=== PATIENT | male | born 1970 | race Caucasian/White ===

== ENCOUNTER 2020-04-17 10:45 | Outpatient (RCR) | payer OTHER, SELFPAY ==
--- NOTE | 2020-04-02 15:22 | P.HPPSP_ITS ---
HPI Chief Complaint: depression Sources of Information: patient interviewed and chart reviewed HPI Narrative: 49 yo male, referred from [facility] after a difficult detox from alcohol, cocaine, heroin, fentanyl. Pt reports an increase in sx of depression, anxiety. All of these have been a problem he reports for most of his life. States he has been unable to break the cycle. Longest period of sobriety was eight years, this ended in 2017 and he has only been able to put together a few months at a time. Reports sleep latency sx with racing thoughts, MEGHA, LAURA, appetite returning after a rough detox, denies hx of zan, affirms obsessive compulsive sx. Reports a hx of Lexapro use for the past 15 years, asks that we assess regime for changes. Past Psychiatric History: IP: One admit to [facility], dual dx unit. OP: Dr. Lockwood who prescribes Suboxone x 12 years provides psychopharmacology. She treated pt's Hepatitis C. PCP also provides psychopharmacology. No current therapist. Trials: Prozac, Wellbutrin. Note: Pt fears SE. Medical Evaluation Reviewed: No (NA) [facility] Medical History (Updated 04/02/20 @ 15:39 by Radha Temple, SUPPORT ASSOCIATE) Hepatitis C Family History: depression, alcoholism, substance abuse, one cousin suicided Social History: Works for an [employer], lives with parents. One brother- estranged; has one son-last seen ~1.5 years ago as their is a legal montero with son's mother. Ex-gf has active restraining order-currently on probation, court date 04/13/20. One previous arrest in 2005. Substance History: Nicotine- 1PPD, Heroin/Fentanyl 2-3 bundles daily for ~4-5 weeks; Crack-recent binge for 4-5 weeks, Alcohol- 25 nips daily for the past ~ 6 weeks. Cannabis on occasion. Several detox admissions. Hx of IOP with [facility] Reports eight years of sobriety, [id number], with relapses since. Suboxone x [address] Suggs (who has treated pt for 20 years and managed his Hepatitis C) Trauma History: Pt denies trauma hx Diagnostics Labs Labs: Pt had several labs on 04/[address] Suggs. Meds/Allergies Meds Home Medications Medication Instructions Recorded Confirmed Type Lexapro 20 mg PO DAILY 04/02/20 04/02/20 History acamprosate 333 mg PO TID 04/02/20 04/02/20 History buprenorphine-naloxone 1 strip SUBLINGUAL DAILY 04/02/20 04/02/20 History topiramate 25 mg PO DAILY 04/02/20 04/02/20 History zolpidem 10 mg PO BEDTIME PRN 04/02/20 04/02/20 History Narrative: Pt given Propranolol 10 mg for tremors but has not been using it. Allergies Allergies Allergy/AdvReac Type Severity Reaction Status Date / Time latex [LATEX] Allergy Unknown RASH Unverified 02/13/20 15:26 latex Allergy Unknown Uncoded 01/10/20 00:00 Latex Gloves Allergy Unknown Uncoded 12/13/18 00:00 Mental Status Exam Mental Status Exam Patient Orientation: Person, Place, Time and Situation Level of Consciousness: Awake, Appropriate and Alert Patient Behavior: Talkative, Cooperative and Anxious Mood Description: Depressed and Anxious Affect Description: Flat Patient Cognition Impaired: No Ability to Follow Directions: Excellent Speech Pattern: Clear, Appropriate and Spontaneous Speech Memory Description: Intact Hallucinations: None Delusions: Not Present Thought Process: Intact Thought Content: positive for Intact Depressive Symptoms: Increased Anxiety, Insomnia, Difficulty Sleeping, Changes i n Appetite, Loss of Int. in Activity, Feelings of Worthlessness, Hopelessness, Isolating-Friends/Family, Feelings of Guilt, Unhappiness, Increased Fatigue, Low Self Esteem and Loss of Energy Judgement: Good Assessment & Plan Patient educated on: diagnosis, medication risk/benefits, substance abuse and therapeutic strategies Informed Consent: understands and further education needed Reason for continued partial hosp. stay Substantial Risk for: rapid decompensation Certification I certify that partial hospital treatment is medically necessary due to the symptoms and problems resulting from the patient's mental illness and the failure to treat the patient at the partial hospital level of care would likely result in the patient requiring inpatient psychiatric care which could not be prevented at a less intensive level of care.
[2020-04-03 12:34] VITALS: BMI 35.2
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
--- NOTE | 2020-04-07 08:39 | PC.NURSE ---
I called and spoke to pt about schedule and aftercare. He said he is doing a little better every day and praised the program. He pland to discharge 04/17 (monday), after using 10 days. He will not be scheduled Monday04/13/[address], and is not scheduled today. He declined a referral to [facility] for aftercare, stating he'd rather continue working with his PCP and has a friend who is a therapist helping him find a therapist to see. I let him know if this changes to let me know and I will refer to [facility]. Also, he is interested in a substance use IOP following this program, but NOT [facility], as he found it not helpful. I told him I will call and see if [facility] is running. Also, I offered to help pt find a executive business coach, and he declined, stating he's rather use an AA sponsor. He said he has been attending AA regfularly and plans to increase his attendance after IOP treatment here.
--- NOTE | 2020-04-07 10:20 | PC.NURSE ---
I called and left a message at [facility] asking for a call back to refer pt to [facility] Substance use IOP if they are running. I was not able to reach a live person
--- NOTE | 2020-04-07 11:14 | HO.PHPPROGNO ---
Subjective Subjective Date of Service: 04/07/20 Reason For Visit: depression Interim History: Darrel reports tolerating Abilify 2 mg. The first night he felt knocked out and slept well. Sleep pattern has returned to 3-5 hour range per night. Denies SE, however reports a bit of nausea, dry mouth. Has prn Zofran. Discussed hydration with Abilify as well. Reports the program is engaging, he appreciates the added services-meds, nursing and will transition to [facility] at some point. Plans to return to Dr. Aguila for psychopharmacology upon discharge. Medication Compliance: Yes Side effects from medications: Yes (dry mouth, mild nauses) Attending Groups: Yes Review of Systems Review of Systems Yes all other systems are reviewed and are negative Gastrointestinal: Reports nausea (mild) and Reports other (dry mouth) Psychiatric: Reports no additional psychiatric complaints Mental Status Exam Mental Status Exam Patient Orientation: Person, Place, Time and Situation Level of Consciousness: Awake, Appropriate and Alert Patient Behavior: Appropriate Mood Description: Calm Affect Description: Calm Patient Cognition Impaired: No Ability to Follow Directions: Excellent Speech Pattern: Clear, Appropriate and Spontaneous Speech Memory Description: Intact Hallucinations: None Delusions: Not Present Thought Process: Intact Thought Content: positive for Intact Depressive Symptoms: Insomnia and Difficulty Sleeping Judgement: Good Diagnostics Vital Signs (24Hr): Body Mass Index 35.2 Assessment & Plan Patient educated on: medication risk/benefits (SE, rationale for use), substance abuse (sleep disturbance in early recovery) and therapeutic strategies (titrate abilify) Informed Consent: understands and further education needed Reason for contiued partial hosp. stay Substantial Risk for: rapid decompensation Certification I certify that partial hospital treatment is medically necessary due to the symptoms and problems resulting from the patient's mental illness and the failure to treat the patient at the partial hospital level of care would likely result in the patient requiring inpatient psychiatric care which could not be prevented at a less intensive level of care. Greater than 50% of the session was spent on counseling and/or coordination of care Discharge Plan Discharge Attending provider: Josh Cook Additional Instructions: 04/07/20: Increase Abilify to 5 mg HS-to continue to augment Lexapro and assist in re-establishing sleep. Medications: New aripiprazole [Abilify] 5 mg tablet 5 mg PO BEDTIME Qty: 14 RF: 0 No Action topiramate 25 mg tablet 25 mg PO DAILY RF: 0 zolpidem 10 mg tablet 10 mg PO BEDTIME PRN (Reason: insomnia) RF: 0 acamprosate 333 mg tablet,delayed release (DR/EC) 333 mg PO TID RF: 0 buprenorphine-naloxone 8-2 mg film 1 strip sublingual DAILY RF: 0 Lexapro 20 mg 20 mg PO DAILY RF: 0 buprenorphine-naloxone [Suboxone] 4-1 mg Film 1 film SUBLINGUAL DAILY@1700 RF: 0 ondansetron 8 mg Tablet,Disintegrating 8 mg PO Q12H PRN (Reason: Nausea) RF: 0
--- NOTE | 2020-04-07 14:41 | PC.NURSE ---
I called to inquire about [facility] and spoke to [facility]. They are doing one group per day in [place] of their regular program. It's from 2-3pm daily and pt would have a 20 dollar copay each day attended. I called pt and informed him. he said he would like to do a program with longer days that is not so expensive, but will do this if nothing else is available.
--- NOTE | 2020-04-07 14:43 | PC.NURSE ---
At pt's request, I called [facility] to refer pt to IOP there. They are on Zoom and running full days (1:30 to 4:30 Mon-, and 11-2 on fridays). I called pt and he said he would like to do this. I called back and scheduled an intake for him on Monday04/20/2020, at 11am. They will call patient. I called and let him know this and he agreed.
--- NOTE | 2020-04-15 14:35 | P.PNPSP_ITS ---
Subjective Subjective Date of Service: 04/15/20 Reason For Visit: depression Interim History: Darrel reports mood is improved with Abilify. 2 mg is effective, however, 5 mg makes him feel antsy . Denies akathesia sx, yet reports less ability to focus. Overall, he wants to continue as it has been very effective for mood and to alleviate depression Medication Compliance: Yes Side effects from medications: Yes Attending Groups: Yes Review of Systems Review of Systems Yes all other systems are reviewed and are negative Psychiatric: Reports anxiety Mental Status Exam Mental Status Exam Patient Orientation: Person, Place, Time and Situation Level of Consciousness: Awake, Appropriate and Alert Patient Behavior: Appropriate Mood Description: Appropriate and Anxious Affect Description: Constricted Patient Cognition Impaired: No Ability to Follow Directions: Excellent Speech Pattern: Clear, Appropriate and Spontaneous Speech Memory Description: Intact Hallucinations: None Delusions: Not Present Thought Process: Intact Thought Content: positive for Intact Depressive Symptoms: Increased Anxiety Judgement: Good Diagnostics Vital Signs (24Hr): Body Mass Index 35.2 Assessment & Plan Patient educated on: medication risk/benefits Informed Consent: understands Reason for contiued partial hosp. stay Substantial Risk for: inability to function Certification I certify that partial hospital treatment is medically necessary due to the symptoms and problems resulting from the patient's mental illness and the failure to treat the patient at the partial hospital level of care would likely result in the patient requiring inpatient psychiatric care which could not be prevented at a less intensive level of care. Greater than 50% of the session was spent on counseling and/or coordination of care Discharge Plan Discharge Attending provider: Josh Cook Additional Instructions: 04/07/20: Increase Abilify to 5 mg HS-to continue to augment Lexapro and assist in re-establishing sleep. *Intake scheduled for [facility] on 04/20/2020, at 11am. Pt will recieve a phone call from them. (The program is on Zoom, 1:30 to 4:30 M-, and 11:30 to 2 Fridays). 04/15/20: Decrease Abilify to 2.5 mg daily from 5 mg to address feelings of lack of focus and feeling antsy . Medications: No Action zolpidem 10 mg tablet 10 mg PO BEDTIME PRN (Reason: insomnia) 30 Days Qty: 30 RF: 0 topiramate 25 mg tablet 25 mg PO DAILY RF: 0 acamprosate 333 mg tablet,delayed release (DR/EC) 333 mg PO TID RF: 0 buprenorphine-naloxone 8-2 mg film 1 strip sublingual DAILY RF: 0 Lexapro 20 mg 20 mg PO DAILY RF: 0 buprenorphine-naloxone [Suboxone] 4-1 mg Film 1 film SUBLINGUAL DAILY@1700 RF: 0 ondansetron 8 mg Tablet,Disintegrating 8 mg PO Q12H PRN (Reason: Nausea) RF: 0
--- NOTE | 2020-04-17 12:10 | HO.PHPPROGNO ---
Subjective Subjective Date of Service: 04/17/20 Reason For Visit: depression Interim History: Pt reports ongoing restlessness with Abilify 2.5 mg but with excellent mood improvement. Discussed options. Will trial Rexulti and Benztropine combination. Will follow up with PCP after discharge today for further changes. Medication Compliance: Yes Side effects from medications: Yes Attending Groups: Yes Review of Systems Review of Systems Yes all other systems are reviewed and are negative Reports other (?akathesia) Psychiatric: Reports other (?akathesia) Mental Status Exam Mental Status Exam Patient Orientation: Person, Place, Time and Situation Level of Consciousness: Awake and Appropriate Patient Behavior: Appropriate, Talkative and Cooperative Mood Description: Anxious and Apprehensive Affect Description: Constricted Patient Cognition Impaired: No Ability to Follow Directions: Excellent Speech Pattern: Clear and Appropriate Memory Description: Intact Hallucinations: None Delusions: Not Present Thought Process: Intact Thought Content: positive for Intact Judgement: Good Diagnostics Vital Signs (24Hr): Body Mass Index 35.2 Assessment & Plan Patient educated on: medication risk/benefits and therapeutic strategies Informed Consent: understands Reason for contiued partial hosp. stay Substantial Risk for: stable for discharge Certification I certify that partial hospital treatment is medically necessary due to the symptoms and problems resulting from the patient's mental illness and the failure to treat the patient at the partial hospital level of care would likely result in the patient requiring inpatient psychiatric care which could not be prevented at a less intensive level of care. Greater than 50% of the session was spent on counseling and/or coordination of care Discharge Plan Discharge Attending provider: Josh Cook Additional Instructions: 04/07/20: Increase Abilify to 5 mg HS-to continue to augment Lexapro and assist in re-establishing sleep. *Intake scheduled for [facility] on 04/20/2020, at 11am. Pt will recieve a phone call from them. (The program is on Zoom, 1:30 to 4:30 M-, and 11:30 to 2 Fridays). 04/15/20: Decrease Abilify to 2.5 mg daily from 5 mg to address feelings of lack of focus and feeling antsy . 04/17/20: Discontinue abilify Rexulti 0.5 mg daily Benztropine 1 mg hs Medications: New benztropine 1 mg tablet 1 mg PO DAILY Qty: 14 RF: 0 Rexulti 0.5 mg tablet 0.5 mg PO DAILY Qty: 14 RF: 0 No Action zolpidem 10 mg tablet 10 mg PO BEDTIME PRN (Reason: insomnia) 30 Days Qty: 30 RF: 0 topiramate 25 mg tablet 25 mg PO DAILY RF: 0 acamprosate 333 mg tablet,delayed release (DR/EC) 333 mg PO TID RF: 0 buprenorphine-naloxone 8-2 mg film 1 strip sublingual DAILY RF: 0 Lexapro 20 mg 20 mg PO DAILY RF: 0 buprenorphine-naloxone [Suboxone] 4-1 mg Film 1 film SUBLINGUAL DAILY@1700 RF: 0 ondansetron 8 mg Tablet,Disintegrating 8 mg PO Q12H PRN (Reason: Nausea) RF: 0
== END 2020-04-20 14:27 | disposition home or self-care (01) ==
LOC: HO.PHPA 10:45
PROVIDERS: Visit Provider Psychiatry & Neurology Psychiatry
DX: F33.9 Major depressive disorder, recurrent, unspecified (principal); F41.9 Anxiety disorder, unspecified; F11.20 Opioid dependence, uncomplicated
CPT/HCPCS: 90792; 90853; 99213

== ENCOUNTER → 2020-04-29 08:45 | Outpatient (BNVA) | payer OTHER, SELFPAY | PROVIDERS: PCP Internal Medicine; Referring Provider Internal Medicine; Visit Provider Physician Assistant | DX: Z76.89 Persons encountering health services in other specified circumstances (principal) ==

== ENCOUNTER → 2020-09-30 09:06 | Outpatient (BNVA) | payer OTHER, SELFPAY | PROVIDERS: PCP Internal Medicine; Visit Provider Physician Assistant ==

== ENCOUNTER 2020-11-04 11:28 | Day surgery (SDC) | payer OTHER, SELFPAY ==
--- NOTE | 2020-11-03 10:57 | P.CONAN_ITS ---
Documented by User: Tonya Moeney 11/03/20 10:57 HPI - Anesthesia Eval Consult details Narrative: 50yo M for Colonoscopy Suboxone daily PMFSH Active Problems Active Problems: All Active Problems (Updated 09/30/20 @ 09:24 by Therese Banuelos PA-C) Encounter for screening colonoscopy (Acute) History of substance abuse (Acute) Chronic constipation (Acute) Vitamin D deficiency (Acute) Impaired fasting glucose (Acute) Pure hypercholesterolemia (Acute) Obesity (BMI 30-39.9) (Acute) Smoker (Acute) Insomnia (Acute) Depression (Acute) Anxiety (Acute) Past Medical History Medical History (Updated 09/30/20 @ 09:24 by Therese Banuelos PA-C) Anxiety Chronic constipation Depression Hepatitis C History of intravenous drug abuse Impaired fasting glucose Insomnia Obesity (BMI 30-39.9) Pure hypercholesterolemia Smoker Vitamin D deficiency Family History Family History Father In good health Mother In good health Brother In good health Surgical History Surgical History History of left hip replacement History of surgery on arm Social History Social History (Updated 09/30/20 @ 09:23 by Therese Banuelos PA-C) Household Members: Family Alcohol intake: former Patient Tobacco Use Status: Current everyday Tobacco user Tobacco use type: Cigarette Cigarette Packs Per Day: 1 Cigarettes Per Day: 20.0 Years Smoked: 15 Use of substances other than those prescribed or required for medical reasons: No Are you DNR?: No Advance Directives: No Advance Directives Information Provided: Yes Recently lost weight without trying: No Current occupational status: employed 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 Meds Allergies Allergy/AdvReac Type Severity Reaction Status Date / Time crab Allergy Severe Anaphylaxis Verified 09/30/20 09:07 squid Allergy Severe Anaphylaxis Verified 09/30/20 09:07 latex [LATEX] Allergy Intermediate RASH Verified 09/30/20 09:07 Home Medications Medication Instructions Recorded Confirmed Last Taken Type acamprosate 333 mg PO TID 04/02/20 10/30/20 04/03/20 05:30 History buprenorphine-naloxone 1 strip SUBLINGUAL DAILY 04/02/20 10/30/20 04/03/20 05:30 History buprenorphine-naloxone [Suboxone] 1 film SUBLINGUAL DAILY@1700 04/03/20 09/30/20 04/02/20 History sennosides 8.6 mg tablet 8.6 mg PO DAILY 06/10/20 10/30/20 Unknown History Exam Exam Date and Time: November 03, 2020 1057 Assessment and Plan Assessment Anesthesia Assessment: Chart Reviewed Documented by User: Mia Shea 11/04/20 13:19 [facility] Past Medical History Medical History (Updated 09/30/20 @ 09:24 by Therese Banuelos PA-C) Anxiety Chronic constipation Depression Hepatitis C History of intravenous drug abuse Impaired fasting glucose Insomnia Obesity (BMI 30-39.9) Pure hypercholesterolemia Smoker Vitamin D deficiency Family History Family History Father In good health Mother In good health Brother In good health Surgical History Surgical History History of left hip replacement History of surgery on arm Social History Social History (Updated 09/30/20 @ 09:23 by Therese Banuelos PA-C) Household Members: Family Alcohol intake: former Patient Tobacco Use Status: Current everyday Tobacco user Tobacco use type: Cigarette Cigarette Packs Per Day: 1 Cigarettes Per Day: 20.0 Years Smoked: 15 Use of substances other than those prescribed or required for medical reasons: No Are you DNR?: No Advance Directives: No Advance Directives Information Provided: Yes Recently lost weight without trying: No Current occupational status: employed 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 Allergies Allergy/AdvReac Type Severity Reaction Status Date / Time crab Allergy Severe Anaphylaxis Verified 09/30/20 09:07 squid Allergy Severe Anaphylaxis Verified 09/30/20 09:07 latex [LATEX] Allergy Intermediate RASH Verified 09/30/20 09:07 Home Medications Medication Instructions Recorded Confirmed Last Taken Type acamprosate 333 mg PO TID 04/02/20 10/30/20 04/03/20 05:30 History buprenorphine-naloxone 1 strip SUBLINGUAL DAILY 04/02/20 10/30/20 04/03/20 05:30 History buprenorphine-naloxone [Suboxone] 1 film SUBLINGUAL DAILY@1700 04/03/20 09/30/20 04/02/20 History sennosides 8.6 mg tablet 8.6 mg PO DAILY 06/10/20 10/30/20 Unknown History Exam Airway Mallampati Class: II (Caps lateral) TM Dist: >3cm Neck ROM: Full Heart: RRr Lungs: CTA Assessment and Plan Assessment Anesthesia Assessment: Anesthesia Plan Discussed and Chart Reviewed Final Anesthetic Review NPO: Yes (Sip with meds) ASA Class: III Final Preanesthetic Review: No Changes in Pt Med Stat and Consent Obtained/Reviewed Patient Risk: Intermediate Procedure Risk: Intermediate Anesthetic Plan Anesthetic Plan: MAC: Disposition: Standard PACU
[2020-11-04 12:02] VITALS: BP 124/79; PULSE 79; RESP 18; TEMP 36.5; O2SAT 96; BMI 37.2
--- NOTE | 2020-11-04 12:05 | PC.NURSE ---
patient drank 80z water between 0930 and 1130. anesthesia aware. to postpone case to 1330
--- NOTE | 2020-11-04 13:05 | MHC.SHP ---
Pre-Procedural Eval Section B Chief Complaint: Screening Relevant Family History (Specify if Yes): No Relevant Social History: Tobacco Use Present Medications: see Short Stay Collaborative assessment Medical History: Significant History (Anxiety Chronic constipation Depression Hepatitis C History of intravenous drug abuse Impaired fasting glucose Insomnia Obesity (BMI 30-39.9) Pure hypercholesterolemia Smoker Vitamin D deficiency) History of Previous Operations: Relevant previous surgery/procedure and date(s) (History of left hip replacement History of surgery on arm) Allergies: Allergies Allergy/AdvReac Type Severity Reaction Status Date / Time crab Allergy Severe Anaphylaxis Verified 09/30/20 09:07 squid Allergy Severe Anaphylaxis Verified 09/30/20 09:07 latex [LATEX] Allergy Intermediate RASH Verified 09/30/20 09:07 Review of Systems Sugical H&P ROS: Negative: Constitution, Cardiovascular, Respiratory, Neurological, Psychiatric, Hem-Onc, Allergic/Immunologic, Gastrointestinal, Genitourinary, Musculoskeletal, Integumentary, Endocrine and Eyes/Ears/Nose/Throat Exam Surgical H&P Exam: Normal: HEENT, Normal: Heart, Normal: Lungs, Normal: Extremities, Normal: Abdomen, Normal: Skin and Normal: Neurological Plan Diagnosis/Plan: Unchanged I have reviewed the history and physical and performed a pertinent physical examination on my patient. No changes have occurred unless specified.
--- NOTE | 2020-11-04 13:31 | PM.OP ---
Brief Operative Note Date of Service: 11/04/20 Pre-op diagnosis: colon screen Surgeon: Iesha Stout MD Was an Swimming Pool Serviceperson used for this Procedure?: No Estimated blood loss (mL): 0
--- NOTE | 2020-11-04 13:31 | W.PM.OPN ---
Operative Note Operative Note Date of Service: 11/04/20 Narrative: Operative Information Procedure Description: Colonoscopy COLONOSCOPY Instrument: Olympus variable stiffness pediatric scope 190L then swapped to adult scope due to looping Colonoscopy Monitoring: Vital signs and clinical assessment, continuous EKG monitoring, Pulse oximetry, Carbon Dioxide monitoring and blood pressure monitoring were done throughout the procedure. Colon withdrawal time was 10 minutes. Procedure: The patient was placed in the left lateral decubitis position and pre-procedure medications were administered. After a digital rectal examination of the ano-rectum, the video colonoscope was inserted into the rectum and advanced through the colon to the cecum/TI. The colonoscope was slowly withdrawn in a retrograde panoramic fashion and the colon mucosa was carefully examined including a retroflexed view of the rectum. Findings and interventions are described below. Procedure Difficulty:moderate due to looping, pressure applied by Eleanor the tech Findings: Terminal Ileum-not intubated due to looping Cecum: x 2 sessile polyps measuring 6-8 mm removed with forceps Ascending Colon: normal Transverse Colon -normal Descending Colon:8-10 mm sessile polyp removed with cold snare Sigmoid Colon: normal Rectum: Retroflexion with small internal hemorrhoids, grade I Anorectum - normal Colon preparation: [place] Bowel Preparation Scale Right colon; 1 Transverse colon: 2 Left colon; 1 (0 = Unprepared colon segment with mucosa not seen due to solid stool that cannot be cleared. 1 = Portion of mucosa of the colon segment seen, but other areas of the colon segment not well seen due to staining, residual stool and/or opaque liquid. 2 = Minor amount of residual staining, small fragments of stool and/or opaque liquid, but mucosa of colon segment seen well. 3 = Entire mucosa of colon segment seen well with no residual staining, small fragments of stool or opaque liquid) Impression and Post Procedure Diagnosis: polyps internal hemorrhoids Plan: High fiber diet leaflet Avoid straining at stool, epsom salts and sitz bath, anusol supps or cream Repeat Colonoscopy in 1 year with adherence to prep instructions next time Above findings were reviewed with the patient and relevant handouts were provided if indicated.
[2020-11-04 14:08] VITALS: BP 102/57; PULSE 88; RESP 16; TEMP 36.7; O2SAT 93
[2020-11-04 14:23] VITALS: BP 115/66; PULSE 72; RESP 17; TEMP 36.7; O2SAT 99
== END 2020-11-04 14:55 | disposition home or self-care (01) ==
PROVIDERS: PCP Internal Medicine; Visit Provider Internal Medicine Gastroenterology
PROC: 0DJD8ZZ Inspection of Lower Intestinal Tract, Via Natural or Artificial Opening Endoscopic (ICD-10-PCS; CPT 45378; principal; 2020-11-04 12:40)
DX: Z12.11 Encounter for screening for malignant neoplasm of colon (principal); D12.0 Benign neoplasm of cecum; D12.4 Benign neoplasm of descending colon; K64.0 First degree hemorrhoids; K56.2 Volvulus; K59.09 Other constipation; Z91.040 Latex allergy status
CPT/HCPCS: 45380; 45385; 88305; J2250

== ENCOUNTER → 2020-11-24 08:08 | Outpatient (BNVA) | payer OTHER, SELFPAY | PROVIDERS: PCP Internal Medicine; Visit Provider Physician Assistant ==

== ENCOUNTER 2021-08-03 14:18 | Outpatient (REF) | payer OTHER, SELFPAY ==
[2021-08-03 15:36] LABS: Estimated Average Glucose 108 mg/dL; Hemoglobin A1c % 5.4 %
[2021-08-03 15:56] LABS: Alanine Aminotransferase 61 U/L (0-40); Albumin Level 4.2 g/dL (3.5-5.0); Alkaline Phosphatase 67 U/L (39-117); Aspartate Amino Transferase 43 U/L (5-37); Bilirubin Direct < 0.2 mg/dL (0.0-0.5); Bilirubin Total 0.4 mg/dL (0.0-1.0); Total Protein 7.7 g/dL (6.5-8.0)
[2021-08-03 16:15] LABS: TSH reflex Free T4 1.73 uIU/mL (0.32-4.0); Vitamin D 25-OH Total 12.9 ng/mL (>30)
[2021-08-03 16:22] LABS: Appearance Urine CLEAR; Color Urine YELLOW; Glucose Urine UA NEG (NEG); Leukocyte Esterase Urine NEG (NEG); Nitrite Urine NEG (NEG); Specific Gravity - Urine >= 1.030 (1.005-1.025); Urine Blood NEG (NEG); Urine Ketones 5 MG/DL (NEG); Urine Protein NEG (NEG-TRACE)
[2021-08-03 16:33] LABS: Amphetamine Screen Urine Not Detected (Not Detect); Barbiturates, Urine Not Detected (Not Detect); Benzodiazepines Screen Urine POSITIVE (Not Detect); Cannabinoid Screen Urine POSITIVE (Not Detect); Cocaine Screen Urine Not Detected (Not Detect); Fentanyl, urine Not Detected (Not Detect); Opiate Screen Urine Not Detected (Not Detect); Phencyclidine Screen Urine Not Detected (Not Detect)
[2021-08-03 16:36] LABS: Prostate Specific Antigen 0.16 ng/mL (<0.05-4.0)
== END 2021-08-03 14:19 | disposition home or self-care (01) ==
LOC: HO.LAB 14:18
PROVIDERS: Absent Provider Nurse Practitioner Psychiatric/Mental Health; PCP Internal Medicine; Visit Provider Internal Medicine
DX: Z00.00 Encounter for general adult medical examination without abnormal findings (principal); Z12.5 Encounter for screening for malignant neoplasm of prostate; N40.0 Benign prostatic hyperplasia without lower urinary tract symptoms; E78.00 Pure hypercholesterolemia, unspecified; I10 Essential (primary) hypertension; R73.01 Impaired fasting glucose; E55.9 Vitamin D deficiency, unspecified; F33.2 Major depressive disorder, recurrent severe without psychotic features; F31.4 Bipolar disorder, current episode depressed, severe, without psychotic features; F10.20 Alcohol dependence, uncomplicated
CPT/HCPCS: 36415; 80076; 80307; 81003; 82306; 83036; 84153; 84443

== ENCOUNTER 2021-08-11 11:15 | Outpatient (RCR) | payer OTHER, SELFPAY ==
[2021-07-29 12:02] VITALS: BMI 37.8
--- NOTE | 2021-07-29 12:33 | PC.ADMIT ---
Patient is a 50 year old male who was referred to [facility] by [facility] where patient received treatment for ETOH withdrawal and was discharged from detox on 07/14/21. Patient reports he relapsed on ETOH for 3 weeks from 06/21/21-07/09/21 after being sober for the past 3-4 months. Patient reports he relapsed d/t severe depression, feeling alone and isolated. Patient questions having Bipolar d/o. Patient does have a history of sobriety from ETOH for 8 years until 4 year ago. Patient also has a long history of substance use including using Heroin/Fentanyl and crack cocaine-last use in 2019. Patient also stated he has issues on and off with xanax, last used for 4 months 9 months ago. Patient stated he has a history of overdosing on Heroin/Fentanyl and Narcaned as a result x2 4 years ago and 4 and 1/2 years ago. He is currently on probation until August 12 for A & B and has ongoing litigation with his son's mother. Patient has not seen his son in 2 years. Patient struggling with feelings of guilt and shame. He has a history of numerous detox admissions. Patient is alert and oriented x4. calm and cooperative. Presents with depressed mood anxious affect. Denied SI. Reports he is struggling with severe depression. Medications reconciled with patient and patient's phamracy and paperwork from [facility]. Patient stated he takes Clonidine 0.2 mg at HS, Rexulti 1 mg daily, is not taking Methocarbamol and Mirtazapine stating they don't work. Does not like talking Ambien last used one month ago. 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
--- NOTE | 2021-07-29 13:25 | HO.PS.ADMBH ---
[facility] Date of Service: 07/29/21 Chief Complaint: MDD Sources of Information: patient interviewed, chart reviewed and crisis/core team assessment reviewed HPI Guardianship: No Medical Problems Affecting Mental Status: No Narrative: Mr. hamm is a 50-year-old single male, referred to [facility] through [facility], where he recently was discharged on 07/14/2021. He reports he has been experiencing increased symptoms of depression over the past 3-4 months, which was a precipitant to his relapse with alcohol. Endorses feeling isolated, withdrawn, poor sleep, guilt, anhedonia. Has been attending AA meetings 3-4 times weekly. He denies any thought of harm to self or others at this time. He explains that he has had difficulty maintaining any type of sobriety over the past several years, and that at 1 point he was able to stay sober for 8 years. He had reported that he has used Xanax off and on for the past 5 years, abusing it. He reports he has not used any substances or had any alcohol since 07/09/2021. He desribes a precipitant in that he is having difficulty with the mother of his child regarding visitation, and that he has not seen his son for 4 years, which is adding to his depressed mood. He has new psychiatric provider that he met once this past week, Vargas. He started ox carbamazepine 300 mg at bedtime 6 days ago. He says that the discussion of possible bipolar disorder has come up with both his therapist and his psychiatric provider. He does report that at times he has had symptoms of hypomania for a week at a time. He describes those periods of time as feeling the need for little sleep, with increased goal-directed activities, and finds himself highly functioning. He reports that he actually likes feeling like that, and that makes him feel as if he is ?high?. He understands however that after 6 to [address], he then experiences a severe low, where he sinks into a depression. He denies SI at this time, states he has no intention to harm himself in any way at this time. Patient was raised by both parents, along with 1 older brother. Describes relationship with parents as good, supportive. States he is estranged from his brother. Met developmental milestones as expected, graduated high school. Completed 3 years of college. Currently employed full-time. Past Psychiatric History: IP: One admit to [facility], dual dx unit. JALEESA: Recent admit to [facility] in [facility]. OP: Dr. Lockwood who prescribes Suboxone x 12 years. She treated pt's Hepatitis C. PCP: Michael Aguila MD Psychiatric provider: Vargas ([facility], saw 07/23/21 for 1st time). Therapist: Zhen Brooks, PhD Medication Trials: Prozac, Wellbutrin, Topamax, Campral, Abilify, clonidine, trazodone, Depakote, Seroquel, Cogentin. Note: Pt fears SE. Medical Evaluation Reviewed: Yes [facility] Medical History Anxiety Chronic constipation Depression Hepatitis C History of intravenous drug abuse Impaired fasting glucose Insomnia Obesity (BMI 30-39.9) Pure hypercholesterolemia Smoker Vitamin D deficiency Surgical History History of left hip replacement History of surgery on arm Family History: depression, alcoholism, substance abuse, one cousin suicided Social History: Works for an [employer], lives alone. One brother-estranged; has one son-last seen ~4 years ago as their is a legal montero with son's mother. Hx of restraining order in 2019 from ex-gf. One previous arrest in 2005. Substance History: Longstanding history of substance use disorder, with multiple detox and rehab facilities, states 30-40 times. Substances include alcohol, benzodiazepines, nicotine, marijuana, heroin/fentanyl, LSD, mushrooms, crack cocaine. Recently drinking 20 chest 30 nips hard liquor daily over past 3 to 4 months, discharge from detox on 07/14/2021. Trauma History: Pt denies trauma hx Diagnostics Vital Signs (24Hr): BMI result Body Mass Index 37.8 Meds/Allergies Allergies Allergies Allergy/AdvReac Type Severity Reaction Status Date / Time crab Allergy Severe Anaphylaxis Verified 03/03/21 11:02 squid Allergy Severe Anaphylaxis Verified 03/03/21 11:02 latex [LATEX] Allergy Intermediate RASH Verified 03/03/21 11:02 Mental Status Exam Mental Status Exam Narrative: Well-developed, overweight male, in NAD. Patient Appearance: Well Grooomed and Appropriate Patient Orientation: Person, Place, Time and Situation Level of Consciousness: Awake, Appropriate and Alert Patient Behavior: Appropriate, Talkative, Cooperative and Good Eye Contact Mood Description: Depressed Affect Description: Appropriate and Labile Patient Cognition Impaired: No Ability to Follow Directions: Good Speech Pattern: Clear, Coherent, Rapid and Pressured Memory Description: Intact Hallucinations: None Delusions: Not Present Thought Process: Intact Thought Content: positive for Intact Depressive Symptoms: Increased Anxiety, Insomnia, Increased Irritability, Difficulty Sleeping, Loss of Int. in Activity, Feelings of Worthlessness, Hopelessness, Feelings of Guilt, Unhappiness and Low Self Esteem Judgement: Fair Telehealth Telehealth Location of provider rendering services: practice address Location of patient: address on file Patient Identification confirmed using: Name, : Yes Telehealth method: video Patient verbally consented to treatment: Yes Patient verbally consented to billing insurance company: Yes Patient informed of any privacy concerns related to visit: Yes Time spent with patient (mins): 45 Assessment & Plan Assessment & Plan (1) Major depressive disorder, recurrent severe without psychotic features: Status: Acute Code(s): F33.2 - Major depressive disorder, recurrent severe without psychotic features Assessment and Plan: Patient reports feeling symptoms of depression, including difficulty sleeping, decreased energy, poor concentration, anhedonia, guilt, low self-esteem. He reports he has been struggling off and on with depression for years. Says current episode began 3-4 months ago, which he reports helped lead to his relapse with alcohol. He currently is receiving medications including Lexapro 20 mg, Rexulti 1 mg daily. He reports he finds these helpful, but is wondering if he may need a medication change or adjustment. He denies any thought of harm to self or others, no safety concern at this time. (2) Opioid dependence, uncomplicated: Status: Acute Code(s): F11.20 - Opioid dependence, uncomplicated Assessment and Plan: Patient reports he has a longstanding history of opioid use disorder, and is able to maintain abstinence with Suboxone 12 mg/3 mg daily. He does not see this as a concern at this time. (3) Alcohol use disorder, severe, dependence: Status: Acute Code(s): F10.20 - Alcohol dependence, uncomplicated Assessment and Plan: Patient has struggled off and on for many years with alcohol use disorder. He recently had relapsed several months and was discharge from detox several weeks ago. We discussed medications. Patient has taken acamprosate in the past. He cannot recall if it was particularly helpful or not, but he is willing to trial it again. He is concerned about his kidney function, as well as several other health issues. Discussed having labs completed prior to starting medication, he was in agreement. (4) Cocaine dependence, uncomplicated: Status: Acute Code(s): F14.20 - Cocaine dependence, uncomplicated Assessment and Plan: Patient reports he has maintained abstinence from cocaine for some time, since 2019. He reports he was prescribed Topamax at that time to help with cravings. He cannot recall whether or not it was helpful. He does not see cocaine use as a problem at this time, as he has not used in 2 years. (5) Bipolar disorder with severe depression: Status: Diagnosis (Provisional ) Status: Acute Code(s): F31.4 - Bipolar disorder, current episode depressed, severe, without psychotic features Assessment and Plan: Patient reports that his therapist and outpatient psychiatric provider have discussed possibility that he may have bipolar disorder rather than major depressive disorder. He does describe periods in his life where he has symptoms of hypomania, including distractibility, grandiosity, little need for sleep, excessive talkative miss, increased energy, feeling super productive. During encounter today he presents with pressured speech, rapid at times. He reports he was recently within the past week started with Trileptal 300 mg at bedtime. Education was provided regarding medication, including risks, benefits, side effects, alternatives. Discussed possibility of increasing dose during next encounter. Plan 1. Continue with current medication regimen as prescribed by outpatient provider. 2. Lab work ordered, including general Chem, A1c, lipid profile, liver profile, CABRAL. 3. Once lab work is reviewed patient is willing to take Campral, after checking kidney function. 4. Continue with current [facility] plan of care. 5. Follow-up as per protocol. Patient educated on: diagnosis, medication risk/benefits, substance abuse and therapeutic strategies Informed Consent: understands Reason for continued partial hosp. stay Substantial Risk for: inability to function, rapid decompensation and med/psych decompensation Certification I certify that partial hospital treatment is medically necessary due to the symptoms and problems resulting from the patient's mental illness and the failure to treat the patient at the partial hospital level of care would likely result in the patient requiring inpatient psychiatric care which could not be prevented at a less intensive level of care.
--- NOTE | 2021-07-29 15:29 | PC.NURSE ---
Case opened in clinical team
--- NOTE | 2021-08-04 10:56 | HO.PHPPROGNO ---
Subjective Subjective Date of Service: 08/04/21 Reason For Visit: MDD Guardianship: No Medical Problems Affecting Mental Status: No Interim History: Describes mood as good, but I'm still depressed, its up and down . No SI, no HI, no safety concern. Completed some of the labs, needs to return for the rest, as they are fasting. Considering medication changes. Medication Compliance: Yes Side effects from medications: No Attending Groups: Yes Review of Systems Acute medical concerns: No Medical Review of Systems: unchanged Review of Systems Review of Systems Yes all other systems are reviewed and are negative Constitutional: Reports no additional constitutional complaints Mental Status Exam Mental Status Exam Narrative: Well-developed, overweight male, in NAD. No evidence of any type of intoxication or withdrawals. Full range of affect, no constriction or lability observed. Speech clear, articulate, normal rate/rhythm/volume. Patient Appearance: Well Grooomed and Appropriate Patient Orientation: Person, Place, Time and Situation Level of Consciousness: Awake, Appropriate and Alert Patient Behavior: Appropriate, Cooperative and Good Eye Contact Mood Description: Appropriate and Depressed (continues with some depression, but improving. ) Affect Description: Appropriate Patient Cognition Impaired: No Ability to Follow Directions: Good Speech Pattern: Clear and Coherent Memory Description: Intact Hallucinations: None Delusions: Not Present Thought Process: Intact Thought Content: positive for Intact Depressive Symptoms: Increased Anxiety, Insomnia, Difficulty Sleeping, Loss of Int. in Activity, Feelings of Worthlessness, Hopelessness, Feelings of Guilt, Unhappiness and Low Self Esteem Judgement: Fair Diagnostics Vital Signs (24Hr): BMI result Body Mass Index 37.8 Assessment & Plan Assessment & Plan (1) Bipolar disorder with severe depression: Status: Acute Code(s): F31.4 - Bipolar disorder, current episode depressed, severe, without psychotic features Assessment and Plan: Patient reports he continues with some depressed mood, but states he feels it is beginning to improve. No SI/HI, no safety concern. Reports poor sleep, approximately 5 hours per night, with normal sleep of 8 hours per night. Discussed medications and doses including Trileptal and Rexulti. Reviewed side effects of each medication, as well as purpose of each medication. He sees new provider next week, has decided he will wait until then before increasing any doses. Patient did have labs completed, although is still missing some due to needing to fast. He will return to lab this week to complete the rest of them. Reviewed current lab results, including AST, ALT, etc.. (2) Alcohol use disorder, severe, dependence: Status: Acute Code(s): F10.20 - Alcohol dependence, uncomplicated Assessment and Plan: Patient reports he continues to abstain from alcohol and other substances. Requesting a can per se. Current kidney function test not yet completed, will start at low dose at this time, with possibilty to increase if labs wnl. (3) Cocaine dependence, uncomplicated: Status: Acute Code(s): F14.20 - Cocaine dependence, uncomplicated Assessment and Plan: No concerns at this time. Remains abstinent. (4) Opioid dependence, uncomplicated: Status: Acute Code(s): F11.20 - Opioid dependence, uncomplicated Assessment and Plan: Continues with outpatient Suboxone therapy, no concerns at this time. Remains abstinent. Plan 1. Patient to return to lab in order to complete fasting labs. 2. Start Campral 333 mg t.i.d. with meals. 3. Continue with current [facility] plan of care. 4. Follow-up as per protocol. Patient educated on: diagnosis, medication risk/benefits, substance abuse, therapeutic strategies, medical condition and other (lab results. ) Informed Consent: understands Reason for contiued partial hosp. stay Substantial Risk for: inability to function, rapid decompensation and med/psych decompensation Certification I certify that partial hospital treatment is medically necessary due to the symptoms and problems resulting from the patient's mental illness and the failure to treat the patient at the partial hospital level of care would likely result in the patient requiring inpatient psychiatric care which could not be prevented at a less intensive level of care. I spent minutes with the patient and/or on the patient floor today, greater than?50% of which was spent counseling/coordinating care. Discharge Plan Discharge Attending provider: Feng Schulz Medications: New acamprosate 333 mg tablet,delayed release (DR/EC) 333 mg PO TID 14 Days Qty: 42 0RF Rx Instructions: administer with breakfast, mid-day and evening meals No Action zolpidem 10 mg tablet 10 mg PO BEDTIME PRN (Reason: insomnia) 30 Days Qty: 30 0RF Label Comments: Patient stated he last took 1 month ago. clonidine HCl 0.2 mg tablet 0.2 mg PO BEDTIME 90 Days Qty: 90 0RF Label Comments: Medication is prescribed 0.1 mg TID patient takes 0.2 mg Q HS per old prescription. Hilaria [facility] DIRECTOR OF OPERATIONS FOR THERAPY is aware. Rexulti 2 mg tablet 1 mg PO DAILY 30 Days Qty: 15 1RF Label Comments: Patient stated prescriber orders 2 mg tab d/t insurance issues. He takes 1 mg Daily. buprenorphine-naloxone 8-2 mg film 1 strip sublingual DAILY 0RF buprenorphine-naloxone [Suboxone] 4-1 mg Film 1 film SUBLINGUAL DAILY@1700 0RF Rx Instructions: Take 4-1 mg in the evening daily oxcarbazepine 300 mg Tablet 300 mg PO BEDTIME 0RF ondansetron 4 mg Tablet,Disintegrating 4 mg PO Q8H PRN (Reason: Nausea) 0RF escitalopram oxalate 20 mg tablet 20 mg PO DAILY 90 Days Qty: 90 1RF Telehealth Telehealth Location of provider rendering services: practice address Location of patient: address on file Patient Identification confirmed using: Name, : Yes Telehealth method: video Patient verbally consented to treatment: Yes Patient verbally consented to billing insurance company: Yes Patient informed of any privacy concerns related to visit: Yes Time spent with patient (mins): 20
--- NOTE | 2021-08-06 11:44 | PC.NURSE ---
Patient's CABRAL positive for Marijuana and Benzodiazapines. Patient stated he last had marijuana a month ago and stated he has not taken any Benzodiazapines however he was given Librium in detox, last dose on July 14, 2021. Hilaria Khoury NP is aware.
--- NOTE | 2021-08-11 14:16 | P.PNPSP_ITS ---
Subjective Subjective Date of Service: 08/11/21 Reason For Visit: MDD Guardianship: No Medical Problems Affecting Mental Status: No Interim History: Darrel reports that ?my emotions are still up in down at times, but overall I am all right . States that he is excited to return to work, saying ?it's time . Reports that he has found PHP to be helpful. Medication Compliance: Yes Side effects from medications: No Attending Groups: Yes Review of Systems Acute medical concerns: No Medical Review of Systems: unchanged Review of Systems Review of Systems Yes all other systems are reviewed and are negative Constitutional: Reports no additional constitutional complaints Mental Status Exam Mental Status Exam Narrative: Well-developed, overweight male, in NAD. Fully attentive and focused during encounter. Full range of affect, no constriction or lability observed. Speech clear, articulate, normal rate/rhythm/volume. Patient Appearance: Well Grooomed and Appropriate Patient Orientation: Person, Place, Time and Situation Level of Consciousness: Awake, Appropriate and Alert Patient Behavior: Appropriate, Cooperative and Good Eye Contact Mood Description: Calm and Appropriate Affect Description: Calm and Appropriate Patient Cognition Impaired: No Ability to Follow Directions: Excellent Speech Pattern: Clear, Appropriate and Coherent Memory Description: Intact Hallucinations: None Delusions: Not Present Thought Process: Intact, Goal Oriented and Linear Thought Content: positive for Intact, positive for Goal Oriented and positive for Linear Depressive Symptoms: Increased Anxiety, Difficulty Sleeping, Feelings of Guilt and Unhappiness Judgement: Good Diagnostics Vital Signs (24Hr): BMI result Body Mass Index 37.8 Assessment & Plan Assessment & Plan (1) Bipolar disorder with severe depression: Status: Acute Code(s): F31.4 - Bipolar disorder, current episode depressed, severe, without psychotic features Assessment and Plan: Patient reports that he still has some mood fluctuations, but overall mood is stable. Denies any thought of harm to self or others, no safety concern. Discussed medications in detail. He has an appointment with his outpatient provider this coming Monday. He says that he feels overall improved with current medications, although he may consider asking his outpatient provider to increase Trileptal. He does not need any med refills at this time. He reports he has remained free from any substances, and continues to work on his substance use recovery. He reports that he plans to resume AA meetings in a more regular fashion now that he has completed this program. Reports he feels hopeful for the future, looking forward to resuming his work schedule. (2) Opioid dependence, uncomplicated: Status: Acute Code(s): F11.20 - Opioid dependence, uncomplicated (3) Alcohol use disorder, severe, dependence: Status: Acute Code(s): F10.20 - Alcohol dependence, uncomplicated (4) Cocaine dependence, uncomplicated: Status: Acute Code(s): F14.20 - Cocaine dependence, uncomplicated Plan 1. Patient appears stable for discharge from [facility]. 2. Patient to follow-up with outpatient providers going forward. Patient educated on: diagnosis, medication risk/benefits, substance abuse and therapeutic strategies Informed Consent: understands Reason for contiued partial hosp. stay Substantial Risk for: stable for discharge Certification I certify that partial hospital treatment is medically necessary due to the symptoms and problems resulting from the patient's mental illness and the failure to treat the patient at the partial hospital level of care would likely result in the patient requiring inpatient psychiatric care which could not be pr evented at a less intensive level of care. I spent minutes with the patient and/or on the patient floor today, greater than?50% of which was spent counseling/coordinating care. Discharge Plan Discharge Attending provider: Feng Schulz Medications: New acamprosate 333 mg tablet,delayed release (DR/EC) 333 mg PO TID 14 Days Qty: 42 0RF Rx Instructions: administer with breakfast, mid-day and evening meals No Action zolpidem 10 mg tablet 10 mg PO BEDTIME PRN (Reason: insomnia) 30 Days Qty: 30 0RF Label Comments: Patient stated he last took 1 month ago. clonidine HCl 0.2 mg tablet 0.2 mg PO BEDTIME 90 Days Qty: 90 0RF Label Comments: Medication is prescribed 0.1 mg TID patient takes 0.2 mg Q HS per old prescription. [facility] CONSULTANT is aware. Rexulti 2 mg tablet 1 mg PO DAILY 30 Days Qty: 15 1RF Label Comments: Patient stated prescriber orders 2 mg tab d/t insurance issues. He takes 1 mg Daily. buprenorphine-naloxone 8-2 mg film 1 strip sublingual DAILY 0RF buprenorphine-naloxone [Suboxone] 4-1 mg Film 1 film SUBLINGUAL DAILY@1700 0RF Rx Instructions: Take 4-1 mg in the evening daily oxcarbazepine 300 mg Tablet 300 mg PO BEDTIME 0RF ondansetron 4 mg Tablet,Disintegrating 4 mg PO Q8H PRN (Reason: Nausea) 0RF escitalopram oxalate 20 mg tablet 20 mg PO DAILY 90 Days Qty: 90 1RF Stand Alone Forms: Patient Portal Discharge page Telehealth Telehealth Location of provider rendering services: practice address Location of patient: address on file Patient Identification confirmed using: Name, : Yes Telehealth method: video Patient verbally consented to treatment: Yes Patient verbally consented to billing insurance company: Yes Patient informed of any privacy concerns related to visit: Yes Time spent with patient (mins): 20
--- NOTE | 2021-08-11 14:22 | PC.NURSE ---
Patient scheduled to discharge from [facility] today. Patient denied SI, denied any safety concerns. Reviewed patient medications with patient. Patient reports taking medications as prescribed.
--- NOTE | 2021-08-12 15:28 | PC.NURSE ---
I called and left a voice message for Zhen Holden PHD to inform him of the clients discharge from [facility]
== END 2021-08-11 23:59 | disposition home or self-care (01) ==
LOC: HO.PHPA 11:15
PROVIDERS: Visit Provider Psychiatry & Neurology Psychiatry
DX: F33.2 Major depressive disorder, recurrent severe without psychotic features (principal); F31.4 Bipolar disorder, current episode depressed, severe, without psychotic features; F11.20 Opioid dependence, uncomplicated; F10.20 Alcohol dependence, uncomplicated; F14.20 Cocaine dependence, uncomplicated
CPT/HCPCS: 90791; 90853

== ENCOUNTER 2022-03-30 07:53 | Day surgery (SDC) | payer OTHER, SELFPAY ==
[2022-03-25 13:58] VITALS: BMI 39.2
--- NOTE | 2022-03-29 11:54 | HO.ANESPROP2 ---
HPI - Anesthesia Eval Consult details Narrative: 51yo M for Colonoscopy Suboxone daily PMFSH Active Problems Active Problems: All Active Problems (Updated 11/24/21 @ 10:59 by Therese Banuelos PA-C) Bipolar disorder with severe depression (Acute) Cocaine dependence, uncomplicated (Acute) Alcohol use disorder, severe, dependence (Acute) Opioid dependence, uncomplicated (Acute) Major depressive disorder, recurrent severe without psychotic features (Acute) Hemorrhoids (Acute) Tubular adenoma (Acute) Cough (Acute) Sinusitis (Acute) Encounter for screening colonoscopy (Acute) History of substance abuse (Acute) Chronic constipation (Acute) Vitamin D deficiency (Acute) Impaired fasting glucose (Acute) Pure hypercholesterolemia (Acute) Obesity (BMI 30-39.9) (Acute) Smoker (Acute) Insomnia (Acute) Depression (Acute) Anxiety (Acute) Past Medical History Medical History Hepatitis C History of intravenous drug abuse Family History Family History Father In good health Mother In good health Brother In good health Other Substance abuse Surgical History Surgical History History of left hip replacement History of surgery on arm Social History Social History Household Members: None Housing: Condominium Alcohol intake: former Patient Tobacco Use Status: Current everyday Tobacco user Tobacco use type: Smokeless Tobacco Cigarettes Per Day: 2 Years Smoked: 15 e-Cigarette/Vaping Use: Never Used service: No Current occupational status: employed 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 Meds Allergies Allergy/AdvReac Type Severity Reaction Status Date / Time crab Allergy Severe Anaphylaxis Verified 11/24/21 10:32 squid Allergy Severe Anaphylaxis Verified 11/24/21 10:32 latex [LATEX] Allergy Intermediate RASH Verified 11/24/21 10:32 Home Medications Medication Instructions Recorded Confirmed Last Taken Type buprenorphine 8 mg-naloxone 2 mg 1 strip sublingual DAILY 04/02/20 07/29/21 07/29/21 04:30 History sublingual film buprenorphine 4 mg-naloxone 1 mg 1 film sublingual DAILY@1700 04/03/20 07/29/21 03/30/22 History sublingual film (Suboxone) Exam Exam Date and Time: March 29, 2022 1154 Height,Weight and Vital Signs: Height 5 ft 8 in Weight 117.027 kg Assessment and Plan Assessment Anesthesia Assessment: Chart Reviewed
[2022-03-30 08:15] VITALS: BP 139/95; PULSE 81; RESP 18; TEMP 36.6; O2SAT 97
[2022-03-30] MEDS: Lactated Ringers 1,000 ML 100 ML IVCONT (08:26)
[2022-03-30 08:45] LABS: Amphetamine Screen Urine Not Detected (Not Detect); Barbiturates, Urine Not Detected (Not Detect); Benzodiazepines Screen Urine Not Detected (Not Detect); Cannabinoid Screen Urine POSITIVE (Not Detect); Cocaine Screen Urine Not Detected (Not Detect); Fentanyl, urine Not Detected (Not Detect); Opiate Screen Urine Not Detected (Not Detect); Phencyclidine Screen Urine Not Detected (Not Detect)
--- NOTE | 2022-03-30 09:16 | P.HPSUR_ITS ---
Pre-Procedural Eval Section A Date of Service: 03/30/22 Section B Chief Complaint: hx of polyps, poor prep colo in 2020 Details of Present Illness: 51y.o M with recent colonoscopy in 2020 which was poor prep. BBPS 4. Was found to have x3 tubular adenomas. Here for a repeat col onoscopy. Relevant Social History: Other (specify) (smokes, hx of IVDU and etOH use ) Present Medications: see Short Stay Collaborative assessment Medical History: Significant History ( Hepatitis C History of intravenous drug abuse) History of Previous Operations: Relevant previous surgery/procedure and date(s) (Hip surgery, arm surgery ) Allergies: Allergies Allergy/AdvReac Type Severity Reaction Status Date / Time crab Allergy Severe Anaphylaxis Verified 11/24/21 10:32 squid Allergy Severe Anaphylaxis Verified 11/24/21 10:32 latex [LATEX] Allergy Intermediate RASH Verified 11/24/21 10:32 Review of Systems Review of Systems Comment: 10 point ROS negative Exam Exam Comment: Gen appear: No acute distress, well nourished HEENT: no icterus, Chest: No overt resp distress CVS: S1/S2, regular Abd: soft, nontender, nondistended Psych: Stable affect, answering questions appropriately Neuro: A/Ox3 noted to move all extremities spontaneously Ext: no peripheral edema Plan Diagnosis/Plan: Unchanged I have reviewed the history and physical and performed a pertinent physical examination on my patient. No changes have occurred unless specified.
--- NOTE | 2022-03-30 09:18 | P.CONAN_ITS ---
[facility] Active Problems Active Problems: All Active Problems (Updated 11/24/21 @ 10:59 by Therese Banuelos PA-C) Bipolar disorder with severe depression (Acute) Cocaine dependence, uncomplicated (Acute) Alcohol use disorder, severe, dependence (Acute) Opioid dependence, uncomplicated (Acute) Major depressive disorder, recurrent severe without psychotic features (Acute) Hemorrhoids (Acute) Tubular adenoma (Acute) Cough (Acute) Sinusitis (Acute) Encounter for screening colonoscopy (Acute) History of substance abuse (Acute) Chronic constipation (Acute) Vitamin D deficiency (Acute) Impaired fasting glucose (Acute) Pure hypercholesterolemia (Acute) Obesity (BMI 30-39.9) (Acute) Smoker (Acute) Insomnia (Acute) Depression (Acute) Anxiety (Acute) Past Medical History Medical History Hepatitis C History of intravenous drug abuse Family History Family History Father In good health Mother In good health Brother In good health Other Substance abuse Family history of problems with anesthesia: No Surgical History Surgical History History of left hip replacement History of surgery on arm History of Problems with Anesthesia: No Social History Social History Household Members: None Housing: Condominium Alcohol intake: former Patient Tobacco Use Status: Current everyday Tobacco user Tobacco use type: Smokeless Tobacco Cigarettes Per Day: 2 Years Smoked: 15 e-Cigarette/Vaping Use: Never Used Substance Use Type Other:: clean for 10 years Are you DNR?: No Advance Directives: No Advance Directives Information Provided: Yes Nutrition Risks: No Nutritional Risk service: No Current occupational status: employed 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 Meds Allergies Allergy/AdvReac Type Severity Reaction Status Date / Time crab Allergy Severe Anaphylaxis Verified 11/24/21 10:32 squid Allergy Severe Anaphylaxis Verified 11/24/21 10:32 latex [LATEX] Allergy Intermediate RASH Verified 11/24/21 10:32 Active Medications: Current Medications Albuterol Sulfate (Albuterol Sulfate (0.083%) 2.5 Mg/3 Ml Vial.Neb) 2.5 mg INHALE ONCE PRN PRN Reason: Shortness of Breath/Wheezing Lactated Ringer's (Lr) 1,000 mls @ 100 mls/hr IVCONT .Q10H UMM Last Admin: 03/30/22 08:26 Dose: 100 mls/hr Home Medications Medication Instructions Recorded Confirmed Last Taken Type buprenorphine 8 mg-naloxone 2 mg 1 strip sublingual DAILY 04/02/20 07/29/21 07/29/21 04:30 History sublingual film buprenorphine 4 mg-naloxone 1 mg 1 film sublingual DAILY@1700 04/03/20 07/29/21 03/30/22 History sublingual film (Suboxone) Exam Exam Date and Time: March 30, 2022 0918 Height,Weight and Vital Signs: Height 5 ft 8 in Weight 117.027 kg Last Vital Signs Temp 98 F 03/30/22 08:15 Pulse 81 03/30/22 08:15 Resp 18 03/30/22 08:15 BP 139/95 H 03/30/22 08:15 Pulse Ox 97 03/30/22 08:15 O2 Del Method 03/30/22 08:15 Pertinent Lab Results Pertinent Lab Results: Laboratory Tests 03/30/22 Unknown Urine Opiates Screen Not Detected Urine Fentanyl Screen Not Detected Ur Barbiturates Screen Not Detected Ur Phencyclidine Scrn Not Detected Ur Amphetamines Screen Not Detected U Benzodiazepines Scrn Not Detected Urine Cocaine Screen Not Detected U Marijuana (THC) Screen POSITIVE H Airway Mallampati Class: III TM Dist: >3cm Neck ROM: Full Assessment and Plan Assessment Anesthesia Assessment: Anesthesia Plan Discussed and Chart Reviewed Final Anesthetic Review Family History of Problems with Anesthesia: No History of Problems with Anesthesia: No NPO: Yes ASA Class: III Final Preanesthetic Review: No Changes in Pt Med Stat, Meds/Allgs Chart Reviewed, Consent Obtained/Reviewed and Anes Risks/Benef Reviewed Patient Risk: Intermediate Procedure Risk: Low Anesthetic Plan Anesthetic Plan: MAC: Disposition: Standard PACU
--- NOTE | 2022-03-30 09:28 | P.OP_ITS ---
Operative Note Operative Note Date of Service: 03/30/22 Narrative: Procedure: Colonoscopy Indication: Personal history of polyps Endoscopist: Coral Coronel MD Anesthesia Provider: Millie Blunt CRNA Anesthesia type: MAC Instrument: Olympus [id number]-H190L Consent: Indication, risks vs benefits, and alternatives were discussed with the patient who gave written informed consent to proceed. EKG, pulse, pulse oximetry and blood pressure were monitored throughout the procedure. Please see anesthesia flowsheet. Procedure: The patient was brought to the procedure room and placed in the left lateral decubitus position. IV medications were administered by the anesthesia provider in attendance. A digital rectal exam was performed which was normal. The colonoscope was then inserted through the anus and advanced through the colon to the cecum at 80 cm,and terminal ileum. Mucosa was carefully examined under high definition white light as the instrument was slowly withdrawn in a retrograde panoramic fashion. Retroflexion was performed in ascending colon and rectum. The procedure was not difficult. There were no immediate obvious complications. The quality of the prep was BBPS: 3+3+3 = excellent Withdrawal time 19 minutes. Limitations: No limitations. Findings: Mucosa: Normal to cecum and terminal ileum. Protruding lesions: * 2 sessile polyp of size 7-9 mm in transverse colon. Cold snare polypectomy was performed. The polyp was completely removed and retrieved. * Small internal hemorrhoids without stigmata of recent bleeding. Impression: 1. Normal colon mucosa 2. Total of 2 polyps removed from transverse colon. 3. Internal hemorrhoids Recommendations: - Follow path results. - Repeat colonoscopy in 3 years if path shows adenomas (i.e total of 5 adenomas combined over the two colonoscopies) otherwise 3-5 years.
[2022-03-30 10:08] VITALS: BP 120/75; PULSE 65; RESP 16; TEMP 36.9; O2SAT 93
[2022-03-30 10:23] VITALS: BP 164/94; PULSE 63; RESP 18; TEMP 36.9; O2SAT 96
== END 2022-03-30 10:38 | disposition home or self-care (01) ==
PROVIDERS: Nurse Practitioner; PCP Internal Medicine; Visit Provider Internal Medicine
PROC: 0DJD8ZZ Inspection of Lower Intestinal Tract, Via Natural or Artificial Opening Endoscopic (ICD-10-PCS; CPT 45378; principal; 2022-03-30 09:20)
DX: Z12.11 Encounter for screening for malignant neoplasm of colon (principal); Z86.010 Personal history of colon polyps; D12.3 Benign neoplasm of transverse colon; K64.8 Other hemorrhoids; B19.20 Unspecified viral hepatitis C without hepatic coma; F10.11 Alcohol abuse, in remission; F19.10 Other psychoactive substance abuse, uncomplicated; Z79.899 Other long term (current) drug therapy; Z91.040 Latex allergy status; F17.210 Nicotine dependence, cigarettes, uncomplicated
CPT/HCPCS: 45385; 80307; 88305

== ENCOUNTER 2022-09-21 10:41 | Outpatient (REF) | payer OTHER, SELFPAY ==
[2022-09-21 11:44] LABS: Basophils Absolute Auto 0.1 X10*3/uL (0.0-0.2); Basophils Percent Auto 0.7 % (0-2); Eosinophils Percent Auto 0.6 % (0-4); Hematocrit 41.6 % (42.0-52.0); Hemoglobin 14.3 g/dl (14.0-18.0); Imm Gran Abs Auto 0.03 X10*3/uL (0.00-0.03); Imm Gran Pct Auto 0.4 % (0.0-0.4); Lymphocytes Percent Auto 13.7 % (20-40); MANUAL DIFF FLAG SCAN; Mean Corpuscular HGB Conc 34.4 g/dl (31.0-36.0); Mean Corpuscular Hemoglobin 29.7 pg (27.0-33.0); Mean Corpuscular Volume 86.3 fL (80.0-98.0); Mean Platelet Volume 10.1 fL (9.4-12.4); Monocytes Absolute Auto 0.4 X10*3/uL (0.1-1.2); Monocytes Percent Auto 5.2 % (2-11); Neutrophils Absolute Auto 5.7 x10*3/uL (2.0-8.3); Neutrophils Percent Auto 79.4 % (45-73); PLT CLUMP 1; Platelet Count 233 X10*3/uL (160-400); Red Blood Count 4.82 X10*6/uL (4.60-5.80); Red Cell Distribution Width 11.9 % (11.0-16.0); SCAN SMEAR FLAG 1; White Blood Count 7.1 X10*3/uL (4.8-10.8)
[2022-09-21 11:53] LABS: Estimated Average Glucose 117 mg/dL; Hemoglobin A1c % 5.7 %
[2022-09-21 12:30] LABS: SLIDE REVIEW VERIFIED
[2022-09-21 12:36] LABS: Alanine Aminotransferase 17 U/L (0-40); Aspartate Amino Transferase 18 U/L (5-37); Estimated Glomerular Filt Rate > 60
[2022-09-21 12:42] LABS: Appearance Urine Clear; Color Urine Yellow; Glucose Urine UA Negative (Negative); Leukocyte Esterase Urine Negative (Negative); Nitrite Urine Negative (Negative); Specific Gravity - Urine 1.025 (1.005-1.025); Urine Blood Negative (Negative); Urine Ketones Negative (Negative); Urine Protein Negative (Neg-Trace)
[2022-09-21 12:46] LABS: HIV AB/AG Nonreactive (Nonreactive); HIV Num 1 0.07 S/CO (0.00-0.99); Syphilis Screen Nonreactive (Nonreactive)
[2022-09-21 12:58] LABS: Anion Gap 14 (12-20)
[2022-09-21 13:03] LABS: Alanine Aminotransferase 17 U/L (0-40); Albumin Level 4.4 g/dL (3.5-5.0); Alkaline Phosphatase 62 U/L (39-117); Aspartate Amino Transferase 18 U/L (5-37); Bilirubin Total 0.7 mg/dL (0.0-1.0); Blood Urea Nitrogen 10 mg/dL (9-16); Calcium 9.2 mg/dL (8.4-10.2); Carbon Dioxide 23 mmol/L (22-29); Chloride 105 mmol/L (96-108); Cholesterol 234 mg/dL; Estimated Glomerular Filt Rate > 60; Glucose Fasting 121 mg/dL (60-99); HDL Cholesterol 38 mg/dL; LDL Cholesterol Calculated 172 mg/dl; Potassium 4.3 mmol/L (3.3-5.1); Sodium 138 mmol/L (135-145); Total Protein 7.2 g/dL (6.5-8.0); Triglycerides 121 mg/dL
[2022-09-21 13:34] LABS: Prostate Specific Antigen Scr < 0.10 ng/mL (<0.05-4.0); TSH reflex Free T4 1.28 uIU/mL (0.32-4.0)
[2022-09-21 14:19] LABS: CT PCR NOT DETECTED (Not Detect.); NG PCR NOT DETECTED (Not Detect.)
[2022-09-23 15:43] LABS: HCV Log PCR <1.18 NOT DETECTED Log IU/mL (NOT DETECTED); HepC Viral Load <15 NOT DETECTED IU/mL (NOT DETECTED)
[2022-09-28 13:27] LABS: Testosterone, Free 8.7 pg/mL (35.0-155.0); Testosterone, Total 72 ng/dL (250-1100)
== END 2022-09-21 10:42 | disposition home or self-care (01) ==
LOC: HO.LAB 10:41
PROVIDERS: Absent Provider Internal Medicine; PCP Internal Medicine; Visit Provider Internal Medicine Infectious Disease
DX: Z00.00 Encounter for general adult medical examination without abnormal findings (principal); Z12.5 Encounter for screening for malignant neoplasm of prostate; R73.01 Impaired fasting glucose; R53.83 Other fatigue; E78.00 Pure hypercholesterolemia, unspecified; R30.0 Dysuria; E55.9 Vitamin D deficiency, unspecified; Z20.2 Contact with and (suspected) exposure to infections with a predominantly sexual mode of transmission
CPT/HCPCS: 0353U; 36415; 80053; 80061; 81003; 82306; 82565; 83036; 84153; 84402; 84403; 84443; 84450; 84460; 85025; 86780; 87389; 87522

== ENCOUNTER 2023-01-27 11:15 | Outpatient (REF) | payer OTHER, SELFPAY ==
[2023-01-27 13:07] LABS: Alanine Aminotransferase 19 U/L (0-40); Albumin Level 4.4 g/dL (3.5-5.0); Alkaline Phosphatase 69 U/L (39-117); Anion Gap 15 (12-20); Aspartate Amino Transferase 19 U/L (5-37); Bilirubin Total 0.7 mg/dL (0.0-1.0); Blood Urea Nitrogen 12 mg/dL (9-16); Calcium 9.6 mg/dL (8.4-10.2); Carbon Dioxide 21 mmol/L (22-29); Chloride 104 mmol/L (96-108); Cholesterol 195 mg/dL (<200); Estimated Glomerular Filt Rate > 60; Glucose Fasting 119 mg/dL (60-99); HDL Cholesterol 61 mg/dL (>40); LDL Cholesterol Calculated 119 mg/dL (<100); Potassium 4.2 mmol/L (3.3-5.1); Sodium 136 mmol/L (135-145); Total Protein 7.8 g/dL (6.5-8.0); Triglycerides 76 mg/dL (<150)
== END 2023-01-27 11:16 | disposition home or self-care (01) ==
LOC: HO.LAB 11:15
PROVIDERS: PCP Internal Medicine; Visit Provider Internal Medicine
DX: E78.00 Pure hypercholesterolemia, unspecified (principal)
CPT/HCPCS: 36415; 80053; 80061

== ENCOUNTER 2023-02-03 09:52 | Outpatient (AMB) | payer OTHER, SELFPAY ==
[2023-02-03 09:57] VITALS: BP 128/82; PULSE 64; O2SAT 94; BMI 35.3
--- NOTE | 2023-02-03 09:57 | A.OFFPC_ITS ---
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 Required: No Accompanied by: Self / Same As Patient Allergies crab Allergy (Severe, Verified 02/03/23 10:56) Anaphylaxis squid Allergy (Severe, Verified 02/03/23 10:56) Anaphylaxis latex [LATEX] Allergy (Intermediate, Verified 02/03/23 10:56) RASH Medication List - Last Reconciled 02/03/23 by Michael Aguila MD brexpiprazole (Rexulti) 2 mg PO DAILY buprenorphine-naloxone 4-1 mg (Suboxone) 1 film sublingual DAILY@1700 buprenorphine-naloxone 8-2 mg 1 strip sublingual DAILY clonidine HCl 0.2 mg PO BEDTIME 90 days escitalopram oxalate 20 mg PO DAILY 90 days testosterone (AndroGel) 1 pump topical DAILY zolpidem 10 mg PO BEDTIME PRN 30 days Tobacco use date assessed: 02/03/23 Dental Screening Dental Screen Date: 02/03/23 Did you have a dental visit in the last 12 months?: Yes Did you have a dental problem in the last 6 months where you did not have access to dental care?: No Was dental information given to patient?: Patient has dentist HPI [facility] f/u HPI Details Patient comes in today for his follow up visit States that he feels okay Has been able to lose a lot of weight since his last visit He denies any headaches or dizziness Denies any chest pains, no SOB No nausea/vomiting, no abdominal pain No change in bowel habits noted Needs his Zolpidem Rx refilled Adds that he stopped using his Androgel cream recently as he was sweating a lot when he was on it - is not sure if he should be continuing on it or not Had his follow up labs done last week - to discuss his results [facility] Medical History (Updated 02/03/23 @ 10:59 by Michael Aguila MD) Hypotestosteronism History of intravenous drug abuse Chronic constipation Vitamin D deficiency Impaired fasting glucose Pure hypercholesterolemia Obesity (BMI 30-39.9) Smoker Insomnia Depression Anxiety Hepatitis C Surgical History Hx of colonoscopy History of surgery on arm History of left hip replacement Family History Father In good health Mother In good health Brother In good health Other Substance abuse Social History Household Members: None Housing: Condominium Alcohol intake: former Patient Tobacco Use Status: Current everyday Tobacco user Tobacco use type: Smokeless Tobacco Cigarettes Per Day: 2 Years Smoked: 15 e-Cigarette/Vaping Use: Never Used Substance Use Type: Marijuana service: No Current occupational status: employed 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 1. Little interest or pleasure in doing things: several days 2. Feeling down, depressed, or hopeless: several days 3. Trouble falling or staying asleep, or sleeping too much: several days 4. Feeling tired or having little energy: several days 5. Poor appetite or overeating: several days 6. Feeling bad about yourself - or that you are a failure or have let yourself or your family down: not at all 7. Trouble concentrating on things, such as reading the newspaper or watching television: not at all 8. Moving or speaking so slowly that other people could have noticed. Or the opposite - being so fidgety or restless that you have been moving around a lot more than usual: not at all 9. Thoughts that you would be better off or of hurting yourself in some way: not at all Total score: 5 Depression Screening Interpretation: Positive Depression Screening Follow-up: Existing condition and In treatment 51134 - PHQ-9 Billing: Yes Source: Developed by Drs. Meño Dave, Lashon Silvestre, Conrad Siegel and colleagues, with an educational carito from [employer]. Thrive Questionnaire Date Thrive assessed: 02/03/23 I am a: Patient What is your living situation today?: I have a steady place to live Within the past 12 months, did the food you bought not last and you didn't have the money to get more?: Never true Within the past 12 months, did you worry whether your food would run out before you got money to buy more?: Never true Do you have trouble paying for medicines?: No Do you have trouble getting transportation to medical appointments?: No Do you have trouble paying your heating and electricity bill?: No Do you have trouble taking care of your child, family member or friend?: No Do you have trouble with day-to-day activities such as bathing, preparing meals, shopping, managing finances, etc.?: No Are you currently unemployed and looking for a job?: No Are you interested in more education?: No Please select the resources that you would like help with: None Currently or been in a relationship where the following occur: no concerns reported AUDIT C Alcohol Use Questionnaire (AUDIT-C) 1. How often do you have a drink containing alcohol?: Never ((+) Hx of ETOH but has been sober for a few years now) 3. How often do you have six or more drinks on one occasion?: Never Total Score: 0 Score Reviewed/Action Taken: Yes PAMELLA-7 AMB Questionnaire PAMELLA-7 Date PAMELLA - 7 assessed: 02/03/23 Feeling nervous, anxious, or on edge: 1 = Several days Not being able to stop or control worryin = Several days Worrying too much about different things: 1 = Several days Trouble relaxin = Several days Being so restless that it is hard to sit still: 1 = Several days Becoming easily annoyed or irritable: 1 = Several days Feeling afraid as if something awful might happen: 1 = Several days Total PAMELLA-7 score (0-4 normal; 5-9 mild; 10-14 moderate; 15-21 severe): 7 Source: Developed by Drs. Meño Dave, Lashon Silvestre, Conrad Siegel and colleagues, with an educational carito from [employer]. Review of Systems Const Denies chills, Reports fatigue, Denies fever(s) and Denies headache(s) ENT Denies dysphagia, Denies dizziness, Denies otalgia, Denies headache(s), Denies neck pain, Denies odynophagia and Denies sore throat Card Denies chest pain, Denies palpitations and Denies dyspnea Resp Denies cough and Denies dyspnea GI Denies abdominal pain, Denies constipation, Denies dysphagia, Denies heartburn, Denies diarrhea, Denies nausea, Denies odynophagia and Denies vomiting Denies dysuria, Denies nocturia and Denies urinary frequency Musc Denies neck pain Skin/Breast Denies rash Neuro Denies dizziness and Denies headache(s) Endo Reports fatigue and Denies palpitations Physical exam (Primary Care) Vital Signs: Last Vital Signs Pulse 64 02/03/23 09:57 BP 128/82 02/03/23 09:57 Pulse Ox 94 02/03/23 09:57 Oxygen Delivery Method Room Air 02/03/23 09:57 BMI result Body Mass Index 35.3 Tobacco/Smoking Status: Tobacco use Status Tobacco use date assessed 02/03/23 02/03/23 10:04 Patient Tobacco Use Status Current everyday Tobacco 02/03/23 10:04 Tobacco use type Smokeless Tobacco 02/03/23 10:04 e-Cigarette/Vaping Use Never Used 02/03/23 10:04 Depression Screening Interpretation: Positive Depression Screening Follow-up: Existing condition and In treatment Thrive Assessment: Date of Thrive Assessment Date Thrive assessed 02/03/23 02/03/23 10:04 Currently or been in a relationship where the following occur: no concerns reported Const General: no acute distress and alert HENMT Ears: TM's normal bilaterally and EAC's normal Throat: Yes posterior oropharynx normal and Yes tonsils normal (no TP congestion) Neck Neck: Yes no lymphadenopathy and Yes supple Resp Auscultation: clear to auscultation bilaterally, no rales and no wheezes Cardio Rate: regular rate Rhythm: regular rhythm Heart sounds: no murmurs GI Palpation (GI): Soft to palpation and nontender Auscultation: normal bowel sounds Skin General skin exam: no rashes or lesions noted Extrem General: Yes no clubbing, cyanosis or edema Assessment and Plan Assessment & Plan (1) Pure hypercholesterolemia: Code(s): E78.00 - Pure hypercholesterolemia, unspecified Plan: Results of his labs done last week reviewed and discussed with patient - advised that his cholesterol levels have improved significantly from previous - TC is now at 195 (from 234) and LDL cholesterol is now at 119 (from 172 previously); his HDL cholesterol has also gone up significantly Reinforced low cholesterol diet and exercise as tolerated Will recheck his fasting lipids and labs in 4 months for follow up (2) Hypotestosteronism: Code(s): E34.9 - Endocrine disorder, unspecified Plan: Patient's serum testosterone level was very low on his previous labs in August 2022 - advised that this is most likely due to him being on Suboxone but may also be partly due to his weight as well as his frequent marijuana use Advised again that exercising regularly and losing weight will help raise his serum testosterone level He was previously started on testosterone replacement therapy with Androgel 1.62% apply 1 pump topically QD but he stopped using it after a while as he noted increased sweating while on the Rx Is advised that increased sweating is usually a symptom of low testosterone and it could be that he is sweating because his serum testosterone was shifting when he was on the Rx - have instructed him to go back on Androgel for now Will recheck his serum testosterone level in 4 months for follow up (3) Impaired fasting glucose: Code(s): R73.01 - Impaired fasting glucose Plan: HgbA1c was normal at 5.7% when checked previously although his FBS is still elevated at 119 mg/dl on his labs done last week Reinforced low calorie diet/exercise as tolerated (4) Vitamin D deficiency: Code(s): E55.9 - Vitamin D deficiency, unspecified Plan: Advised that his Vitamin D level was low on his recent labs Will start patient back on Vitamin D3 2000 units QD (5) History of substance abuse: Code(s): F19.11 - Other psychoactive substance abuse, in remission Plan: Is currently on Suboxone 8-2 mg AND 4-1 mg (total of 12 mg) QD Follow up with Esha Merida as scheduled (6) Insomnia: Code(s): G47.00 - Insomnia, unspecified Qualifiers: Insomnia type: unspecified Qualified Code(s): G47.00 - Insomnia, unspecified Plan: Sleep hygiene reinforced Continue Zolpidem 10 mg Q HS PRN - Rx refilled (7) Anxiety: Code(s): F41.9 - Anxiety disorder, unspecified Plan: States that his current Rxs for depression help with his anxiety as well Continue Clonidine 0.2 mg Q HS (8) Depression: Code(s): F32.9 - Major depressive disorder, single episode, unspecified Qualifiers: Depression Type: major depressive disorder Major depression recurrence: recurrent Active/Remission status: currently active Major depression episode severity: unspecified Qualified Code(s): F33.9 - Major depressive disorder, recurrent, unspecified Plan: Patient is continuing to see a therapist regularly Continue Escitalopram 20 mg QD and Rexulti 2 mg QD (9) Marijuana use, continuous: Code(s): F12.90 - Cannabis use, unspecified, uncomplicated Plan: Counseled on marijuana use and urged to try cutting back He has understandably been smoking marijuana to help with his mood disorder but is again advised that there are now evidence that suggest that regular marijuana use may actually increase risks of psychiatric disorders in general (schizophrenia in particular) and that his frequent use may be counterproductive in the long run (10) Obesity (BMI 30-39.9): Code(s): E66.9 - Obesity, unspecified Plan: Reinforced diet/exercise as tolerated/lose weight - he was able to lose a lot of weight since his last visit Plan Follow up in 4 months Orders: Orders Complete Blood Count Auto Diff 4 Months I10 - Essential (primary) hypertension Comprehensive [place]. Panel Fast 4 Months E78.00 - Pure hypercholesterolemia, u nspecified TSH reflex Free T4 4 Months E78.00 - Pure hypercholesterolemia, unspecified Hemoglobin A1c 4 Months E11.9 - Type 2 diabetes mellitus without complications Lipid Panel 4 Months E78.00 - Pure hypercholesterolemia, unspecified Testosterone, Free/Total 4 Months R79.89 - Other specified abnormal findings of blood chemistry Vitamin D 25-OH Total 4 Months E55.9 - Vitamin D deficiency, unspecified UA CC w/rflx Micro + Cult 4 Months R30.0 - Dysuria Medications: New cholecalciferol (vitamin D3) 50 mcg PO DAILY 90 caps 3RF 90 days E55.9 - Vitamin D deficiency, unspecified Refilled zolpidem 10 mg PO BEDTIME 30 days PRN 30 tabs 1RF insomnia Coding Level of Care Code Est Pt Level 4 (66372) Diagnoses Pure hypercholesterolemia E78.00 Hypotestosteronism E34.9 Impaired fasting glucose R73.01 Vitamin D deficiency E55.9 History of substance abuse F19.11 Insomnia, unspecified type G47.00 Insomnia type: unspecified Anxiety F41.9 Episode of recurrent major depressive disorder, unspecified depression episode severity F33.9 Depression Type: major depressive disorder Major depression recurrence: recurrent Active/Remission status: currently active Major depression episode severity: unspecified Marijuana use, continuous F12.90 Obesity (BMI 30-39.9) E66.9
== END 2023-02-03 10:56 | disposition home or self-care (01) ==
PROVIDERS: PCP Internal Medicine; Visit Provider Internal Medicine
DX: R73.01 Impaired fasting glucose (principal); E55.9 Vitamin D deficiency, unspecified; F19.11 Other psychoactive substance abuse, in remission; F41.9 Anxiety disorder, unspecified; F33.9 Major depressive disorder, recurrent, unspecified; E78.00 Pure hypercholesterolemia, unspecified; E34.9 Endocrine disorder, unspecified; G47.00 Insomnia, unspecified; F12.90 Cannabis use, unspecified, uncomplicated; E66.9 Obesity, unspecified
CPT/HCPCS: 99214

== ENCOUNTER 2023-05-31 10:45 | Outpatient (REF) | payer OTHER, SELFPAY ==
[2023-06-09 12:28] LABS: Testosterone, Total 48 ng/dL (250-1100)
== END 2023-05-31 10:46 | disposition home or self-care (01) ==
LOC: HO.LAB 10:45
PROVIDERS: PCP Internal Medicine; Visit Provider Internal Medicine
DX: I10 Essential (primary) hypertension (principal); E11.9 Type 2 diabetes mellitus without complications; R79.89 Other specified abnormal findings of blood chemistry; E55.9 Vitamin D deficiency, unspecified; E78.00 Pure hypercholesterolemia, unspecified
CPT/HCPCS: 36415; 80053; 80061; 82306; 83036; 84402; 84403; 84443; 85025

== ENCOUNTER 2023-06-07 09:33 | Outpatient (AMB) | payer OTHER, SELFPAY ==
[2023-06-07 09:39] VITALS: BP 116/80; PULSE 62; O2SAT 94; BMI 33.4
--- NOTE | 2023-06-07 09:39 | MHC.PC.OV ---
Vital Signs 06/07/23 09:39 Height 5 ft 9 in Weight 226 lb BMI 33.4 BP 116/80 Blood Pressure Location Lt brachial Position Sitting Pulse 62 Pulse Source Pulse Oximeter Pulse Oximetry (%) 94 Oxygen Delivery Method Room Air Intake Visit Reasons: hyperlipidemia, IFG, hypotestosteronism Customs Examiner Required: No Accompanied by: Self / Same As Patient Allergies crab Allergy (Severe, Verified 06/07/23 10:20) Anaphylaxis squid Allergy (Severe, Verified 06/07/23 10:20) Anaphylaxis latex [LATEX] Allergy (Intermediate, Verified 06/07/23 10:20) RASH Medication List - Last Reconciled 06/07/23 by Michael Aguila MD brexpiprazole (Rexulti) 2 mg PO DAILY buprenorphine-naloxone 4-1 mg (Suboxone) 1 film sublingual DAILY@1700 buprenorphine-naloxone 8-2 mg 1 strip sublingual DAILY cholecalciferol (vitamin D3) 50 mcg PO DAILY 90 days clonidine HCl 0.2 mg PO BEDTIME 90 days escitalopram oxalate 20 mg PO DAILY 90 days testosterone (AndroGel) 1 pump topical DAILY zolpidem 10 mg PO BEDTIME PRN 30 days Tobacco use date assessed: 06/07/23 Dental Screening Dental Screen Date: 06/07/23 Did you have a dental visit in the last 12 months?: Yes Did you have a dental problem in the last 6 months where you did not have access to dental care?: No Was dental information given to patient?: Patient has dentist HPI hyperlipidemia, IFG, hypotestosteronism HPI Details Patient comes in today for his follow up visit States that he has been experiencing recurrent/intermittent bouts of diarrhea/loose stools every few weeks for a while now Has noticed that his bouts of loose stools seem to occur more often after eating lunch and these would then gradually subside over the next few days Has not noticed any blood, mucus or unusual findings in his stool and relates no associated nausea, vomiting or abdominal pains with his bouts of diarrhea Relates (+) history of recent travel although he is scheduled to leave town for a few days in a couple of weeks He denies any headaches, dizziness or fever Denies any chest pains, no SOB Denies any acute urinary symptoms Had his follow up labs done last week - to discuss his results [facility] Medical History Hypotestosteronism History of intravenous drug abuse Chronic constipation Vitamin D deficiency Impaired fasting glucose Pure hypercholesterolemia Obesity (BMI 30-39.9) Smoker Insomnia Depression Anxiety Hepatitis C Surgical History Hx of colonoscopy History of surgery on arm History of left hip replacement Family History Father In good health Mother In good health Brother In good health Other Substance abuse Social History Household Members: None Housing: Condominium Alcohol intake: former Patient Tobacco Use Status: Current everyday Tobacco user Tobacco use type: Smokeless Tobacco Cigarettes Per Day: 2 Years Smoked: 15 e-Cigarette/Vaping Use: Never Used Substance Use Type: Marijuana service: No Current occupational status: employed 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 1. Little interest or pleasure in doing things: several days 2. Feeling down, depressed, or hopeless: several days 3. Trouble falling or staying asleep, or sleeping too much: several days 4. Feeling tired or having little energy: several days 5. Poor appetite or overeating: several days 6. Feeling bad about yourself - or that you are a failure or have let yourself or your family down: not at all 7. Trouble concentrating on things, such as reading the newspaper or watching television: not at all 8. Moving or speaking so slowly that other people could have noticed. Or the opposite - being so fidgety or restless that you have been moving around a lot more than usual: not at all 9. Thoughts that you would be better off or of hurting yourself in some way: not at all Total score: 5 Depression Screening Interpretation: Positive Depression Screening Follow-up: Existing condition and In treatment Depression Screening Done: Yes 27476 - PHQ-9 Billing: Yes Source: Developed by Drs. Meño Dave, Lashon Silvestre, Conrad Siegel and colleagues, with an educational carito from [employer] Thrive Questionnaire Date Thrive assessed: 06/07/23 I am a: Patient What is your living situation today?: I have a steady place to live Within the past 12 months, did the food you bought not last and you didn't have the money to get more?: Never true Within the past 12 months, did you worry whether your food would run out before you got money to buy more?: Never true Do you have trouble paying for medicines?: No Do you have trouble getting transportation to medical appointments?: No Do you have trouble paying your heating and electricity bill?: No Do you have trouble taking care of your child, family member or friend?: No Do you have trouble with day-to-day activities such as bathing, preparing meals, shopping, managing finances, etc.?: No Are you currently unemployed and looking for a job?: No Are you interested in more education?: No Please select the resources that you would like help with: None Currently or been in a relationship where the following occur: no concerns reported AUDIT C Alcohol Use Questionnaire (AUDIT-C) 1. How often do you have a drink containing alcohol?: Never ((+) Hx of ETOH but has been sober for a few years now) 3. How often do you have six or more drinks on one occasion?: Never Total Score: 0 Score Reviewed/Action Taken: Yes PAMELLA-7 AMB Questionnaire PAMELLA-7 Date PAMELLA - 7 assessed: 06/07/23 Feeling nervous, anxious, or on edge: 1 = Several days Not being able to stop or control worryin = Several days Worrying too much about different things: 1 = Several days Trouble relaxin = Several days Being so restless that it is hard to sit still: 1 = Several days Becoming easily annoyed or irritable: 1 = Several days Feeling afraid as if something awful might happen: 1 = Several days Total PAMELLA-7 score (0-4 normal; 5-9 mild; 10-14 moderate; 15-21 severe): 7 Source: Developed by Drs. Meño Dave, Lashon Silvestre, Conrad Siegel and colleagues, with an educational carito from [employer] Review of Systems Const Denies anorexia, Denies chills, Reports fatigue, Denies fever(s) and Denies headache(s) ENT Denies dysphagia, Denies dizziness, Denies otalgia, Denies headache(s), Denies neck pain, Denies odynophagia and Denies sore throat Card Denies chest pain, Denies palpitations and Denies dyspnea Resp Denies cough and Denies dyspnea GI Denies abdominal pain, Denies hematochezia, Denies constipation, Denies dysphagia, Denies heartburn, Reports diarrhea (intermittent - see HPI for details), Reports loose stools (intermittent - see HPI for details), Denies nausea, Denies odynophagia and Denies vomiting Denies dysuria, Denies nocturia and Denies urinary frequency Musc Denies back pain and Denies neck pain Skin/Breast Denies rash Neuro Denies dizziness and Denies headache(s) Endo Reports fatigue and Denies palpitations Physical exam (Primary Care) Vital Signs: Last Vital Signs Pulse 62 06/07/23 09:39 BP 116/80 06/07/23 09:39 Pulse Ox 94 06/07/23 09:39 Oxygen Delivery Method Room Air 06/07/23 09:39 BMI result Body Mass Index 33.4 Tobacco/Smoking Status: Tobacco use Status Tobacco use date assessed 06/07/23 06/07/23 09:44 Patient Tobacco Use Status Current everyday Tobacco 06/07/23 09:44 Tobacco use type Smokeless Tobacco 06/07/23 09:44 e-Cigarette/Vaping Use Never Used 06/07/23 09:44 PHQ-9: PHQ-9 Score PHQ-9: Total score 5 06/07/23 10:26 Depression Screening Interpretation: Positive Depression Screening Follow-up: Existing condition and In treatment Thrive Assessment: Date of Thrive Assessment Date Thrive assessed 06/07/23 06/07/23 09:44 Currently or been in a relationship where the following occur: no concerns reported Const General: no acute distress and alert HENMT Ears: TM's normal bilaterally and EAC's normal Throat: Yes posterior oropharynx normal and Yes tonsils normal (no TP congestion) Neck Neck: Yes no lymphadenopathy and Yes supple Resp Auscultation: clear to auscultation bilaterally, no rales and no wheezes Cardio Rate: regular rate Rhythm: regular rhythm Heart sounds: no murmurs GI Palpation (GI): Soft to palpation and nontender Auscultation: normal bowel sounds Back/Spine/Pelvis Thoracic/Lumbar Spine: No lumbar spinal tenderness Skin General skin exam: no rashes or lesions noted Rashes: no rashes Extrem General: Yes no clubbing, cyanosis or edema Results Reviewed Results Reviewed: Laboratory Tests 05/31/23 11:12 WBC 7.0 Hgb 15.4 Hct 45.3 Plt Count 339 D Sodium 139 Potassium 3.6 Creatinine 0.87 Estimated GFR > 60 Fasting Glucose 107 H Hemoglobin A1c % 5.2 Calcium 9.4 AST 15 ALT 13 Triglycerides 128 Cholesterol 208 H LDL Cholesterol, Calc 145 H HDL Cholesterol 38 L 25-OH Vitamin D Total 26.9 L Assessment and Plan Assessment & Plan (1) Pure hypercholesterolemia: Code(s): E78.00 - Pure hypercholesterolemia, unspecified Plan: Results of his labs done last week reviewed and discussed with patient - cautioned that his cholesterol levels have again all increased from previous - TC is now at 208 (from 195) and LDL cholesterol is now at 145 (from 119 previously) Reinforced low cholesterol diet and exercise as tolerated Will recheck his fasting lipids and labs in 4 months for follow up (2) Hypotestosteronism: Code(s): E34.9 - Endocrine disorder, unspecified Plan: Patient's serum testosterone level was very low on his previous labs in August 2022 - advised that this is most likely due to him being on Suboxone but may also be partly due to his weight as well as his frequent marijuana use Advised again that exercising regularly and losing weight will help raise his serum testosterone level He was previously started on testosterone replacement therapy with Androgel 1.62% apply 1 pump topically QD but he stopped using it after a while as he noted increased sweating while on the Rx Is advised that increased sweating is usually a symptom of low testosterone and it could be that he is sweating because his serum testosterone was shifting when he was on the Rx - have instructed him to go back on Androgel for now Will recheck his serum testosterone level in 4 months for follow up (3) Impaired fasting glucose: Code(s): R73.01 - Impaired fasting glucose Plan: HgbA1c was normal at 5.2% on his labs done last week; FBS was still slightly elevated at 107 mg/dl last week Reinforced low calorie diet/exercise as tolerated (4) Vitamin D deficiency: Code(s): E55.9 - Vitamin D deficiency, unspecified Plan: Improving - continue Vitamin D3 2000 units QD (5) Intermittent diarrhea: Code(s): R19.7 - Diarrhea, unspecified Plan: Is advised that his intermittent diarrhea may be due to infection, malabsorption or dietary etiologies; IBS should be a consideration as well Will send him for now for stool work ups [facility] for further evaluation If stool tests all come back negative, will then consider work ups for possible malabsorption or deficiency syndromes (6) History of substance abuse: Code(s): F19.11 - Other psychoactive substance abuse, in remission Plan: Is currently on Suboxone 8-2 mg AND 4-1 mg (total of 12 mg) QD Follow up with [facility] as scheduled (7) Insomnia: Code(s): G47.00 - Insomnia, unspecified Qualifiers: Insomnia type: unspecified Qualified Code(s): G47.00 - Insomnia, unspecified Plan: Sleep hygiene reinforced Continue Zolpidem 10 mg Q HS PRN (8) Anxiety: Code(s): F41.9 - Anxiety disorder, unspecified Plan: States that his current Rxs for depression help with his anxiety as well Continue Clonidine 0.2 mg Q HS (9) Depression: Code(s): F32.9 - Major depressive disorder, single episode, unspecified Qualifiers: Active/Remission status: currently active Depression Type: major depressive disorder Major depression episode severity: unspecified Major depression recurrence: recurrent Qualified Code(s): F33.9 - Major depressive disorder, recurrent, unspecified Plan: Patient is continuing to see a therapist regularly Continue Escitalopram 20 mg QD and Rexulti 2 mg QD (10) Marijuana use, continuous: Code(s): F12.90 - Cannabis use, unspecified, uncomplicated Plan: Counseled on marijuana use and urged to try cutting back He has understandably been smoking marijuana to help with his mood disorder but is again advised that there are now evidence that suggest that regular marijuana use may actually increase risks of psychiatric disorders in general (schizophrenia in particular) and that his frequent use may be counterproductive in the long run (11) Obesity (BMI 30-39.9): Code(s): E66.9 - Obesity, unspecified Plan: Reinforced diet/exercise as tolerated/lose weight Plan Follow up in 4 months Orders: Orders Ova and Parasite Today R19.7 - Diarrhea, unspecified Routine Culture w Gram Stain Today R19.7 - Diarrhea, unspecified Lipid Panel 4 Months E78.00 - Pure hypercholesterolemia, unspecified Testosterone, Free/Total 4 Months R79.89 - Other specified abnormal findings of blood chemistry Complete Blood Count Auto Diff 4 Months I10 - Essential (primary) hypertension TSH reflex Free T4 4 Months E78.00 - Pure hypercholesterolemia, unspecified UA CC w/rflx Micro + Cult 4 Months R30.0 - Dysuria Vitamin D 25-OH Total 4 Months E55.9 - Vitamin D deficiency, unspecified Giardia Ag Stool EIA Today R19.7 - Diarrhea, unspecified Leukocytes Stool Qualitative Today R19.7 - Diarrhea, unspecified Comprehensive [place]. Panel Fast 4 Months E78.00 - Pure hypercholesterolemia, unspecified Coding Level of Care Code Est Pt Level 4 (33555) Diagnoses Pure hypercholesterolemia E78.00 Hypotestosteronism E34.9 Impaired fasting glucose R73.01 Vitamin D deficiency E55.9 Intermittent diarrhea R19.7 History of substance abuse F19.11 Insomnia, unspecified type G47.00 Insomnia type: unspecified Anxiety F41.9 Episode of recurrent major depressive disorder, unspecified depression episode severity F33.9 Active/Remission status: currently active Depression Type: major depressive disorder Major depression episode severity: unspecified Major depression recurrence: recurrent Marijuana use, continuous F12.90 Obesity (BMI 30-39.9) E66.9
== END 2023-06-07 10:30 | disposition home or self-care (01) ==
PROVIDERS: PCP Internal Medicine; Visit Provider Internal Medicine
DX: E78.00 Pure hypercholesterolemia, unspecified (principal); F19.11 Other psychoactive substance abuse, in remission; F33.9 Major depressive disorder, recurrent, unspecified; E34.9 Endocrine disorder, unspecified; R73.01 Impaired fasting glucose; E55.9 Vitamin D deficiency, unspecified; R19.7 Diarrhea, unspecified; G47.00 Insomnia, unspecified; F41.9 Anxiety disorder, unspecified; F12.90 Cannabis use, unspecified, uncomplicated; E66.9 Obesity, unspecified
CPT/HCPCS: 99214

== ENCOUNTER 2023-12-11 10:02 | Outpatient (AMB) | payer OTHER, SELFPAY ==
--- NOTE | 2023-12-11 10:04 | A.OFFPC_ITS ---
Vital Signs 12/11/23 10:06 Height 5 ft 9 in Weight 223 lb 6 oz BMI 33.0 BP 120/82 Blood Pressure Location Lt brachial Position Sitting Pulse 70 Pulse Source Pulse Oximeter Pulse Oximetry (%) 98 Oxygen Delivery Method Room Air Intake Visit Reasons: 6 month f/u Intake Note: Patient is here to follow up on Insomnia, Hypotestosteronism, Hypercholesterolemia. Complaint of restless legs syndrome, requesting for medication to help. Thermodynamic Physicist Required: No Life Sciences Instructor: Not Required per policy Accompanied by: Self / Same As Patient Allergies crab Allergy (Severe, Verified 12/11/23 10:23) Anaphylaxis squid Allergy (Severe, Verified 12/11/23 10:23) Anaphylaxis latex [LATEX] Allergy (Intermediate, Verified 12/11/23 10:23) RASH Medication List - Last Reconciled 12/11/23 by Michael Aguila MD brexpiprazole (Rexulti) 2 mg PO DAILY buprenorphine-naloxone 4-1 mg (Suboxone) 1 film sublingual DAILY@1700 buprenorphine-naloxone 8-2 mg 1 strip sublingual DAILY cholecalciferol (vitamin D3) 50 mcg PO DAILY 90 days clonidine HCl 0.2 mg PO BEDTIME 90 days escitalopram oxalate 20 mg PO DAILY 90 days ropinirole 0.5 mg PO BEDTIME 30 days testosterone (AndroGel) 1 pump topical DAILY zolpidem 10 mg PO BEDTIME PRN 30 days Tobacco use date assessed: 12/11/23 Dental Screening Dental Screen Date: 06/07/23 HPI 6 month f/u HPI Details Patient comes in today for his follow up visit States that he is still experiencing frequent symptoms of RLS despite his current Rx (Ropinirole 0.5 mg Q HS) States that his RLS symptoms are now occurring all day long - his legs can't seem to stop moving on their own - and would like to try Requip States that he has a hard time sleeping at night and his legs (movements) are starting to drive him crazy He denies any headaches or dizziness Denies any chest pains, no increased SOB No nausea/vomiting, no abdominal pain No change in bowel habits noted Needs a few of his Rx refilled He was not able to get his follow up labs done yet - states that he will try to get them done [facility] Medical History Hypotestosteronism History of intravenous drug abuse Chronic constipation Vitamin D deficiency Impaired fasting glucose Pure hypercholesterolemia Obesity (BMI 30-39.9) Smoker Insomnia Depression Anxiety Hepatitis C Surgical History Hx of colonoscopy History of surgery on arm History of left hip replacement Family History Father In good health Mother In good health Brother In good health Other Substance abuse Social History Household Members: None Housing: Condominium Alcohol intake: current Alcohol intake frequency: a few times a month Patient Tobacco Use Status: Former Tobacco user Tobacco use type: Smokeless Tobacco Cigarettes Per Day: 2 Years Smoked: 15 e-Cigarette/Vaping Use: Currently Using Substance Use Type: Marijuana service: No Current occupational status: employed 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 Meño Dave, Lashon Silvestre, Conrad Siegel and colleagues, with an educational carito from [employer]. Review of Systems Const Denies chills, Reports difficulty sleeping (Rx helping), Reports fatigue, Denies fever(s) and Denies headache(s) ENT Denies dysphagia, Denies dizziness, Denies otalgia, Denies headache(s), Denies neck pain, Denies odynophagia and Denies sore throat Card Denies chest pain, Denies palpitations and Denies dyspnea Resp Denies cough and Denies dyspnea GI Denies abdominal pain, Denies hematochezia, Denies constipation, Denies dysphagia, Denies heartburn, Reports diarrhea (intermittent - see HPI for details), Reports loose stools (intermittent - see HPI for details), Denies nausea, Denies odynophagia and Denies vomiting Denies dysuria, Denies nocturia and Denies urinary frequency Musc Details: (+) frequent restless leg symptoms all day long Denies back pain and Denies neck pain Skin/Breast Denies rash Neuro Denies dizziness and Denies headache(s) Psych Reports anxiety Endo Reports fatigue and Denies palpitations Physical exam (Primary Care) Vital Signs: Last Vital Signs Pulse 70 12/11/23 10:06 BP 120/82 12/11/23 10:06 Pulse Ox 98 12/11/23 10:06 Oxygen Delivery Method Room Air 12/11/23 10:06 BMI result Body Mass Index 33.0 Tobacco/Smoking Status: Tobacco use Status Tobacco use date assessed 12/11/23 12/11/23 10:11 Patient Tobacco Use Status Former Tobacco user 12/11/23 10:11 Tobacco use type Smokeless Tobacco 12/11/23 10:11 e-Cigarette/Vaping Use Currently Using 12/11/23 10:11 Thrive Assessment: Date of Thrive Assessment Date Thrive assessed 06/07/23 12/11/23 10:11 Const General: no acute distress and alert Orientation/consciousness: patient oriented x3 HENMT Ears: TM's normal bilaterally and EAC's normal Throat: Yes posterior oropharynx normal and Yes tonsils normal (no TP congestion) Neck Neck: Yes no lymphadenopathy and Yes supple Thyroid: Thyroid normal Resp Auscultation: clear to auscultation bilaterally, no rales and no wheezes Cardio Rate: regular rate Rhythm: regular rhythm Heart sounds: no murmurs GI Palpation (GI): Soft to palpation and nontender Auscultation: normal bowel sounds General: Yes no CVA tenderness Back/Spine/Pelvis Back: no CVA tenderness Thoracic/Lumbar Spine: No lumbar spinal tenderness Skin Rashes: no rashes Neuro General: patient oriented x3 Cognition (Neuro): normal cognition Extrem General: Yes no clubbing, cyanosis or edema Psych Affect: Other affect and mood findings present (appears somewhat agitated / perturbed by his increasing leg symptoms) Assessment and Plan Assessment & Plan (1) Pure hypercholesterolemia: Code(s): E78.00 - Pure hypercholesterolemia, unspecified Plan: Patient was not able to get his previously ordered labs done prior to his visit today - have advised him to go and get these done [facility] He is reminded that his cholesterol levels have increased from previous (TC is at 208 and LDL cholesterol is at 145) when they were last checked a few months ago Reinforced low cholesterol diet (2) Hypotestosteronism: Code(s): E34.9 - Endocrine disorder, unspecified Plan: Patient's serum testosterone level was very low on his previous labs in August 2022 - advised that this is most likely due to him being on Suboxone but may also be partly due to his weight as well as his frequent marijuana use Advised again that exercising regularly and losing weight will help raise his serum testosterone level He was started back on testosterone replacement therapy with Androgel 1.62% appl y 1 pump topically QD Will recheck his serum testosterone level for follow up (3) Impaired fasting glucose: Code(s): R73.01 - Impaired fasting glucose Plan: HgbA1c was normal at 5.2% on his labs done a few months ago; FBS was still slightly elevated at 107 mg/dl back then Reinforced low calorie diet/exercise as tolerated (4) Vitamin D deficiency: Code(s): E55.9 - Vitamin D deficiency, unspecified Plan: Continue Vitamin D3 2000 units QD (5) Intermittent diarrhea: Code(s): R19.7 - Diarrhea, unspecified Plan: This appears to have mostly resolved He was previously sent for stool work ups but it did not look like he had them done as we have no results or records to review regarding these (6) History of substance abuse: Code(s): F19.11 - Other psychoactive substance abuse, in remission Plan: Is currently on Suboxone 8-2 mg AND 4-1 mg (total of 12 mg) QD Follow up with [facility] as scheduled (7) Restless leg syndrome: Code(s): G25.81 - Restless legs syndrome Plan: Have advised patient that Ropinirole is the generic equivalent of Requip He was previously tried on Ropinirole 0.5 mg Q HS, which patient states did not help at all Will increase his Ropinirole now to 1 mg BID Patient is advised to give it at least up to 7 to 10 days for the Rx to help and if he still does not experience any significant improvement at the time, to call and we can increase his dose further or try adding Gabapentin (8) Insomnia: Code(s): G47.00 - Insomnia, unspecified Qualifiers: Insomnia type: unspecified Qualified Code(s): G47.00 - Insomnia, unspecified Plan: Sleep hygiene reinforced Continue Zolpidem 10 mg Q HS PRN (9) Anxiety: Code(s): F41.9 - Anxiety disorder, unspecified Plan: States that his current Rxs for depression help with his anxiety as well Continue Clonidine 0.2 mg Q HS (10) Depression: Code(s): F32.9 - Major depressive disorder, single episode, unspecified Qualifiers: Depression Type: major depressive disorder Major depression recurrence: recurrent Active/Remission status: currently active Major depression episode severity: unspecified Qualified Code(s): F33.9 - Major depressive disorder, recurrent, unspecified Plan: Patient is continuing to see a therapist regularly Continue Escitalopram 20 mg QD and Rexulti 2 mg QD (11) Marijuana use, continuous: Code(s): F12.90 - Cannabis use, unspecified, uncomplicated Plan: Counseled on marijuana use and urged to try cutting back He has understandably been smoking marijuana to help with his mood disorder but is again advised that there are now evidence that suggest that regular marijuana use may actually increase risks of psychiatric disorders in general (schizophrenia in particular) and that his frequent use may be counterproductive in the long run (12) Obesity (BMI 30-39.9): Code(s): E66.9 - Obesity, unspecified Plan: Reinforced diet/exercise as tolerated/lose weight Plan Follow up in 4 months Medications: Changed From ropinirole administer 1-3 hours before bedtime 0.5 mg PO BEDTIME 30 days 30 tabs 2RF restless leg symptoms To ropinirole 1 mg PO BID 30 days 60 tabs 2RF restless leg symptoms Refilled clonidine HCl 0.2 mg PO BEDTIME 90 days 90 tabs 1RF zolpidem 10 mg PO BEDTIME 30 days PRN 30 tabs 1RF insomnia testosterone (AndroGel) apply 1 pump amount over max area of ONE upper arm and shoulder 1 pump topical DAILY 75 grams 1RF E34.9 - Endocrine disorder, unspecified Coding Level of Care Code Est Pt Level 4 (28652) Diagnoses Pure hypercholesterolemia E78.00 Hypotestosteronism E34.9 Impaired fasting glucose R73.01 Vitamin D deficiency E55.9 Intermittent diarrhea R19.7 History of substance abuse F19.11 Restless leg syndrome G25.81 Insomnia, unspecified type G47.00 Insomnia type: unspecified Anxiety F41.9 Episode of recurrent major depressive disorder, unspecified depression episode severity F33.9 Depression Type: major depressive disorder Major depression recurrence: recurrent Active/Remission status: currently active Major depression episode severity: unspecified Marijuana use, continuous F12.90 Obesity (BMI 30-39.9) E66.9
[2023-12-11 10:06] VITALS: BP 120/82; PULSE 70; O2SAT 98; BMI 33.0
== END 2023-12-11 10:43 | disposition home or self-care (01) ==
PROVIDERS: PCP Internal Medicine; Visit Provider Internal Medicine
DX: E78.00 Pure hypercholesterolemia, unspecified (principal); E34.9 Endocrine disorder, unspecified; R73.01 Impaired fasting glucose; E55.9 Vitamin D deficiency, unspecified; R19.7 Diarrhea, unspecified; F19.11 Other psychoactive substance abuse, in remission; G25.81 Restless legs syndrome; G47.00 Insomnia, unspecified; F41.9 Anxiety disorder, unspecified; F33.9 Major depressive disorder, recurrent, unspecified; F12.90 Cannabis use, unspecified, uncomplicated; E66.9 Obesity, unspecified
CPT/HCPCS: 99214

== ENCOUNTER 2024-01-19 11:50 | Outpatient (REF) | payer OTHER, SELFPAY ==
[2024-01-19 12:18] LABS: MANUAL DIFF FLAG NO
[2024-01-19 12:35] LABS: Basophils Percent Auto 0.5 % (0-2); Eosinophils Absolute Auto 0.1 X10*3/uL (0.0-0.4); Hematocrit 42.4 % (42.0-52.0); Hemoglobin 14.8 g/dl (14.0-18.0); Imm Gran Abs Auto 0.03 X10*3/uL (0.00-0.03); Imm Gran Pct Auto 0.5 % (0.0-0.4); Lymphocytes Absolute Auto 1.5 X10*3/uL (1.2-4.9); Lymphocytes Percent Auto 25.1 % (20-40); Mean Corpuscular HGB Conc 34.9 g/dl (31.0-36.0); Mean Corpuscular Hemoglobin 31.6 pg (27.0-33.0); Mean Corpuscular Volume 90.4 fL (80.0-98.0); Monocytes Absolute Auto 0.4 X10*3/uL (0.1-1.2); Monocytes Percent Auto 6.7 % (2-11); Neutrophils Percent Auto 66.2 % (45-73); Platelet Count 254 X10*3/uL (160-400); Red Blood Count 4.69 X10*6/uL (4.60-5.80); Red Cell Distribution Width 12.1 % (11.0-16.0)
[2024-01-19 13:04] LABS: Alanine Aminotransferase 16 U/L (0-40); Anion Gap 14 (12-20); Aspartate Amino Transferase 17 U/L (5-37); Carbon Dioxide 24 mmol/L (22-29); Chloride 104 mmol/L (96-108); Estimated Glomerular Filt Rate > 60; Potassium 4.4 mmol/L (3.3-5.1); Sodium 138 mmol/L (135-145)
[2024-01-19 13:46] LABS: HBsAGNum1 0.24 S/CO (0.00-0.99); HIV AB/AG Nonreactive (Nonreactive); HIV Num 1 0.05 S/CO (0.00-0.99); Hepatitis B Surface Antigen Negative (Negative); Syphilis Screen Nonreactive (Nonreactive)
[2024-01-19 14:42] LABS: CT PCR NOT DETECTED (Not Detect.); NG PCR NOT DETECTED (Not Detect.)
[2024-01-22 13:18] LABS: HCV Log PCR <1.18 NOT DETECTED Log IU/mL (NOT DETECTED); HepC Viral Load <15 NOT DETECTED IU/mL (NOT DETECTED)
== END 2024-01-19 11:51 | disposition home or self-care (01) ==
LOC: HO.LAB 11:50
PROVIDERS: PCP Internal Medicine; Visit Provider Internal Medicine Infectious Disease
DX: Z20.2 Contact with and (suspected) exposure to infections with a predominantly sexual mode of transmission (principal)
CPT/HCPCS: 80051; 82565; 84450; 84460; 85025; 86780; 87340; 87389; 87491; 87522; 87591

== ENCOUNTER 2024-03-22 06:03 | Outpatient (REF) | payer OTHER, SELFPAY ==
[2024-03-22 06:28] LABS: MANUAL DIFF FLAG NO
[2024-03-22 06:48] LABS: Amylase 63 U/L (28-100); Lipase 27 U/L (8-78)
[2024-03-22 07:00] LABS: Basophils Percent Auto 0.5 % (0-2); Eosinophils Absolute Auto 0.2 X10*3/uL (0.0-0.4); Eosinophils Percent Auto 3.3 % (0-4); Hematocrit 42.4 % (42.0-52.0); Hemoglobin 14.3 g/dl (14.0-18.0); Imm Gran Abs Auto 0.03 X10*3/uL (0.00-0.03); Imm Gran Pct Auto 0.5 % (0.0-0.4); Lymphocytes Absolute Auto 2.2 X10*3/uL (1.2-4.9); Lymphocytes Percent Auto 35.3 % (20-40); Mean Corpuscular HGB Conc 33.7 g/dl (31.0-36.0); Mean Corpuscular Hemoglobin 30.1 pg (27.0-33.0); Mean Corpuscular Volume 89.3 fL (80.0-98.0); Mean Platelet Volume 9.5 fL (9.4-12.4); Monocytes Absolute Auto 0.5 X10*3/uL (0.1-1.2); Monocytes Percent Auto 7.7 % (2-11); Neutrophils Absolute Auto 3.2 x10*3/uL (2.0-8.3); Neutrophils Percent Auto 52.7 % (45-73); Platelet Count 247 X10*3/uL (160-400); Red Blood Count 4.75 X10*6/uL (4.60-5.80); Red Cell Distribution Width 11.7 % (11.0-16.0); White Blood Count 6.1 X10*3/uL (4.8-10.8)
[2024-03-22 07:03] LABS: Alanine Aminotransferase 20 U/L (0-40); Albumin Level 4.1 g/dL (3.5-5.0); Alkaline Phosphatase 66 U/L (39-117); Anion Gap 16 (12-20); Aspartate Amino Transferase 26 U/L (5-37); Bilirubin Total 0.4 mg/dL (0.0-1.0); Blood Urea Nitrogen 17 mg/dL (9-16); Calcium 9.3 mg/dL (8.4-10.2); Carbon Dioxide 22 mmol/L (22-29); Chloride 106 mmol/L (96-108); Cholesterol 188 mg/dL (<200); Estimated Glomerular Filt Rate > 60; Glucose Fasting 110 mg/dL (60-99); HDL Cholesterol 49 mg/dL (>40); LDL Cholesterol Calculated 121 mg/dL (<100); Potassium 4.5 mmol/L (3.3-5.1); Sodium 139 mmol/L (135-145); Total Protein 7.4 g/dL (6.5-8.0); Triglycerides 92 mg/dL (<150)
[2024-03-22 07:15] LABS: Estimated Average Glucose 111 mg/dL; Hemoglobin A1C 125.6782 umol/L; Hemoglobin A1c % 5.5 % (<6.0); TSH reflex Free T4 4.12 uIU/mL (0.32-4.0); Total Hemoglobin (HGBA1C) 3439.5601 umol/L
[2024-03-22 07:47] LABS: Appearance Urine Clear; Color Urine Yellow; Glucose Urine UA Negative (Negative); Leukocyte Esterase Urine Negative (Negative); Nitrite Urine Negative (Negative); PH 5.5 (5.0-9.0); Urine Blood Negative (Negative); Urine Ketones Negative (Negative); Urine Protein Negative (Neg-Trace)
[2024-03-22 08:27] LABS: Free T4 (Free Thyroxine) 0.76 ng/dL (0.71-1.85)
[2024-03-28 13:48] LABS: Testosterone, Free 28.8 pg/mL (35.0-155.0); Testosterone, Total 178 ng/dL (250-1100)
== END 2024-03-22 06:04 | disposition home or self-care (01) ==
LOC: HO.LAB 06:03
PROVIDERS: Absent Provider Internal Medicine Infectious Disease; PCP Internal Medicine; Visit Provider Internal Medicine
DX: E78.00 Pure hypercholesterolemia, unspecified (principal); I10 Essential (primary) hypertension; R30.0 Dysuria; R79.89 Other specified abnormal findings of blood chemistry; E55.9 Vitamin D deficiency, unspecified; E66.9 Obesity, unspecified; Z68.38 Body mass index [BMI] 38.0-38.9, adult
CPT/HCPCS: 36415; 80053; 80061; 81003; 82150; 82306; 83036; 83690; 84402; 84403; 84439; 84443; 85025

== ENCOUNTER 2024-04-16 09:55 | Outpatient (AMB) | payer OTHER, SELFPAY ==
[2024-04-16 10:13] VITALS: BP 118/76; PULSE 68; O2SAT 98; BMI 38.9
--- NOTE | 2024-04-16 10:13 | A.OFFPC_ITS ---
Vital Signs 04/16/24 10:13 Height 5 ft 9 in Weight 263 lb 2 oz BMI 38.9 BP 118/76 Blood Pressure Location Lt brachial Position Sitting Pulse 68 Pulse Source Pulse Oximeter Pulse Oximetry (%) 98 Oxygen Delivery Method Room Air Intake Visit Reasons: RLS, anxiety, hyperlipidemia, insomnia Retail Zone Specialist Required: No Accompanied by: Self / Same As Patient Allergies crab Allergy (Severe, Verified 04/16/24 10:51) Anaphylaxis squid Allergy (Severe, Verified 04/16/24 10:51) Anaphylaxis latex [LATEX] Allergy (Intermediate, Verified 04/16/24 10:51) RASH Medication List - Last Reconciled 04/16/24 by Michael Aguila MD brexpiprazole (Rexulti) 2 mg PO DAILY buprenorphine-naloxone 4-1 mg (Suboxone) 1 film sublingual DAILY@1700 buprenorphine-naloxone 8-2 mg 1 strip sublingual DAILY cholecalciferol (vitamin D3) 50 mcg PO DAILY 90 days clonidine HCl 0.2 mg PO BEDTIME 90 days escitalopram oxalate 20 mg PO DAILY 90 days ropinirole 1 mg PO BID 30 days testosterone (AndroGel) 1 pump topical DAILY zolpidem 10 mg PO BEDTIME PRN 30 days Tobacco use date assessed: 04/16/24 Dental Screening Dental Screen Date: 04/16/24 Did you have a dental visit in the last 12 months?: Yes Did you have a dental problem in the last 6 months where you did not have access to dental care?: No Was dental information given to patient?: Patient has dentist HPI RLS, anxiety, hyperlipidemia, insomnia HPI Details Patient comes in today for his follow-up visit States that he feels okay He denies any headaches or dizziness Denies any chest pains, no shortness of breath No nausea/vomiting, no abdominal pain No change in bowel habits noted Needs a couple of his Rx refilled He would also like to get something to help with his ED as well as his recurrent leg cramping and symptoms that feel worse at night He had his follow-up labs done a few weeks ago - to discuss his results [facility] Medical History Hypotestosteronism History of intravenous drug abuse Chronic constipation Vitamin D deficiency Impaired fasting glucose Pure hypercholesterolemia Obesity (BMI 30-39.9) Smoker Insomnia Depression Anxiety Hepatitis C Surgical History Hx of colonoscopy History of surgery on arm History of left hip replacement Family History Father In good health Mother In good health Brother In good health Other Substance abuse Social History Household Members: None Housing: Condominium Alcohol intake: current Alcohol intake frequency: a few times a month Patient Tobacco Use Status: Former Tobacco user Tobacco use type: Smokeless Tobacco Cigarettes Per Day: 2 Years Smoked: 15 e-Cigarette/Vaping Use: Currently Using Substance Use Type: Marijuana service: No Current occupational status: employed Current occupation: [employer] Cognitive needs: No Hearing needs: No Vision needs: No Questionnaire PHQ-9 Over the last 2 weeks, how often have you been bothered by any of the following problems? 1. Little interest or pleasure in doing things: several days 2. Feeling down, depressed, or hopeless: several days 3. Trouble falling or staying asleep, or sleeping too much: several days 4. Feeling tired or having little energy: several days 5. Poor appetite or overeating: several days 6. Feeling bad about yourself - or that you are a failure or have let yourself or your family down: not at all 7. Trouble concentrating on things, such as reading the newspaper or watching television: not at all 8. Moving or speaking so slowly that other people could have noticed. Or the opposite - being so fidgety or restless that you have been moving around a lot more than usual: not at all 9. Thoughts that you would be better off or of hurting yourself in some way: not at all Total score: 5 Depression Screening Interpretation: Positive Depression Screening Follow-up: Existing condition and In treatment Depression Screening Done: Yes [id number] - PHQ-9 Billing: Yes Source: Developed by Drs. Meño Dave, Lashon Silvestre, Conrad Siegel and colleagues, with an educational carito from [employer]. Thrive Questionnaire Date Thrive assessed: 04/16/24 I am a: Patient What is your living situation today?: I have a steady place to live Within the past 12 months, did the food you bought not last and you didn't have the money to get more?: Never true Within the past 12 months, did you worry whether your food would run out before you got money to buy more?: Never true Do you have trouble paying for medicines?: No Do you have trouble getting transportation to medical appointments?: No Do you have trouble paying your heating and electricity bill?: No Do you have trouble taking care of your child, family member or friend?: No Do you have trouble with day-to-day activities such as bathing, preparing meals, shopping, managing finances, etc.?: No Are you currently unemployed and looking for a job?: No Are you interested in more education?: No Please select the resources that you would like help with: None Currently or been in a relationship where the following occur: No concerns reported THRIVE Score: 0 AUDIT C Alcohol Use Questionnaire (AUDIT-C) 1. How often do you have a drink containing alcohol?: Never ((+) Hx of ETOH but has been sober for a few years now) 3. How often do you have six or more drinks on one occasion?: Never Total Score: 0 Score Reviewed/Action Taken: Yes PAMELLA-7 AMB Questionnaire PAMELLA-7 Date PAMELLA - 7 assessed: 04/16/24 Feeling nervous, anxious, or on edge: 0 = Not at all Not being able to stop or control worryin = Not at all Worrying too much about different things: 0 = Not at all Trouble relaxin = Not at all Being so restless that it is hard to sit still: 0 = Not at all Becoming easily annoyed or irritable: 0 = Not at all Feeling afraid as if something awful might happen: 0 = Not at all Total PAMELLA-7 score (0-4 normal; 5-9 mild; 10-14 moderate; 15-21 severe): 0 Source: Developed by Drs. Meño Dave, Lashon Silvestre, Conrad Siegel and colleagues, with an educational carito from [employer]. Review of Systems Const Denies chills, Reports difficulty sleeping (Rx helping), Reports fatigue, Denies fever(s) and Denies headache(s) ENT Denies dysphagia, Denies dizziness, Denies otalgia, Denies headache(s), Denies neck pain, Denies odynophagia and Denies sore throat Card Denies chest pain, Denies palpitations and Denies dyspnea Resp Denies cough and Denies dyspnea GI Denies abdominal pain, Denies constipation, Denies dysphagia, Denies heartburn, Reports diarrhea (intermittent ), Reports loose stools (intermittent ), Denies nausea, Denies odynophagia and Denies vomiting Denies dysuria, Denies nocturia and Denies urinary frequency Musc Details: (+) frequent restless leg symptoms all day long Denies back pain and Denies neck pain Skin/Breast Denies rash Neuro Denies dizziness and Denies headache(s) Psych Reports anxiety Endo Reports fatigue and Denies palpitations Physical exam (Primary Care) Vital Signs: Last Vital Signs Pulse 68 04/16/24 10:13 BP 118/76 04/16/24 10:13 Pulse Ox 98 04/16/24 10:13 Oxygen Delivery Method Room Air 04/16/24 10:13 BMI result Body Mass Index 38.9 Tobacco/Smoking Status: Tobacco use Status Tobacco use date assessed 04/16/24 04/16/24 10:20 Patient Tobacco Use Status Former Tobacco user 04/16/24 10:20 Tobacco use type Smokeless Tobacco 04/16/24 10:20 e-Cigarette/Vaping Use Currently Using 04/16/24 10:20 PHQ-9: PHQ-9 Score PHQ-9: Total score 5 04/16/24 10:56 Depression Screening Interpretation: Positive Depression Screening Follow-up: Existing condition and In treatment Thrive Assessment: Date of Thrive Assessment Date Thrive assessed 04/16/24 04/16/24 10:20 Currently or been in a relationship where the following occur: No concerns reported Const General: no acute distress and alert HENMT Ears: TM's normal bilaterally and EAC's normal Throat: Yes posterior oropharynx normal and Yes tonsils normal (no TP congestion) Neck Neck: Yes no lymphadenopathy and Yes supple Thyroid: Thyroid normal Resp Auscultation: clear to auscultation bilaterally, no rales and no wheezes Cardio Rate: regular rate Rhythm: regular rhythm Heart sounds: no murmurs GI Palpation (GI): Soft to palpation and nontender Auscultation: normal bowel sounds General: Yes no CVA tenderness Back/Spine/Pelvis Back: no CVA tenderness Thoracic/Lumbar Spine: No lumbar spinal tenderness Skin Rashes: no rashes Extrem General: Yes no clubbing, cyanosis or edema Results Reviewed Results Reviewed: Laboratory Tests 03/22/24 03/22/24 06:25 06:26 WBC 6.1 Hgb 14.3 Hct 42.4 Plt Count 247 Sodium 139 Potassium 4.5 Creatinine 1.08 Estimated GFR > 60 Fasting Glucose 110 H Hemoglobin A1c % 5.5 Calcium 9.3 AST 26 ALT 20 Triglycerides 92 Cholesterol 188 LDL Cholesterol, Calc 121 H HDL Cholesterol 49 Amylase 63 Lipase 27 25-OH Vitamin D Total 34.0 TSH 4.12 H Free T4 0.76 Total Testosterone 178 L Fr Testosterone Dialys 28.8 L Ur Specific [place] 1.020 Urine Protein Negative Urine Glucose (UA) Negative Urine Blood Negative Urine Nitrite Negative Ur Leukocyte Esterase Negative Coding Level of Care Code Est Pt Level 4 (58279) Diagnoses Pure hypercholesterolemia E78.00 Hypotestosteronism E34.9 Impaired fasting glucose R73.01 Vitamin D deficiency E55.9 Intermittent diarrhea R19.7 History of substance abuse F19.11 Restless leg syndrome G25.81 Insomnia, unspecified type G47.00 Insomnia type: unspecified Anxiety F41.9 Episode of recurrent major depressive disorder, unspecified depression episode severity F33.9 Depression Type: major depressive disorder Major depression recurrence: recurrent Active/Remission status: currently active Major depression episode severity: unspecified Marijuana use, continuous F12.90 Obesity (BMI 30-39.9) E66.9 Additional Codes PHQ-9 - 68961 - PHQ-9 Billing: Yes ([id number]) Assessment & Plan Assessment & Plan (1) Pure hypercholesterolemia: Code(s): E78.00 - Pure hypercholesterolemia, unspecified Category: Medical Plan: Results of his labs done a few weeks ago reviewed and discussed with patient - have advised patient that his cholesterol levels have improved slightly from previous Reinforced low cholesterol diet Will recheck his labs and fasting lipids in 4 months for follow-up (2) Hypotestosteronism: Code(s): E34.9 - Endocrine disorder, unspecified Category: Medical Plan: Patient's serum testosterone level remains very low on his recent labs at 178, similar to his results from last year (2022) He is advised that this is most likely due to him being on Suboxone but may also be partly due to his weight as well as his frequent marijuana use Advised again that exercising regularly and losing weight will help raise his serum testosterone level He was started back on testosterone replacement therapy with Androgel 1.62% apply 1 pump topically QD but he feels that this is not helping Will refer him to Urology for further evaluation and management of this issue (3) Impaired fasting glucose: Code(s): R73.01 - Impaired fasting glucose Category: Medical Plan: His HgbA1c was at 5.5% on his labs done a few weeks ago Reinforced low calorie diet/exercise as tolerated (4) Vitamin D deficiency: Code(s): E55.9 - Vitamin D deficiency, unspecified Category: Medical Plan: Continue Vitamin D3 2000 units QD (5) Intermittent diarrhea: Code(s): R19.7 - Diarrhea, unspecified Category: Medical Plan: This appears to have mostly resolved He was previously sent for stool work ups but it did not look like he had them done as we have no results or records to review regarding these (6) History of substance abuse: Code(s): F19.11 - Other psychoactive substance abuse, in remission Category: Medical Plan: Patient currently remains on Suboxone 8-2 mg AND 4-1 mg (total of 12 mg) QD Follow up with [facility] as scheduled (7) Restless leg syndrome: Code(s): G25.81 - Restless legs syndrome Category: Medical Plan: Continue Ropinirole 1 mg BID Will start him additionally on Gabapentin 100 mg Q HS (8) Insomnia: Code(s): G47.00 - Insomnia, unspecified Category: Medical Qualifiers: Insomnia type: unspecified Qualified Code(s): G47.00 - Insomnia, unspecified Plan: Sleep hygiene reinforced Continue Zolpidem 10 mg Q HS PRN (9) Anxiety: Code(s): F41.9 - Anxiety disorder, unspecified Category: Medical Plan: States that his current Rxs for depression help with his anxiety as well Continue Clonidine 0.2 mg Q HS (10) Depression: Code(s): F32.9 - Major depressive disorder, single episode, unspecified Category: Medical Qualifiers: Depression Type: major depressive disorder Major depression recurrence: recurrent Active/Remission status: currently active Major depression episode severity: unspecified Qualified Code(s): F33.9 - Major depressive disorder, recurrent, unspecified Plan: Patient is continuing to see a therapist regularly Continue Escitalopram 20 mg QD and Rexulti 2 mg QD (11) Marijuana use, continuous: Code(s): F12.90 - Cannabis use, unspecified, uncomplicated Category: Medical Plan: He is again counseled on marijuana use and urged to try cutting back He has understandably been smoking marijuana to help with his mood disorder but is again advised that there are now evidence that suggest that regular marijuana use may actually increase risks of psychiatric disorders in general (schizophrenia in particular) and that his frequent use may be counterproductive in the long run (12) Obesity (BMI 30-39.9): Code(s): E66.9 - Obesity, unspecified Category: Medical Plan: Reinforced diet/exercise as tolerated/lose weight Plan Follow up in 4 months Orders: Orders Comprehensive [place]. Panel Fast 4 Months E78.00 - Pure hypercholesterolemia, unspecified Hemoglobin A1c 4 Months R73.01 - Impaired fasting glucose TSH reflex Free T4 4 Months E78.00 - Pure hypercholesterolemia, unspecified Lipid Panel 4 Months E78.00 - Pure hypercholesterolemia, unspecified Complete Blood Count Auto Diff 4 Months D64.9 - Anemia, unspecified Magnesium 4 Months E83.42 - Hypomagnesemia UA CC w/rflx Micro + Cult 4 Months R30.0 - Dysuria Referrals Urology Referral E34.9 - Endocrine disorder, unspecified Medications: New sildenafil administer 30 minutes to 4 hours before activity 50 mg PO DAILY PRN 10 tabs 0RF sexual activity gabapentin 100 mg PO BEDTIME 30 days 30 caps 2RF Refilled testosterone (AndroGel) apply 1 pump amount over max area of ONE upper arm and shoulder 1 pump topical DAILY 75 grams 1RF E34.9 - Endocrine disorder, unspecified escitalopram oxalate 20 mg PO DAILY 90 days 90 tabs 1RF
== END 2024-04-16 11:01 | disposition home or self-care (01) ==
PROVIDERS: PCP Internal Medicine; Visit Provider Internal Medicine
DX: E78.00 Pure hypercholesterolemia, unspecified (principal); F19.11 Other psychoactive substance abuse, in remission; F33.9 Major depressive disorder, recurrent, unspecified; E34.9 Endocrine disorder, unspecified; R73.01 Impaired fasting glucose; E55.9 Vitamin D deficiency, unspecified; R19.7 Diarrhea, unspecified; G25.81 Restless legs syndrome; G47.00 Insomnia, unspecified; F41.9 Anxiety disorder, unspecified; F12.90 Cannabis use, unspecified, uncomplicated; E66.9 Obesity, unspecified

== ENCOUNTER → 2024-04-16 09:55 | Outpatient (BNVA) | payer OTHER, SELFPAY | PROVIDERS: PCP Internal Medicine; Visit Provider Internal Medicine | DX: E78.00 Pure hypercholesterolemia, unspecified (principal); E34.9 Endocrine disorder, unspecified; R73.01 Impaired fasting glucose; E55.9 Vitamin D deficiency, unspecified; R19.7 Diarrhea, unspecified; F11.20 Opioid dependence, uncomplicated; G25.81 Restless legs syndrome; G47.00 Insomnia, unspecified; F41.9 Anxiety disorder, unspecified; F33.9 Major depressive disorder, recurrent, unspecified; F12.90 Cannabis use, unspecified, uncomplicated; E66.9 Obesity, unspecified; Z68.36 Body mass index [BMI] 36.0-36.9, adult; Z79.899 Other long term (current) drug therapy | CPT/HCPCS: 96127 ==

== ENCOUNTER 2024-09-11 10:05 | Inpatient (IN) | payer OTHER, SELFPAY ==
[2024-09-11] VITALS (8 sets, daily range): BP systolic 88–161; BP diastolic 45–85; PULSE 93–130; RESP 13–20; TEMP 36.5–37.2; O2SAT 94–99; BMI 42.9; BMI 43.5
--- NOTE | ~2024-09-11 | XR_ITS ---
CLINICAL HISTORY: s p ett placement 1 view chest x-ray Comparison: CR/SR - XR CHEST 1V - 09/17/24 09:52 EDT Findings: Low lung volumes with elevated right hemidiaphragm. Pulmonary opacities are unchanged. Right central venous catheter and NG tube are adequately positioned and unchanged. Interval placement of endotracheal tube adequately positioned. Heart size is normal. No acute fracture. IMPRESSION: 1. Interval placement of ETT, adequately positioned. No interval changes otherwise noted This document has been electronically signed by: Kyle Meier MD on 09/21/2024 11:01:39
--- NOTE | ~2024-09-11 | XR_ITS ---
CLINICAL HISTORY: Cough ,leucocytosis Chest Radiograph Comparison: CR - XR CHEST 1V - 09/14/24 12:00 EDT CR - XR CHEST 1V - 09/11/24 18:47 EDT Findings: Right central venous catheter with the tip terminating in the superior vena cava, unchanged. No cardiomegaly. Normal mediastinal contours. No pneumothorax. Low lung volumes with [id number] elevation of the right hemidiaphragm and vascular crowding. Linear opacity in the right mid to lower lung zone is unchanged and could be atelectasis or scarring. No pleural effusion. Normal upper abdomen. No acute fracture. Impression: Low lung volumes. This document has been electronically signed by: Ree Rios MD on 09/15/2024 14:03:44
--- NOTE | ~2024-09-11 | US_ITS ---
EXAMINATION: US ABDOMEN LIMITED CLINICAL INFORMATION: Ascites.. COMPARISON: Correlated to CT dated September 11, 2024. TECHNIQUE: Real-time ultrasound of the upper and lower quadrants of the abdomen and pelvis using a curvilinear transducer with grayscale technique. FINDINGS: No gross free fluid. US/US abdomen limited IMPRESSION: No ascites. Negative exam. Electronically signed by: Mk Segovia MD 09/13/2024 01:10 PM EDT
--- NOTE | ~2024-09-11 | XR_ITS ---
CLINICAL HISTORY: verify central line placement RIJ 1 view chest x-ray Comparison: None Findings: Bibasilar atelectasis. No significant pleural effusion or pneumothorax. Prominent cardiac silhouette. Right IJ CVC tip projects over the upper/mid SVC. No acute fracture. IMPRESSION: 1. Right IJ CVC tip projects over the upper/mid SVC. 2. Bibasilar atelectasis. This document has been electronically signed by: Renato Hoyt MD on 09/11/2024 19:34:48
--- NOTE | ~2024-09-11 | XR_ITS ---
EXAMINATION: XR CHEST CLINICAL INFORMATION: confirm NG tube placement COMPARISON: Earlier same day. TECHNIQUE: Frontal view of the chest was obtained. FINDINGS: There is been placement of an enteric tube, which extends into the stomach. Sidehole are subdiaphragmatic. This is well positioned. Right IJ central venous catheter is stable in position in the superior SVC. Elevated right hemidiaphragm with pulmonary findings unchanged. No pneumothorax. No definite effusion seen. XR/XR chest 1V IMPRESSION: 1. Well-positioned NG tube and central venous catheter. 2. No significant interval change in patchy multifocal opacities in elevated right hemidiaphragm. No pneumothorax. Electronically signed by: Wilmer Wen MD 09/17/2024 10:13 AM EDT
--- NOTE | ~2024-09-11 | US_ITS ---
CLINICAL HISTORY: leg sweling ? dvt Bilateral lower extremity venous duplex ultrasound Comparison: None Findings: The peroneal veins were not seen bilaterally. The visualized deep veins are fully compressible with normal flow. No popliteal cyst. Impression: No deep vein thrombosis. This document has been electronically signed by: Ree Rios MD on 09/15/2024 13:44:54
--- NOTE | ~2024-09-11 | MR_ITS ---
CLINICAL HISTORY: encpehalopathy vertiago, incomplete study, pt confused, removing helmet, motion, be st obtainable MR of the brain without contrast Comparison: CT/SR - CT HEAD/BRAIN WO IV CON - 09/14/24 13:24 EDT Findings: Image quality is degraded by patient motion. No acute infarction, hemorrhage, mass-effect or herniation. No hydrocephalus. Signal intensity is within normal limits for patient's age. No extra-axial fluid collection or mass. Unremarkable sella. Intact flow voids. Normal orbits. Clear paranasal sinuses and mastoid air cells. Unremarkable osseous structures. Impression: No acute findings. This document has been electronically signed by: Ree Rios MD on 09/15/2024 14:47:32
--- NOTE | ~2024-09-11 | XR_ITS ---
EXAMINATION: XR CHEST CLINICAL INFORMATION: Tube placement COMPARISON: 09/15/2024, 09/14/2024. TECHNIQUE: Frontal view of the chest was obtained. FINDINGS: Right transjugular central venous catheter is redemonstrated, tip terminating in the superior SVC. Mildly elevated right hemidiaphragm. This is unchanged. The cardiac, hilar, and mediastinal contours are normal. Lungs demonstrate new patchy opacities in the right mid and lower lung, as well as the left mid and lower lung, without definite effusion seen. No focal osseous or soft tissue abnormality. Degenerative changes in the joints and spine. XR/XR chest 1V IMPRESSION: 1. Right central venous catheter in good position. 2. Low lung volumes with elevated right hemidiaphragm. Interval development of patchy multifocal opacities. Differential includes pulmonary edema versus developing multifocal pneumonia. 3. No definite effusions. Electronically signed by: Wilmer Wen MD 09/17/2024 08:35 AM EDT
--- NOTE | ~2024-09-11 | CT_ITS ---
EXAMINATION: CT ABDOMEN AND PELVIS WITHOUT CONTRAST CLINICAL INFORMATION: Elevated liver function tests. Abdominal distention. COMPARISON: None available. TECHNIQUE: Multidetector volumetric imaging was performed from the superior aspect of the liver through the pubic symphysis. Sagittal and coronal reformatted images were obtained on the technologist's workstation. This CT examination was performed using dose optimization techniques as appropriate, variously including the following: *Automated exposure control *Adjustment of mA and/or kV according to patient size (this includes techniques or standardized protocols for targeted exams where dose is matched to indication/reason for exam; i.e. extremities or head) *Use of iterative reconstruction technique DLP: 1200 mGy centimeter. FINDINGS: Limited evaluation of the intra-abdominal organs and vascular structures due to lack of IV contrast. LUNG BASES: Nonspecific confluent patchy pulmonary groundglass in the periphery of the lung bases. LIVER, GALLBLADDER, AND BILIARY TREE: Liver measures 23 cm. Decreased attenuation throughout the parenchyma. No pericholecystic fluid collection or gallbladder wall thickening. Increased density in the gallbladder lumen measuring 17 Hounsfield units. No intrahepatic or extrahepatic biliary ductal dilatation. PANCREAS: No peripancreatic fluid collection. No main pancreatic ductal dilatation. SPLEEN: 9 cm. ADRENAL GLANDS: No nodular lesions. KIDNEYS AND URETERS: No hydronephrosis. No nephrolithiasis. BLADDER: Fluid-filled. GASTROINTESTINAL TRACT: No intestinal obstruction pattern. No ascites. No pneumoperitoneum. No pneumatosis intestinalis. No gross wall thickening in the small or large intestine. Appendix appears normal. ABDOMINAL WALL: There is disc abdominal rectus muscles and small fat-containing umbilical hernia. LYMPH NODES: Nonspecific mildly prominent lymph nodes in the retroperitoneum. VASCULAR: Calcified plaques distal abdominal aorta and iliac arteries. PELVIC VISCERA: Inadequate evaluation. OSSEOUS STRUCTURES: There is an increased density and soft tissue fullness involving the left psoas muscle from L2 to L5 S1. There is edema pattern in the left inguinal region. There is being hardening artifact secondary to the left hip arthroplasty prosthesis and multiple metallic screws through the left acetabulum and left iliac bone. Mild multilevel thoracolumbar spondylosis without acute fracture or gross listhesis. Gynecomastia, bilaterally. CT/CT abdomen pelvis wo IV con IMPRESSION: Hepatomegaly and steatosis. Intramuscular hematoma, left psoas muscle. Fleischner guidelines were followed. Electronically signed by: Mk Segovia MD 09/11/2024 02:44 PM EDT RP
--- NOTE | ~2024-09-11 | CT_ITS ---
CLINICAL HISTORY: dizziness CT head without contrast Comparison: None Findings: No intra-axial mass, midline shift, hydrocephalus, or acute hemorrhage. No significant atrophy-like change or white matter disease. There is no sinus or mastoid fluid. The orbits are within normal limits. No skull fracture. IMPRESSION: 1. No acute intracranial findings. This document has been electronically signed by: Facundo Swain MD on 09/14/2024 14:34:54
--- NOTE | ~2024-09-11 | XR_ITS ---
CLINICAL HISTORY: cough 1 view chest x-ray Comparison: None Findings: Portions of the exam are obscured by overlying material. The exam is not significantly changed including positioning of central line. IMPRESSION: 1. No change from prior study. This document has been electronically signed by: Facundo Swain MD on 09/14/2024 13:39:08
--- NOTE | ~2024-09-11 | CT_ITS ---
CLINICAL HISTORY: ? bowel obstruction vs ileus CT abdomen and pelvis without contrast Comparison: CT/SR - CT ABDOMEN PELVIS WO IV CON - 09/11/24 14:10 EDT Findings: Examination is limited by without contrast. There is artifact from the bilateral arms. Bibasilar opacities. No pleural effusion. Bilateral gynecomastia. NG tube. Hepatic steatosis and hepatomegaly. Pancreas, spleen and both adrenals show normal size, shape and attenuation on present unenhanced scan. No CBD dilatation. No calcified gallstone in the gallbladder. Both kidneys reveal normal in size, shape, position and attenuation. No kidney stone. No hydronephrosis. The IVC, aorta and portal vein are within normal position and caliber. No evidence of retroperitoneal lymphadenopathy or ascites. The visible parts of the bowel loops show no obvious mass lesions or wall thickening. Appendix is normal. Borderline dilated small bowel in the left side of the abdomen measuring up to 3 cm in diameter. Limited evaluation of the pelvis due to beam hardening artifact from the left hip prosthesis. Left hip replacement. IMPRESSION: Borderline dilated small bowel of the left side of abdomen. Ileus or bowel obstruction can not be excluded. Atelectasis/infiltrate of the lung base. Hepatic steatosis and hepatomegaly. This document has been electronically signed by: Liliane Nugent MD on 09/19/2024 15:15:44
--- NOTE | ~2024-09-11 | US_ITS ---
EXAMINATION: US ABDOMEN LIMITED CLINICAL INFORMATION: Hepatic failure. Ascites.. COMPARISON: September 11, 2024. Correlated to CT dated September 11, 2024. TECHNIQUE: Real-time ultrasound all 4 quadrants of the abdomen pelvis using a curvilinear transducer with grayscale technique. FINDINGS: No free fluid. US/US abdomen limited IMPRESSION: Negative for ascites. No change. Electronically signed by: Mk Segovia MD 09/19/2024 11:13 AM EDT
--- NOTE | 2024-09-11 10:21 | ECG_ITS ---
Test Reason : WEAKNESS Blood Pressure : */* mmHG Vent. Rate : 101 BPM Atrial Rate : 101 BPM P-R Int : 166 ms QRS Dur : 96 ms QT Int : 340 ms P-R-T Axes : 31 -14 24 degrees QTcB Int : 440 ms Sinus tachycardia Otherwise normal ECG When compared with ECG of 17-Nov-2018 09:30, No significant change was found Referred By: Kristal Zhang Electronically Signed By: NBA ALONSO MD
--- NOTE | 2024-09-11 10:25 | ED_ITS ---
HPI - General Adult General Chief complaint: ETOH/Substance Use Stated complaint: DRINKING,JAUNDICE,?ASCITES PER EMS Time Seen by Provider: 09/11/24 10:11 Source: patient and old records reviewed Mode of arrival: EMS Limitations: no limitations History of Present Illness ED Provider: ERNIE WORKMAN narrative: 53 year old male with PMHx of alcohol and crack use disorder, depression and anxiety presents to the ED by EMS due to a wellness check being done. He told EMS he hasn't left his bed in a month. His bed was piled high with approx 100+ nips and urine stains. He told EMS he drank about 20 nips already today. [employer] delivers his ETOH. He has no SI/HI, he denies withdrawal seizure. He is agitated he is here. He has daily diarrhea but no black or bloody stools. He denies pain, fevers, cough, n/v, GIB symptoms. He is upset he is here. He is demanding his AM suboxone. His family called after not hearing from him for 30 days. MD complaint: wellness check ETOH use disorder Onset (ago): day(s) () Severity: moderate Relieving factors: none Exacerbating factors: movement Associated symptoms: denies other symptoms Treatments prior to arrival: none Related Data Home Medications ?Medication ?Instructions ?Recorded ?Confirmed buprenorphine 8 mg-naloxone 2 mg 1 strip sublingual DAILY 04/02/20 04/16/24 sublingual film buprenorphine 4 mg-naloxone 1 mg 1 film sublingual DAILY@1700 04/03/20 04/16/24 sublingual film (Suboxone) Previous Rx's ?Medication ?Instructions ?Recorded cholecalciferol (vitamin D3) 50 50 mcg PO DAILY 90 days #90 caps 02/03/23 mcg (2,000 unit) capsule clonidine HCl 0.2 mg tablet 0.2 mg PO BEDTIME 90 days #90 tabs 12/11/23 zolpidem 10 mg tablet 10 mg PO BEDTIME PRN insomnia 30 12/11/23 days #30 tabs ropinirole 1 mg tablet 1 mg PO BID restless leg symptoms 03/18/24 30 days #60 tabs escitalopram oxalate 20 mg tablet 20 mg PO DAILY 90 days #90 tabs 04/16/24 gabapentin 100 mg capsule 100 mg PO BEDTIME 30 days #30 caps 04/16/24 sildenafil 50 mg tablet 50 mg PO DAILY PRN sexual activity 04/16/24 #10 tabs testosterone (AndroGel) 1 pump topical DAILY #75 grams 04/16/24 brexpiprazole 2 mg tablet (Rexulti) 2 mg PO DAILY #30 tabs 07/09/24 Allergies Allergy/AdvReac Type Severity Reaction Status Date / Time crab Allergy Severe Anaphylaxis Verified 09/11/24 10:32 squid Allergy Severe Anaphylaxis Verified 09/11/24 10:32 latex [LATEX] Allergy Intermediate RASH Verified 09/11/24 10:32 Review of Systems 2 Review of Systems: Constitutional : No Fever, No Chills, No Fatigue ENT/Mouth : No sore throat, No Rhinorrhea Eyes: No Eye Pain, No Swelling, No Redness Cardiovascular : No Chest Pain, No SOB, No Dyspnea on Exertion Respiratory : No Cough, No Sputum Gastrointestinal : No Nausea, No Vomiting, No Diarrhea, No abdominal Pain Genitourinary : No Dysuria, No Urinary Frequency, No Hematuria, Musculoskeletal : No joint pain, No Myalgias, No Joint Swelling Skin : No Skin Lesions, No rash Neuro : No Weakness, No Numbness, No Dizziness, no Headache Psych : No Anxiety/Panic, No Depression All other systems reviewed and are negative PMFSH Past Medical History Attestation statement: The following information was validated with the patient. Source: old records reviewed Medical History Hypotestosteronism History of intravenous drug abuse Chronic constipation Vitamin D deficiency Impaired fasting glucose Pure hypercholesterolemia Obesity (BMI 30-39.9) Smoker Insomnia Depression Anxiety Hepatitis C Surgical History Hx of colonoscopy History of surgery on arm History of left hip replacement Family History Family History Father In good health Mother In good health Brother In good health Other Substance abuse Social History Social History Household Members: None Housing: Condominium Alcohol intake: current Alcohol intake frequency: a few times a month Patient Tobacco Use Status: Former Tobacco user Tobacco use type: Smokeless Tobacco Cigarettes Per Day: 2 Years Smoked: 15 e-Cigarette/Vaping Use: Currently Using Substance Use Type: Marijuana Advance Directives: No Advance Directives Information Provided: Yes Do you have a plan to hurt others: No Plan service: No Current occupational status: employed 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 Oriented X3. No acute distress. agitated Eyes: Pupils equal, round and reactive to light. Scleral icterus ENT: Pharynx normal. Neck: Normal inspection. Neck supple. CVS: tachycardic heart rate and rhythm. Pulses normal. Respiratory: No respiratory distress. Breath sounds normal. Abdomen: Soft and nontender. Moderate ascites noted Skin: Skin warm and dry. jaundice skin color. Normal skin turgor. Extremities: No lower extremity edema. Neuro: Oriented X 3. No motor deficit. No sensory deficit. CN2-12 intact Medications Administered Generic Name Dose Route Start Last Admin Trade Name Freq PRN Reason Stop Dose Admin Magnesium Sulfate 2 gm in 50 mls @ 25 mls/hr 09/11/24 10:21 09/11/24 11:12 Magnesium Sulfate/H2o IV 09/11/24 12:20 25 mls/hr ONCE ONE Administration Discontinued Medications Generic Name Dose Route Start Last Admin Trade Name Freq PRN Reason Stop Dose Admin Buprenorphine/Naloxone 1 film 09/11/24 10:36 09/11/24 10:41 Buprenorphine/Naloxone 8/2 Mg Film SUBLINGUAL 09/11/24 10:37 1 film ONCE ONE Administration Thiamine HCl 200 mg/ Sodium 102 mls @ 204 mls/hr 09/11/24 10:21 09/11/24 11:09 Chloride IV 09/11/24 10:50 204 mls/hr ONCE ONE Administration Medical Decision Making Medical Decision Making MDM Narrative: 53 year old male with PMHx of alcohol and crack use disorder, depression and anxiety here with c/o ETOH abuse FTT staying in bed which was covered in urine and 100+ nips his living conditions are poor. He denies SI/HI. He is upset he is here. At this time will obtain EKG, labs, start on his suboxone, IV magnesium, IV thiamine. He has no belly pain to suggest SBP. Differential Diagnosis Differential Diagnoses: The differential diagnosis associated with the presentation includes ETOH hepatitis, lyte abnormality, failure to thrive, cirrhosis, drug abuse Admission/Observation Consideration of admission/observation: Escalation of care including admission/observation considered started on gentle fluids, phenobarb protocol, INR normal albumin slightly low will admit for further work up and management of etoh hepatitis. Consult Healthcare Provider Management of the patient was discussed with: Hospitalist (will admit) Lab Data MDM Lab Attestation statement: I reviewed the patient's lab results. 09/11/24 10:51 09/11/24 10:51 Labs: Lab Results 09/11/24 09/11/24 Range/Units 10:27 10:51 WBC 7.7 (4.8-10.8) X10*3/uL RBC 3.91 L (4.60-5.80) X10*6/uL Hgb 12.6 L (14.0-18.0) g/dl Hct 34.8 L (42.0-52.0) % MCV 89.0 (80.0-98.0) fL MCH 32.2 (27.0-33.0) pg MCHC 36.2 H (31.0-36.0) g/dl RDW 16.1 H (11.0-16.0) % Plt Count 141 L D (160-400) X10*3/uL MPV 8.8 L (9.4-12.4) fL Immature Gran % (Auto) 3.6 H (0.0-0.4) % Neut % (Auto) 78.3 H (45-73) % Lymph % (Auto) 12.0 L (20-40) % [place] % (Auto) 5.7 (2-11) % Eos % (Auto) 0.1 (0-4) % Baso % (Auto) 0.3 (0-2) % Lymph # (Auto) 0.9 L (1.2-4.9) X10*3/uL [place] # (Auto) 0.4 (0.1-1.2) X10*3/uL Eos # (Auto) 0.0 (0.0-0.4) X10*3/uL Baso # (Auto) 0.0 (0.0-0.2) X10*3/uL Abs Immat Gran (auto) 0.28 H (0.00-0.03) X10*3/uL Absolute Neuts (auto) 6.1 (2.0-8.3) x10*3/uL Absolute Nucleated RBC 0.020 H (0.0-0.012) X10*3/uL Nucleated RBC % (auto) 0.3 H (0.0-0.2) /100WBC PT 11.6 (10.9-12.4) SEC INR 1.0 (0.9-1.1) Sodium 129 L (135-145) mmol/L Potassium 3.4 D (3.3-5.1) mmol/L Chloride 85 L (96-108) mmol/L Carbon Dioxide 21 L (22-29) mmol/L Anion Gap 26 H (12-20) BUN 7 L (9-16) mg/dL Creatinine 0.86 (0.5-1.4) mg/dL Estim Creat Clear Calc 128.1 Estimated GFR > 60 POC Glucose 146 H (60-115) mg/dL Random Glucose 135 H (60-115) mg/dL Calcium 8.2 L D (8.4-10.2) mg/dL Magnesium 2.1 (1.6-2.6) mg/dL Total Bilirubin 6.4 H (0.0-1.0) mg/dL Direct Bilirubin 4.8 H (0.0-0.5) mg/dL AST 521 H (5-37) U/L ALT 290 H (0-40) U/L Alkaline Phosphatase 170 H (39-117) U/L Ammonia 53 (13-55) umol/L Total Creatine Kinase 150 (38-174) U/L Troponin I High Sens 15.4 (<3.5-35.0) ng/L C-Reactive Protein 5.89 H (< or = 0.50) mg/dL B-Natriuretic Peptide 47 (<100) pg/mL Total Protein 6.2 L (6.5-8.0) g/dL Albumin 3.2 L (3.5-5.0) g/dL Lipase 43 (8-78) U/L Ethyl Alcohol 244 mg/dL Independent Interpretation I performed an independent interpretation of an: EKG Interpretation: Rate: 101 Rhythm: sinus tach [place]: left Normal P waves. Normal YADY. Normal QRS complex. ST T wave : normal no KRISTIAN qTC: 440 prior studies: no acute ischemia The study has been interpreted contemporaneously by me. . Independent Historian Clinical information obtained from an independent historian. History obtained from or confirmed by: EMS External Record Review External record reviewed: Inpatient record and Outpatient record Social Determinants Patient?s care significantly limited by Social Determinants of Health including: Problems related to primary support group Critical Care Time Critical Care Time Critical Care Time: Yes Total Critical Care Time: 45 Attestation: Time is exclusive of separately billable procedures. Time includes: direct patient care, patient reassessment, coordination of patient care, interpretation of data (laboratory data, pulse oximetry, ), review of patient's medical records, medical consultation and documentation of patient care. Procedures excluded from critical care time: electrocardiography., IV magnesium, IM phenobarb protocol I attest to this time spent taking care of the patient Discharge Plan Discharge Clinical Impression: Acute alcoholic hepatitis, Alcohol use disorder, Acute hyponatremia Patient Disposition: Admitted As Inpatient Prescriptions: No Action ropinirole 1 mg tablet 1 mg PO BID 30 Days Qty: 60 2RF Rexulti 2 mg tablet 2 mg PO DAILY Qty: 30 3RF buprenorphine-naloxone 8-2 mg film 1 strip sublingual DAILY buprenorphine-naloxone [Suboxone] 4-1 mg Film 1 film SUBLINGUAL DAILY@1700 Rx Instructions: Take 4-1 mg in the evening daily cholecalciferol (vitamin D3) 50 mcg (2,000 unit) capsule 50 mcg PO DAILY 90 Days Qty: 90 3RF zolpidem 10 mg tablet 10 mg PO BEDTIME PRN (Reason: insomnia) 30 Days Qty: 30 1RF clonidine HCl 0.2 mg tablet 0.2 mg PO BEDTIME 90 Days Qty: 90 1RF Patient Comments: Medication is prescribed 0.1 mg TID patient takes 0.2 mg Q HS per old prescription. Hilaria DENNEY DIRECTOR OF ASSESSMENT is aware. sildenafil 50 mg tablet 50 mg PO DAILY PRN (Reason: sexual activity) Qty: 10 0RF Rx Instructions: administer 30 minutes to 4 hours before activity gabapentin 100 mg capsule 100 mg PO BEDTIME 30 Days Qty: 30 2RF escitalopram oxalate 20 mg tablet 20 mg PO DAILY 90 Days Qty: 90 1RF testosterone [AndroGel] 20.25 mg/1.25 gram (1.62 %) gel in metered-dose pump 1 pump topical DAILY Qty: 75 1RF Rx Instructions: apply 1 pump amount over max area of ONE upper arm and shoulder Print Language: [place]
[2024-09-11 10:30] LABS: Glucose, Whole Blood 146 mg/dL (60-115)
[2024-09-11] MEDS: Buprenorphine/Naloxone 8/2 mg FILM 1 FILM SUBLINGUAL (10:41)
[2024-09-11 10:59] LABS: MANUAL DIFF FLAG NO
[2024-09-11 11:01] LABS: Basophils Percent Auto 0.3 % (0-2); Eosinophils Percent Auto 0.1 % (0-4); Hematocrit 34.8 % (42.0-52.0); Hemoglobin 12.6 g/dl (14.0-18.0); Imm Gran Abs Auto 0.28 X10*3/uL (0.00-0.03); Imm Gran Pct Auto 3.6 % (0.0-0.4); Lymphocytes Absolute Auto 0.9 X10*3/uL (1.2-4.9); Mean Corpuscular HGB Conc 36.2 g/dl (31.0-36.0); Mean Corpuscular Hemoglobin 32.2 pg (27.0-33.0); Mean Platelet Volume 8.8 fL (9.4-12.4); Monocytes Absolute Auto 0.4 X10*3/uL (0.1-1.2); Monocytes Percent Auto 5.7 % (2-11); NRBC Pct Auto 0.3 /100WBC (0.0-0.2); Neutrophils Absolute Auto 6.1 x10*3/uL (2.0-8.3); Neutrophils Percent Auto 78.3 % (45-73); Platelet Count 141 X10*3/uL (160-400); Red Blood Count 3.91 X10*6/uL (4.60-5.80); Red Cell Distribution Width 16.1 % (11.0-16.0); White Blood Count 7.7 X10*3/uL (4.8-10.8)
[2024-09-11 11:05] LABS: Prothrombin Time 11.6 SEC (10.9-12.4)
[2024-09-11 11:06] LABS: Ammonia 53 umol/L (13-55)
[2024-09-11] MEDS: Thiamine HCL 200 MG in 0.9 % Sodium Chloride 100 ML 204 MG IV (11:09)
[2024-09-11] MEDS: Magnesium Sulfate/H2O 2 GM/50 ML PIGGYBACK IV (11:12)
[2024-09-11 11:18] LABS: Alanine Aminotransferase 290 U/L (0-40); Albumin Level 3.2 g/dL (3.5-5.0); Alkaline Phosphatase 170 U/L (39-117); Anion Gap 26 (12-20); Aspartate Amino Transferase 521 U/L (5-37); Bilirubin Direct 4.8 mg/dL (0.0-0.5); Bilirubin Total 6.4 mg/dL (0.0-1.0); Blood Urea Nitrogen 7 mg/dL (9-16); C Reactive Protein 5.89 mg/dL (< or = 0.50); Calcium 8.2 mg/dL (8.4-10.2); Carbon Dioxide 21 mmol/L (22-29); Chloride 85 mmol/L (96-108); Creatinine Clr Calc Pharmacy 128.1; Estimated Glomerular Filt Rate > 60; Ethanol 244 mg/dL; Glucose Random 135 mg/dL (60-115); Lipase 43 U/L (8-78); Magnesium 2.1 mg/dL (1.6-2.6); Potassium 3.4 mmol/L (3.3-5.1); Sodium 129 mmol/L (135-145); Total Protein 6.2 g/dL (6.5-8.0)
[2024-09-11 11:20] LABS: B Type Natriuretic Peptide 47 pg/mL (<100)
[2024-09-11 11:23] LABS: Troponin-I High Sensitivity 15.4 ng/L (<3.5-35.0)
[2024-09-11 11:38] LABS: TSH reflex Free T4 2.12 uIU/mL (0.32-4.0)
--- NOTE | 2024-09-11 11:45 | PM.IMHP ---
History of Present Illness Date of Service: 09/11/24 Attending physician on admission: Kimo Carroll Chief Complaint: ETOH use Pt is a 53-year-old male with a PMH significant for?alcohol use disorder, crack use disorder, hx of treated hepatitis C, depression, and anxiety who presents to the ED via EMS after family called for a wellness check after not hearing from him for over 1 month. Pt was found by EMS with house in complete disarray, pt laying in bed unkempt, and surrounded by 100+ empty nips that had been delivered by [employer]. Pt reports has been drinking on and off for the past 10 years; last in detox program around 6-7 months ago. Has been drinking 30+ nips daily for past 45 days with last drink this morning just prior to EMS arrival. Reports drinking 25 nips since waking. Hx of IVDU with last use around 2 years ago, though recently has been smoking crack cocaine with last use 1-2 weeks ago. Pt has noted some swelling in abd x10 days though no abdominal pain. Occasional nausea alleviated by drinking, but no vomiting. Denies auditory visual hallucinations or tactile disturbances. No diaphoresis. Denies chest pain/pressure, palpitations. No SOB or difficulty breathing. In the ED pt was tachycardic up to 115, vitals otherwise stable and WNL. Labs were significant for H&H 12.6/34.8, platelets 141, sodium 129, and new transaminitis with T bili 6.4, AST 521, ALT 290, and alk-phos 170. CRP elevated at 5.89. Albumin 3.2. Ethyl alcohol 244. EKG demonstrated sinus tachycardia of 101 without evidence of significant ST elevations or depressions. Pt was treated in the ED with Suboxone, thiamine 200 mg IV, Mag sulfate, and started on phenobarb protocol. Pt admitted to the hospital for treatment and further evaluation of acute alcoholic hepatitis with imminent alcohol withdrawal. Review of Systems Review of Systems: Negative except for that which is stated in the [facility] Medical History Hypotestosteronism History of intravenous drug abuse Chronic constipation Vitamin D deficiency Impaired fasting glucose Pure hypercholesterolemia Obesity (BMI 30-39.9) Smoker Insomnia Depression Anxiety Hepatitis C Family History Father In good health Mother In good health Brother In good health Other Substance abuse Surgical History Hx of colonoscopy History of surgery on arm History of left hip replacement Social History Household Members: None Housing: Condominium Alcohol intake: current Alcohol intake frequency: 3 or more drinks per day Alcohol type: hard liquor Patient Tobacco Use Status: Former Tobacco user Tobacco use type: Smokeless Tobacco Cigarettes Per Day: 2 Years Smoked: 15 Smoked in Last 30 Days: No e-Cigarette/Vaping Use: Currently Using Use of substances other than those prescribed or required for medical reasons: Yes Substance Use Type: Crack/Cocaine Substance Use Frequency: Occasionally Last Used Substance: Days (ago) Any prior treatment program specific to substance use: No Advance Directives: No Advance Directives Information Provided: Yes Do you have a plan to hurt others: No Plan Nutrition Risks: No Nutritional Risk service: No Current occupational status: employed 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 Meds Allergies Allergy/AdvReac Type Severity Reaction Status Date / Time crab Allergy Severe Anaphylaxis Verified 09/11/24 10:32 squid Allergy Severe Anaphylaxis Verified 09/11/24 10:32 latex [LATEX] Allergy Intermediate RASH Verified 09/11/24 10:32 Active Medications: Current Medications Magnesium Sulfate (Magnesium Sulfate/H2o) 2 gm in 50 mls @ 25 mls/hr IV ONCE ONE Stop: 09/11/24 12:20 Last Admin: 09/11/24 11:12 Dose: 25 mls/hr Lactated Ringer's (Lr) 1,000 mls @ 80 mls/hr IVCONT .[id number] [facility] Pharmacy Consult (Consult Rx Etoh Phenob Im/Po) 1 each MISCELLANE ONCE PRN; Protocol PRN Reason: Consult order Phenobarbital (Phenobarbital 15 Mg Tablet) 45 mg PO BID [facility] Stop: 09/13/24 21:01 Phenobarbital (Phenobarbital 30 Mg Tablet) 30 mg PO BID [facility] Stop: 09/15/24 21:01 Phenobarbital (Phenobarbital 30 Mg Tablet) 30 mg PO DAILY [facility] Stop: 09/17/24 09:01 Phenobarbital Sodium (Phenobarbital Sodium 130 Mg/Ml Im Once) 274 mg IM ONCE ONE Stop: 09/11/24 12:01 Phenobarbital Sodium (Phenobarbital Sodium 130 Mg/Ml Vial Im Q3hx2) 205 mg IM Q3H [facility] Stop: 09/11/24 18:01 Home Medications ?Medication ?Instructions ?Recorded ?Confirmed ?Last Taken ?Type buprenorphine 8 mg-naloxone 2 mg 1 film sublingual DAILY 04/02/20 09/11/24 1 Month Ago History sublingual film ~08/11/24 buprenorphine 4 mg-naloxone 1 mg 1 film sublingual BEDTIME 04/03/20 09/11/24 1 Month Ago History sublingual film (Suboxone) ~08/11/24 clonidine HCl 0.2 mg tablet 0.2 mg PO BEDTIME PRN Anxiety 09/11/24 09/11/24 1 Month Ago History ~08/11/24 gabapentin 100 mg capsule 100 mg PO BEDTIME PRN restless leg 09/11/24 09/11/24 1 Month Ago History symptoms ~08/11/24 ropinirole 1 mg tablet 1 mg PO BID PRN restless leg 09/11/24 09/11/24 1 Month Ago History symptoms ~08/11/24 Physical Exam Vital Signs and Narrative: Vital Signs: Last Vital Signs Temp 97.7 F 09/11/24 10:28 Pulse 115 H 09/11/24 10:28 Resp 20 09/11/24 10:28 BP 115/85 09/11/24 10:28 Pulse Ox 99 09/11/24 10:28 O2 Del Method Room Air 09/11/24 10:28 BMI result Body Mass Index 42.9 General: AOx3, no acute distress. Looks uncomfortable. EENT: Sclerae anicteric Resp: CTA bilaterally CVS: S1, S2, RRR GI: +BS, NT, with moderate distention Skin: Warm, dry Neuro: Cranial nerves II-XII grossly intact bilaterally. Motor grossly intact bilaterally. Upper extremity tremors noted. Extremities: No edema Psych: Appears anxious Results Labs 09/11/24 10:51 09/11/24 16:11 Labs: Laboratory Results - last 24 hr 09/11/24 09/11/24 10:27 10:51 MCV 89.0 MCH 32.2 MCHC 36.2 H RDW 16.1 H Plt Count 141 L D MPV 8.8 L Immature Gran % (Auto) 3.6 H Neut % (Auto) 78.3 H Lymph % (Auto) 12.0 L [place] % (Auto) 5.7 Eos % (Auto) 0.1 Baso % (Auto) 0.3 Lymph # (Auto) 0.9 L [place] # (Auto) 0.4 Eos # (Auto) 0.0 Baso # (Auto) 0.0 Abs Immat Gran (auto) 0.28 H Absolute Neuts (auto) 6.1 Absolute Nucleated RBC 0.020 H Nucleated RBC % (auto) 0.3 H PT 11.6 INR 1.0 Anion Gap 26 H Estim Creat Clear Calc 128.1 Estimated GFR > 60 POC Glucose 146 H Random Glucose 135 H Calcium 8.2 L D Magnesium 2.1 Total Bilirubin 6.4 H Direct Bilirubin 4.8 H AST 521 H ALT 290 H Alkaline Phosphatase 170 H Ammonia 53 Total Creatine Kinase 150 C-Reactive Protein 5.89 H B-Natriuretic Peptide 47 Total Protein 6.2 L Albumin 3.2 L Lipase 43 TSH 2.12 Ethyl Alcohol 244 Assessment and Plan (1) Alcohol use disorder: Status: Acute (2) Hyperbilirubinemia: Status: Acute (3) Transaminitis: Status: Acute Plan Pt is a 53-year-old male with a PMH significant for?alcohol use disorder, crack use disorder, hx of treated hepatitis C, depression, and anxiety who presents to the ED via EMS after family called for a wellness check after not hearing from him for over 1 month. Pt was found by EMS with house in complete disarray, pt laying in bed unkempt, and surrounded by 100+ empty nips that had been delivered by [employer]. Pt admitted to the hospital for treatment and further evaluation of acute alcoholic hepatitis with imminent alcohol withdrawal. Alcohol use disorder Pt has been drinking 30+ nips daily with the past 45 days Drank around 25 hips this morning prior to EMS arrival for wellness check Pt given IV thiamine and started on phenobarb protocol in the ED Continue phenobarb protocol Daily multivitamin, folic acid, thiamine, famotidine Follow lotus, Mag [place] scale Addiction medicine consult Monitor on telemetry Transaminitis and hyperbilirubinemia T bili 6.4, AST 521, ALT 290, alk-phos 170 Pt with abdominal distention, abd nontender Concerning for acute alcohol hepatitis Hx of IVDU last used 2 years ago Hx of treated Hep C We will get CT of abdomen to evaluate for cirrhosis and ascites GI consult to establish care Hyponatremia Sodium 129 at time of presentation Pt receiving IVF Follow sodium Polysubstance use disorder Continue Suboxone Anxiety Pt has not been taking antipsychotics for at least the past month Continue clonidine, escitalopram Will titrate Rexulti by restarting at 1 mg x4 days, increasing to 2 mg daily on day 5 Full Code Attending:?Dr. Carroll DVT Prophylaxis: Lovenox Pt will require a hospitalization of at least two nights for treatment of?likely acute alcoholic hepatitis with imminent alcohol withdrawal requiring close monitoring of labs, vitals, and CIWA while administering phenobarb protocol. Quality Stroke Does the patient have a stroke diagnosis?: No VTE Prior VTE?: No VTE Risk Level:: Medical - moderate - high VTE Device Contraindication: Treatment Not Indicated VTE Drug Contraindication: N/A - Med Ordered
[2024-09-11] MEDS: PHENobarbitaL sodium 130 MG/ML IM ONCE 274 MG IM (12:00)
--- OUTSIDE RECORDS SUMMARY | 2024-09-11 12:34 | XMS_ITS | Encounter Summary ---
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 Name Role Phone Unavailable Primary Care Provider Unavailabl e Encounter Details Date Type Department Care Team (Late st Contact Info) Description 04/09/2024 Lab Requisition [facility] - Main Lab [address] [place] [address] Chely Lockwood MD [address] [place] [id number] Opioid dependence, uncomplicated (CMS/[facility]ER[facility] V24, CMS/[facility]ER[facility] V28) Social History Tobacco Use Types Packs/Day Years Used Date Smoking Tobacco: Never Assessed Sex and Gender Information Value Date Recorded Sex Assigned at Not on file Legal Sex Male 7:00 AM EST Gender Identity Not on file Sexual Orientation Not on file documented as of this encounter Plan of Treatment Not on file documented as of this encounter Procedures Procedure Name Priority Date/Time Associated Diagnosis Comments DRUG ABUSE SCREEN 8A PANEL, URINE Routine 04/09/2024 12:00 AM EST Opioid dependence, uncomplicated ([facility]) documented in this encounter Results * (ABNORMAL) Drug abuse screen 8a panel, urine (04/09/2024 12:00 AM EST) Amphetamine Screen, Ur Negative Negative LAB CHEMISTRY METHOD 4 7:56 PM EST [facility] Comment:Certain OTC medicati ons containing ephedrine, phenylephrine, pseudoephedrine and phenylpropanolamine can cause false positive results. Barbiturate Screen, Ur Negative Negative LAB CHEMISTRY METHOD 4 7:56 PM EST [facility] Benzodiazepine Screen, Ur Negative Negative LAB CHEMISTRY METHOD 4 7:56 PM EST [facility] Cocaine Screen, Ur Negative Negative LAB CHEMISTRY METHOD 4 7:56 PM [facility] Opiate Screen, Ur Negative Negative LAB CHEMISTRY METHOD 4 7:56 PM [facility] Cannabinoid (THC) Screen, Ur Positive(A ) Negative LAB CHEMISTRY METHOD 4 7:56 PM [facility] Comment:Specimens from patie nts taking pantoprazole sodium (Protonix) have been shown to produce false positive results. Oxycodone Screen, Ur Negative Negative LAB CHEMISTRY METHOD 4 7:56 PM [facility] Fentanyl, Ur Negative Negative LAB CHEMISTRY METHOD 4 7:56 PM [facility] Urine Urine specimen obtained by clean catch procedure / Unknown 04/09/2024 04/09/2024 7:00 PM EST [facility] - 04/09/2024 7:56 PM EST Assay cutoffs: Amphetamines ? 1000 ng/mL Barbiturates ?200 ng/mL Benzodiazepines ?? 200 ng/mL Cocaine ? 300 ng/mL Fentanyl ?1 ng/mL Opiates ? 300 ng/mL Oxycodone ? 100 ng/mL THC ?50 ng/mL Semi-quantitative assay for screening purposes only. Unconfirmed screening result should not be used for non-medical purposes. *ALTERNATE METHOD CONFIRMATION DONE UPON REQUEST ONLY* us Chely Lockwood MD LAB URINE ORDERABLES Portia lo Result [facility] [address] [place] [address], documented in this encounter Visit Diagnoses Diagnosis Opioid dependence, uncomplicated (CMS/HCC V24, CMS/HCC V28) documented in this encounter
--- OUTSIDE RECORDS SUMMARY | 2024-09-11 12:34 | XMS_ITS | Encounter Summary ---
Author Organization [employer] Address [address] [place] [address] Care Team Providers Care Dye Tub Tender Name Role Phone Unavailable Primary Care Provider Unavailabl e Encounter Details Date Type Department Care Team (Late st Contact Info) Description 05/09/2024 Lab Requisition [facility] - Main Lab [address] [place] [address] Chely Lockwood MD [address] [place] [id number] Opioid dependence, uncomplicated (CMS/HCC V24, CMS/[facility] V28) Social History Tobacco Use Types Packs/Day [...] DRUG ABUSE SCREEN 8A PANEL, URINE Routine 05/09/2024 12:00 AM EST Opioid dependence, uncomplicated ([facility]) documented in this encounter Results * (ABNORMAL) Drug abuse screen 8a panel, urine (05/09/2024 12:00 AM EST) Amphetamine Screen, Ur Negative Negative LAB CHEMISTRY METHOD 4 7:[address] [facility] Comment:Certain OTC medicati ons containing ephedrine, phenylephrine, pseudoephedrine and phenylpropanolamine can cause false positive results. Barbiturate Screen, Ur Negative Negative LAB CHEMISTRY METHOD 4 7:[address] [facility] Benzodiazepine Screen, Ur Negative Negative LAB CHEMISTRY METHOD 4 7:[address] [facility] Cocaine Screen, Ur Negative Negative LAB CHEMISTRY METHOD 4 7:35 PM [facility] Opiate Screen, Ur Negative Negative LAB CHEMISTRY METHOD 4 7:35 PM [facility] Cannabinoid (THC) Screen, Ur Positive(A ) Negative LAB CHEMISTRY METHOD 4 7:35 PM [facility] Comment:Specimens from patie nts taking pantoprazole sodium (Protonix) have been shown to produce false positive results. Oxycodone Screen, Ur Negative Negative LAB CHEMISTRY METHOD 4 7:35 PM [facility] Fentanyl, Ur Negative Negative LAB CHEMISTRY METHOD 4 7:35 PM [facility] Urine Urine specimen obtained by clean catch procedure / Unknown 05/09/2024 05/09/2024 7:04 PM EST [facility] - 05/09/2024 7:35 PM EST Assay cutoffs: Amphetamines ? 1000 [...] MD LAB URINE ORDERABLES Portia lo Result [facility]) [facility] [address] [place] [address], documented in this encounter Visit Diagnoses Diagnosis Opioid dependence, uncomplicated (CMS/HCC V24, CMS/HCC V28) documented in this encounter
--- OUTSIDE RECORDS SUMMARY | 2024-09-11 12:34 | XMS_ITS | Clinical Summary ---
Author Organization [address] [facility] Address [address] [place] [address] Phone Care Team Providers Care Monotype Keyboard Operator Name Role Phone Unavailable Primary Care Provider Unavailabl e Social History Tobacco Use Types Packs/Day Years Used Date Smoking Tobacco: Never Assessed Sex and Gender Information Value Date Recorded Sex Assigned at Not on file Legal Sex Male 7:00 AM EST Gender Identity Not on file Sexual Orientation Not on file Plan of Treatment Health Maintenance Due Date Last Done Comments DTaP,Tdap,and Td Vaccines (1 - Tdap) 1988 Hepatitis B Vaccines (1 of 3 - 19+ 3-dose series) 1988 Pneumococcal Vaccine: 50+ Ye ars (1 of 1 - PCV) 10/07/2019 Zoster Vaccines (1 of 2) 10/07/2019 Cholesterol Screening (Lipid Panel) 05/01/2022 Colorectal Cancer Screening: Colonoscopy 05/01/2022 Depression Screening 05/01/2022 HIV Screening 05/01/2022 Hepatitis C Screening 05/01/2022 Social Influencers of Health Screening 05/01/2022 COVID-19 Vaccine (1 - 2023-2 5 season) 2024 Influenza Vaccine (Season Ended) 2025 HIB Vaccines Aged Out No longer eligi ble based on patient's age to complete this topic HPV Vaccines Aged Out No longer eligi ble based on patient's age to complete this topic Hepatitis A Vaccines Aged Out No long er eligible based on patient's age to complete this topic IPV Vaccines Aged Out No longer eligi ble based on patient's age to complete this topic MMR Vaccines Aged Out No longer eligi ble based on patient's age to complete this topic Meningococcal ACWY Vaccine Aged Out N o longer eligible based on patient's age to complete this topic Meningococcal B Vaccine Aged Out No l onger eligible based on patient's age to complete this topic Pneumococcal Vaccine: Pediat rics (0 to 5 Years) and At-Risk Patients (6 to 64 Years) Aged Out No longer eligible b ased on patient's age to complete this topic RSV Immunization Patients Un [place] 20 months Aged Out No longer eligible b ased on patient's age to complete this topic Varicella Vaccines Aged Out No longer eligible based on patient's age to complete this topic Insurance [facility]
--- OUTSIDE RECORDS SUMMARY | 2024-09-11 12:34 | XMS_ITS | Encounter Summary ---
Author Organization [employer] Address [address] [place] [address] Care Team Providers Care Deputy Juvenile Officer Name Role Phone Unavailable Primary Care Provider Unavailabl e Encounter Details Date Type Department Care Team (Late st Contact Info) Description 06/07/2024 Lab Requisition [facility] - Main Lab [address] [place] [address] Chely Lockwood MD [address] [place] [id number] Opioid dependence, uncomplicated (CMS/[facility] V24, CMS/[facility] V28) Social History Tobacco Use [...] DRUG ABUSE SCREEN 8A PANEL, URINE Routine 06/07/2024 12:00 AM EST Opioid dependence, uncomplicated ([facility]) documented in this encounter Results * (ABNORMAL) Drug abuse screen 8a panel, urine (06/07/2024 12:00 AM EST) Amphetamine Screen, Ur Negative Negative LAB CHEMISTRY METHOD 5 12:[address] [facility] Comment:Certain OTC medicati ons containing ephedrine, phenylephrine, pseudoephedrine and phenylpropanolamine can cause false positive results. Barbiturate Screen, Ur Negative Negative LAB CHEMISTRY METHOD 5 12:[address] [facility] Benzodiazepine Screen, Ur Negative Negative LAB CHEMISTRY METHOD 5 12:02 AM EST [facility] Cocaine Screen, Ur Negative Negative LAB CHEMISTRY METHOD 5 12:[address] [facility] Opiate Screen, Ur Negative Negative LAB CHEMISTRY METHOD 5 12:[address] [facility] Cannabinoid (THC) Screen, Ur Positive(A ) Negative LAB CHEMISTRY METHOD 5 12:[address] [facility] Comment:Specimens from patie nts taking pantoprazole sodium (Protonix) have been shown to produce false positive results. Oxycodone Screen, Ur Negative Negative LAB CHEMISTRY METHOD 5 12:[address] [facility] Fentanyl, Ur Negative Negative LAB CHEMISTRY METHOD 5 12:[address] [facility] Urine Urine specimen obtained by clean catch procedure / Unknown 06/07/2024 06/07/2024 6:45 PM EST [facility] - 06/08/2024 12:02 AM EST Assay cutoffs: Amphetamines ? 1000 ng/mL [...] MD LAB URINE ORDERABLES Portia lo Result [facility] [address] [place] [address], documented in this encounter Visit Diagnoses Diagnosis Opioid dependence, uncomplicated (CMS/HCC V24, CMS/HCC V28) documented in this encounter
--- NOTE | 2024-09-11 12:37 | PHA.MEDREC ---
Addendum entered by Deonte Cottrell [facility] 09/11/24 12:39: MED REC CHECKED BY [facility] Original Note: Pharmacy Consult ? Medication Reconciliation Pharmacy has completed the medication reconciliation. Spoke with patient, patient knew medications. Patient has not taken any medications in about 1 month.
[2024-09-11] MEDS: Enoxaparin Sodium 40 MG/0.4 ML SYRINGE SUBCUT (13:05)
[2024-09-11] MEDS: Folic Acid 1 MG TABLET PO (13:05)
[2024-09-11] MEDS: Famotidine 20 MG TABLET PO ×2 (13:05→20:41)
[2024-09-11] MEDS: Lactated Ringers 1,000 ML 80 ML IVCONT (13:23)
[2024-09-11] MEDS: Albumin Human 25 % 100 ML IV (15:22)
[2024-09-11] MEDS: PHENobarbitaL sodium 130 MG/ML VIAL IM Q3Hx2 205 MG IM ×2 (15:55→19:09)
[2024-09-11] MEDS: hydrOXYzine HCL 25 MG TABLET PO (16:23)
[2024-09-11] MEDS: 0.9 % Sodium Chloride 1,000 ML 500 ML IVCONT (16:25)
[2024-09-11 16:38] LABS: Anion Gap 28 (12-20); Blood Urea Nitrogen 9 mg/dL (9-16); Calcium 7.7 mg/dL (8.4-10.2); Carbon Dioxide 16 mmol/L (22-29); Chloride 88 mmol/L (96-108); Creatinine Clr Calc Pharmacy 134.4; Estimated Glomerular Filt Rate > 60; Glucose Random 119 mg/dL (60-115); Potassium 4.2 mmol/L (3.3-5.1); Sodium 128 mmol/L (135-145)
[2024-09-11 17:00] LABS: Venous Blood Gas Refer to POC result
[2024-09-11 17:02] LABS: VBG Base Excess 2.3 mmol/L; VBG HCO3 26 mmol/L (22-26); VBG pCO2 38 mmHg; VBG pH 7.44 (7.32-7.43); VBG pO2 49 mmHg
--- NOTE | 2024-09-11 17:04 | PC.NURSE ---
Pt's CIWA increased and second dose of phenobarb. gv per protocol; pt remains very anxious regarding his health stating I fucked up. Is this going to kill me? Am I going to ? ; verbal reassurance given and made aware; pt medicated per orders with Atarax; pt currently sleeping; vs improved with BP 111/60 and HR 96
[2024-09-11 17:09] LABS: Estimated Average Glucose 114 mg/dL; Hemoglobin A1C 108.1438 umol/L; Hemoglobin A1c % 5.6 % (<6.0); Total Hemoglobin (HGBA1C) 2896.6825 umol/L
--- NOTE | 2024-09-11 17:09 | PM.EVENT ---
Event Note Date of Service: 09/12/24 Event Note: This patient is seen and examined with APC. Lab imaging, EKG reviewed. Physical exam and assessment and plan coordinated in APCs note, Agree with the plan in addition: Patient has anion gap metabolic acidosis possibly has component of starvation ketosis , dehydration PH is 7.4 Denies any abdominal pain nausea vomiting. Has decreased p.o. intake, dry skin Hypovolemia with Hyponatremia as well as hypochloremia, bicarb also trending in 16 Will check serum and urine osmolality Added IV fluids, albumin Patient blood pressure is improving with IV fluids. Case discussed with Nephrology Dr valerio: Added lactic acid, ethylene glycol, salsalate levels Patient has elevated alcohol levels, likely patient has combination of alcohol ketoacidosis /starvation ketosis/dehydration Patient is not septic at present, hypotension and tachycardia likely due to dehydration Time Spent With Patient Time: Total time managing care of this patient today ____ minutes.
[2024-09-11] MEDS: 0.9 % Sodium Chloride 1,000 ML 999 ML IVCONT (17:19)
--- NOTE | 2024-09-11 18:13 | PC.NURSE ---
Phlebotomy having difficulty obtaining ordered labs secondary to pt's poor vasculature; discussed this with Dr Webb and ER Dr Goldsmith; Dr Goldsmith at bedside at this time to attempt to place a central line; will assist as needed
[2024-09-11] MEDS: Lactated Ringers 1,000 ML 999 ML IV (19:29)
[2024-09-11] MEDS: HYDROmorphone HCl 2 MG TABLET 1 MG PO (19:55)
[2024-09-11 19:56] LABS: Osmolality Urine 749 mosm/kg (373-1093)
[2024-09-11] MEDS: ondansetron HCL 4 MG/2 ML VIAL IVPUSH (19:56)
[2024-09-11 19:59] LABS: Potassium Urine Random 36.3 mmol/L; Sodium Urine Random < 20.0 mmol/L
[2024-09-11 20:02] LABS: Amphetamine Screen Urine Not Detected (Not Detect); Barbiturates, Urine POSITIVE (Not Detect); Benzodiazepines Screen Urine Not Detected (Not Detect); Buprenorphine Scr Positive (Not Detect); Cannabinoid Screen Urine Not Detected (Not Detect); Cocaine Screen Urine POSITIVE (Not Detect); Fentanyl, urine Not Detected (Not Detect); Methadone Screen, Urine Not Detected (Not Detect); Opiate Screen Urine Not Detected (Not Detect); Oxycodone Screen Urine Not Detected (Not Detect); Phencyclidine Screen Urine Not Detected (Not Detect)
[2024-09-11 20:06] LABS: Osmolality, Serum 286 mosm/kg (281-305)
[2024-09-11 20:08] LABS: Salicylate < 5.0 mg/dL (15-30)
[2024-09-11 20:08] LABS: Anion Gap 22 (12-20); Blood Urea Nitrogen 8 mg/dL (9-16); Calcium 7.6 mg/dL (8.4-10.2); Carbon Dioxide 22 mmol/L (22-29); Chloride 88 mmol/L (96-108); Creatinine Clr Calc Pharmacy 122.4; Estimated Glomerular Filt Rate > 60; Glucose Random 98 mg/dL (60-115); Potassium 3.2 mmol/L (3.3-5.1); Sodium 129 mmol/L (135-145)
[2024-09-11 20:10] LABS: Beta-Hydroxybutyrate 1.54 mmol/L (0.02-0.27)
[2024-09-11 20:12] LABS: Lactic Acid 5.1 mmol/L (0.5-2.0)
--- NOTE | 2024-09-11 20:14 | PM.EVENT ---
Event Note Date of Service: 09/11/24 Event Note: Lactic acidosis due to alcohol use and liver injury. No sepsis Time Spent With Patient Time: Total time managing care of this patient today ____ minutes.
[2024-09-11] MEDS: Potassium Chloride Packet 20 MEQ PACKET 40 MEQ PO (20:41)
[2024-09-11] MEDS: Dextrose 5 % and Lactated Ring 1,000 ML 125 ML IVCONT (20:42)
[2024-09-11] MEDS: Thiamine HCL 100 MG in 0.9 % Sodium Chloride 100 ML 202 MG IV (20:47)
[2024-09-11] MEDS: 0.9 % Sodium Chloride Flush 3 ML SYRINGE IVFLUSH (21:44)
[2024-09-11 21:50] LABS: Reflex Lactate? Lactic Acid Added
[2024-09-11 22:37] LABS: ~Lactic Acid-LAB USE ONLY 4.4 mmol/L (0.5-2.0)
[2024-09-11] MEDS: Nicotine 21 MG PATCH.TD24 TRANSDERMA (23:13)
[2024-09-11] MEDS: Metoclopramide HCl 10 MG/2 ML VIAL 5 MG IVPUSH (23:13)
[2024-09-12 00:17] LABS: Reflex Lactate? 2 Y
[2024-09-12 03:32] VITALS: BP 136/74; PULSE 94; RESP 18; TEMP 36.5; O2SAT 96
[2024-09-12 05:38] LABS: Ethylene Glycol NONE DETECTED (NONE DETECTED)
[2024-09-12 08:00] VITALS: BP 148/79; PULSE 100; RESP 12; TEMP 37; O2SAT 95
[2024-09-12] MEDS: Buprenorphine/Naloxone 8/2 mg FILM 1 FILM SUBLINGUAL (08:54)
[2024-09-12] MEDS: Brexpiprazole 1 MG TABLET PO (08:54)
[2024-09-12] MEDS: Escitalopram Oxalate 20 MG TABLET PO (08:54)
[2024-09-12] MEDS: 0.9 % Sodium Chloride Flush 3 ML SYRINGE IVFLUSH ×2 (08:54→21:40)
[2024-09-12] MEDS: Famotidine 20 MG TABLET PO ×2 (08:54→21:42)
[2024-09-12] MEDS: Folic Acid 1 MG TABLET PO (08:54)
[2024-09-12] MEDS: Multivitamin TABLET 1 TAB PO (08:54)
[2024-09-12] MEDS: ondansetron HCL 4 MG/2 ML VIAL IVPUSH ×2 (08:54→21:40)
[2024-09-12] MEDS: PHENobarbitaL 15 MG TABLET 45 MG PO ×2 (08:54→21:42)
[2024-09-12] MEDS: Thiamine HCL 100 MG in 0.9 % Sodium Chloride 100 ML 202 MG IV (08:55)
--- NOTE | 2024-09-12 09:16 | P.CNGI_ITS ---
History of Present Illness Data of Consult Service Date: 09/12/24 Primary Care Provider: Michael Aguila MD HPI Reason for consult: acute hepatitis 53-year-old male with a hx of?alcohol use disorder, crack use disorder, hx of treated hepatitis C, depression, and anxiety who I am seeing for assessment for acute hepatitis. Patient had been at home drinking 30 nips of alcohol daily for the last few months. He had noted more nausea, and some non bloody emesis. He denies abdominal pain, diarrhea, melena or rectal bleeding. He also admits to using cocaine few weeks ago, but denies chest pain, SOB. He has noted dry skin but no joint pains or swelling. Denies auditory visual hallucinations or tactile disturbances. No diaphoresis. Labs: H&H 12.6/34.8, platelets 141, sodium 129, and new transaminitis with T bili 6.4, AST 521, ALT 290, and alk-phos 170. CRP elevated at 5.89. Albumin 3.2. Ethyl alcohol 244 Imaging: CT: Steatotic liver and hematoma of left psoas muscle Review of Systems 2 Review of Systems: Constitutional : No Weight loss, No Fever, No Chills ENT/Mouth : No sore throat, No Rhinorrhea Eyes: No Swelling, No Redness Cardiovascular : No Chest Pain, No SOB, No Edema Respiratory : No Cough, No Sputum, No Wheezing Gastrointestinal : see HPI Genitourinary : NO Dysuria, No Urinary Frequency, No Hematuria, No Urgency Musculoskeletal : no joint pain, No Myalgias, No Joint Swelling Skin : dry skin Neuro : No Weakness, No Numbness, No Dizziness, No Headache Psych : No Anxiety/Panic, No Depression Heme/Lymph: No Bruising, No Lymphadenopathy Endocrine : No Polyuria, No Polydipsia All other systems reviewed and are negative. [facility] Past Medical History Medical History Hypotestosteronism History of intravenous drug abuse Chronic constipation Vitamin D deficiency Impaired fasting glucose Pure hypercholesterolemia Obesity (BMI 30-39.9) Smoker Insomnia Depression Anxiety Hepatitis C Family History Family History Father In good health Mother In good health Brother In good health Other Substance abuse Surgical History Surgical History Hx of colonoscopy History of surgery on arm History of left hip replacement Social History Social History Household Members: None Housing: House Do you presently have visiting nurse or other home services: No Alcohol intake: current Alcohol intake frequency: 3 or more drinks per day Alcohol type: hard liquor Patient Tobacco Use Status: Current everyday Tobacco user Tobacco use type: Smokeless Tobacco Cigarettes Per Day: 2 Years Smoked: about a year e-Cigarette/Vaping Use: Currently Using Substance Use Type: Crack/Cocaine service: No Current occupational status: employed 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 Meds Allergies Allergy/AdvReac Type Severity Reaction Status Date / Time crab Allergy Severe Anaphylaxis Verified 09/11/24 10:32 squid Allergy Severe Anaphylaxis Verified 09/11/24 10:32 latex [LATEX] Allergy Intermediate RASH Verified 09/11/24 10:32 Active Medications: Current Medications Acetaminophen (Acetaminophen 325 Mg Tablet) 650 mg PO Q6H PRN PRN Reason: Pain, Mild 1-3,fever,headache Brexpiprazole (Brexpiprazole 1 Mg Tablet) 1 mg PO DAILY [facility] Stop: 09/14/24 10:00 Last Admin: 09/12/24 08:54 Dose: 1 mg Brexpiprazole (Brexpiprazole 2 Mg Tablet) 2 mg PO DAILY [facility] Buprenorphine/Naloxone (Buprenorphine/Naloxone 8/2 Mg Film) 1 film SUBLINGUAL DAILY [facility] Last Admin: 09/12/24 08:54 Dose: 1 film Buprenorphine/Naloxone (Buprenorphine/Naloxone 4/1 Mg Film) 1 film SUBLINGUAL BEDTIME [facility] Calcium Carbonate (Calcium Carbonate 750 Mg Tab.Chew) 750 mg PO Q4H PRN PRN Reason: Heartburn Clonidine HCl (Clonidine Hcl 0.2 Mg Tablet) 0.2 mg PO BEDTIME PRN; Protocol PRN Reason: Anxiety Escitalopram Oxalate (Escitalopram Oxalate 20 Mg Tablet) 20 mg PO DAILY [facility] Last Admin: 09/12/24 08:54 Dose: 20 mg Famotidine (Famotidine 20 Mg Tablet) 20 mg PO BID [facility] Last Admin: 09/12/24 08:54 Dose: 20 mg Folic Acid (Folic Acid 1 Mg Tablet) 1 mg PO DAILY [facility] Stop: 09/14/24 11:54 Last Admin: 09/12/24 08:54 Dose: 1 mg Hydromorphone HCl (Hydromorphone Hcl 2 Mg Tablet) 1 mg PO Q4H PRN PRN Reason: Pain, Severe (Pain Scale 7-10) Last Admin: 09/11/24 19:55 Dose: 1 mg Thiamine HCl 100 mg/ Sodium (Chloride) 101 mls @ 202 mls/hr IV BID [facility] Stop: 09/12/24 21:29 Last Admin: 09/12/24 08:55 Dose: 202 mls/hr Magnesium Hydroxide (Milk Of Magnesia 30 Ml Oral.Susp) 30 ml PO DAILY PRN PRN Reason: Constipation Melatonin (Melatonin 3 Mg Tablet) 6 mg PO BEDTIME PRN PRN Reason: Insomnia Multivitamins/Vitamin C (Multivitamin Tablet) 1 tab PO DAILY [facility] Stop: 09/15/24 08:59 Last Admin: 09/12/24 08:54 Dose: 1 tab Nicotine (Nicotine 21 Mg Patch.Td24) 21 mg TRANSDERMA DAILY [facility] Last Admin: 09/11/24 23:13 Dose: 21 mg Ondansetron HCl (Ondansetron Hcl 4 Mg/2 Ml Vial) 4 mg IVPUSH Q6H PRN PRN Reason: Nausea and Vomiting Last Admin: 09/12/24 08:54 Dose: 4 mg Pharmacy Consult (Consult Rx Etoh Phenob Im/Po) 1 each MISCELLANE ONCE PRN; Protocol PRN Reason: Consult order Phenobarbital (Phenobarbital 15 Mg Tablet) 45 mg PO BID [facility] Stop: 09/13/24 21:01 Last Admin: 09/12/24 08:54 Dose: 45 mg Phenobarbital (Phenobarbital 30 Mg Tablet) 30 mg PO BID [facility] Stop: 09/15/24 21:01 Phenobarbital (Phenobarbital 30 Mg Tablet) 30 mg PO DAILY [facility] Stop: 09/17/24 09:01 Sodium Chloride (0.9 % Sodium Chloride Flush 3 Ml Syringe) 3 ml IVFLUSH QSHIFT [facility] Last Admin: 09/12/24 08:54 Dose: 3 ml Thiamine HCl (Thiamine Hcl 100 Mg Tablet) 100 mg PO DAILY [facility] Stop: 09/17/24 08:59 Home Medications ?Medication ?Instructions ?Recorded ?Confirmed ?Last Taken ?Type buprenorphine 8 mg-naloxone 2 mg 1 film sublingual DAILY 04/02/20 09/11/24 1 Month Ago History sublingual film ~08/11/24 buprenorphine 4 mg-naloxone 1 mg 1 film sublingual BEDTIME 04/03/20 09/11/24 1 Month Ago History sublingual film (Suboxone) ~08/11/24 clonidine HCl 0.2 mg tablet 0.2 mg PO BEDTIME PRN Anxiety 09/11/24 09/11/24 1 Month Ago History ~08/11/24 gabapentin 100 mg capsule 100 mg PO BEDTIME PRN restless leg 09/11/24 09/11/24 1 Month Ago History symptoms ~08/11/24 ropinirole 1 mg tablet 1 mg PO BID PRN restless leg 09/11/24 09/11/24 1 Month Ago History symptoms ~08/11/24 Physical Exam 2 Vital Signs: Vital Signs: Last Vital Signs Temp 98.6 F 09/12/24 08:00 Pulse 100 09/12/24 08:00 Resp 12 09/12/24 08:00 BP 148/79 H 09/12/24 08:00 Pulse Ox 95 09/12/24 08:00 O2 Del Method Room Air 09/12/24 08:00 BMI result Body Mass Index 43.5 EXAM: GENERAL: The patient is well developed and nontoxic. VITAL SIGNS:see workflow HEENT: icteric sclerae, PERRLA, EOMI. Oropharynx clear. Moist mucous membranes. Conjunctivae appear well perfused. No thyroid mass. CHEST: Chest wall is nontender. HEART: Regular rate and rhythm without murmurs. LUNGS: Clear to auscultation bilaterally. ABDOMEN: Soft, positive bowel sounds, nontender, no organomegaly.no flank tenderness SKIN: No rash, no excessive bruising, petechiae, or purpura. jaundice= dry skin NEUROLOGIC: Cranial nerves II-XII intact without motor/sensory deficit. Psych: normal affect Results Labs 09/11/24 10:51 09/12/24 08:50 Labs: Short CBC 09/11/24 Range/Units 10:51 WBC 7.7 (4.8-10.8) X10*3/uL Hgb 12.6 L (14.0-18.0) g/dl Hct 34.8 L (42.0-52.0) % Plt Count 141 L D (160-400) X10*3/uL BMP 09/11/24 09/11/24 09/11/24 10:51 16:11 19:45 Sodium 129 L 128 L 129 L Potassium 3.4 D 4.2 D 3.2 L D Chloride 85 L 88 L 88 L Carbon Dioxide 21 L 16 L 22 BUN 7 L 9 8 L Creatinine 0.86 0.82 0.90 Calcium 8.2 L D 7.7 L D 7.6 L Cardiac Enzymes 09/11/24 Range/Units 10:51 Total Creatine Kinase 150 (38-174) U/L Liver Function 09/11/24 Range/Units 10:51 Total Bilirubin 6.4 H (0.0-1.0) mg/dL Direct Bilirubin 4.8 H (0.0-0.5) mg/dL AST 521 H (5-37) U/L ALT 290 H (0-40) U/L Alkaline Phosphatase 170 H (39-117) U/L Albumin 3.2 L (3.5-5.0) g/dL Imaging CT scan - abdomen: Attestation: I personally reviewed and interpreted this imaging study as follows: (psoas hematoma and steatosis of liver) Assessment and Plan (1) Acute alcoholic hepatitis: Status: Acute Plan 1/ Acute alcoholic hepatitis, MD function score is 8, good chance of recovery PLAN: 1/ Check hep serologies and acetaminophen level 2/ daily LFT and INR 3/ Multi vitamin and CIWA protocol as doing 4/ agree with substance team referral Procedures Date of Service Date of Service: 09/12/24
--- NOTE | 2024-09-12 09:16 | PM.CNNEP ---
History of Present Illness Reason for Consult Consult date: 09/12/24 Reason for consult: Low total CO2 Chief Complaint Chief complaint: Alcohol withdrawal/hepatitis History of Present Illness Narrative: 53-year-old male with a PMH significant for?alcohol use disorder, crack use disorder, hx of treated hepatitis C, depression, and anxiety who presents to the ED via EMS after family called for a wellness check after not hearing from him for over 1 month. Pt was found by EMS with house in complete disarray, pt laying in bed unkempt, and surrounded by 100+ empty nips that had been delivered by [employer]. Pt reports has been drinking on and off for the past 10 years; last in detox program around 6-7 months ago. Has been drinking 30+ nips daily for past 45 days with last drink this morning just prior to EMS arrival. Reports drinking 25 nips since waking. Hx of IVDU with last use around 2 years ago, though recently has been smoking crack cocaine with last use 1-2 weeks ago. Pt has noted some swelling in abd x10 days though no abdominal pain. Review of Systems Review of Systems Yes Unobtainable due to mental status PMFSH Past Medical History Medical History Hypotestosteronism History of intravenous drug abuse Chronic constipation Vitamin D deficiency Impaired fasting glucose Pure hypercholesterolemia Obesity (BMI 30-39.9) Smoker Insomnia Depression Anxiety Hepatitis C Family History Family History Father In good health Mother In good health Brother In good health Other Substance abuse Surgical History Surgical History Hx of colonoscopy History of surgery on arm History of left hip replacement Social History Social History Household Members: None Housing: House Do you presently have visiting nurse or other home services: No Alcohol intake: current Alcohol intake frequency: 3 or more drinks per day Alcohol type: hard liquor Patient Tobacco Use Status: Current everyday Tobacco user Tobacco use type: Smokeless Tobacco Cigarettes Per Day: 2 Years Smoked: about a year e-Cigarette/Vaping Use: Currently Using Substance Use Type: Crack/Cocaine service: No Current occupational status: employed 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 Meds Allergies Allergy/AdvReac Type Severity Reaction Status Date / Time crab Allergy Severe Anaphylaxis Verified 09/11/24 10:32 squid Allergy Severe Anaphylaxis Verified 09/11/24 10:32 latex [LATEX] Allergy Intermediate RASH Verified 09/11/24 10:32 Active Medications: Current Medications Acetaminophen (Acetaminophen 325 Mg Tablet) 650 mg PO Q6H PRN PRN Reason: Pain, Mild 1-3,fever,headache Brexpiprazole (Brexpiprazole 1 Mg Tablet) 1 mg PO DAILY [facility] Stop: 09/14/24 10:00 Last Admin: 09/12/24 08:54 Dose: 1 mg Brexpiprazole (Brexpiprazole 2 Mg Tablet) 2 mg PO DAILY [facility] Buprenorphine/Naloxone (Buprenorphine/Naloxone 8/2 Mg Film) 1 film SUBLINGUAL DAILY [facility] Last Admin: 09/12/24 08:54 Dose: 1 film Buprenorphine/Naloxone (Buprenorphine/Naloxone 4/1 Mg Film) 1 film SUBLINGUAL BEDTIME [facility] Calcium Carbonate (Calcium Carbonate 750 Mg Tab.Chew) 750 mg PO Q4H PRN PRN Reason: Heartburn Clonidine HCl (Clonidine Hcl 0.2 Mg Tablet) 0.2 mg PO BEDTIME PRN; Protocol PRN Reason: Anxiety Escitalopram Oxalate (Escitalopram Oxalate 20 Mg Tablet) 20 mg PO DAILY [facility] Last Admin: 09/12/24 08:54 Dose: 20 mg Famotidine (Famotidine 20 Mg Tablet) 20 mg PO BID [facility] Last Admin: 09/12/24 08:54 Dose: 20 mg Folic Acid (Folic Acid 1 Mg Tablet) 1 mg PO DAILY [facility] Stop: 09/14/24 11:54 Last Admin: 09/12/24 08:54 Dose: 1 mg Hydromorphone HCl (Hydromorphone Hcl 2 Mg Tablet) 1 mg PO Q4H PRN PRN Reason: Pain, Severe (Pain Scale 7-10) Last Admin: 09/11/24 19:55 Dose: 1 mg Thiamine HCl 100 mg/ Sodium (Chloride) 101 mls @ 202 mls/hr IV BID [facility] Stop: 09/12/24 21:29 Last Admin: 09/12/24 08:55 Dose: 202 mls/hr Magnesium Hydroxide (Milk Of Magnesia 30 Ml Oral.Susp) 30 ml PO DAILY PRN PRN Reason: Constipation Melatonin (Melatonin 3 Mg Tablet) 6 mg PO BEDTIME PRN PRN Reason: Insomnia Multivitamins/Vitamin C (Multivitamin Tablet) 1 tab PO DAILY [facility] Stop: 09/15/24 08:59 Last Admin: 09/12/24 08:54 Dose: 1 tab Nicotine (Nicotine 21 Mg Patch.Td24) 21 mg TRANSDERMA DAILY [facility] Last Admin: 09/11/24 23:13 Dose: 21 mg Ondansetron HCl (Ondansetron Hcl 4 Mg/2 Ml Vial) 4 mg IVPUSH Q6H PRN PRN Reason: Nausea and Vomiting Last Admin: 09/12/24 08:54 Dose: 4 mg Pharmacy Consult (Consult Rx Etoh Phenob Im/Po) 1 each MISCELLANE ONCE PRN; Protocol PRN Reason: Consult order Phenobarbital (Phenobarbital 15 Mg Tablet) 45 mg PO BID [facility] Stop: 09/13/24 21:01 Last Admin: 09/12/24 08:54 Dose: 45 mg Phenobarbital (Phenobarbital 30 Mg Tablet) 30 mg PO BID [facility] Stop: 09/15/24 21:01 Phenobarbital (Phenobarbital 30 Mg Tablet) 30 mg PO DAILY [facility] Stop: 09/17/24 09:01 Sodium Chloride (0.9 % Sodium Chloride Flush 3 Ml Syringe) 3 ml IVFLUSH QSHIFT [facility] Last Admin: 09/12/24 08:54 Dose: 3 ml Thiamine HCl (Thiamine Hcl 100 Mg Tablet) 100 mg PO DAILY [facility] Stop: 09/17/24 08:59 Home Medications ?Medication ?Instructions ?Recorded ?Confirmed ?Last Taken ?Type buprenorphine 8 mg-naloxone 2 mg 1 film sublingual DAILY 04/02/20 09/11/24 1 Month Ago History sublingual film ~08/11/24 buprenorphine 4 mg-naloxone 1 mg 1 film sublingual BEDTIME 04/03/20 09/11/24 1 Month Ago History sublingual film (Suboxone) ~08/11/24 clonidine HCl 0.2 mg tablet 0.2 mg PO BEDTIME PRN Anxiety 09/11/24 09/11/24 1 Month Ago History ~08/11/24 gabapentin 100 mg capsule 100 mg PO BEDTIME PRN restless leg 09/11/24 09/11/24 1 Month Ago History symptoms ~08/11/24 ropinirole 1 mg tablet 1 mg PO BID PRN restless leg 09/11/24 09/11/24 1 Month Ago History symptoms ~08/11/24 Physical Exam Vital Signs: Last Vital Signs Temp 98.6 F 09/12/24 08:00 Pulse 100 09/12/24 08:00 Resp 12 09/12/24 08:00 BP 148/79 H 09/12/24 08:00 Pulse Ox 95 09/12/24 08:00 O2 Del Method Room Air 09/12/24 08:00 BMI result Body Mass Index 43.5 Const General: ill appearing Neck Neck: Yes supple Resp Auscultation: clear to auscultation bilaterally Cardio Palpation: no palpable S3 Heart sounds: no rubs GI Palpation (GI): Soft to palpation Auscultation: normal bowel sounds Neuro Motor exam (neuro): no asterixis Results Lab Results 09/11/24 10:51 09/11/24 19:45 Lab results: Chemistry 09/11/24 09/11/24 09/11/24 10:51 16:11 19:45 Sodium 129 L 128 L 129 L Potassium 3.4 D 4.2 D 3.2 L D Carbon Dioxide 21 L 16 L 22 BUN 7 L 9 8 L Creatinine 0.86 0.82 0.90 Calcium 8.2 L D 7.7 L D 7.6 L Hematology 09/11/24 10:51 WBC 7.7 Hgb 12.6 L Plt Count 141 L D Urine Studies 09/11/24 19:34 Urine Osmolality 749 Assessment and Plan (1) Acute hyponatremia: Status: Acute (2) Alcohol use disorder: Status: Acute Plan Darrel has hyponatremia with a low urine sodium of less than 20. This is suggestive of hypo volemic hyponatremia. Total CO2 is low and he pH is 7.44. He probably has a combination of respiratory alkalosis along with metabolic acidosis. Given the pH of 7.44 does not require any bicarb supplementation. Restrict hypotonic fluids/ oral free water intake Use adequate antiemetics to control nausea and vomiting which could be a potential source of ADH release. Given hypovolemia I would cautiously hydrate him with normal saline or Ringer's lactate for the next 24-48 hours. Replace potassium as needed. She will follow along as needed Procedures Date of Service Date of Service: 09/12/24
[2024-09-12 09:31] LABS: Alanine Aminotransferase 248 U/L (0-40); Albumin Level 3.2 g/dL (3.5-5.0); Anion Gap 17 (12-20); Aspartate Amino Transferase 396 U/L (5-37); Blood Urea Nitrogen 8 mg/dL (9-16); Calcium 8.2 mg/dL (8.4-10.2); Carbon Dioxide 27 mmol/L (22-29); Chloride 87 mmol/L (96-108); Creatinine Clr Calc Pharmacy 124.7; Estimated Glomerular Filt Rate > 60; Glucose Random 111 mg/dL (60-115); Magnesium 2.2 mg/dL (1.6-2.6); Potassium 3.5 mmol/L (3.3-5.1); Sodium 127 mmol/L (135-145); Total Protein 5.8 g/dL (6.5-8.0)
[2024-09-12 09:53] LABS: Alkaline Phosphatase 158 U/L (39-117)
[2024-09-12] MEDS: 0.9 % Sodium Chloride 1,000 ML 100 ML IVCONT ×2 (10:39→21:48)
[2024-09-12 11:29] LABS: HBS Num1 5.22 mIU/mL (0-7.99); HBc Num1 0.09 S/CO (0.00-0.79); HBsAGNum1 0.24 S/CO (0.00-0.99); Hepatitis A Antibody IgM 0.13 Index (0-0.79); Hepatitis B Core Antibody Nonreactive (Nonreactive); Hepatitis B Surface Antigen Negative (Negative); ~HepC Num1 12.03 S/CO (0.00-0.79); ~Hepatitis A Antibody IgM Nonreactive (Nonreactive); ~Hepatitis B Surface Antibody NONREACTIVE (Nonreactive); ~Hepatitis C Antibody Reactive (Nonreactive)
--- NOTE | 2024-09-12 11:33 | MHC.RECOVRN ---
Attempted to meet with pt in 484 after receiving Addiction Medicine consult for alcohol and cocaine use. Pt sitting in bed, awake, alert, declines meeting with t/w at this time due to not feeling well. Plan to reattempt later.
[2024-09-12 12:00] VITALS: BP 166/77; PULSE 111; RESP 14; TEMP 37.1; O2SAT 94
--- NOTE | 2024-09-12 14:19 | MHC.RECOVRN ---
Attempted to meet with pt this afternoon, pt laying in bed, asleep, does not wake to voice. Will see pt tomorrow morning.
[2024-09-12 16:00] VITALS: BP 167/81; PULSE 92; RESP 14; TEMP 36.6; O2SAT 93
--- NOTE | 2024-09-12 16:20 | HO.PM.IMPN ---
Subjective Subjective Date of Service: 09/12/24 Interval History: Possible alcoholic/starvation ketosis Review of Systems Mildly anxious and has some tremors Some nausea also. Physical Exam Vital Signs: Vital Signs: Last Vital Signs Temp 97.9 F 09/12/24 16:00 Pulse 92 09/12/24 16:00 Resp 14 09/12/24 16:00 BP 167/81 H 09/12/24 16:00 Pulse Ox 93 09/12/24 16:00 O2 Del Method Room Air 09/12/24 16:00 BMI result Body Mass Index 43.5 Appearance: Alert.? Oriented X3.? cvs: rrr, [id number] . res: air entry diminshed ,no rales or wheezing abd: no rebound or guarding ,nt, bs present. ext pulses present , no cyanosis. neuro: axo3 , nonfocal. Objective Data Active Medications Acetaminophen (Acetaminophen 325 Mg Tablet) 650 mg PO Q6H PRN PRN Reason: Pain, Mild 1-3,fever,headache Brexpiprazole (Brexpiprazole 1 Mg Tablet) 1 mg PO DAILY PENDING SALE TO [facility] Stop: 09/14/24 10:00 Last Admin: 09/12/24 08:54 Dose: 1 mg Documented By: LILLIANA Brexpiprazole (Brexpiprazole 2 Mg Tablet) 2 mg PO DAILY PENDING SALE TO [facility] Buprenorphine/Naloxone (Buprenorphine/Naloxone 8/2 Mg Film) 1 film SUBLINGUAL DAILY PENDING SALE TO [facility] Last Admin: 09/12/24 08:54 Dose: 1 film Documented By: LILLIANA Buprenorphine/Naloxone (Buprenorphine/Naloxone 4/1 Mg Film) 1 film SUBLINGUAL BEDTIME PENDING SALE TO [facility] Calcium Carbonate (Calcium Carbonate 750 Mg Tab.Chew) 750 mg PO Q4H PRN PRN Reason: Heartburn Clonidine HCl (Clonidine Hcl 0.2 Mg Tablet) 0.2 mg PO BEDTIME PRN; Protocol PRN Reason: Anxiety Escitalopram Oxalate (Escitalopram Oxalate 20 Mg Tablet) 20 mg PO DAILY PENDING SALE TO [facility] Last Admin: 09/12/24 08:54 Dose: 20 mg Documented By: LILLIANA Famotidine (Famotidine 20 Mg Tablet) 20 mg PO BID PENDING SALE TO [facility] Last Admin: 09/12/24 08:54 Dose: 20 mg Documented By: LILLIANA Folic Acid (Folic Acid 1 Mg Tablet) 1 mg PO DAILY PENDING SALE TO [facility] Stop: 09/14/24 11:54 Last Admin: 09/12/24 08:54 Dose: 1 mg Documented By: LILLIANA Hydromorphone HCl (Hydromorphone Hcl 2 Mg Tablet) 1 mg PO Q4H PRN PRN Reason: Pain, Severe (Pain Scale 7-10) Last Admin: 09/11/24 19:55 Dose: 1 mg Documented By: SAVAGE Thiamine HCl 100 mg/ Sodium (Chloride) 101 mls @ 202 mls/hr IV BID PENDING SALE TO [facility] Stop: 09/12/24 21:29 Last Infusion: 09/12/24 09:45 Dose: Infused Documented By: LILLIANA Sodium Chloride (Ns) 1,000 mls @ 100 mls/hr IVCONT .Q10H PENDING SALE TO [facility] Last Admin: 09/12/24 10:39 Dose: 100 mls/hr Documented By: LILLIANA Magnesium Hydroxide (Milk Of Magnesia 30 Ml Oral.Susp) 30 ml PO DAILY PRN PRN Reason: Constipation Melatonin (Melatonin 3 Mg Tablet) 6 mg PO BEDTIME PRN PRN Reason: Insomnia Multivitamins/Vitamin C (Multivitamin Tablet) 1 tab PO DAILY PENDING SALE TO [facility] Stop: 09/15/24 08:59 Last Admin: 09/12/24 08:54 Dose: 1 tab Documented By: LILLIANA Nicotine (Nicotine 21 Mg Patch.Td24) 21 mg TRANSDERMA DAILY PENDING SALE TO [facility] Last Admin: 09/11/24 23:13 Dose: 21 mg Documented By: IONA Ondansetron HCl (Ondansetron Hcl 4 Mg/2 Ml Vial) 4 mg IVPUSH Q6H PRN PRN Reason: Nausea and Vomiting Last Admin: 09/12/24 08:54 Dose: 4 mg Documented By: LILLIANA Pharmacy Consult (Consult Rx Etoh Phenob Im/Po) 1 each MISCELLANE ONCE PRN; Protocol PRN Reason: Consult order Phenobarbital (Phenobarbital 15 Mg Tablet) 45 mg PO BID PENDING SALE TO [facility] Stop: 09/13/24 21:01 Last Admin: 09/12/24 08:54 Dose: 45 mg Documented By: LILLIANA Phenobarbital (Phenobarbital 30 Mg Tablet) 30 mg PO BID PENDING SALE TO [facility] Stop: 09/15/24 21:01 Phenobarbital (Phenobarbital 30 Mg Tablet) 30 mg PO DAILY PENDING SALE TO [facility] Stop: 09/17/24 09:01 Sodium Chloride (0.9 % Sodium Chloride Flush 3 Ml Syringe) 3 ml IVFLUSH QSHIFT PENDING SALE TO [facility] Last Admin: 09/12/24 08:54 Dose: 3 ml Documented By: LILLIANA Thiamine HCl (Thiamine Hcl 100 Mg Tablet) 100 mg PO DAILY PENDING SALE TO [facility] Stop: 09/17/24 08:59 Labs 09/11/24 10:51 09/12/24 08:50 Labs: Laboratory Results - last 24 hr 09/11/24 09/11/24 09/11/24 16:11 16:55 16:58 Hold Purple Top VBG pH 7.44 H VBG pCO2 38 VBG pO2 49 VBG HCO3 26 VBG O2 Saturation 76.0 VBG Base Excess 2.3 Anion Gap 28 H Estim Creat Clear Calc 134.4 Estimated GFR > 60 Random Glucose 119 H Estimat Average Glucose 114 Hemoglobin A1c % 5.6 Osmolality Lactic Acid Lactic Acid F/U @ 2Hr Calcium 7.7 L D Magnesium Total Bilirubin Direct Bilirubin AST ALT Alkaline Phosphatase Total Protein Albumin Beta-Hydroxybutyrate Urine Osmolality Ur Random Sodium Ur Random Potassium Ur Random Chloride Salicylates Urine Opiates Screen Ur Buprenorphine Scrn Ur Oxycodone Screen Urine Methadone Screen Urine Fentanyl Screen Ur Barbiturates Screen Ur Phencyclidine Scrn Ur Amphetamines Screen U Benzodiazepines Scrn Urine Cocaine Screen U Marijuana (THC) Screen Ethylene Glycol Hepatitis A IgM Ab Hep Bs Antigen Hep Bs Antibody Hep B Core Total Ab Hepatitis C Ab (EIA) 09/11/24 09/11/24 09/11/24 19:34 19:44 19:45 Hold Purple Top VBG pH VBG pCO2 VBG pO2 VBG HCO3 VBG O2 Saturation VBG Base Excess Anion Gap 22 H Estim Creat Clear Calc 122.4 Estimated GFR > 60 Random Glucose 98 Estimat Average Glucose Hemoglobin A1c % Osmolality 286 Lactic Acid 5.1 H* Lactic Acid F/U @ 2Hr Calcium 7.6 L Magnesium Total Bilirubin Direct Bilirubin AST ALT Alkaline Phosphatase Total Protein Albumin Beta-Hydroxybutyrate 1.54 H Urine Osmolality 749 Ur Random Sodium < 20.0 Ur Random Potassium 36.3 Ur Random Chloride 34.0 Salicylates < 5.0 L Urine Opiates Screen Not Detected Ur Buprenorphine Scrn Positive H Ur Oxycodone Screen Not Detected Urine Methadone Screen Not Detected Urine Fentanyl Screen Not Detected Ur Barbiturates Screen POSITIVE H Ur Phencyclidine Scrn Not Detected Ur Amphetamines Screen Not Detected U Benzodiazepines Scrn Not Detected Urine Cocaine Screen POSITIVE H U Marijuana (THC) Screen Not Detected Ethylene Glycol NONE DETECTED Hepatitis A IgM Ab Hep Bs Antigen Hep Bs Antibody Hep B Core Total Ab Hepatitis C Ab (EIA) 09/11/24 09/12/24 09/12/24 21:15 08:50 10:36 Hold Purple Top SEE NOTE VBG pH VBG pCO2 VBG pO2 VBG HCO3 VBG O2 Saturation VBG Base Excess Anion Gap 17 Estim Creat Clear Calc 124.7 Estimated GFR > 60 Random Glucose 111 Estimat Average Glucose Hemoglobin A1c % Osmolality Lactic Acid Lactic Acid F/U @ 2Hr 4.4 H* Calcium 8.2 L D Magnesium 2.2 Total Bilirubin 8.0 H Direct Bilirubin 6.0 H AST 396 H ALT 248 H Alkaline Phosphatase 158 H Total Protein 5.8 L Albumin 3.2 L Beta-Hydroxybutyrate Urine Osmolality Ur Random Sodium Ur Random Potassium Ur Random Chloride Salicylates Urine Opiates Screen Ur Buprenorphine Scrn Ur Oxycodone Screen Urine Methadone Screen Urine Fentanyl Screen Ur Barbiturates Screen Ur Phencyclidine Scrn Ur Amphetamines Screen U Benzodiazepines Scrn Urine Cocaine Screen U Marijuana (THC) Screen Ethylene Glycol Hepatitis A IgM Ab Nonreactive Hep Bs Antigen Negative Hep Bs Antibody NONREACTIVE Hep B Core Total Ab Nonreactive Hepatitis C Ab (EIA) Reactive H Assessment and Plan (1) Transaminitis: Status: Acute (2) Acute hyponatremia: Status: Acute Assessment and Plan: 53-year-old male with a PMH significant for?alcohol use disorder, crack use disorder, hx of treated hepatitis C, depression, and anxiety who presents to the ED via EMS after family called for a wellness check after not hearing from him for over 1 month. Pt was found by EMS with house in complete disarray, pt laying in bed unkempt, and surrounded by 100+ empty nips that had been delivered by [employer]. Pt admitted to the hospital for treatment and further evaluation of acute alcoholic hepatitis with imminent alcohol withdrawal. Alcohol use disorderPt has been drinking 30+ nips daily with the past 45 days Drank around 25 hips this morning prior to EMS arrival for wellness check moniter ciwa PH normal, anion gap improved probably likely due to alcohol /starvation ketosis. Continue phenobarb protocol,multivitamin, folic acid, thiamine, famotidine Addiction medicine consult,Monitor on telemetry Transaminitis and hyperbilirubinemia T bili trending up while AST, ALT, alk-phos improving ct abd -hepatic steatosis, pulse ox muscle hematoma Hx of IVDU last used 2 years ago Hx of treated Hep C Urine drug screen positive for cocaine Discussed with GI: Hepatitis screen added which came to be positive for hepatitis C serology, viral load added previous viral load last year was undetectable. Hyponatremia: Hypovolemic Blood pressure seems to be improved with albumin and fluids Discussed with nephrology continue normal saline for now. Monitor BMP closely. Polysubstance use disorder Continue Suboxone Addiction consult due to cocaine positive as well as alcohol. Anxiety Pt has not been taking antipsychotics for at least the past month Continue clonidine, escitalopram Will titrate Rexulti by restarting at 1 mg x4 days, increasing to 2 mg daily on day 5 DVT Prophylaxis: mech devices ongoing need hospitalization for : treatment of?likely acute alcoholic hepatitis with imminent alcohol withdrawal requiring close monitoring of labs, vitals, and CIWA while administering phenobarb protocol. Quality Stroke Does the patient have a stroke diagnosis?: No VTE Prior VTE?: No VTE Risk Level:: Medical - moderate - high VTE Device Contraindication: Treatment Not Indicated VTE Drug Contraindication: N/A - Med Ordered
[2024-09-12 18:18] LABS: Anion Gap 17 (12-20); Blood Urea Nitrogen 7 mg/dL (9-16); Calcium 7.9 mg/dL (8.4-10.2); Carbon Dioxide 26 mmol/L (22-29); Chloride 88 mmol/L (96-108); Creatinine Clr Calc Pharmacy 142.2; Estimated Glomerular Filt Rate > 60; Glucose Random 117 mg/dL (60-115); Potassium 3.2 mmol/L (3.3-5.1); Sodium 128 mmol/L (135-145)
[2024-09-12 19:02] VITALS: BP 154/78; PULSE 100; RESP 18; TEMP 36.7; O2SAT 93
[2024-09-12] MEDS: Buprenorphine/Naloxone 4/1 mg FILM 1 FILM SUBLINGUAL (21:43)
[2024-09-12] MEDS: Potassium Chloride Packet 20 MEQ PACKET 40 MEQ PO (21:43)
[2024-09-12] MEDS: Thiamine HCL 100 MG in 0.9 % Sodium Chloride 100 ML IV (21:46)
[2024-09-12 23:34] VITALS: BP 137/80; PULSE 96; RESP 20; TEMP 36.4; O2SAT 95
[2024-09-13] VITALS (7 sets, daily range): BP systolic 106–162; BP diastolic 65–83; PULSE 101–111; RESP 14–20; TEMP 36.5–37; O2SAT 93–97
[2024-09-13 07:43] LABS: Alanine Aminotransferase 218 U/L (0-40); Albumin Level 2.9 g/dL (3.5-5.0); Alkaline Phosphatase 146 U/L (39-117); Anion Gap 18 (12-20); Aspartate Amino Transferase 279 U/L (5-37); Bilirubin Total 9.6 mg/dL (0.0-1.0); Blood Urea Nitrogen 6 mg/dL (9-16); Carbon Dioxide 23 mmol/L (22-29); Chloride 91 mmol/L (96-108); Estimated Glomerular Filt Rate > 60; Glucose Random 102 mg/dL (60-115); Potassium 3.3 mmol/L (3.3-5.1); Sodium 129 mmol/L (135-145); Total Protein 5.4 g/dL (6.5-8.0)
[2024-09-13] MEDS: ondansetron HCL 4 MG/2 ML VIAL IVPUSH (09:42)
[2024-09-13] MEDS: Buprenorphine/Naloxone 8/2 mg FILM 1 FILM SUBLINGUAL (09:42)
[2024-09-13] MEDS: Brexpiprazole 1 MG TABLET PO (09:42)
[2024-09-13] MEDS: Escitalopram Oxalate 20 MG TABLET PO (09:43)
[2024-09-13] MEDS: Multivitamin TABLET 1 TAB PO (09:43)
[2024-09-13] MEDS: PHENobarbitaL 15 MG TABLET 45 MG PO ×2 (09:44→22:03)
[2024-09-13] MEDS: 0.9 % Sodium Chloride Flush 3 ML SYRINGE IVFLUSH ×2 (09:44→22:06)
[2024-09-13] MEDS: Famotidine 20 MG TABLET PO ×2 (09:44→22:03)
[2024-09-13] MEDS: Folic Acid 1 MG TABLET PO (09:44)
[2024-09-13] MEDS: 0.9 % Sodium Chloride 1,000 ML 100 ML IVCONT ×2 (09:46→18:23)
[2024-09-13] MEDS: PHENobarbitaL 30 MG TABLET PO (09:46)
--- NOTE | 2024-09-13 09:52 | MHC.CM.PN ---
Pt lives alone, no home health services or DME. PCP confirmed: Dr. Kim. HCP discussed, pt. declined to complete form. He is able to arrange a ride home at [place]. DCP: home, self care, CM to follow for DC needs.
[2024-09-13 09:58] LABS: INTERNATIONAL NORM RATIO 1.1 (0.9-1.1); Prothrombin Time 12.6 SEC (10.9-12.4)
[2024-09-13 10:09] LABS: Anion Gap 18 (12-20); Blood Urea Nitrogen 6 mg/dL (9-16); Carbon Dioxide 24 mmol/L (22-29); Chloride 91 mmol/L (96-108); Creatinine Clr Calc Pharmacy 142.2; Estimated Glomerular Filt Rate > 60; Glucose Random 98 mg/dL (60-115); Potassium 3.4 mmol/L (3.3-5.1); Sodium 130 mmol/L (135-145)
--- NOTE | 2024-09-13 10:57 | HO.ADDICT_ITS ---
History of Present Illness Date of Service: 09/13/2024 Chief Complaint: Alcohol withdrawal/hepatitis Reason for Consult: AUD, cocaine use Sources of Information: patient interviewed and chart reviewed HPI Narrative: Patient is a 53 year old male with history of AUD medically admitted with acute alcohol related hepatitis, hyponatremia and alcohol withdrawal. Chart review shows that patient was brought to [facility] via ambulance following a wellness check due to family not hearing from him in some time. His home was found in disarray, with hundreds of empty alcohol nips bottles around. Patient seen in room 484. He is awake, alert, minimally engaged in interview. He appears unkempt and malodorous. He reports a long history of alcohol use disorder, and states it is mainly binge drinking episodes that last days to a week or two. He states this last episode is one of his worst. Identifies his long time GF of 12 years ending the relationship as a precipitant. She ended the relationship a month and a half ago, which is when he started drinking. He reports heavy cocaine use, with last use about a week ago. Denies any opiate use, and has been consistent with taking buprenorphine as prescribed for OUD. He is currently on pheno taper,--still tachy and slightly hypertensive Reports feeling better today, but still feeling awful -reporting body aches and stomach discomfort. He denies cocaine withdrawal sx. Discussed history of depression--reports he had not been taking antidepressants for over a month. They have since been restarted He is hesitant to discuss depressive sx any further and stated, I just need to go to AA . While he denies SI, his lack of self care over the last month and currently (declines to wash up, shower or change) are concerning. Previously treated at [facility] in 2019 and 2021, both following significant recurrences of use with alcohol requiring detox admission and treatment. Past Psychiatric History: IP: One admit to [facility], dual dx unit. JALEESA: Recent admit to [facility] [place] detox in [facility]. OP: Dr. Lockwood who prescribes Suboxone x 12 years. She treated pt's Hepatitis C. PCP: Michael Aguila MD Psychiatric provider: Vargas ([facility], saw 07/23/21 for 1st time). Therapist: Zhen Brooks, PhD Medication Trials: Prozac, Wellbutrin, Topamax, Campral, Abilify, clonidine, trazodone, Depakote, Seroquel, Cogentin. Note: Pt fears SE. Review of Systems Constitutional: Reports as per HPI Diagnostics Vital Signs (24Hr): Vital Signs - 24 hr 09/12/24 12:00 09/12/24 16:00 09/12/24 19:02 Temperature 98.7 F 97.9 F 98.0 F Pulse Rate 111 H 92 100 Respiratory Rate 14 14 18 Blood Pressure 166/77 H 167/81 H 154/78 H Pulse Oximetry 94 93 93 Oxygen Delivery Method Room Air Room Air Room Air 09/12/24 23:34 09/13/24 03:06 09/13/24 07:47 Temperature 97.5 F 97.7 F 97.9 F Pulse Rate 96 102 H 106 H Respiratory Rate 20 20 16 Blood Pressure 137/80 162/83 H 160/78 H Pulse Oximetry 95 97 95 Oxygen Delivery Method Room Air Room Air Room Air BMI result Body Mass Index 43.5 Labs 09/11/24 10:51 09/13/24 09:38 Labs: Laboratory Results - last 48 hr 09/11/24 09/11/24 09/11/24 10:51 16:11 16:55 WBC 7.7 RBC 3.91 L Hgb 12.6 L Hct 34.8 L MCV 89.0 MCH 32.2 MCHC 36.2 H RDW 16.1 H Plt Count 141 L D MPV 8.8 L Immature Gran % (Auto) 3.6 H Neut % (Auto) 78.3 H Lymph % (Auto) 12.0 L [place] % (Auto) 5.7 Eos % (Auto) 0.1 Baso % (Auto) 0.3 Lymph # (Auto) 0.9 L [place] # (Auto) 0.4 Eos # (Auto) 0.0 Baso # (Auto) 0.0 Abs Immat Gran (auto) 0.28 H Absolute Neuts (auto) 6.1 Absolute Nucleated RBC 0.020 H Nucleated RBC % (auto) 0.3 H Hold Purple Top PT 11.6 INR 1.0 VBG pH VBG pCO2 VBG pO2 VBG HCO3 VBG O2 Saturation VBG Base Excess Sodium 129 L 128 L Potassium 3.4 D 4.2 D Chloride 85 L 88 L Carbon Dioxide 21 L 16 L Anion Gap 26 H 28 H BUN 7 L 9 Creatinine 0.86 0.82 Estim Creat Clear Calc 128.1 134.4 Estimated GFR > 60 > 60 Random Glucose 135 H 119 H Estimat Average Glucose 114 Hemoglobin A1c % 5.6 Osmolality Lactic Acid Lactic Acid F/U @ 2Hr Calcium 8.2 L D 7.7 L D Magnesium 2.1 Total Bilirubin 6.4 H Direct Bilirubin 4.8 H AST 521 H ALT 290 H Alkaline Phosphatase 170 H Ammonia 53 Total Creatine Kinase 150 Troponin I High Sens 15.4 C-Reactive Protein 5.89 H B-Natriuretic Peptide 47 Total Protein 6.2 L Albumin 3.2 L Lipase 43 Beta-Hydroxybutyrate TSH 2.12 Urine Osmolality Ur Random Sodium Ur Random Potassium Ur Random Chloride Salicylates Urine Opiates Screen Ur Buprenorphine Scrn Ur Oxycodone Screen Urine Methadone Screen Urine Fentanyl Screen Ur Barbiturates Screen Ur Phencyclidine Scrn Ur Amphetamines Screen U Benzodiazepines Scrn Urine Cocaine Screen U Marijuana (THC) Screen Ethylene Glycol Ethyl Alcohol 244 Hepatitis A IgM Ab Hep Bs Antigen Hep Bs Antibody Hep B Core Total Ab Hepatitis C Ab (EIA) 09/11/24 09/11/24 09/11/24 16:58 19:34 19:44 WBC RBC Hgb Hct MCV MCH MCHC RDW Plt Count MPV Immature Gran % (Auto) Neut % (Auto) Lymph % (Auto) [place] % (Auto) Eos % (Auto) Baso % (Auto) Lymph # (Auto) [place] # (Auto) Eos # (Auto) Baso # (Auto) Abs Immat Gran (auto) Absolute Neuts (auto) Absolute Nucleated RBC Nucleated RBC % (auto) Hold Purple Top PT INR VBG pH 7.44 H VBG pCO2 38 VBG pO2 49 VBG HCO3 26 VBG O2 Saturation 76.0 VBG Base Excess 2.3 Sodium Potassium Chloride Carbon Dioxide Anion Gap BUN Creatinine Estim Creat Clear Calc Estimated GFR Random Glucose Estimat Average Glucose Hemoglobin A1c % Osmolality Lactic Acid 5.1 H* Lactic Acid F/U @ 2Hr Calcium Magnesium Total Bilirubin Direct Bilirubin AST ALT Alkaline Phosphatase Ammonia Total Creatine Kinase Troponin I High Sens C-Reactive Protein B-Natriuretic Peptide Total Protein Albumin Lipase Beta-Hydroxybutyrate 1.54 H TSH Urine Osmolality 749 Ur Random Sodium < 20.0 Ur Random Potassium 36.3 Ur Random Chloride 34.0 Salicylates < 5.0 L Urine Opiates Screen Not Detected Ur Buprenorphine Scrn Positive H Ur Oxycodone Screen Not Detected Urine Methadone Screen Not Detected Urine Fentanyl Screen Not Detected Ur Barbiturates Screen POSITIVE H Ur Phencyclidine Scrn Not Detected Ur Amphetamines Screen Not Detected U Benzodiazepines Scrn Not Detected Urine Cocaine Screen POSITIVE H U Marijuana (THC) Screen Not Detected Ethylene Glycol NONE DETECTED Ethyl Alcohol Hepatitis A IgM Ab Hep Bs Antigen Hep Bs Antibody Hep B Core Total Ab Hepatitis C Ab (EIA) 09/11/24 09/11/24 09/12/24 19:45 21:15 08:50 WBC RBC Hgb Hct MCV MCH MCHC RDW Plt Count MPV Immature Gran % (Auto) Neut % (Auto) Lymph % (Auto) [place] % (Auto) Eos % (Auto) Baso % (Auto) Lymph # (Auto) [place] # (Auto) Eos # (Auto) Baso # (Auto) Abs Immat Gran (auto) Absolute Neuts (auto) Absolute Nucleated RBC Nucleated RBC % (auto) Hold Purple Top SEE NOTE PT INR VBG pH VBG pCO2 VBG pO2 VBG HCO3 VBG O2 Saturation VBG Base Excess Sodium 129 L 127 L Potassium 3.2 L D 3.5 Chloride 88 L 87 L Carbon Dioxide 22 27 Anion Gap 22 H 17 BUN 8 L 8 L Creatinine 0.90 0.89 Estim Creat Clear Calc 122.4 124.7 Estimated GFR > 60 > 60 Random Glucose 98 111 Estimat Average Glucose Hemoglobin A1c % Osmolality 286 Lactic Acid Lactic Acid F/U @ 2Hr 4.4 H* Calcium 7.6 L 8.2 L D Magnesium 2.2 Total Bilirubin 8.0 H Direct Bilirubin 6.0 H AST 396 H ALT 248 H Alkaline Phosphatase 158 H Ammonia Total Creatine Kinase Troponin I High Sens C-Reactive Protein B-Natriuretic Peptide Total Protein 5.8 L Albumin 3.2 L Lipase Beta-Hydroxybutyrate TSH Urine Osmolality Ur Random Sodium Ur Random Potassium Ur Random Chloride Salicylates Urine Opiates Screen Ur Buprenorphine Scrn Ur Oxycodone Screen Urine Methadone Screen Urine Fentanyl Screen Ur Barbiturates Screen Ur Phencyclidine Scrn Ur Amphetamines Screen U Benzodiazepines Scrn Urine Cocaine Screen U Marijuana (THC) Screen Ethylene Glycol Ethyl Alcohol Hepatitis A IgM Ab Hep Bs Antigen Hep Bs Antibody Hep B Core Total Ab Hepatitis C Ab (EIA) 09/12/24 09/12/24 09/13/24 10:36 17:47 06:23 WBC RBC Hgb Hct MCV MCH MCHC RDW Plt Count MPV Immature Gran % (Auto) Neut % (Auto) Lymph % (Auto) [place] % (Auto) Eos % (Auto) Baso % (Auto) Lymph # (Auto) [place] # (Auto) Eos # (Auto) Baso # (Auto) Abs Immat Gran (auto) Absolute Neuts (auto) Absolute Nucleated RBC Nucleated RBC % (auto) Hold Purple Top SEE NOTE PT INR VBG pH VBG pCO2 VBG pO2 VBG HCO3 VBG O2 Saturation VBG Base Excess Sodium 128 L 129 L Potassium 3.2 L 3.3 Chloride 88 L 91 L Carbon Dioxide 26 23 Anion Gap 17 18 BUN 7 L 6 L Creatinine 0.78 0.76 Estim Creat Clear Calc 142.2 146.0 Estimated GFR > 60 > 60 Random Glucose 117 H 102 Estimat Average Glucose Hemoglobin A1c % Osmolality Lactic Acid Lactic Acid F/U @ 2Hr Calcium 7.9 L 8.0 L Magnesium Total Bilirubin 9.6 H Direct Bilirubin AST 279 H ALT 218 H Alkaline Phosphatase 146 H Ammonia Total Creatine Kinase Troponin I High Sens C-Reactive Protein B-Natriuretic Peptide Total Protein 5.4 L Albumin 2.9 L Lipase Beta-Hydroxybutyrate TSH Urine Osmolality Ur Random Sodium Ur Random Potassium Ur Random Chloride Salicylates Urine Opiates Screen Ur Buprenorphine Scrn Ur Oxycodone Screen Urine Methadone Screen Urine Fentanyl Screen Ur Barbiturates Screen Ur Phencyclidine Scrn Ur Amphetamines Screen U Benzodiazepines Scrn Urine Cocaine Screen U Marijuana (THC) Screen Ethylene Glycol Ethyl Alcohol Hepatitis A IgM Ab Nonreactive Hep Bs Antigen Negative Hep Bs Antibody NONREACTIVE Hep B Core Total Ab Nonreactive Hepatitis C Ab (EIA) Reactive H 09/13/24 09:38 WBC RBC Hgb Hct MCV MCH MCHC RDW Plt Count MPV Immature Gran % (Auto) Neut % (Auto) Lymph % (Auto) [place] % (Auto) Eos % (Auto) Baso % (Auto) Lymph # (Auto) [place] # (Auto) Eos # (Auto) Baso # (Auto) Abs Immat Gran (auto) Absolute Neuts (auto) Absolute Nucleated RBC Nucleated RBC % (auto) Hold Purple Top PT 12.6 H INR 1.1 VBG pH VBG pCO2 VBG pO2 VBG HCO3 VBG O2 Saturation VBG Base Excess Sodium 130 L Potassium 3.4 Chloride 91 L Carbon Dioxide 24 Anion Gap 18 BUN 6 L Creatinine 0.78 Estim Creat Clear Calc 142.2 Estimated GFR > 60 Random Glucose 98 Estimat Average Glucose Hemoglobin A1c % Osmolality Lactic Acid Lactic Acid F/U @ 2Hr Calcium 8.0 L Magnesium Total Bilirubin Direct Bilirubin AST ALT Alkaline Phosphatase Ammonia Total Creatine Kinase Troponin I High Sens C-Reactive Protein B-Natriuretic Peptide Total Protein Albumin Lipase Beta-Hydroxybutyrate TSH Urine Osmolality Ur Random Sodium Ur Random Potassium Ur Random Chloride Salicylates Urine Opiates Screen Ur Buprenorphine Scrn Ur Oxycodone Screen Urine Methadone Screen Urine Fentanyl Screen Ur Barbiturates Screen Ur Phencyclidine Scrn Ur Amphetamines Screen U Benzodiazepines Scrn Urine Cocaine Screen U Marijuana (THC) Screen Ethylene Glycol Ethyl Alcohol Hepatitis A IgM Ab Hep Bs Antigen Hep Bs Antibody Hep B Core Total Ab Hepatitis C Ab (EIA) Imaging Radiology Impressions: ITS Impressions Abdomen/Pelvis CT 09/11/24 14:10 IMPRESSION: Hepatomegaly and steatosis. Intramuscular hematoma, left psoas muscle. Fleischner guidelines were followed. Electronically signed by: Mk Segovia MD 09/11/2024 02:44 PM EDT RP Mental Status Exam Mental Status Exam Patient Appearance: Unkempt and Malodorous Level of Consciousness: Awake and Alert Patient Behavior: Guarded Affect Description: Flat Speech Pattern: Clear Thought Content: positive for Intact Judgement: Fair Medications Medications Current Medications Acetaminophen (Acetaminophen 325 Mg Tablet) 650 mg PO Q6H PRN PRN Reason: Pain, Mild 1-3,fever,headache Brexpiprazole (Brexpiprazole 1 Mg Tablet) 1 mg PO DAILY [facility] Stop: 09/14/24 10:00 Last Admin: 09/13/24 09:42 Dose: 1 mg Brexpiprazole (Brexpiprazole 2 Mg Tablet) 2 mg PO DAILY [facility] Buprenorphine/Naloxone (Buprenorphine/Naloxone 8/2 Mg Film) 1 film SUBLINGUAL DAILY [facility] Last Admin: 09/13/24 09:42 Dose: 1 film Buprenorphine/Naloxone (Buprenorphine/Naloxone 4/1 Mg Film) 1 film SUBLINGUAL BEDTIME [facility] Last Admin: 09/12/24 21:43 Dose: 1 film Calcium Carbonate (Calcium Carbonate 750 Mg Tab.Chew) 750 mg PO Q4H PRN PRN Reason: Heartburn Clonidine HCl (Clonidine Hcl 0.2 Mg Tablet) 0.2 mg PO BEDTIME PRN; Protocol PRN Reason: Anxiety Escitalopram Oxalate (Escitalopram Oxalate 20 Mg Tablet) 20 mg PO DAILY [facility] Last Admin: 09/13/24 09:43 Dose: 20 mg Famotidine (Famotidine 20 Mg Tablet) 20 mg PO BID [facility] Last Admin: 09/13/24 09:44 Dose: 20 mg Folic Acid (Folic Acid 1 Mg Tablet) 1 mg PO DAILY [facility] Stop: 09/14/24 11:54 Last Admin: 09/13/24 09:44 Dose: 1 mg Hydromorphone HCl (Hydromorphone Hcl 2 Mg Tablet) 1 mg PO Q4H PRN PRN Reason: Pain, Severe (Pain Scale 7-10) Last Admin: 09/11/24 19:55 Dose: 1 mg Sodium Chloride (Ns) 1,000 mls @ 100 mls/hr IVCONT .Q10H [facility] Last Admin: 09/13/24 09:46 Dose: 100 mls/hr Magnesium Hydroxide (Milk Of Magnesia 30 Ml Oral.Susp) 30 ml PO DAILY PRN PRN Reason: Constipation Melatonin (Melatonin 3 Mg Tablet) 6 mg PO BEDTIME PRN PRN Reason: Insomnia Multivitamins/Vitamin C (Multivitamin Tablet) 1 tab PO DAILY [facility] Stop: 09/15/24 08:59 Last Admin: 09/13/24 09:43 Dose: 1 tab Nicotine (Nicotine 21 Mg Patch.Td24) 21 mg TRANSDERMA DAILY [facility] Last Admin: 09/13/24 09:46 Dose: Not Given Ondansetron HCl (Ondansetron Hcl 4 Mg/2 Ml Vial) 4 mg IVPUSH Q6H PRN PRN Reason: Nausea and Vomiting Last Admin: 09/13/24 09:42 Dose: 4 mg Pharmacy Consult (Consult Rx Etoh Phenob Im/Po) 1 each MISCELLANE ONCE PRN; Protocol PRN Reason: Consult order Phenobarbital (Phenobarbital 15 Mg Tablet) 45 mg PO BID [facility] Stop: 09/13/24 21:01 Last Admin: 09/13/24 09:44 Dose: 45 mg Phenobarbital (Phenobarbital 30 Mg Tablet) 30 mg PO BID [facility] Stop: 09/15/24 21:01 Phenobarbital (Phenobarbital 30 Mg Tablet) 30 mg PO DAILY [facility] Stop: 09/17/24 09:01 Sodium Chloride (0.9 % Sodium Chloride Flush 3 Ml Syringe) 3 ml IVFLUSH QSHIFT [facility] Last Admin: 09/13/24 09:44 Dose: 3 ml Thiamine HCl (Thiamine Hcl 100 Mg Tablet) 100 mg PO DAILY [facility] Stop: 09/17/24 08:59 Allergies Allergies Allergy/AdvReac Type Severity Reaction Status Date / Time crab Allergy Severe Anaphylaxis Verified 09/11/24 10:32 squid Allergy Severe Anaphylaxis Verified 09/11/24 10:32 latex [LATEX] Allergy Intermediate RASH Verified 09/11/24 10:32 Assessment & Plan Assessment & Plan (1) Alcohol use disorder, severe, dependence: Status: Acute Code(s): F10.20 - Alcohol dependence, uncomplicated Assessment and Plan: * pheno taper * clonidine PRN for anxiety --already prescribed for evening, add 0.1mg to have during the day if appropriate * open to campral prior to discharge (2) Major depressive disorder, recurrent severe without psychotic features: Status: Acute Code(s): F33.2 - Major depressive disorder, recurrent severe without psychotic features Assessment and Plan: * should have CARE team consult prior to discharge based on his history MDD and circumstances that brought him here. Total time managing care of this patient today __40__ minutes. PMFSH Past Medical History Medical History Hypotestosteronism History of intravenous drug abuse Chronic constipation Vitamin D deficiency Impaired fasting glucose Pure hypercholesterolemia Obesity (BMI 30-39.9) Smoker Insomnia Depression Anxiety Hepatitis C Family History Family History Father In good health Mother In good health Brother In good health Other Substance abuse Surgical History Surgical History Hx of colonoscopy History of surgery on arm History of left hip replacement Social History Social History Household Members: None Housing: House Do you presently have visiting nurse or other home services: No Alcohol intake: current Alcohol intake frequency: 3 or more drinks per day Alcohol type: hard liquor Patient Tobacco Use Status: Current everyday Tobacco user Tobacco use type: Smokeless Tobacco Cigarettes Per Day: 2 Years Smoked: about a year e-Cigarette/Vaping Use: Currently Using Substance Use Type: Crack/Cocaine service: No Current occupational status: employed 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
[2024-09-13 13:58] LABS: Glucose, Whole Blood 109 mg/dL (60-115)
--- NOTE | 2024-09-13 18:43 | P.PNIM_ITS ---
Subjective Subjective Date of Service: 09/13/24 Interval History: Possible alcoholic/starvation ketosis Review of Systems feels nauseated has tremers and anxious taking few little po has episode of tachycardia -rapid response. pink eye Physical Exam 2 Vital Signs: Vital Signs: Last Vital Signs Temp 98.4 F 09/13/24 15:20 Pulse 103 H 09/13/24 15:20 Resp 14 09/13/24 15:20 BP 128/65 09/13/24 15:20 Pulse Ox 93 09/13/24 15:20 O2 Del Method Room Air 09/13/24 15:20 BMI result Body Mass Index 43.5 Appearance: Alert.? Oriented X3.?tremer and anxious cvs: rrr, [id number] . res: air entry diminshed ,no rales or wheezing abd: no rebound or guarding ,nt, bs present. ext pulses present , no cyanosis. neuro: axo3 , nonfoca Objective Data Active Medications Acetaminophen (Acetaminophen 325 Mg Tablet) 650 mg PO Q6H PRN PRN Reason: Pain, Mild 1-3,fever,headache Brexpiprazole (Brexpiprazole 1 Mg Tablet) 1 mg PO DAILY [facility] Stop: 09/14/24 10:00 Last Admin: 09/13/24 09:42 Dose: 1 mg Documented By: LILLIANA Brexpiprazole (Brexpiprazole 2 Mg Tablet) 2 mg PO DAILY [facility] Buprenorphine/Naloxone (Buprenorphine/Naloxone 8/2 Mg Film) 1 film SUBLINGUAL DAILY [facility] Last Admin: 09/13/24 09:42 Dose: 1 film Documented By: LILLIANA Buprenorphine/Naloxone (Buprenorphine/Naloxone 4/1 Mg Film) 1 film SUBLINGUAL BEDTIME [facility] Last Admin: 09/12/24 21:43 Dose: 1 film Documented By: JIMMY Calcium Carbonate (Calcium Carbonate 750 Mg Tab.Chew) 750 mg PO Q4H PRN PRN Reason: Heartburn Clonidine HCl (Clonidine Hcl 0.2 Mg Tablet) 0.2 mg PO BEDTIME PRN; Protocol PRN Reason: Anxiety Erythromycin (Erythromycin Base 0.5% Oph Oin 1 Gm Tube) 1 cm EYE-BOTH BID [facility] Escitalopram Oxalate (Escitalopram Oxalate 20 Mg Tablet) 20 mg PO DAILY [facility] Last Admin: 09/13/24 09:43 Dose: 20 mg Documented By: LILLIANA Famotidine (Famotidine 20 Mg Tablet) 20 mg PO BID [facility] Last Admin: 09/13/24 09:44 Dose: 20 mg Documented By: LILLIANA Folic Acid (Folic Acid 1 Mg Tablet) 1 mg PO DAILY [facility] Stop: 09/14/24 11:54 Last Admin: 09/13/24 09:44 Dose: 1 mg Documented By: LILLIANA Hydromorphone HCl (Hydromorphone Hcl 2 Mg Tablet) 1 mg PO Q4H PRN PRN Reason: Pain, Severe (Pain Scale 7-10) Last Admin: 09/11/24 19:55 Dose: 1 mg Documented By: SAVAGE Sodium Chloride (Ns) 1,000 mls @ 100 mls/hr IVCONT .Q10H [facility] Last Admin: 09/13/24 18:23 Dose: 100 mls/hr Documented By: LILLIANA Magnesium Hydroxide (Milk Of Magnesia 30 Ml Oral.Susp) 30 ml PO DAILY PRN PRN Reason: Constipation Melatonin (Melatonin 3 Mg Tablet) 6 mg PO BEDTIME PRN PRN Reason: Insomnia Multivitamins/Vitamin C (Multivitamin Tablet) 1 tab PO DAILY [facility] Stop: 09/15/24 08:59 Last Admin: 09/13/24 09:43 Dose: 1 tab Documented By: LILLIANA Nicotine (Nicotine 21 Mg Patch.Td24) 21 mg TRANSDERMA DAILY [facility] Last Admin: 09/13/24 09:46 Dose: Not Given Documented By: LILLIANA Non-Admin Reason: Patient Refused Ondansetron HCl (Ondansetron Hcl 4 Mg/2 Ml Vial) 4 mg IVPUSH Q6H PRN PRN Reason: Nausea and Vomiting Last Admin: 09/13/24 09:42 Dose: 4 mg Documented By: LILLIANA Pharmacy Consult (Consult Rx Etoh Phenob Im/Po) 1 each MISCELLANE ONCE PRN; Protocol PRN Reason: Consult order Phenobarbital (Phenobarbital 15 Mg Tablet) 45 mg PO BID [facility] Stop: 09/13/24 21:01 Last Admin: 09/13/24 09:44 Dose: 45 mg Documented By: LILLIANA Phenobarbital (Phenobarbital 30 Mg Tablet) 30 mg PO BID [facility] Stop: 09/15/24 21:01 Phenobarbital (Phenobarbital 30 Mg Tablet) 30 mg PO DAILY [facility] Stop: 09/17/24 09:01 Sodium Chloride (0.9 % Sodium Chloride Flush 3 Ml Syringe) 3 ml IVFLUSH QSHIFT [facility] Last Admin: 09/13/24 16:01 Dose: Not Given Documented By: LILLIANA Non-Admin Reason: IV Running Thiamine HCl (Thiamine Hcl 100 Mg Tablet) 100 mg PO DAILY [facility] Stop: 09/17/24 08:59 Labs 09/11/24 10:51 09/13/24 09:38 Labs: Laboratory Results - last 24 hr 09/13/24 09/13/24 09/13/24 06:23 09:38 13:55 Hold Purple Top SEE NOTE PT 12.6 H INR 1.1 Anion Gap 18 18 Estim Creat Clear Calc 146.0 142.2 Estimated GFR > 60 > 60 POC Glucose 109 Random Glucose 102 98 Calcium 8.0 L 8.0 L Total Bilirubin 9.6 H AST 279 H ALT 218 H Alkaline Phosphatase 146 H Total Protein 5.4 L Albumin 2.9 L Assessment and Plan (1) Transaminitis: Status: Acute Plan 53-year-old male with a PMH significant for?alcohol use disorder, crack use disorder, hx of treated hepatitis C, depression, and anxiety who presents to the ED via EMS after family called for a wellness check after not hearing from him for over 1 month. Pt was found by EMS with house in complete disarray, pt laying in bed unkempt, and surrounded by 100+ empty nips that had been delivered by [employer]. Pt admitted to the hospital for treatment and further evaluation of acute alcoholic hepatitis with imminent alcohol withdrawal. Alcohol use disorderPt has been drinking 30+ nips daily with the past 45 days Drank around 25 hips this morning prior to EMS arrival for wellness check moniter ciwa PH normal, anion gap improved probably likely due to alcohol /starvation ketosis. Continue phenobarb protocol,multivitamin, folic acid, thiamine, famotidine Addiction medicine consult,Monitor on telemetry Transaminitis and hyperbilirubinemia T bili trending up while AST, ALT, alk-phos improving ct abd -hepatic steatosis, pulse ox muscle hematoma Hx of IVDU last used 2 years ago Hx of treated Hep C-eia positive ( has rx for hepatitis c in past ), hepatitis C viral load pending Urine drug screen positive for cocaine Discussed with GI: Hepatitis screen added which came to be positive for hepatitis C serology, viral load added previous viral load last year was undetectable. will check [place] for ascitis gi follow up Hyponatremia: Hypovolemic Blood pressure seems to be improved with albumin and fluids Discussed with nephrology continue normal saline for now. Monitor BMP closely. Polysubstance use disorder Continue Suboxone Addiction consult due to cocaine positive as well as alcohol. Anxiety Pt has not been taking antipsychotics for at least the past month Continue clonidine, escitalopram Will titrate Rexulti by restarting at 1 mg x4 days, increasing to 2 mg daily on day 5 DVT Prophylaxis: mech devices ongoing need hospitalization for : treatment of?likely acute alcoholic hepatitis with imminent alcohol withdrawal requiring close monitoring of labs, vitals, and CIWA while administering phenobarb protocol. Quality Stroke Does the patient have a stroke diagnosis?: No VTE Prior VTE?: No VTE Risk Level:: Medical - moderate - high VTE Device Contraindication: Treatment Not Indicated VTE Drug Contraindication: N/A - Med Ordered
[2024-09-13] MEDS: Buprenorphine/Naloxone 4/1 mg FILM 1 FILM SUBLINGUAL (22:03)
[2024-09-13] MEDS: Erythromycin Base 0.5% Oph Oin 1 GM TUBE 1 CM EYE-BOTH (22:03)
[2024-09-14] VITALS (10 sets, daily range): BP systolic 127–154; BP diastolic 60–73; PULSE 102–132; RESP 16–20; TEMP 36.6–37; O2SAT 94–96
[2024-09-14] MEDS: 0.9 % Sodium Chloride 1,000 ML 100 ML IVCONT (03:51)
[2024-09-14] MEDS: ondansetron HCL 4 MG/2 ML VIAL IVPUSH (05:46)
[2024-09-14] MEDS: Folic Acid 1 MG TABLET PO (08:01)
[2024-09-14] MEDS: Multivitamin TABLET 1 TAB PO (08:01)
[2024-09-14] MEDS: Buprenorphine/Naloxone 8/2 mg FILM 1 FILM SUBLINGUAL (08:01)
[2024-09-14] MEDS: Thiamine HCL 100 MG TABLET PO (08:01)
[2024-09-14] MEDS: PHENobarbitaL 30 MG TABLET PO ×2 (08:01→21:20)
[2024-09-14] MEDS: Brexpiprazole 1 MG TABLET PO (08:01)
[2024-09-14] MEDS: Famotidine 20 MG TABLET PO ×2 (08:01→21:20)
[2024-09-14] MEDS: Escitalopram Oxalate 20 MG TABLET PO (08:01)
[2024-09-14] MEDS: Erythromycin Base 0.5% Oph Oin 1 GM TUBE 1 CM EYE-BOTH ×2 (08:02→21:20)
[2024-09-14 09:47] LABS: INTERNATIONAL NORM RATIO 1.2 (0.9-1.1); Prothrombin Time 13.4 SEC (10.9-12.4)
[2024-09-14 10:13] LABS: Alanine Aminotransferase 203 U/L (0-40); Albumin Level 2.8 g/dL (3.5-5.0); Alkaline Phosphatase 165 U/L (39-117); Aspartate Amino Transferase 252 U/L (5-37); Bilirubin Direct 8.4 mg/dL (0.0-0.5); Bilirubin Total 11.5 mg/dL (0.0-1.0); Total Protein 5.2 g/dL (6.5-8.0)
--- NOTE | 2024-09-14 11:50 | HO.PM.IMPN ---
Subjective Subjective Date of Service: 09/14/24 Interval History: tachycardia ,dizziness more like spinning sensation unable to walk due to dizziness nausea Review of Systems as above. Review of Systems: Yes all other systems are reviewed and are negative Physical Exam Vital Signs: Vital Signs: Last Vital Signs Temp 97.9 F 09/14/24 07:37 Pulse 132 H 09/14/24 10:02 Resp 20 09/14/24 10:02 BP 139/65 09/14/24 10:02 Pulse Ox 94 09/14/24 10:02 O2 Del Method Room Air 09/14/24 10:02 BMI result Body Mass Index 43.5 Appearance: Alert.? Oriented X3.?tremer and anxious cvs: rrr, [id number] . res: air entry diminshed at bases, no rales or wheezing abd: no rebound or guarding ,nt, bs present. ext pulses present , no cyanosis. neuro: axo3 , nonfocal. Objective Data Active Medications Acetaminophen (Acetaminophen 325 Mg Tablet) 650 mg PO Q6H PRN PRN Reason: Pain, Mild 1-3,fever,headache Brexpiprazole (Brexpiprazole 2 Mg Tablet) 2 mg PO DAILY [facility] Buprenorphine/Naloxone (Buprenorphine/Naloxone 8/2 Mg Film) 1 film SUBLINGUAL DAILY [facility] Last Admin: 09/14/24 08:01 Dose: 1 film Documented By: JUDY Buprenorphine/Naloxone (Buprenorphine/Naloxone 4/1 Mg Film) 1 film SUBLINGUAL BEDTIME [facility] Last Admin: 09/13/24 22:03 Dose: 1 film Documented By: SARAH Calcium Carbonate (Calcium Carbonate 750 Mg Tab.Chew) 750 mg PO Q4H PRN PRN Reason: Heartburn Clonidine HCl (Clonidine Hcl 0.2 Mg Tablet) 0.2 mg PO BEDTIME PRN; Protocol PRN Reason: Anxiety Erythromycin (Erythromycin Base 0.5% Oph Oin 1 Gm Tube) 1 cm EYE-BOTH BID [facility] Last Admin: 09/14/24 08:02 Dose: 1 cm Documented By: JUDY Escitalopram Oxalate (Escitalopram Oxalate 20 Mg Tablet) 20 mg PO DAILY [facility] Last Admin: 09/14/24 08:01 Dose: 20 mg Documented By: JUDY Famotidine (Famotidine 20 Mg Tablet) 20 mg PO BID [facility] Last Admin: 09/14/24 08:01 Dose: 20 mg Documented By: JUDY Folic Acid (Folic Acid 1 Mg Tablet) 1 mg PO DAILY [facility] Stop: 09/14/24 11:54 Last Admin: 09/14/24 08:01 Dose: 1 mg Documented By: JUDY Hydromorphone HCl (Hydromorphone Hcl 2 Mg Tablet) 1 mg PO Q4H PRN PRN Reason: Pain, Severe (Pain Scale 7-10) Last Admin: 09/11/24 19:55 Dose: 1 mg Documented By: SAVAGE Albumin Human (Kedbumin 25 %) 100 mls @ 100 mls/hr IV Q6H [facility] Stop: 09/14/24 18:59 Magnesium Hydroxide (Milk Of Magnesia 30 Ml Oral.Susp) 30 ml PO DAILY PRN PRN Reason: Constipation Melatonin (Melatonin 3 Mg Tablet) 6 mg PO BEDTIME PRN PRN Reason: Insomnia Multivitamins/Vitamin C (Multivitamin Tablet) 1 tab PO DAILY [facility] Stop: 09/15/24 08:59 Last Admin: 09/14/24 08:01 Dose: 1 tab Documented By: JUDY Nicotine (Nicotine 21 Mg Patch.Td24) 21 mg TRANSDERMA DAILY [facility] Last Admin: 09/14/24 08:01 Dose: Not Given Documented By: JUDY Non-Admin Reason: Patient Refused Ondansetron HCl (Ondansetron Hcl 4 Mg/2 Ml Vial) 4 mg IVPUSH Q6H PRN PRN Reason: Nausea and Vomiting Last Admin: 09/14/24 05:46 Dose: 4 mg Documented By: KWAKU Pharmacy Consult (Consult Rx Etoh Phenob Im/Po) 1 each MISCELLANE ONCE PRN; Protocol PRN Reason: Consult order Phenobarbital (Phenobarbital 30 Mg Tablet) 30 mg PO BID [facility] Stop: 09/15/24 21:01 Last Admin: 09/14/24 08:01 Dose: 30 mg Documented By: JUDY Phenobarbital (Phenobarbital 30 Mg Tablet) 30 mg PO DAILY [facility] Stop: 09/17/24 09:01 Sodium Chloride (0.9 % Sodium Chloride Flush 3 Ml Syringe) 3 ml IVFLUSH QSHIFT [facility] Last Admin: 09/14/24 08:02 Dose: Not Given Documented By: JUDY Non-Admin Reason: IV Running Thiamine HCl (Thiamine Hcl 100 Mg Tablet) 100 mg PO DAILY [facility] Stop: 09/17/24 08:59 Last Admin: 09/14/24 08:01 Dose: 100 mg Documented By: JUDY Labs 09/14/24 12:00 09/13/24 09:38 Labs: Laboratory Results - last 24 hr 09/13/24 09/14/24 13:55 08:32 Hold Purple Top SEE NOTE PT 13.4 H INR 1.2 H POC Glucose 109 Total Bilirubin 11.5 H Direct Bilirubin 8.4 H AST 252 H ALT 203 H Alkaline Phosphatase 165 H Total Protein 5.2 L Albumin 2.8 L Assessment and Plan (1) Transaminitis: Status: Acute (2) Acute hyponatremia: Status: Acute Assessment and Plan: 53-year-old male with a PMH significant for?alcohol use disorder, crack use disorder, hx of treated hepatitis C, depression, and anxiety who presents to the ED via EMS after family called for a wellness check after not hearing from him for over 1 month. Pt was found by EMS with house in complete disarray, pt laying in bed unkempt, and surrounded by 100+ empty nips that had been delivered by [employer]. Pt admitted to the hospital for treatment and further evaluation of acute alcoholic hepatitis with imminent alcohol withdrawal. Alcohol use disorder Pt has been drinking 30+ nips daily with the past 45 days Drank around 25 hips this morning prior to EMS arrival for wellness check moniter ciwa PH normal, anion gap improved probably likely due to alcohol /starvation ketosis. still anxious and tramulous Continue phenobarb protocol,multivitamin, folic acid, thiamine, famotidine Addiction medicine consult-noted . Transaminitis and hyperbilirubinemia T bili trending up while AST, ALT, alk-phos improving ct abd -hepatic steatosis, pulse ox muscle hematoma Hx of IVDU last used 2 years ago Hx of treated Hep C-eia positive ( has rx for hepatitis c in past ), hepatitis C viral load pending Urine drug screen positive for cocaine ct abd : Hepatomegaly and steatosis. Discussed with GI: Hepatitis screen added which came to be positive for hepatitis C serology, viral load added previous viral load last year was undetectable. abd sono -No gross free fluid. inr 1.2 d/w Gi -bilirubin trending up ,ALT/AST-similar ,inr1.2 : rec follow viral load /moniter lft's and inr. Psoas muscle hematoma(poa): h/h 10.631 moniter h/h closely. dizziness /nausea:unclear etiology related to underlying drug use zofran prn ct head added Hyponatremia: Hypovolemic Blood pressure seems to be improved with albumin and fluids Discussed with nephrology continue normal saline for now. Monitor BMP closely. Polysubstance use disorder Continue Suboxone Addiction consult due to cocaine positive as well as alcohol. Anxiety Pt has not been taking antipsychotics for at least the past month Continue clonidine, escitalopram Rexulti by restarting at 1 mg x4 days, increasing to 2 mg daily on day 5 psych eval pending . patient will need bhn clearence before discharge. [facility] need [facility] for : treatment of?likely acute alcoholic hepatitis with imminent alcohol withdrawal requiring close monitoring of labs, vitals, and CIWA while administering phenobarb protocol, also wokrup for nausea/dizziness pending and psych eval as well as Gi followup, pt eval. Quality Stroke Does the patient have a stroke diagnosis?: No VTE Prior VTE?: No VTE Risk Level:: Medical - moderate - high VTE Device Contraindication: Treatment Not Indicated VTE Drug Contraindication: N/A - Med Ordered
[2024-09-14] MEDS: Albumin Human 25 % 100 ML IV ×2 (12:05→17:14)
[2024-09-14 12:09] LABS: Hemoglobin 10.6 g/dl (14.0-18.0); Mean Corpuscular HGB Conc 34.2 g/dl (31.0-36.0); Mean Corpuscular Volume 93.7 fL (80.0-98.0); Mean Platelet Volume 9.6 fL (9.4-12.4); NRBC Pct Auto 3.9 /100WBC (0.0-0.2); Platelet Count 129 X10*3/uL (160-400); Red Blood Count 3.31 X10*6/uL (4.60-5.80); Red Cell Distribution Width 17.1 % (11.0-16.0); White Blood Count 10.8 X10*3/uL (4.8-10.8)
[2024-09-14] MEDS: 0.9 % Sodium Chloride Flush 3 ML SYRINGE IVFLUSH ×2 (17:15→21:21)
--- NOTE | 2024-09-14 18:48 | P.EN_ITS ---
Documented by User: Maria Fernanda Bernstein NP 09/14/24 18:49 Event Note Date of Service: 09/14/24 Event Note: psychiatric consult for depression/anxiety. pt asked this typewriter repairer to come back another day as he does not feel well physically. No SI/HI. Time Spent With Patient Time: Total time managing care of this patient today ____ minutes. Documented by User: Josh Cook MD 09/17/24 21:46 Event Note Date of Service: 09/17/24
[2024-09-14] MEDS: Buprenorphine/Naloxone 4/1 mg FILM 1 FILM SUBLINGUAL (21:20)
[2024-09-15] VITALS (9 sets, daily range): BP systolic 132–146; BP diastolic 60–77; PULSE 99–125; RESP 18–20; TEMP 36.7–37.2; O2SAT 94–98
--- NOTE | 2024-09-15 | ECG_ITS ---
Test Reason : dizziness Blood Pressure : */* mmHG Vent. Rate : 115 BPM Atrial Rate : 115 BPM P-R Int : 166 ms QRS Dur : 92 ms QT Int : 304 ms P-R-T Axes : 31 -7 21 degrees QTcB Int : 420 ms Sinus tachycardia Otherwise normal ECG When compared with ECG of 11-Sep-2024 10:27, No significant change was found Referred By: Kimo Webb Electronically Signed By: NBA ALONSO MD
[2024-09-15] MEDS: ondansetron HCL 4 MG/2 ML VIAL IVPUSH (00:08)
[2024-09-15 08:02] LABS: Alanine Aminotransferase 173 U/L (0-40); Albumin Level 3.2 g/dL (3.5-5.0); Alkaline Phosphatase 171 U/L (39-117); Anion Gap 24 (12-20); Aspartate Amino Transferase 231 U/L (5-37); Bilirubin Total 13.6 mg/dL (0.0-1.0); Blood Urea Nitrogen 7 mg/dL (9-16); Calcium 8.7 mg/dL (8.4-10.2); Carbon Dioxide 17 mmol/L (22-29); Chloride 91 mmol/L (96-108); Creatinine Clr Calc Pharmacy 142.2; Estimated Glomerular Filt Rate > 60; Glucose Random 89 mg/dL (60-115); Potassium 3.7 mmol/L (3.3-5.1); Sodium 128 mmol/L (135-145); Total Protein 5.6 g/dL (6.5-8.0)
[2024-09-15 08:27] LABS: Venous Blood Gas Refer to POC result
[2024-09-15 08:27] LABS: Mean Corpuscular Hemoglobin 32.4 pg (27.0-33.0); PLT CLUMP 1
[2024-09-15 08:28] LABS: VBG Base Excess -3.7 mmol/L; VBG HCO3 19 mmol/L (22-26); VBG pCO2 30 mmHg; VBG pH 7.41 (7.32-7.43); VBG pO2 45 mmHg
[2024-09-15 08:29] LABS: Hematocrit 32.4 % (42.0-52.0); Hemoglobin 10.8 g/dl (14.0-18.0); Mean Corpuscular HGB Conc 33.3 g/dl (31.0-36.0); Mean Corpuscular Volume 97.3 fL (80.0-98.0); Mean Platelet Volume 9.1 fL (9.4-12.4); NRBC Pct Auto 4.6 /100WBC (0.0-0.2); Platelet Count 149 X10*3/uL (160-400); Red Blood Count 3.33 X10*6/uL (4.60-5.80); Red Cell Distribution Width 17.9 % (11.0-16.0); White Blood Count 15.2 X10*3/uL (4.8-10.8)
[2024-09-15 08:36] LABS: INTERNATIONAL NORM RATIO 1.2 (0.9-1.1)
[2024-09-15 08:42] LABS: Ammonia 80 umol/L (13-55)
[2024-09-15] MEDS: Escitalopram Oxalate 20 MG TABLET PO (09:06)
[2024-09-15] MEDS: Erythromycin Base 0.5% Oph Oin 1 GM TUBE 1 CM EYE-BOTH ×2 (09:06→21:55)
[2024-09-15] MEDS: 0.9 % Sodium Chloride Flush 3 ML SYRINGE IVFLUSH ×3 (09:06→21:57)
[2024-09-15] MEDS: Brexpiprazole 2 MG TABLET PO (09:06)
[2024-09-15] MEDS: Famotidine 20 MG TABLET PO ×2 (09:06→21:55)
[2024-09-15] MEDS: PHENobarbitaL 30 MG TABLET PO (09:06)
[2024-09-15] MEDS: Lactulose 20 GM/30 ML SOLUTION 30 GM PO ×6 (09:24→21:56)
[2024-09-15] MEDS: Thiamine HCL 100 MG in 0.9 % Sodium Chloride 100 ML 202 MG IV (09:38)
--- NOTE | 2024-09-15 10:02 | HO.ADDICTPRO ---
Subjective Subjective Date of Service: 09/15/24 Reason For Visit: Alcohol withdrawal/hepatitis Interim History: Patient seen in follow up for AUD Appearing confused and drowsy today Providing one word answers to questions When asked how he was feeling, he replied better , when asked how he repeated better, better labs reviewed-ammonia elevated Review of Systems Review of Systems Yes Unobtainable due to mental status Mental Status Exam Mental Status Exam Level of Consciousness: Drowsy Patient Behavior: Confused Diagnostics Vital Signs (24Hr): Vital Signs - 24 hr 09/14/24 12:00 09/14/24 16:00 09/14/24 20:00 Temperature 98.6 F 98.6 F 98.3 F Pulse Rate 102 H 112 H 108 H Respiratory Rate 20 19 18 Blood Pressure 133/63 127/60 131/62 Pulse Oximetry 96 95 95 Oxygen Delivery Method Room Air Room Air Room Air 09/14/24 23:34 09/14/24 23:35 09/15/24 03:14 Temperature 98.2 F 98.3 F Pulse Rate 112 H 109 H 108 H Respiratory Rate 18 18 Blood Pressure 141/68 H 137/70 135/60 Pulse Oximetry 96 96 Oxygen Delivery Method Room Air Room Air 09/15/24 07:46 09/15/24 08:00 09/15/24 08:02 Temperature 98.2 F Pulse Rate 107 H 108 H 125 H Respiratory Rate 19 Blood Pressure 135/66 136/63 137/67 Pulse Oximetry 94 98 Oxygen Delivery Method Room Air Room Air 09/15/24 08:03 Temperature Pulse Rate Respiratory Rate Blood Pressure 146/77 H Pulse Oximetry Oxygen Delivery Method BMI result Body Mass Index 43.5 Labs 09/15/24 08:15 09/15/24 07:23 Labs: Laboratory Results - last 48 hr 09/13/24 09/13/24 09/14/24 09:38 13:55 08:32 WBC RBC Hgb Hct MCV MCH MCHC RDW Plt Count MPV Absolute Nucleated RBC Nucleated RBC % (auto) Hold Purple Top SEE NOTE PT 13.4 H INR 1.2 H VBG pH VBG pCO2 VBG pO2 VBG HCO3 VBG O2 Saturation VBG Base Excess Sodium 130 L Potassium 3.4 Chloride 91 L Carbon Dioxide 24 Anion Gap 18 BUN 6 L Creatinine 0.78 Estim Creat Clear Calc 142.2 Estimated GFR > 60 POC Glucose 109 Random Glucose 98 Calcium 8.0 L Total Bilirubin 11.5 H Direct Bilirubin 8.4 H AST 252 H ALT 203 H Alkaline Phosphatase 165 H Ammonia Total Protein 5.2 L Albumin 2.8 L Hold Yellow Top 09/14/24 09/15/24 09/15/24 12:00 07:23 08:15 WBC 10.8 15.2 H RBC 3.31 L 3.33 L Hgb 10.6 L 10.8 L Hct 31.0 L 32.4 L MCV 93.7 97.3 MCH 32.0 32.4 MCHC 34.2 33.3 RDW 17.1 H 17.9 H Plt Count 129 L 149 L MPV 9.6 9.1 L Absolute Nucleated RBC 0.420 H 0.700 H Nucleated RBC % (auto) 3.9 H 4.6 H Hold Purple Top SEE NOTE PT 14.0 H INR 1.2 H VBG pH VBG pCO2 VBG pO2 VBG HCO3 VBG O2 Saturation VBG Base Excess Sodium 128 L Potassium 3.7 Chloride 91 L Carbon Dioxide 17 L Anion Gap 24 H BUN 7 L Creatinine 0.78 Estim Creat Clear Calc 142.2 Estimated GFR > 60 POC Glucose Random Glucose 89 Calcium 8.7 D Total Bilirubin 13.6 H Direct Bilirubin AST 231 H ALT 173 H Alkaline Phosphatase 171 H Ammonia 80 H Total Protein 5.6 L Albumin 3.2 L Hold Yellow Top See Note 09/15/24 08:24 WBC RBC Hgb Hct MCV MCH MCHC RDW Plt Count MPV Absolute Nucleated RBC Nucleated RBC % (auto) Hold Purple Top PT INR VBG pH 7.41 VBG pCO2 30 VBG pO2 45 VBG HCO3 19 L VBG O2 Saturation 77.0 VBG Base Excess -3.7 Sodium Potassium Chloride Carbon Dioxide Anion Gap BUN Creatinine Estim Creat Clear Calc Estimated GFR POC Glucose Random Glucose Calcium Total Bilirubin Direct Bilirubin AST ALT Alkaline Phosphatase Ammonia Total Protein Albumin Hold Yellow Top Imaging Radiology Impressions: ITS Impressions Abdomen/Pelvis CT 09/11/24 14:10 IMPRESSION: Hepatomegaly and steatosis. Intramuscular hematoma, left psoas muscle. Fleischner guidelines were followed. Electronically signed by: Mk Segovia MD 09/11/2024 02:44 PM EDT Abdomen Ultrasound 09/13/24 12:54 IMPRESSION: No ascites. Negative exam. Electronically signed by: Mk Segovia MD 09/13/2024 01:10 PM EDT Medications Medications Current Medications Acetaminophen (Acetaminophen 325 Mg Tablet) 650 mg PO Q6H PRN PRN Reason: Pain, Mild 1-3,fever,headache Brexpiprazole (Brexpiprazole 2 Mg Tablet) 2 mg PO DAILY [facility] Last Admin: 09/15/24 09:06 Dose: 2 mg Buprenorphine/Naloxone (Buprenorphine/Naloxone 8/2 Mg Film) 1 film SUBLINGUAL DAILY [facility] Last Admin: 09/14/24 08:01 Dose: 1 film Buprenorphine/Naloxone (Buprenorphine/Naloxone 4/1 Mg Film) 1 film SUBLINGUAL BEDTIME [facility] Last Admin: 09/14/24 21:20 Dose: 1 film Calcium Carbonate (Calcium Carbonate 750 Mg Tab.Chew) 750 mg PO Q4H PRN PRN Reason: Heartburn Clonidine HCl (Clonidine Hcl 0.2 Mg Tablet) 0.2 mg PO BEDTIME PRN; Protocol PRN Reason: Anxiety Erythromycin (Erythromycin Base 0.5% Oph Oin 1 Gm Tube) 1 cm EYE-BOTH BID [facility] Last Admin: 09/15/24 09:06 Dose: 1 cm Escitalopram Oxalate (Escitalopram Oxalate 20 Mg Tablet) 20 mg PO DAILY [facility] Last Admin: 09/15/24 09:06 Dose: 20 mg Famotidine (Famotidine 20 Mg Tablet) 20 mg PO BID [facility] Last Admin: 09/15/24 09:06 Dose: 20 mg Hydromorphone HCl (Hydromorphone Hcl 2 Mg Tablet) 1 mg PO Q4H PRN PRN Reason: Pain, Severe (Pain Scale 7-10) Last Admin: 09/11/24 19:55 Dose: 1 mg Thiamine HCl 100 mg/ Sodium (Chloride) 101 mls @ 202 mls/hr IV BID [facility] Last Admin: 09/15/24 09:38 Dose: 202 mls/hr Lactulose (Lactulose 20 Gm/30 Ml Solution) 30 gm PO BID [facility] Last Admin: 09/15/24 09:24 Dose: 30 gm Magnesium Hydroxide (Milk Of Magnesia 30 Ml Oral.Susp) 30 ml PO DAILY PRN PRN Reason: Constipation Melatonin (Melatonin 3 Mg Tablet) 6 mg PO BEDTIME PRN PRN Reason: Insomnia Nicotine (Nicotine 21 Mg Patch.Td24) 21 mg TRANSDERMA DAILY [facility] Last Admin: 09/14/24 08:01 Dose: Not Given Ondansetron HCl (Ondansetron Hcl 4 Mg/2 Ml Vial) 4 mg IVPUSH Q6H PRN PRN Reason: Nausea and Vomiting Last Admin: 09/15/24 00:08 Dose: 4 mg Pharmacy Consult (Consult Rx Etoh Phenob Im/Po) 1 each MISCELLANE ONCE PRN; Protocol PRN Reason: Consult order Phenobarbital (Phenobarbital 30 Mg Tablet) 30 mg PO BID [facility] Stop: 09/15/24 21:01 Last Admin: 09/15/24 09:06 Dose: 30 mg Sodium Chloride (0.9 % Sodium Chloride Flush 3 Ml Syringe) 3 ml IVFLUSH QSHIFT [facility] Last Admin: 09/15/24 09:06 Dose: 3 ml Allergies Allergies Allergy/AdvReac Type Severity Reaction Status Date / Time crab Allergy Severe Anaphylaxis Verified 09/11/24 10:32 squid Allergy Severe Anaphylaxis Verified 09/11/24 10:32 latex [LATEX] Allergy Intermediate RASH Verified 09/11/24 10:32 Assessment & Plan Assessment & Plan (1) Alcohol use disorder, severe, dependence: Status: Acute Code(s): F10.20 - Alcohol dependence, uncomplicated Assessment and Plan: change in mental status--ammonia elevated--lactulose ordered suboxone AM order held due to confusion and drowsiness. monitor for withdrawal sx ? r/t alcohol withdrawal--BP and HR elevated. consider PRN IM pheno Total time managing care of this patient today ____ minutes.
[2024-09-15] MEDS: Nicotine 21 MG PATCH.TD24 TRANSDERMA (10:21)
--- NOTE | 2024-09-15 12:23 | P.PNGI_ITS ---
Subjective Subjective Date of Service: 09/15/24 Interval History: c/o slight epigastric pain confused Critical Care Time (minutes): 0 Physical Exam 2 Vital Signs: Vital Signs: Last Vital Signs Temp 98.0 F 09/15/24 11:50 Pulse 106 H 09/15/24 11:50 Resp 19 09/15/24 11:50 BP 137/67 09/15/24 11:50 Pulse Ox 95 09/15/24 11:50 O2 Del Method Room Air 09/15/24 11:50 BMI result Body Mass Index 43.5 scleral icterus cardiac exam normal lungs clear abdomen soft no focal tenderness bowel sounds present ext with edema asterixis present Objective Data Labs 09/15/24 08:15 09/15/24 07:23 Labs: Laboratory Results - last 24 hr 09/15/24 09/15/24 09/15/24 07:23 08:15 08:24 WBC 15.2 H RBC 3.33 L Hgb 10.8 L Hct 32.4 L MCV 97.3 MCH 32.4 MCHC 33.3 RDW 17.9 H Plt Count 149 L MPV 9.1 L Absolute Nucleated RBC 0.700 H Nucleated RBC % (auto) 4.6 H Hold Purple Top SEE NOTE PT 14.0 H INR 1.2 H VBG pH 7.41 VBG pCO2 30 VBG pO2 45 VBG HCO3 19 L VBG O2 Saturation 77.0 VBG Base Excess -3.7 Sodium 128 L Potassium 3.7 Chloride 91 L Carbon Dioxide 17 L Anion Gap 24 H BUN 7 L Creatinine 0.78 Estim Creat Clear Calc 142.2 Estimated GFR > 60 Random Glucose 89 Calcium 8.7 D Total Bilirubin 13.6 H AST 231 H ALT 173 H Alkaline Phosphatase 171 H Ammonia 80 H Total Protein 5.6 L Albumin 3.2 L Hold Yellow Top See Note Procedures Date of Service Date of Service: 09/15/24 Progress Note: A&P Assessment and plan (1) Acute alcoholic hepatitis: Status: Acute Assessment and Plan: seen in coverage for Dr Stout agree with his consult recommendations elevated bilirubin due to cholestasis from alcoholic hepatitis lfts otherwise stable diuretics for edema continue lactulose no role for steroids at this time Time Spent With Patient Time: Total time managing care of this patient today ____ minutes. Quality Stroke Does the patient have a stroke diagnosis?: No VTE Prior VTE?: No VTE Risk Level:: Medical - moderate - high VTE Device Contraindication: Treatment Not Indicated VTE Drug Contraindication: N/A - Med Ordered
--- NOTE | 2024-09-15 12:33 | P.PNIM_ITS ---
Subjective Subjective Date of Service: 09/15/24 Interval History: encephalopathy Review of Systems feels generalised weak,seem more confused this monring was more awake: no nausea or vomiting or abd pain, urinary c/o no fevers feels dizziness even with lying down no sob or hypoxia Review of Systems: Yes all other systems are reviewed and are negative Physical Exam 2 Vital Signs: Vital Signs: Last Vital Signs Temp 98.0 F 09/15/24 11:50 Pulse 106 H 09/15/24 11:50 Resp 19 09/15/24 11:50 BP 137/67 09/15/24 11:50 Pulse Ox 95 09/15/24 11:50 O2 Del Method Room Air 09/15/24 11:50 BMI result Body Mass Index 43.5 Appearance: Alert.? Oriented X2,?confused ,keep repeating some words. cvs: rrr, [id number] . res: air entry diminshed at bases, no rales or wheezing abd: no rebound or guarding ,nt, bs present. ext pulses present , no cyanosis. neuro: move all ext Objective Data Active Medications Acetaminophen (Acetaminophen 325 Mg Tablet) 650 mg PO Q6H PRN PRN Reason: Pain, Mild 1-3,fever,headache Buprenorphine/Naloxone (Buprenorphine/Naloxone 8/2 Mg Film) 1 film SUBLINGUAL DAILY [facility] Last Admin: 09/15/24 10:23 Dose: Not Given Documented By: LUIS FELIPE Non-Admin Reason: Physician Held Med Buprenorphine/Naloxone (Buprenorphine/Naloxone 4/1 Mg Film) 1 film SUBLINGUAL BEDTIME [facility] Last Admin: 09/14/24 21:20 Dose: 1 film Documented By: SARAH Calcium Carbonate (Calcium Carbonate 750 Mg Tab.Chew) 750 mg PO Q4H PRN PRN Reason: Heartburn Clonidine HCl (Clonidine Hcl 0.2 Mg Tablet) 0.2 mg PO BEDTIME PRN; Protocol PRN Reason: Anxiety Erythromycin (Erythromycin Base 0.5% Oph Oin 1 Gm Tube) 1 cm EYE-BOTH BID [facility] Last Admin: 09/15/24 09:06 Dose: 1 cm Documented By: LUIS FELIPE Escitalopram Oxalate (Escitalopram Oxalate 20 Mg Tablet) 20 mg PO DAILY [facility] Last Admin: 09/15/24 09:06 Dose: 20 mg Documented By: LUIS FELIPE Famotidine (Famotidine 20 Mg Tablet) 20 mg PO BID [facility] Last Admin: 09/15/24 09:06 Dose: 20 mg Documented By: LUIS FELIPE Furosemide (Furosemide 20 Mg/2 Ml Vial) 20 mg IVPUSH Q12H [facility]; Protocol Hydromorphone HCl (Hydromorphone Hcl 2 Mg Tablet) 1 mg PO Q4H PRN PRN Reason: Pain, Severe (Pain Scale 7-10) Last Admin: 09/11/24 19:55 Dose: 1 mg Documented By: SAVAGE Albumin Human (Kedbumin 25 %) 100 mls @ 100 mls/hr IV Q6H [facility] Stop: 09/16/24 06:59 Thiamine HCl 200 mg/ Sodium (Chloride) 102 mls @ 204 mls/hr IV Q8H [facility] Lactulose (Lactulose 20 Gm/30 Ml Solution) 30 gm PO TID [facility] Magnesium Hydroxide (Milk Of Magnesia 30 Ml Oral.Susp) 30 ml PO DAILY PRN PRN Reason: Constipation Melatonin (Melatonin 3 Mg Tablet) 6 mg PO BEDTIME PRN PRN Reason: Insomnia Nicotine (Nicotine 21 Mg Patch.Td24) 21 mg TRANSDERMA DAILY [facility] Last Admin: 09/15/24 10:21 Dose: 21 mg Documented By: LUIS FELIPE Ondansetron HCl (Ondansetron Hcl 4 Mg/2 Ml Vial) 4 mg IVPUSH Q6H PRN PRN Reason: Nausea and Vomiting Last Admin: 09/15/24 00:08 Dose: 4 mg Documented By: SARAH Pharmacy Consult (Consult Rx Etoh Phenob Im/Po) 1 each MISCELLANE ONCE PRN; Protocol PRN Reason: Consult order Phenobarbital (Phenobarbital 30 Mg Tablet) 30 mg PO BID [facility] Stop: 09/15/24 21:01 Last Admin: 09/15/24 09:06 Dose: 30 mg Documented By: LUIS FELIPE Sodium Bicarbonate (Sodium Bicarbonate 650 Mg Tablet) 650 mg PO BID [facility] Sodium Chloride (0.9 % Sodium Chloride Flush 3 Ml Syringe) 3 ml IVFLUSH QSHIFT [facility] Last Admin: 09/15/24 09:06 Dose: 3 ml Documented By: LUIS FELIPE Spironolactone (Spironolactone 25 Mg Tablet) 12.5 mg PO BID@0900,1800 [facility]; Protocol Labs 09/15/24 08:15 09/15/24 07:23 Labs: Laboratory Results - last 24 hr 09/15/24 09/15/24 09/15/24 07:23 08:15 08:24 MCV 97.3 MCH 32.4 MCHC 33.3 RDW 17.9 H Plt Count 149 L MPV 9.1 L Absolute Nucleated RBC 0.700 H Nucleated RBC % (auto) 4.6 H Hold Purple Top SEE NOTE PT 14.0 H INR 1.2 H VBG pH 7.41 VBG pCO2 30 VBG pO2 45 VBG HCO3 19 L VBG O2 Saturation 77.0 VBG Base Excess -3.7 Anion Gap 24 H Estim Creat Clear Calc 142.2 Estimated GFR > 60 Random Glucose 89 Calcium 8.7 D Total Bilirubin 13.6 H AST 231 H ALT 173 H Alkaline Phosphatase 171 H Ammonia 80 H Total Protein 5.6 L Albumin 3.2 L Hold Yellow Top See Note Assessment and Plan (1) Transaminitis: Status: Acute (2) Acute hyponatremia: Status: Acute (3) Acute alcoholic hepatitis: Status: Acute (4) Depression: Status: Acute (5) Anxiety: Status: Acute Assessment and Plan: 53-year-old male with a PMH significant for?alcohol use disorder, crack use disorder, hx of treated hepatitis C, depression, and anxiety who presents to the ED via EMS after family called for a wellness check after not hearing from him for over 1 month. Pt was found by EMS with house in complete disarray, pt laying in bed unkempt, and surrounded by 100+ empty nips that had been delivered by [employer]. Pt admitted to the hospital for treatment and further evaluation of acute alcoholic hepatitis with imminent alcohol withdrawal. Toxic metabolic encephalopathy-multifactorial(hyperammonemia, alcoholic liver disease/possible hepatitis, electrolytic abnormalities-hyponatremia ): alcohol use ,ammonia levels 80. mri brain(prelimnary pending) plan: Hold phenobarb and Suboxone discussed with icu per icu:increase lactulose to 30 mL every 2 hours until he has a bowel movement then can decrease to 30 mL q4h to a target of 3-4 bowel movements in a day added bicarb po ( d/w nephro -ph normal,elevated anion gap and low bicarb likely due to dec clearence of lactic acid with liver dis). hyponatremia( avoid ivf due to edema and ?Siadh)-Nephro recomended moniter bmp closely. neurology eval for dizziness /?vertiago Alcohol use disorder Pt has been drinking 30+ nips daily with the past 45 days Drank around 25 nips. moniter ciwa 1 hold phenobarbital,switched to iv thiamine and folic acid, famotidine Addiction medicine following. possible acute alcoholic hepatitis: Transaminitis and hyperbilirubinemia T bili trending up while AST, ALT, alk-phos improving ct abd -hepatic steatosis, pulse ox muscle hematoma Hx of IVDU last used 2 years ago Hx of treated Hep C-eia positive ( has rx for hepatitis c in past ), hepatitis C viral load pending Urine drug screen positive for cocaine ct abd : Hepatomegaly and steatosis. abd sono -No gross free fluid. inr 1.2 d/w Gi -bilirubin trending up ,ALT/AST-similar ,inr1.2 : rec follow viral load /moniter lft's and inr. no role for steroids at this time. Tachycardia(multifactorial) tsh normal possible related to generlaised deconditioning,alcohol withdrawals , electrolytic abnormalites echo pending Generalised edema : multifactorial venous dupplex prelimary negative cxr -unchanged . plan: estevez ,i/o monitering,echo started on iv lasix and albumin cardio eval noted:(possible alcoholic cardiomyopathy vs pulm htn vs mele). leucocytosis:patient did not say any respiratory or urinary c/o likely related to alcoholic hepatitis no fever cxr similar ua if can be done with straight cath no sepsis at present. Psoas muscle hematoma(poa): h/h 10.8/32.4 moniter h/h closely. dizziness /nausea:unclear etiology-multifcatorial orthostasis negative ct head negative mri -done-limited due to patient cooperation(pending) neurology eval for dizziness /?vertiago Polysubstance use disorder Continue Suboxone Addiction consult due to cocaine positive as well as alcohol. Anxiety:Pt has not been taking antipsychotics for at least the past month Continue escitalopram hold rexulti ( might be contributing to dizziness). psych eval pending . need bhn clearence before discharge. DVT Prophylaxis: mech devices ongoing need hospitalization for : treatment of?likely acute alcoholic hepatitis /encephalopathy -need monitering for electrolytes and lft's as well as menatl status Quality Stroke Does the patient have a stroke diagnosis?: No VTE Prior VTE?: No VTE Risk Level:: Medical - moderate - high VTE Device Contraindication: Treatment Not Indicated VTE Drug Contraindication: N/A - Med Ordered
--- NOTE | 2024-09-15 12:43 | P.CONCA_ITS ---
History of Present Illness History of Present Illness Date of Service: 09/15/24 Requesting physician: Kimo Webb Consult reason: other (Tachycardia, edema, dizziness) Chief complaint: Alcohol withdrawal/hepatitis Narrative: I was consulted to see Darrel in cardiology consultation today was brought in after he was found confused with altered mental status at home surrounded by a lot of empty alcohol nips. Cardiology consult was sought because he is complaining of constant dizziness. He was still is very confused and has to be oriented again and again. He remains in sinus tachycardia. He denies any palpitations. He was noted to be generalized significant swelling. His ammonia level significantly elevated. This also noticed to be jaundiced. He is not able to provide much history. He asked when how long he has had leg swelling said over the last couple weeks. Although this is difficult to corroborate. Patient says never had any prior heart problems. He is noted to have prior history of depression. Also noted to have alcohol use disorder from before. Has history of hyperlipidemia obesity, anxiety. He was noted to also have U tox positive for cocaine Review of Systems 2 Review of Systems: Yes Unobtainable due to mental status PMFSH Past Medical History Medical History Acute alcoholic hepatitis Hypotestosteronism History of intravenous drug abuse Chronic constipation Vitamin D deficiency Impaired fasting glucose Pure hypercholesterolemia Obesity (BMI 30-39.9) Smoker Insomnia Depression Anxiety Hepatitis C Family History Family History Father In good health Mother In good health Brother In good health Other Substance abuse Surgical History Surgical History Hx of colonoscopy History of surgery on arm History of left hip replacement Social History Social History Household Members: None Housing: House Do you presently have visiting nurse or other home services: No Alcohol intake: current Alcohol intake frequency: 3 or more drinks per day Alcohol type: hard liquor Patient Tobacco Use Status: Current everyday Tobacco user Tobacco use type: Smokeless Tobacco Cigarettes Per Day: 2 Years Smoked: about a year e-Cigarette/Vaping Use: Currently Using Substance Use Type: Crack/Cocaine service: No Current occupational status: employed 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 Meds Allergies Allergy/AdvReac Type Severity Reaction Status Date / Time crab Allergy Severe Anaphylaxis Verified 09/11/24 10:32 squid Allergy Severe Anaphylaxis Verified 09/11/24 10:32 latex [LATEX] Allergy Intermediate RASH Verified 09/11/24 10:32 Active Medications: Current Medications Acetaminophen (Acetaminophen 325 Mg Tablet) 650 mg PO Q6H PRN PRN Reason: Pain, Mild 1-3,fever,headache Buprenorphine/Naloxone (Buprenorphine/Naloxone 8/2 Mg Film) 1 film SUBLINGUAL DAILY [facility] Last Admin: 09/15/24 10:23 Dose: Not Given Buprenorphine/Naloxone (Buprenorphine/Naloxone 4/1 Mg Film) 1 film SUBLINGUAL BEDTIME [facility] Last Admin: 09/14/24 21:20 Dose: 1 film Calcium Carbonate (Calcium Carbonate 750 Mg Tab.Chew) 750 mg PO Q4H PRN PRN Reason: Heartburn Clonidine HCl (Clonidine Hcl 0.2 Mg Tablet) 0.2 mg PO BEDTIME PRN; Protocol PRN Reason: Anxiety Erythromycin (Erythromycin Base 0.5% Oph Oin 1 Gm Tube) 1 cm EYE-BOTH BID [facility] Last Admin: 09/15/24 09:06 Dose: 1 cm Escitalopram Oxalate (Escitalopram Oxalate 20 Mg Tablet) 20 mg PO DAILY [facility] Last Admin: 09/15/24 09:06 Dose: 20 mg Famotidine (Famotidine 20 Mg Tablet) 20 mg PO BID [facility] Last Admin: 09/15/24 09:06 Dose: 20 mg Furosemide (Furosemide 20 Mg/2 Ml Vial) 20 mg IVPUSH Q12H [facility]; Protocol Hydromorphone HCl (Hydromorphone Hcl 2 Mg Tablet) 1 mg PO Q4H PRN PRN Reason: Pain, Severe (Pain Scale 7-10) Last Admin: 09/11/24 19:55 Dose: 1 mg Albumin Human (Kedbumin 25 %) 100 mls @ 100 mls/hr IV Q6H [facility] Stop: 09/16/24 06:59 Thiamine HCl 200 mg/ Sodium (Chloride) 102 mls @ 204 mls/hr IV Q8H [facility] Lactulose (Lactulose 20 Gm/30 Ml Solution) 30 gm PO TID [facility] Magnesium Hydroxide (Milk Of Magnesia 30 Ml Oral.Susp) 30 ml PO DAILY PRN PRN Reason: Constipation Melatonin (Melatonin 3 Mg Tablet) 6 mg PO BEDTIME PRN PRN Reason: Insomnia Nicotine (Nicotine 21 Mg Patch.Td24) 21 mg TRANSDERMA DAILY [facility] Last Admin: 09/15/24 10:21 Dose: 21 mg Ondansetron HCl (Ondansetron Hcl 4 Mg/2 Ml Vial) 4 mg IVPUSH Q6H PRN PRN Reason: Nausea and Vomiting Last Admin: 09/15/24 00:08 Dose: 4 mg Pharmacy Consult (Consult Rx Etoh Phenob Im/Po) 1 each MISCELLANE ONCE PRN; Protocol PRN Reason: Consult order Phenobarbital (Phenobarbital 30 Mg Tablet) 30 mg PO BID [facility] Stop: 09/15/24 21:01 Last Admin: 09/15/24 09:06 Dose: 30 mg Sodium Bicarbonate (Sodium Bicarbonate 650 Mg Tablet) 650 mg PO BID [facility] Sodium Chloride (0.9 % Sodium Chloride Flush 3 Ml Syringe) 3 ml IVFLUSH QSHIFT [facility] Last Admin: 09/15/24 09:06 Dose: 3 ml Spironolactone (Spironolactone 25 Mg Tablet) 12.5 mg PO BID@0900,1800 [facility]; Protocol Home Medications ?Medication ?Instructions ?Recorded ?Confirmed ?Last Taken ?Type buprenorphine 8 mg-naloxone 2 mg 1 film sublingual DAILY 04/02/20 09/11/24 1 Month Ago History sublingual film ~08/11/24 buprenorphine 4 mg-naloxone 1 mg 1 film sublingual BEDTIME 04/03/20 09/11/24 1 Month Ago History sublingual film (Suboxone) ~08/11/24 clonidine HCl 0.2 mg tablet 0.2 mg PO BEDTIME PRN Anxiety 09/11/24 09/11/24 1 Month Ago History ~08/11/24 gabapentin 100 mg capsule 100 mg PO BEDTIME PRN restless leg 09/11/24 09/11/24 1 Month Ago History symptoms ~08/11/24 ropinirole 1 mg tablet 1 mg PO BID PRN restless leg 09/11/24 09/11/24 1 Month Ago History symptoms ~08/11/24 Physical Exam 2 Vital Signs: Vital Signs: Last Vital Signs Temp 98.0 F 09/15/24 11:50 Pulse 106 H 09/15/24 11:50 Resp 19 09/15/24 11:50 BP 137/67 09/15/24 11:50 Pulse Ox 95 04/20/25 11:50 O2 Del Method Room Air 09/15/24 11:50 BMI result Body Mass Index 43.5 Const: General: cooperative, comfortable and patient obtunded Nutritional Appearance: obese Orientation/consciousness: patient obtunded Limitations: no limitations HEENT: Head: Yes normocephalic and Yes atraumatic Neck: Neck: Yes trachea midline, Yes supple and Yes other (Difficult to assess JVD) Resp: Effort & Inspection: decreased respiratory effort Auscultation: no rales, wheezes and diminished lung sounds Cardio: Rate: tachycardic Rhythm: regular rhythm Heart sounds: S1 normal heart sound present, S2 normal heart sound present, no click, no gallops and no murmurs GI: Inspection: Yes distended Auscultation: normal bowel sounds Skin: General skin exam: no rashes or lesions noted Neuro: General: moves all extremities and patient obtunded Extrem: General: No clubbing, No cyanosis and Yes edema Objective Labs and Meds 09/15/24 08:15 09/15/24 07:23 Lab results: Laboratory Results - last 24 hr 09/15/24 09/15/24 09/15/24 07:23 08:15 08:24 WBC 15.2 H RBC 3.33 L Hgb 10.8 L Hct 32.4 L MCV 97.3 MCH 32.4 MCHC 33.3 RDW 17.9 H Plt Count 149 L MPV 9.1 L Absolute Nucleated RBC 0.700 H Nucleated RBC % (auto) 4.6 H Hold Purple Top SEE NOTE PT 14.0 H INR 1.2 H VBG pH 7.41 VBG pCO2 30 VBG pO2 45 VBG HCO3 19 L VBG O2 Saturation 77.0 VBG Base Excess -3.7 Sodium 128 L Potassium 3.7 Chloride 91 L Carbon Dioxide 17 L Anion Gap 24 H BUN 7 L Creatinine 0.78 Estim Creat Clear Calc 142.2 Estimated GFR > 60 Random Glucose 89 Calcium 8.7 D Total Bilirubin 13.6 H AST 231 H ALT 173 H Alkaline Phosphatase 171 H Ammonia 80 H Total Protein 5.6 L Albumin 3.2 L Hold Yellow Top See Note Assessment and Plan (1) Generalized edema: Status: Acute Generalized edema in this middle-aged man with significant alcohol use. Possibility of alcoholic cardiomyopathy and/or pulmonary hypertension related to cirrhosis and/or obstructive sleep apnea and right heart failure is likely. Will need echocardiogram to assess for the same. Also possibility that this could be related to cirrhosis although imaging is not suggestive of the same and/or hypoalbuminemia from poor nutrition. I would consider gentle diuresis with strict intake and output chart and be careful for development of hepatorenal syndrome although he has no diagnose is of liver cirrhosis. At this point time also consider giving spironolactone therapy to him. Further treatment based on the findings of the echocardiogram. Consider blood gas to assess for hypercapnia. (2) Dizziness: Status: Acute He has constant dizziness is unlikely to be related to any cardiac issues. There was no hypotension noted. As more likely appears to be neurologic in nature. He was dizzy even laying in bed and complains of vertigo like symptoms. I have suggested to ruled out cerebellar atrophy related to his alcohol use. She would consider imaging of the brain and consider neurology consult. Continue treatment for alcohol related neurodegenerative diseases with thiamine and folic acid. Will follow with you Procedures Date of Service Date of Service: 09/15/24
--- NOTE | 2024-09-15 13:01 | W.PM.CCCN ---
History of Present Illness Data of Consult Service Date: 09/15/24 Primary Care Provider: Michael Aguila MD HPI Reason for consult: Encephalopathy 53-year-old male with past medical history of chronic alcoholism, bipolar disorder, substance abuse, hepatitis-C presented with alcohol overdose on 09/11/2024. During his course of hospitalization he has worsening liver disease with consistently older increasing bilirubin, significant edema and worsening encephalopathy so MICU was consulted. At present patient wakes up upon calling his name and is able to hold on a conversation. [facility] Past Medical History Medical History Acute alcoholic hepatitis Hypotestosteronism History of intravenous drug abuse Chronic constipation Vitamin D deficiency Impaired fasting glucose Pure hypercholesterolemia Obesity (BMI 30-39.9) Smoker Insomnia Depression Anxiety Hepatitis C Family History Family History Father In good health Mother In good health Brother In good health Other Substance abuse Surgical History Surgical History Hx of colonoscopy History of surgery on arm History of left hip replacement Social History Social History Household Members: None Housing: House Do you presently have visiting nurse or other home services: No Alcohol intake: current Alcohol intake frequency: 3 or more drinks per day Alcohol type: hard liquor Patient Tobacco Use Status: Current everyday Tobacco user Tobacco use type: Smokeless Tobacco Cigarettes Per Day: 2 Years Smoked: about a year e-Cigarette/Vaping Use: Currently Using Substance Use Type: Crack/Cocaine service: No Current occupational status: employed 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 Meds Allergies Allergy/AdvReac Type Severity Reaction Status Date / Time crab Allergy Severe Anaphylaxis Verified 09/11/24 10:32 squid Allergy Severe Anaphylaxis Verified 09/11/24 10:32 latex [LATEX] Allergy Intermediate RASH Verified 09/11/24 10:32 Active Medications: Current Medications Acetaminophen (Acetaminophen 325 Mg Tablet) 650 mg PO Q6H PRN PRN Reason: Pain, Mild 1-3,fever,headache Buprenorphine/Naloxone (Buprenorphine/Naloxone 8/2 Mg Film) 1 film SUBLINGUAL DAILY [facility] Last Admin: 09/15/24 10:23 Dose: Not Given Buprenorphine/Naloxone (Buprenorphine/Naloxone 4/1 Mg Film) 1 film SUBLINGUAL BEDTIME [facility] Last Admin: 09/14/24 21:20 Dose: 1 film Calcium Carbonate (Calcium Carbonate 750 Mg Tab.Chew) 750 mg PO Q4H PRN PRN Reason: Heartburn Clonidine HCl (Clonidine Hcl 0.2 Mg Tablet) 0.2 mg PO BEDTIME PRN; Protocol PRN Reason: Anxiety Erythromycin (Erythromycin Base 0.5% Oph Oin 1 Gm Tube) 1 cm EYE-BOTH BID [facility] Last Admin: 09/15/24 09:06 Dose: 1 cm Escitalopram Oxalate (Escitalopram Oxalate 20 Mg Tablet) 20 mg PO DAILY [facility] Last Admin: 09/15/24 09:06 Dose: 20 mg Famotidine (Famotidine 20 Mg Tablet) 20 mg PO BID [facility] Last Admin: 09/15/24 09:06 Dose: 20 mg Furosemide (Furosemide 20 Mg/2 Ml Vial) 20 mg IVPUSH QID [facility]; Protocol Hydromorphone HCl (Hydromorphone Hcl 2 Mg Tablet) 1 mg PO Q4H PRN PRN Reason: Pain, Severe (Pain Scale 7-10) Last Admin: 09/11/24 19:55 Dose: 1 mg Albumin Human (Kedbumin 25 %) 100 mls @ 100 mls/hr IV Q6H [facility] Stop: 09/16/24 06:59 Thiamine HCl 200 mg/ Sodium (Chloride) 102 mls @ 204 mls/hr IV Q8H [facility] Lactulose (Lactulose 20 Gm/30 Ml Solution) 30 gm PO Q2H [facility] Magnesium Hydroxide (Milk Of Magnesia 30 Ml Oral.Susp) 30 ml PO DAILY PRN PRN Reason: Constipation Melatonin (Melatonin 3 Mg Tablet) 6 mg PO BEDTIME PRN PRN Reason: Insomnia Nicotine (Nicotine 21 Mg Patch.Td24) 21 mg TRANSDERMA DAILY [facility] Last Admin: 09/15/24 10:21 Dose: 21 mg Ondansetron HCl (Ondansetron Hcl 4 Mg/2 Ml Vial) 4 mg IVPUSH Q6H PRN PRN Reason: Nausea and Vomiting Last Admin: 09/15/24 00:08 Dose: 4 mg Pharmacy Consult (Consult Rx Etoh Phenob Im/Po) 1 each MISCELLANE ONCE PRN; Protocol PRN Reason: Consult order Phenobarbital (Phenobarbital 30 Mg Tablet) 30 mg PO BID [facility] Last Admin: 09/15/24 09:06 Dose: 30 mg Sodium Bicarbonate (Sodium Bicarbonate 650 Mg Tablet) 650 mg PO BID [facility] Sodium Chloride (0.9 % Sodium Chloride Flush 3 Ml Syringe) 3 ml IVFLUSH QSHIFT [facility] Last Admin: 09/15/24 09:06 Dose: 3 ml Spironolactone (Spironolactone 25 Mg Tablet) 12.5 mg PO BID@0900,1800 [facility]; Protocol Home Medications ?Medication ?Instructions ?Recorded ?Confirmed ?Last Taken ?Type buprenorphine 8 mg-naloxone 2 mg 1 film sublingual DAILY 04/02/20 09/11/24 1 Month Ago History sublingual film ~08/11/24 buprenorphine 4 mg-naloxone 1 mg 1 film sublingual BEDTIME 04/03/20 09/11/24 1 Month Ago History sublingual film (Suboxone) ~08/11/24 clonidine HCl 0.2 mg tablet 0.2 mg PO BEDTIME PRN Anxiety 09/11/24 09/11/24 1 Month Ago History ~08/11/24 gabapentin 100 mg capsule 100 mg PO BEDTIME PRN restless leg 09/11/24 09/11/24 1 Month Ago History symptoms ~08/11/24 ropinirole 1 mg tablet 1 mg PO BID PRN restless leg 09/11/24 09/11/24 1 Month Ago History symptoms ~08/11/24 Physical Exam Vital Signs: Vital Signs: Last Vital Signs Temp 98.0 F 09/15/24 11:50 Pulse 106 H 09/15/24 11:50 Resp 19 09/15/24 11:50 BP 137/67 09/15/24 11:50 Pulse Ox 95 09/15/24 11:50 O2 Del Method Room Air 09/15/24 11:50 BMI result Body Mass Index 43.5 General: Middle-aged male, appeared very, edematous and drowsy Nutritional Appearance: well nourished and overweight Eyes: appearance normal, both eyes and all related structures; Alignment and Position: alignment normal and position normal Neck: No lymphadenopathy, no thyromegaly Resp: bilateral air entry equal, occasional added sounds present Cardio: Regular rate, regular rhythm; Heart sounds: S1 normal heart sound present and S2 normal heart sound present GI: soft, nontender, no guarding, no hepatosplenomegaly : bladder normal to inspection, bladder normal to palpation, no renal angle tenderness Skin: no rashes or lesions noted and elasticity normal Neuro: Drowsy but arousable, can hold on a conversation upon verbal stimuli, moves all extremities Results Labs 09/15/24 08:15 09/15/24 07:23 Labs: Short CBC 09/15/24 Range/Units 08:15 WBC 15.2 H (4.8-10.8) X10*3/uL Hgb 10.8 L (14.0-18.0) g/dl Hct 32.4 L (42.0-52.0) % Plt Count 149 L (160-400) X10*3/uL BMP 09/15/24 07:23 Sodium 128 L Potassium 3.7 Chloride 91 L Carbon Dioxide 17 L BUN 7 L Creatinine 0.78 Calcium 8.7 D Liver Function 09/15/24 Range/Units 07:23 Total Bilirubin 13.6 H (0.0-1.0) mg/dL AST 231 H (5-37) U/L ALT 173 H (0-40) U/L Alkaline Phosphatase 171 H (39-117) U/L Albumin 3.2 L (3.5-5.0) g/dL Assessment and Plan (1) Depression: Qualifiers: Depression Type: major depressive disorder Major depression recurrence: recurrent Active/Remission status: currently active Major depression episode severity: unspecified Qualified Code(s): F33.9 - Major depressive disorder, recurrent, unspecified Status: Acute (2) Major depressive disorder, recurrent severe without psychotic features: Status: Acute (3) Bipolar disorder with severe depression: Status: Acute (4) Alcohol use disorder, severe, dependence: Status: Acute Plan MICU was consulted for encephalopathy, acidosis. - at present patient is easily arousable upon verbal stimuli and can hold on conversation - encephalopathy is possibly related to hepatic encephalopathy versus drug-induced versus alcohol withdrawal - increase lactulose to 30 mL every 2 hours until he has a bowel movement then can decrease to 30 mL q4h to a target of 3-4 bowel movements in a day Acute or chronic liver disease: - has underlying hepatitis-C, acute worsening is possibly due to alcoholic liver disease - stop phenobarbital given worsening liver disease - lactulose as advised above - can discuss if there is a role of Ursodiol in decreasing the progression of hyperbilirubinemia, also lactulose and bowel movements can make the bilirubin come down. - meld score 25 but maybe a poor candidate for transplant given continued alcohol intake in high amounts. Hyponatremia: - secondary to volume overload - give albumin 100 mL 3 times a day followed by Lasix 40 mg IV at the end of albumin infusion to decrease the edema - can stop IV thiamine as it is contributing to volume High anion gap metabolic acidosis: - please check for lactate possibly he has a poor clearance in the setting of liver disease, also check ketone levels For now he can be managed in the floor; please reconsult if the clinical status changes.
[2024-09-15] MEDS: Albumin Human 25 % 100 ML IV ×3 (13:20→23:31)
[2024-09-15] MEDS: Thiamine HCL 200 MG in 0.9 % Sodium Chloride 100 ML 204 MG IV (13:20)
[2024-09-15] MEDS: Furosemide 20 MG/2 ML VIAL IVPUSH ×3 (13:42→21:56)
[2024-09-15 14:40] LABS: Appearance Urine Cloudy; Color Urine Dark Yellow; Glucose Urine UA Negative (Negative); Leukocyte Esterase Urine Small (1+) (Negative); Nitrite Urine Positive (Negative); Specific Gravity - Urine 1.025 (1.005-1.025); UMIC TRIGGER UA YES; Urine Blood Trace (Negative); Urine Ketones 40 mg/dL (Negative); Urine Protein 100 (2+) mg/dL (Neg-Trace)
--- NOTE | 2024-09-15 14:40 | P.CNNE_ITS ---
History of Present Illness Data of Consult Service Date: 09/15/24 Primary Care Provider: Michael Aguila MD HPI Reason for consult: Encephalopathy 53-year-old male with past medical history of chronic alcoholism, bipolar disorder, substance abuse, hepatitis-C presented with alcohol overdose. His girlfriend stated that 3 weeks ago she found him in his home excessively drinking and tried to convince him to go to hospital but he did not. There was no evidence of any stroke or seizure-like episode. He was unable to provide any history. Review of Systems 2 Review of Systems: Could not be done with [facility] Past Medical History Medical History Acute alcoholic hepatitis Hypotestosteronism History of intravenous drug abuse Chronic constipation Vitamin D deficiency Impaired fasting glucose Pure hypercholesterolemia Obesity (BMI 30-39.9) Smoker Insomnia Depression Anxiety Hepatitis C Family History Family History Father In good health Mother In good health Brother In good health Other Substance abuse Surgical History Surgical History Hx of colonoscopy History of surgery on arm History of left hip replacement Social History Social History Household Members: None Housing: House Do you presently have visiting nurse or other home services: No Alcohol intake: current Alcohol intake frequency: 3 or more drinks per day Alcohol type: hard liquor Patient Tobacco Use Status: Current everyday Tobacco user Tobacco use type: Smokeless Tobacco Cigarettes Per Day: 2 Years Smoked: about a year e-Cigarette/Vaping Use: Currently Using Substance Use Type: Crack/Cocaine service: No Current occupational status: employed 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 Meds Allergies Allergy/AdvReac Type Severity Reaction Status Date / Time crab Allergy Severe Anaphylaxis Verified 09/11/24 10:32 squid Allergy Severe Anaphylaxis Verified 09/11/24 10:32 latex [LATEX] Allergy Intermediate RASH Verified 09/11/24 10:32 Active Medications: Current Medications Acetaminophen (Acetaminophen 325 Mg Tablet) 650 mg PO Q6H PRN PRN Reason: Pain, Mild 1-3,fever,headache Buprenorphine/Naloxone (Buprenorphine/Naloxone 8/2 Mg Film) 1 film SUBLINGUAL DAILY [facility] Last Admin: 09/15/24 10:23 Dose: Not Given Buprenorphine/Naloxone (Buprenorphine/Naloxone 4/1 Mg Film) 1 film SUBLINGUAL BEDTIME [facility] Last Admin: 09/14/24 21:20 Dose: 1 film Calcium Carbonate (Calcium Carbonate 750 Mg Tab.Chew) 750 mg PO Q4H PRN PRN Reason: Heartburn Clonidine HCl (Clonidine Hcl 0.2 Mg Tablet) 0.2 mg PO BEDTIME PRN; Protocol PRN Reason: Anxiety Erythromycin (Erythromycin Base 0.5% Oph Oin 1 Gm Tube) 1 cm EYE-BOTH BID [facility] Last Admin: 09/15/24 09:06 Dose: 1 cm Escitalopram Oxalate (Escitalopram Oxalate 20 Mg Tablet) 20 mg PO DAILY [facility] Last Admin: 09/15/24 09:06 Dose: 20 mg Famotidine (Famotidine 20 Mg Tablet) 20 mg PO BID [facility] Last Admin: 09/15/24 09:06 Dose: 20 mg Furosemide (Furosemide 20 Mg/2 Ml Vial) 20 mg IVPUSH QID [facility]; Protocol Hydromorphone HCl (Hydromorphone Hcl 2 Mg Tablet) 1 mg PO Q4H PRN PRN Reason: Pain, Severe (Pain Scale 7-10) Last Admin: 09/11/24 19:55 Dose: 1 mg Albumin Human (Kedbumin 25 %) 100 mls @ 100 mls/hr IV Q6H [facility] Stop: 09/16/24 06:59 Last Admin: 09/15/24 13:20 Dose: 100 mls/hr Thiamine HCl 200 mg/ Sodium (Chloride) 102 mls @ 204 mls/hr IV Q8H [facility] Last Admin: 09/15/24 13:20 Dose: 204 mls/hr Folic Acid 1 mg/ Sodium (Chloride) 50.2 mls @ 100.4 mls/hr IV DAILY [facility] Lactulose (Lactulose 20 Gm/30 Ml Solution) 30 gm PO Q2H [facility] Magnesium Hydroxide (Milk Of Magnesia 30 Ml Oral.Susp) 30 ml PO DAILY PRN PRN Reason: Constipation Melatonin (Melatonin 3 Mg Tablet) 6 mg PO BEDTIME PRN PRN Reason: Insomnia Nicotine (Nicotine 21 Mg Patch.Td24) 21 mg TRANSDERMA DAILY [facility] Last Admin: 09/15/24 10:21 Dose: 21 mg Ondansetron HCl (Ondansetron Hcl 4 Mg/2 Ml Vial) 4 mg IVPUSH Q6H PRN PRN Reason: Nausea and Vomiting Last Admin: 09/15/24 00:08 Dose: 4 mg Pharmacy Consult (Consult Rx Etoh Phenob Im/Po) 1 each MISCELLANE ONCE PR[facility]; Protocol PRN Reason: Consult order Phenobarbital (Phenobarbital 30 Mg Tablet) 30 mg PO BID [facility] Last Admin: 09/15/24 09:06 Dose: 30 mg Sodium Bicarbonate (Sodium Bicarbonate 650 Mg Tablet) 650 mg PO BID [facility] Sodium Chloride (0.9 % Sodium Chloride Flush 3 Ml Syringe) 3 ml IVFLUSH QSHIFT [facility] Last Admin: 09/15/24 09:06 Dose: 3 ml Spironolactone (Spironolactone 25 Mg Tablet) 12.5 mg PO BID@0900,1800 [facility]; Protocol Home Medications ?Medication ?Instructions ?Recorded ?Confirmed ?Last Taken ?Type buprenorphine 8 mg-naloxone 2 mg 1 film sublingual DAILY 04/02/20 09/11/24 1 Month Ago History sublingual film ~08/11/24 buprenorphine 4 mg-naloxone 1 mg 1 film sublingual BEDTIME 04/03/20 09/11/24 1 Month Ago History sublingual film (Suboxone) ~08/11/24 clonidine HCl 0.2 mg tablet 0.2 mg PO BEDTIME PRN Anxiety 09/11/24 09/11/24 1 Month Ago History ~08/11/24 gabapentin 100 mg capsule 100 mg PO BEDTIME PRN restless leg 09/11/24 09/11/24 1 Month Ago History symptoms ~08/11/24 ropinirole 1 mg tablet 1 mg PO BID PRN restless leg 09/11/24 09/11/24 1 Month Ago History symptoms ~08/11/24 Physical Exam 2 Vital Signs: Vital Signs: Last Vital Signs Temp 98.0 F 09/15/24 11:50 Pulse 106 H 09/15/24 11:50 Resp 19 09/15/24 11:50 BP 137/67 09/15/24 11:50 Pulse Ox 95 09/15/24 11:50 O2 Del Method Room Air 09/15/24 11:50 BMI result Body Mass Index 43.5 Neuro: Other: He is alert and awake looking around minimally made eye contact. Did not follow commands. He was having myoclonic type of movements of head and upper extremities. Deep tendon reflexes were absent and plantars were flexor. Exam was limited. Results Labs 09/15/24 08:15 09/15/24 07:23 Labs: Short CBC 09/15/24 Range/Units 08:15 WBC 15.2 H (4.8-10.8) X10*3/uL Hgb 10.8 L (14.0-18.0) g/dl Hct 32.4 L (42.0-52.0) % Plt Count 149 L (160-400) X10*3/uL BMP 09/15/24 07:23 Sodium 128 L Potassium 3.7 Chloride 91 L Carbon Dioxide 17 L BUN 7 L Creatinine 0.78 Calcium 8.7 D Liver Function 09/15/24 Range/Units 07:23 Total Bilirubin 13.6 H (0.0-1.0) mg/dL AST 231 H (5-37) U/L ALT 173 H (0-40) U/L Alkaline Phosphatase 171 H (39-117) U/L Albumin 3.2 L (3.5-5.0) g/dL Head CT did not reveal any obvious abnormality. MRI of brain without contrast did not reveal any significant pathology. Assessment and Plan (1) Toxic metabolic encephalopathy: Status: Acute Severe multifactorial toxic metabolic encephalopathy. There was no evidence of physical lesion in brain though this type of encephalopathy may cause microscopic injury with long-term repercussions. Mainstay of management is correction of metabolic abnormalities. An EEG is also recommended. Procedures Date of Service Date of Service: 09/15/24
[2024-09-15 14:53] LABS: Bacteria Urine Trace (None Seen); Epith (RTE) Cast Present; WBC Urine 0-5 /HPF (0-5)
[2024-09-15] MEDS: Sodium Bicarbonate 650 MG TABLET PO ×2 (14:57→22:11)
[2024-09-15] MEDS: Spironolactone 25 MG TABLET 12.5 MG PO (16:53)
[2024-09-15] MEDS: Sodium Bicarbonate 8.4% 50 MEQ/50 ML VIAL IVPUSH (18:11)
[2024-09-15] MEDS: Buprenorphine/Naloxone 4/1 mg FILM 1 FILM SUBLINGUAL (21:55)
--- NOTE | 2024-09-16 | EEG_ITS ---
FINDINGS: Background activity consists of low voltage 2 to 3 Hz delta seen diffusely intermixed with diffuse muscle artifacts. The patient is restless with abundance of artifact. Photic stimulation and hyperventilation were omitted. IMPRESSION: This is an abnormal EEG due to diffuse background slowing consistent with diffuse encephalopathic process. MD AVI Becerra/PRIMO / [id number]
[2024-09-16 02:58] VITALS: PULSE 108
[2024-09-16] MEDS: Lactulose 20 GM/30 ML SOLUTION 30 GM PO ×4 (03:25→18:22)
[2024-09-16 03:28] VITALS: BP 137/61; PULSE 105; RESP 20; TEMP 36.9; O2SAT 95
[2024-09-16] MEDS: Albumin Human 25 % 100 ML IV (05:19)
[2024-09-16 06:00] VITALS: BMI 42.6
[2024-09-16 06:59] LABS: Hematocrit 30.1 % (42.0-52.0); Hemoglobin 9.7 g/dl (14.0-18.0); Mean Corpuscular HGB Conc 32.2 g/dl (31.0-36.0); Mean Corpuscular Hemoglobin 32.7 pg (27.0-33.0); Mean Corpuscular Volume 101.3 fL (80.0-98.0); Mean Platelet Volume 10.2 fL (9.4-12.4); NRBC Pct Auto 4.3 /100WBC (0.0-0.2); Platelet Count 124 X10*3/uL (160-400); Red Blood Count 2.97 X10*6/uL (4.60-5.80); Red Cell Distribution Width 18.6 % (11.0-16.0); White Blood Count 15.5 X10*3/uL (4.8-10.8)
[2024-09-16 07:22] LABS: Alanine Aminotransferase 127 U/L (0-40); Albumin Level 3.9 g/dL (3.5-5.0); Alkaline Phosphatase 147 U/L (39-117); Anion Gap 23 (12-20); Aspartate Amino Transferase 176 U/L (5-37); Bilirubin Total 14.1 mg/dL (0.0-1.0); Blood Urea Nitrogen 7 mg/dL (9-16); Calcium 8.8 mg/dL (8.4-10.2); Carbon Dioxide 18 mmol/L (22-29); Chloride 95 mmol/L (96-108); Creatinine Clr Calc Pharmacy 100.6; Estimated Glomerular Filt Rate > 60; Glucose Random 110 mg/dL (60-115); Potassium 3.2 mmol/L (3.3-5.1); Sodium 133 mmol/L (135-145); Total Protein 6.1 g/dL (6.5-8.0)
[2024-09-16 07:24] VITALS: BP 149/65; PULSE 107; RESP 14; TEMP 36.7; O2SAT 93
--- NOTE | 2024-09-16 09:00 | CA_ITS ---
Transthoracic Echocardiogram Patient (Last, First, Middle): Darrel Delatorre C Gender: Male Date of : 1970 Age: 53 Procedure Date: 09/16/2024 Procedure Type: Transthoracic [place] [facility] [place]: 172.72 cm Weight: 127.01 kg BSA: 2.36 m2 Heart Rate: 97 bpm BP: 149 / 65 mmHg Roll Sheeting Cutter: TINY Referring MD: Kimo Webb MD Symptoms: Persistent tachycardia/dizziness/cardiomypathy alc Study Quality: Fair despite contrast ECG Rhythm: Sinus Conclusions: - The left ventricular systolic function is normal. The calculated ejection fraction is 63% by biplane method. - No obvious valvular pathology seen on this study. Findings Procedure Information Contrast agent, definity, is being given per protocol without apparent complications. The quality of the study was technically difficult. The study quality is limited by patients body habitus. Left Ventricle Normal left ventricular cavity size. There is normal left ventricular wall thickness. The left ventricular systolic function is normal. The calculated ejection fraction is 63% by biplane method. There is no evidence of regional wall motion abnormalities. Diastolic function is normal for age. Right Ventricle Mildly increased right ventricular cavity size. There is normal right ventricular systolic function. Atria Both atria are normal in size. Aortic Valve There is a normal trileaflet aortic valve. There is mild calcification of the aortic valve. There is no aortic valve stenosis. There is no aortic valve regurgitation. Mitral Valve The mitral valve appears normal. There is no mitral valve regurgitation. There is no mitral valve stenosis. Pulmonic Valve The pulmonic valve is likely normal. Tricuspid Valve There is trace tricuspid valve regurgitation. There is no evidence of pulmonary hypertension. Great Vessels The asc aorta is normal in size. Venous The inferior vena cava is mildly dilated and collapses less than 50% with inspiration. Pericardium/Pleural There is no evidence of pericardial effusion. Prior Study Comparison No prior study available for comparison. Recommendations, Care & Conclusions No obvious valvular pathology seen on this study. Measurements 2D Linear Measurements IVSd: 0.96 0.6-0.9/0.6-1.0 cm LVIDd: 5.52 3.9-5.3/4.2-5.9 cm LVIDd Index: 2.34 2.4-3.2/2.2-3.1 cm/m2 LVIDs: 3.57 2.0-3.6 cm LVPWd: 0.84 0.7-1.1 cm LA Diam: 4.00 2.7-3.8/3.0-4.0 cm LAIDs Index: 1.69 1.5-2.3 cm/m2 LV Mass: 232.32 67-162/88-224 g LV Mass Index: 98.44 43-95/49-115 g/m2 LVOT Diam: 2.70 3.0+(-)1.3 cm 2D Systolic Function EF 4C: 71.20 >55% EF 2C: 54.10 >55% EF BiP: 63.30 >55% Mitral Valve MV Pk E: 0.79 MV PK A: 0.72 MV Decel Time: 166.00 E/A: 1.10 E'Lateral: 8.70 E'Medial: 12.40 E/E' Med: 6.40 E/E' Lat: 9.10 PHT: 49.00 MVA PHT: 4.49 Decel Navajo: 4.74 Aortic Valve AoV Pk Adolph: 1.81 AoV Mn Adolph: 1.26 AoV VTI: 0.31 AoV Pk Grad: 13.00 Aov Mn Grad: 7.00 KWABENA Cont.VTI: 3.86 LVOT LVOT Pk Adolph: 1.26 LVOT Mn Adolph: 0.93 LVOT VTI: 0.21 LVOT Pk Grad: 6.00 LVOT Mn Grad: 4.00 LVOT Diam: 2.70 LVOT Area: 5.73 Diastolic Function MV Pk E: 0.79 MV Pk A: 0.72 E/A: 1.10 E'Medial: 12.40 E/E' Med: 6.40 E' Laterial: 8.70 E/E' Lat: 9.10 Right Ventricle TAPSE (mm): 17.10 TVS' Adolph: 18.10 Great Vessels Aorta Sinus of Valsalva: 3.60 2.0-3.5 cm Ao Asc: 3.10 2.1-3.4 cm Ao Arch: 3.50 Pulmonary Valve PV Pk Adolph: 1.52 Peak PV Grad: 9.00 Updated in Other Vendor System with Status of Final Bob Francis MD electronically signed on 09/16/2024 11:02:03 AM with status of Final
--- NOTE | 2024-09-16 09:40 | PM.GIPN ---
Subjective Subjective Date of Service: 09/16/24 Interval History: answers yes to all questions Critical Care Time (minutes): 0 Physical Exam Vital Signs: Vital Signs: Last Vital Signs Temp 98.1 F 09/16/24 07:24 Pulse 107 H 09/16/24 07:24 Resp 14 09/16/24 07:24 BP 149/65 H 09/16/24 07:24 Pulse Ox 93 09/16/24 07:24 O2 Del Method Room Air 09/16/24 07:24 BMI result Body Mass Index 42.6 GI: Other: abdomen is soft and nontender scleral icterus present asterixis present Objective Data Labs 09/16/24 06:44 09/16/24 06:44 Labs: Laboratory Results - last 24 hr 09/15/24 09/16/24 14:20 06:44 WBC 15.5 H RBC 2.97 L Hgb 9.7 L Hct 30.1 L MCV 101.3 H MCH 32.7 MCHC 32.2 RDW 18.6 H Plt Count 124 L MPV 10.2 Absolute Nucleated RBC 0.660 H Nucleated RBC % (auto) 4.3 H Sodium 133 L Potassium 3.2 L Chloride 95 L Carbon Dioxide 18 L Anion Gap 23 H BUN 7 L Creatinine 1.09 Estim Creat Clear Calc 100.6 Estimated GFR > 60 Random Glucose 110 Calcium 8.8 Total Bilirubin 14.1 H AST 176 H ALT 127 H Alkaline Phosphatase 147 H Total Protein 6.1 L Albumin 3.9 Urine Color Dark Yellow Urine Appearance Cloudy Urine pH 6.0 Ur Specific Llewellyn 1.025 Urine Protein 100 (2+) H Urine Glucose (UA) Negative Urine Ketones 40 Urine Blood Trace H Urine Nitrite Positive H Ur Leukocyte Esterase Small (1+) H Urine RBC 3-5 H Urine WBC 0-5 Ur Squamous Epith Cells 3-5 Urine Bacteria Trace Epithelial Casts Present Hyaline Casts 11-20 Procedures Date of Service Date of Service: 09/16/24 Progress Note: A&P Assessment and plan (1) Acute alcoholic hepatitis: Status: Acute Assessment and Plan: labs reviewed Xifaxan added for hepatic enecphalopathy continue lactulose, supportive care Dr Stout to resume care tomorrow. Time Spent With Patient Time: Total time managing care of this patient today ____ minutes. Quality Stroke Does the patient have a stroke diagnosis?: No VTE Prior VTE?: No VTE Risk Level:: Medical - moderate - high VTE Device Contraindication: Treatment Not Indicated VTE Drug Contraindication: N/A - Med Ordered
--- NOTE | 2024-09-16 10:21 | P.PNADD_ITS ---
Subjective Subjective Date of Service: 09/16/24 Reason For Visit: Alcohol withdrawal/hepatitis Medical Problems Affecting Mental Status: Yes Interim History: Patient seen in follow up still encephalopathic when asked how he was feeling, he replied not good several times, but unable to say how or why. Review of Systems Review of Systems Yes Unobtainable due to mental status Mental Status Exam Mental Status Exam Level of Consciousness: Awake Patient Behavior: Confused Affect Description: Anxious Diagnostics Vital Signs (24Hr): Vital Signs - 24 hr 09/15/24 11:50 09/15/24 16:00 09/15/24 19:48 Temperature 98.0 F 99.0 F 98.9 F Pulse Rate 106 H 106 H 114 H Respiratory Rate 19 20 18 Blood Pressure 137/67 142/73 H 144/70 H Pulse Oximetry 95 95 97 Oxygen Delivery Method Room Air Room Air Room Air 09/15/24 23:13 09/16/24 02:58 09/16/24 03:28 Temperature 98.0 F 98.5 F Pulse Rate 99 108 H 105 H Respiratory Rate 18 20 Blood Pressure 132/61 137/61 Pulse Oximetry 97 95 Oxygen Delivery Method Room Air Room Air 09/16/24 07:24 Temperature 98.1 F Pulse Rate 107 H Respiratory Rate 14 Blood Pressure 149/65 H Pulse Oximetry 93 Oxygen Delivery Method Room Air BMI result Body Mass Index 42.6 Labs 09/16/24 06:44 09/16/24 06:44 Labs: Laboratory Results - last 48 hr 09/14/24 09/15/24 09/15/24 12:00 07:23 08:15 WBC 10.8 15.2 H RBC 3.31 L 3.33 L Hgb 10.6 L 10.8 L Hct 31.0 L 32.4 L MCV 93.7 97.3 MCH 32.0 32.4 MCHC 34.2 33.3 RDW 17.1 H 17.9 H Plt Count 129 L 149 L MPV 9.6 9.1 L Absolute Nucleated RBC 0.420 H 0.700 H Nucleated RBC % (auto) 3.9 H 4.6 H Hold Purple Top SEE NOTE PT 14.0 H INR 1.2 H VBG pH VBG pCO2 VBG pO2 VBG HCO3 VBG O2 Saturation VBG Base Excess Sodium 128 L Potassium 3.7 Chloride 91 L Carbon Dioxide 17 L Anion Gap 24 H BUN 7 L Creatinine 0.78 Estim Creat Clear Calc 142.2 Estimated GFR > 60 Random Glucose 89 Calcium 8.7 D Total Bilirubin 13.6 H AST 231 H ALT 173 H Alkaline Phosphatase 171 H Ammonia 80 H Total Protein 5.6 L Albumin 3.2 L Hold Yellow Top See Note Urine Color Urine Appearance Urine pH Ur Specific [place] Urine Protein Urine Glucose (UA) Urine Ketones Urine Blood Urine Nitrite Ur Leukocyte Esterase Urine RBC Urine WBC Ur Squamous Epith Cells Urine Bacteria Epithelial Casts Hyaline Casts 09/15/24 09/15/24 09/16/24 08:24 14:20 06:44 WBC 15.5 H RBC 2.97 L Hgb 9.7 L Hct 30.1 L MCV 101.3 H MCH 32.7 MCHC 32.2 RDW 18.6 H Plt Count 124 L MPV 10.2 Absolute Nucleated RBC 0.660 H Nucleated RBC % (auto) 4.3 H Hold Purple Top PT INR VBG pH 7.41 VBG pCO2 30 VBG pO2 45 VBG HCO3 19 L VBG O2 Saturation 77.0 VBG Base Excess -3.7 Sodium 133 L Potassium 3.2 L Chloride 95 L Carbon Dioxide 18 L Anion Gap 23 H BUN 7 L Creatinine 1.09 Estim Creat Clear Calc 100.6 Estimated GFR > 60 Random Glucose 110 Calcium 8.8 Total Bilirubin 14.1 H AST 176 H ALT 127 H Alkaline Phosphatase 147 H Ammonia Total Protein 6.1 L Albumin 3.9 Hold Yellow Top Urine Color Dark Yellow Urine Appearance Cloudy Urine pH 6.0 Ur Specific [place] 1.025 Urine Protein 100 (2+) H Urine Glucose (UA) Negative Urine Ketones 40 Urine Blood Trace H Urine Nitrite Positive H Ur Leukocyte Esterase Small (1+) H Urine RBC 3-5 H Urine WBC 0-5 Ur Squamous Epith Cells 3-5 Urine Bacteria Trace Epithelial Casts Present Hyaline Casts 11-20 Imaging Radiology Impressions: ITS Impressions Abdomen/Pelvis CT 09/11/24 14:10 IMPRESSION: Hepatomegaly and steatosis. Intramuscular hematoma, left psoas muscle. Fleischner guidelines were followed. Electronically signed by: Mk Segovia MD 09/11/2024 02:44 PM EDT Abdomen Ultrasound 09/13/24 12:54 IMPRESSION: No ascites. Negative exam. Electronically signed by: Mk Segovia MD 09/13/2024 01:10 PM EDT Medications Medications Current Medications Acetaminophen (Acetaminophen 325 Mg Tablet) 650 mg PO Q6H PRN PRN Reason: Pain, Mild 1-3,fever,headache Buprenorphine/Naloxone (Buprenorphine/Naloxone 4/1 Mg Film) 1 film SUBLINGUAL BEDTIME [facility] Last Admin: 09/15/24 21:55 Dose: 1 film Calcium Carbonate (Calcium Carbonate 750 Mg Tab.Chew) 750 mg PO Q4H PRN PRN Reason: Heartburn Clonidine HCl (Clonidine Hcl 0.2 Mg Tablet) 0.2 mg PO BEDTIME PRN; Protocol PRN Reason: Anxiety Erythromycin (Erythromycin Base 0.5% Oph Oin 1 Gm Tube) 1 cm EYE-BOTH BID [facility] Last Admin: 09/15/24 21:55 Dose: 1 cm Escitalopram Oxalate (Escitalopram Oxalate 20 Mg Tablet) 20 mg PO DAILY [facility] Last Admin: 09/15/24 09:06 Dose: 20 mg Famotidine (Famotidine 20 Mg Tablet) 20 mg PO BID [facility] Last Admin: 09/15/24 21:55 Dose: 20 mg Furosemide (Furosemide 20 Mg/2 Ml Vial) 20 mg IVPUSH QID [facility]; Protocol Last Admin: 09/15/24 21:56 Dose: 20 mg Hydromorphone HCl (Hydromorphone Hcl 2 Mg Tablet) 1 mg PO Q4H PRN PRN Reason: Pain, Severe (Pain Scale 7-10) Last Admin: 09/11/24 19:55 Dose: 1 mg Folic Acid 1 mg/ Sodium (Chloride) 50.2 mls @ 100.4 mls/hr IV DAILY [facility] Lactulose (Lactulose 20 Gm/30 Ml Solution) 30 gm PO Q4H [facility] Last Admin: 09/16/24 06:27 Dose: Not Given Magnesium Hydroxide (Milk Of Magnesia 30 Ml Oral.Susp) 30 ml PO DAILY PRN PRN Reason: Constipation Melatonin (Melatonin 3 Mg Tablet) 6 mg PO BEDTIME PRN PRN Reason: Insomnia Nicotine (Nicotine 21 Mg Patch.Td24) 21 mg TRANSDERMA DAILY [facility] Last Admin: 09/15/24 10:21 Dose: 21 mg Ondansetron HCl (Ondansetron Hcl 4 Mg/2 Ml Vial) 4 mg IVPUSH Q6H PRN PRN Reason: Nausea and Vomiting Last Admin: 09/15/24 00:08 Dose: 4 mg Pharmacy Consult (Consult Rx Etoh Phenob Im/Po) 1 each MISCELLANE ONCE PRN; Protocol PRN Reason: Consult order Phenobarbital (Phenobarbital 30 Mg Tablet) 30 mg PO BID [facility] Last Admin: 09/15/24 09:06 Dose: 30 mg Rifaximin (Rifaximin 550 Mg Tablet) 550 mg PO BID [facility] Sodium Bicarbonate (Sodium Bicarbonate 650 Mg Tablet) 650 mg PO BID [facility] Last Admin: 09/15/24 22:11 Dose: 650 mg Sodium Chloride (0.9 % Sodium Chloride Flush 3 Ml Syringe) 3 ml IVFLUSH QSHIFT [facility] Last Admin: 09/15/24 21:57 Dose: 3 ml Spironolactone (Spironolactone 25 Mg Tablet) 12.5 mg PO BID@0900,1800 [facility]; Protocol Last Admin: 09/15/24 16:53 Dose: 12.5 mg Allergies Allergies Allergy/AdvReac Type Severity Reaction Status Date / Time crab Allergy Severe Anaphylaxis Verified 09/11/24 10:32 squid Allergy Severe Anaphylaxis Verified 09/11/24 10:32 latex [LATEX] Allergy Intermediate RASH Verified 09/11/24 10:32 Assessment & Plan Assessment & Plan (1) Alcohol use disorder: Status: Acute Code(s): F10.90 - Alcohol use, unspecified, uncomplicated Assessment and Plan: * pheno taper * continue thiamine IV (2) Opioid dependence, uncomplicated: Status: Acute Code(s): F11.20 - Opioid dependence, uncomplicated Assessment and Plan: * suboxone AM dose held yesterday due to mental status change. concern for withdrawal sx developing. Will order 4mg. If mental status worsens, can decrease tomorrow. Total time managing care of this patient today __20__ minutes.
--- NOTE | 2024-09-16 10:34 | P.PNCA_ITS ---
Subjective Subjective Date of Service: 09/16/24 Interval history: Patient is quite confused and not able to give me any clear-cut information. In the process of getting an echocardiogram. Review of Systems Review of Systems Unable to obtain information Reports confusion Psychiatric: Reports confusion Physical Exam Vital Signs: Last Vital Signs Temp 98.1 F 09/16/24 07:24 Pulse 107 H 09/16/24 07:24 Resp 14 09/16/24 07:24 BP 149/65 H 09/16/24 07:24 Pulse Ox 93 09/16/24 07:24 O2 Del Method Room Air 09/16/24 07:24 BMI result Body Mass Index 42.6 Const General: confusion and ill appearing Orientation/consciousness: No patient oriented x3 and confusion HEENT Other: Unremarkable Head: Yes normal to inspection Neck Neck: Yes normal visual inspection Chest Chest palpation & inspection: normal inspection of the chest Resp Auscultation: clear to auscultation bilaterally Cardio Palpation: normal PMI Heart sounds: S1 normal heart sound present, S2 normal heart sound present, no gallops, no murmurs and no rubs GI Palpation (GI): Soft to palpation Back/Spine/Pelvis Other: unremarkable Skin General skin exam: no rashes or lesions noted Neuro General: No patient oriented x3 and confusion Extrem Other: Trace edema Psych Mental Status: mental status grossly abnormal Objective Labs and Meds 09/16/24 06:44 09/16/24 06:44 Lab results: Laboratory Results - last 24 hr 09/15/24 09/16/24 14:20 06:44 WBC 15.5 H RBC 2.97 L Hgb 9.7 L Hct 30.1 L MCV 101.3 H MCH 32.7 MCHC 32.2 RDW 18.6 H Plt Count 124 L MPV 10.2 Absolute Nucleated RBC 0.660 H Nucleated RBC % (auto) 4.3 H Sodium 133 L Potassium 3.2 L Chloride 95 L Carbon Dioxide 18 L Anion Gap 23 H BUN 7 L Creatinine 1.09 Estim Creat Clear Calc 100.6 Estimated GFR > 60 Random Glucose 110 Calcium 8.8 Total Bilirubin 14.1 H AST 176 H ALT 127 H Alkaline Phosphatase 147 H Total Protein 6.1 L Albumin 3.9 Urine Color Dark Yellow Urine Appearance Cloudy Urine pH 6.0 Ur Specific [place] 1.025 Urine Protein 100 (2+) H Urine Glucose (UA) Negative Urine Ketones 40 Urine Blood Trace H Urine Nitrite Positive H Ur Leukocyte Esterase Small (1+) H Urine RBC 3-5 H Urine WBC 0-5 Ur Squamous Epith Cells 3-5 Urine Bacteria Trace Epithelial Casts Present Hyaline Casts 11-20 ECG Interpretation: EKG with underlying sinus tachycardia at 115/Min; no ischemic findings; normal ME and corrected QT. Progress Note: A&P Assessment and plan (1) Acute alcoholic hepatitis: Status: Acute (2) Hyperbilirubinemia: Status: Acute (3) Encephalopathy: Status: Acute Plan Overall, presentation looks rather hepatic in nature and not cardiac. He looks quite ill and discussed about this with Dr. Espinoza. He might be having hepatic encephalopathy. Fluid overload could be related to hepatic rather than cardiac reasons. Currently, getting an echocardiogram but he is not able to really cooperate well. We will review this as soon as completed. Time Spent With Patient Time: Total time managing care of this patient today ____ minutes. Progress Note: Quality Stroke Does the patient have a stroke diagnosis?: No Procedures Date of Service Date of Service: 09/16/24
[2024-09-16] MEDS: Furosemide 20 MG/2 ML VIAL IVPUSH ×4 (10:50→22:09)
[2024-09-16] MEDS: Escitalopram Oxalate 20 MG TABLET PO (10:50)
[2024-09-16] MEDS: Sodium Bicarbonate 650 MG TABLET PO (10:50)
[2024-09-16] MEDS: rifAXIMin 550 MG TABLET PO (10:50)
[2024-09-16] MEDS: Spironolactone 25 MG TABLET 12.5 MG PO (10:51)
[2024-09-16] MEDS: 0.9 % Sodium Chloride Flush 3 ML SYRINGE IVFLUSH ×3 (10:51→22:07)
[2024-09-16] MEDS: Erythromycin Base 0.5% Oph Oin 1 GM TUBE 1 CM EYE-BOTH ×2 (10:51→22:09)
[2024-09-16] MEDS: Famotidine 20 MG TABLET PO (10:51)
[2024-09-16] MEDS: Nicotine 21 MG PATCH.TD24 TRANSDERMA (10:51)
--- NOTE | 2024-09-16 10:51 | P.PNIM_ITS ---
Subjective Subjective Date of Service: 09/16/24 Interval History: encephalopathy Review of Systems F/u on acute on chronic liver failure, encephalopathy. By all reports, he's more confused than usual LFTS remain high and Bili is higher Physical Exam 2 Vital Signs: Vital Signs: Last Vital Signs Temp 98.1 F 09/16/24 07:24 Pulse 107 H 09/16/24 07:24 Resp 14 09/16/24 07:24 BP 149/65 H 09/16/24 07:24 Pulse Ox 93 09/16/24 07:24 O2 Del Method Room Air 09/16/24 07:24 BMI result Body Mass Index 42.6 Objective Data Active Medications Acetaminophen (Acetaminophen 325 Mg Tablet) 650 mg PO Q6H PRN PRN Reason: Pain, Mild 1-3,fever,headache Buprenorphine/Naloxone (Buprenorphine/Naloxone 4/1 Mg Film) 1 film SUBLINGUAL BEDTIME [facility] Last Admin: 09/15/24 21:55 Dose: 1 film Documented By: SARAH Buprenorphine/Naloxone (Buprenorphine/Naloxone 4/1 Mg Film) 1 film SUBLINGUAL DAILY [facility] Calcium Carbonate (Calcium Carbonate 750 Mg Tab.Chew) 750 mg PO Q4H PRN PRN Reason: Heartburn Clonidine HCl (Clonidine Hcl 0.2 Mg Tablet) 0.2 mg PO BEDTIME PRN; Protocol PRN Reason: Anxiety Erythromycin (Erythromycin Base 0.5% Oph Oin 1 Gm Tube) 1 cm EYE-BOTH BID [facility] Last Admin: 09/15/24 21:55 Dose: 1 cm Documented By: SARAH Escitalopram Oxalate (Escitalopram Oxalate 20 Mg Tablet) 20 mg PO DAILY [facility] Last Admin: 09/15/24 09:06 Dose: 20 mg Documented By: LUIS FELIPE Famotidine (Famotidine 20 Mg Tablet) 20 mg PO BID [facility] Last Admin: 09/15/24 21:55 Dose: 20 mg Documented By: SARAH Furosemide (Furosemide 20 Mg/2 Ml Vial) 20 mg IVPUSH QID [facility]; Protocol Last Admin: 09/15/24 21:56 Dose: 20 mg Documented By: SARAH Hydromorphone HCl (Hydromorphone Hcl 2 Mg Tablet) 1 mg PO Q4H PRN PRN Reason: Pain, Severe (Pain Scale 7-10) Last Admin: 09/11/24 19:55 Dose: 1 mg Documented By: SAVAGE Folic Acid 1 mg/ Sodium (Chloride) 50.2 mls @ 100.4 mls/hr IV DAILY [facility] Lactulose (Lactulose 20 Gm/30 Ml Solution) 30 gm PO Q4H [facility] Last Admin: 09/16/24 06:27 Dose: Not Given Documented By: SARAH Non-Admin Reason: 3 large loose bm's since 1999- Magnesium Hydroxide (Milk Of Magnesia 30 Ml Oral.Susp) 30 ml PO DAILY PRN PRN Reason: Constipation Melatonin (Melatonin 3 Mg Tablet) 6 mg PO BEDTIME PRN PRN Reason: Insomnia Nicotine (Nicotine 21 Mg Patch.Td24) 21 mg TRANSDERMA DAILY [facility] Last Admin: 09/15/24 10:21 Dose: 21 mg Documented By: LUIS FELIPE Ondansetron HCl (Ondansetron Hcl 4 Mg/2 Ml Vial) 4 mg IVPUSH Q6H PRN PRN Reason: Nausea and Vomiting Last Admin: 09/15/24 00:08 Dose: 4 mg Documented By: SARAH Pharmacy Consult (Consult Rx Etoh Phenob Im/Po) 1 each MISCELLANE ONCE PRN; Protocol PRN Reason: Consult order Phenobarbital (Phenobarbital 30 Mg Tablet) 30 mg PO BID [facility] Last Admin: 09/15/24 09:06 Dose: 30 mg Documented By: LUIS FELIPE Rifaximin (Rifaximin 550 Mg Tablet) 550 mg PO BID [facility] Sodium Bicarbonate (Sodium Bicarbonate 650 Mg Tablet) 650 mg PO BID [facility] Last Admin: 09/15/24 22:11 Dose: 650 mg Documented By: SARAH Sodium Chloride (0.9 % Sodium Chloride Flush 3 Ml Syringe) 3 ml IVFLUSH [facility] Last Admin: 09/15/24 21:57 Dose: 3 ml Documented By: SARAH Spironolactone (Spironolactone 25 Mg Tablet) 12.5 mg PO BID@0900,1800 [facility]; Protocol Last Admin: 09/15/24 16:53 Dose: 12.5 mg Documented By: LUIS FELIPE Labs 09/16/24 06:44 09/16/24 06:44 Labs: Laboratory Results - last 24 hr 09/15/24 09/16/24 14:20 06:44 MCV 101.3 H MCH 32.7 MCHC 32.2 RDW 18.6 H Plt Count 124 L MPV 10.2 Absolute Nucleated RBC 0.660 H Nucleated RBC % (auto) 4.3 H Anion Gap 23 H Estim Creat Clear Calc 100.6 Estimated GFR > 60 Random Glucose 110 Calcium 8.8 Total Bilirubin 14.1 H AST 176 H ALT 127 H Alkaline Phosphatase 147 H Total Protein 6.1 L Albumin 3.9 Urine Color Dark Yellow Urine Appearance Cloudy Urine pH 6.0 Ur Specific [place] 1.025 Urine Protein 100 (2+) H Urine Glucose (UA) Negative Urine Ketones 40 Urine Blood Trace H Urine Nitrite Positive H Ur Leukocyte Esterase Small (1+) H Urine RBC 3-5 H Urine WBC 0-5 Ur Squamous Epith Cells 3-5 Urine Bacteria Trace Epithelial Casts Present Hyaline Casts 11-20 Assessment and Plan (1) Transaminitis: Status: Acute (2) Acute hyponatremia: Status: Acute (3) Acute alcoholic hepatitis: Status: Acute (4) Depression: Status: Acute (5) Anxiety: Status: Acute Assessment and Plan: 53-year-old male with a PMH significant for?alcohol use disorder, crack use disorder, hx of treated hepatitis C, depression, and anxiety who presents to the ED via EMS after family called for a wellness check after not hearing from him for over 1 month. Pt was found by EMS with house in complete disarray, pt laying in bed unkempt, and surrounded by 100+ empty nips that had been delivered by [employer]. Pt admitted to the hospital for treatment and further evaluation of acute alcoholic hepatitis with imminent alcohol withdrawal. Toxic metabolic encephalopathy--likely hepatic encephalopathy and substance use, he remains encephalopathic. MRI of brain negative rechecn ammonia level, continue lactulose, rifaximin. GI following. Follow clinically, watch for hepato-renal syndrome Alcohol use disorder, driking up to 30+ nips daily the last 45 days. There is no indication for withdrwal at this time. Phenobarbital could be making things worse and so hold for now Addiction meds following possible acute alcoholic hepatitis, h/o hep c Transaminitis and hyperbilirubinemia T bili trending up while AST, ALT, alk-phos improving ct abd -hepatic steatosis, pulse ox muscle hematoma GI following, not candidate for transplant given active alchol use. No role for steroid at this time Follow LFTs and Bili hep c viral load pending Substance use d/o addiction med following and has being started on suboxone Tachycardia(multifactorial) tsh normal possible related to generlaised deconditioning,alcohol withdrawals , electrolytic abnormalites echo pending Generalised edema : multifactorial venous dupplex prelimary negative cxr -unchanged . plan: estevez ,i/o monitering,echo started on iv lasix and albumin cardio eval noted:(possible alcoholic cardiomyopathy vs pulm htn vs mele). leucocytosis:patient did not say any respiratory or urinary c/o likely related to alcoholic hepatitis no fever cxr similar ua if can be done with straight cath no sepsis at present. start empiric ceftriaxone Psoas muscle hematoma(poa): h/h 10.8/32.4 moniter h/h closely. dizziness /nausea:unclear etiology-multifcatorial orthostasis negative ct head negative mri -done-limited due to patient cooperation(pending) neurology eval for dizziness /?vertiago Polysubstance use disorder Continue Suboxone Addiction consult due to cocaine positive as well as alcohol. Anxiety:Pt has not been taking antipsychotics for at least the past month Continue escitalopram hold rexulti ( might be contributing to dizziness). psych eval pending . need bhn clearence before discharge. DVT Prophylaxis: [facility] devices ongoing need hospitalization for : treatment of?likely acute alcoholic hepatitis /encephalopathy -need monitering for electrolytes and lft's as well as menatl status overall prognosis is poor Quality Stroke Does the patient have a stroke diagnosis?: No VTE Prior VTE?: No VTE Risk Level:: Medical - moderate - high VTE Device Contraindication: Treatment Not Indicated VTE Drug Contraindication: N/A - Med Ordered
[2024-09-16] MEDS: Buprenorphine/Naloxone 4/1 mg FILM 1 FILM SUBLINGUAL (10:52)
[2024-09-16] MEDS: Folic Acid 1 MG in 0.9 % Sodium Chloride 50 ML 100.4 MG IV (11:24)
[2024-09-16 11:29] LABS: Ammonia 70 umol/L (13-55)
[2024-09-16 11:45] VITALS: BP 135/64; PULSE 107; RESP 22; TEMP 36.9; O2SAT 92
[2024-09-16 12:23] LABS: Adenovirus PCR Not Detected (Not Detect.); Bordetella parapertussis PCR Not Detected (Not Detect.); Bordetella pertussis PCR Not Detected (Not Detect.); Chlamydia pneumoniae PCR Not Detected (Not Detect.); Coronavirus 229E PCR Not Detected (Not Detect.); Coronavirus HKU1 PCR Not Detected (Not Detect.); Coronavirus NL63 PCR Not Detected (Not Detect.); Coronavirus OC43 PCR Not Detected (Not Detect.); Human metapneumovirus PCR Not Detected (Not Detect.); Influenza A PCR Not Detected (Not Detect.); Influenza B PCR Not Detected (Not Detect.); Mycoplasma pneumoniae PCR Not Detected (Not Detect.); Parainfluenza 1 PCR Not Detected (Not Detect.); Parainfluenza 2 PCR Not Detected (Not Detect.); Parainfluenza 3 PCR Not Detected (Not Detect.); Parainfluenza 4 PCR Not Detected (Not Detect.); RSV PCR Not Detected (Not Detect.); Rhino/Enterovirus PCR Not Detected (Not Detect.)
[2024-09-16] MEDS: cefTRIAXone sodium 1 GM VIAL IVPUSH (12:26)
[2024-09-16 12:51] LABS: Influenza A H1 PCR Not Detected (Not Detect.); Influenza A H1-2009 PCR Not Detected (Not Detect.); Influenza A H3 PCR Not Detected (Not Detect.); SARS-CoV-2 PCR Not Detected (Not Detect.)
[2024-09-16 15:52] VITALS: PULSE 112; RESP 22; TEMP 36.7; O2SAT 92
[2024-09-16 15:53] LABS: HCV Log PCR <1.18 NOT DETECTED Log IU/mL (NOT DETECTED); HepC Viral Load <15 NOT DETECTED IU/mL (NOT DETECTED)
[2024-09-16 15:53] LABS: HCV Log PCR <1.18 NOT DETECTED Log IU/mL (NOT DETECTED); HepC Viral Load <15 NOT DETECTED IU/mL (NOT DETECTED)
[2024-09-16 19:40] VITALS: BP 137/69; PULSE 122; RESP 24; TEMP 37.3; O2SAT 93
[2024-09-16] MEDS: Potassium Chloride/H20 10 MEQ/100 ML PIGGYBACK 100 MEQ IV (23:40)
[2024-09-17] VITALS (24 sets, daily range): BP systolic 107–142; BP diastolic 47–99; PULSE 91–119; RESP 22–32; TEMP 36.9–38.4; O2SAT 90–100; BMI 39.0
[2024-09-17] MEDS: Lactulose 320 GM/480 ML SOLUTION 200 GM PR (00:42)
[2024-09-17] MEDS: Potassium Chloride/H20 10 MEQ/100 ML PIGGYBACK 100 MEQ IV (01:00)
--- NOTE | 2024-09-17 03:45 | PC.NURSE ---
Upon initial assessment, the patient was lethargic, but easily arousable to voice. Patient had difficulty stay awake and could not engage in conversation nor could he answer to any simple questions. The patient could not follow any simple commands and mumble some inappropriate words, like repeating yes over and over. He would grimace and moan to painful stimuli, but failed to withdraw. Patient was tachycardic in 110s-120s and tachypnic in high 20s, showing some signs of labored breathing though was satting above >93% in RA. MD Artem was notified and assessed the patient at bedside. All PO meds were held. The patient was given 200mg Lactulose HI via enema set, then had rectal tube in place due to frequent liquid stool and incontinence. The patient was also placed on 6L oxymask due to hypoxic event satting in low 80s. Full hygiene care and repositioning provided. The patient remains lethargic and disoriented, but still arousable to voice - will continue to monitor his mental status and respiratory functions.
[2024-09-17 06:06] LABS: VBG Base Excess -1.9 mmol/L; VBG HCO3 19 mmol/L (22-26); VBG pCO2 25 mmHg; VBG pH 7.49 (7.32-7.43); VBG pO2 45 mmHg
[2024-09-17 06:06] LABS: Hematocrit 32.4 % (42.0-52.0); Hemoglobin 10.5 g/dl (14.0-18.0); Mean Corpuscular HGB Conc 32.4 g/dl (31.0-36.0); Mean Corpuscular Hemoglobin 32.9 pg (27.0-33.0); Mean Corpuscular Volume 101.6 fL (80.0-98.0); Mean Platelet Volume 9.8 fL (9.4-12.4); Platelet Count 135 X10*3/uL (160-400); Red Blood Count 3.19 X10*6/uL (4.60-5.80); Red Cell Distribution Width 19.1 % (11.0-16.0); White Blood Count 19.9 X10*3/uL (4.8-10.8)
[2024-09-17 06:07] LABS: Venous Blood Gas Refer to POC result
[2024-09-17 06:08] LABS: NRBC Pct Auto 6.8 /100WBC (0.0-0.2)
[2024-09-17 06:47] LABS: Ammonia 65 umol/L (13-55)
[2024-09-17 07:38] LABS: Lactic Acid 2.6 mmol/L (0.5-2.0)
[2024-09-17 07:39] LABS: Alanine Aminotransferase 111 U/L (0-40); Albumin Level 3.4 g/dL (3.5-5.0); Anion Gap 25 (12-20); Aspartate Amino Transferase 180 U/L (5-37); Blood Urea Nitrogen 12 mg/dL (9-16); Calcium 8.4 mg/dL (8.4-10.2); Carbon Dioxide 17 mmol/L (22-29); Chloride 96 mmol/L (96-108); Creatinine Clr Calc Pharmacy 39.7; Estimated Glomerular Filt Rate 26; Glucose Random 86 mg/dL (60-115); Sodium 135 mmol/L (135-145); Total Protein 5.4 g/dL (6.5-8.0)
[2024-09-17 07:40] LABS: Alkaline Phosphatase 173 U/L (39-117)
[2024-09-17 08:02] LABS: Reflex Lactate? Lactic Acid Added
[2024-09-17] MEDS: Folic Acid 1 MG in 0.9 % Sodium Chloride 50 ML 100.4 MG IV (08:24)
[2024-09-17] MEDS: Furosemide 20 MG/2 ML VIAL IVPUSH (08:26)
[2024-09-17] MEDS: Nicotine 21 MG PATCH.TD24 TRANSDERMA (08:27)
[2024-09-17 08:43] LABS: Ammonia 65 umol/L (13-55)
[2024-09-17 08:45] LABS: INTERNATIONAL NORM RATIO 1.2 (0.9-1.1); Prothrombin Time 14.5 SEC (10.9-12.4)
--- NOTE | 2024-09-17 08:47 | P.PNIM_ITS ---
Subjective Subjective Date of Service: 09/17/24 Interval History: encephalopathy Review of Systems F/u on acute on chronic liver failure, metabolic encephalopathy. Overnight, patient has become increasing more encephalopathy, and now with worsening renal function consistent with hepatorenal syndrome (HRS), Additionally has become hypoxic and requiring up to 10 L of oxygen Physical Exam 2 Vital Signs: Vital Signs: Last Vital Signs Temp 98.9 F 09/17/24 07:27 Pulse 109 H 09/17/24 07:27 Resp 24 H 09/17/24 07:27 BP 131/99 H 09/17/24 07:27 Pulse Ox 95 09/17/24 07:27 O2 Del Method Oxymask 09/17/24 07:27 O2 Flow Rate 10 09/17/24 07:27 BMI result Body Mass Index 39.0 General: totally confused, with repetitive words, HEENT: marked sclera icteris, Resp: CTA bilateral, mild tachpnea CVS: S1,S2,RRR GI: +BS, NT, some distention Skin: No rash Neuro: motor grossly intact Psych: appropriate affect Objective Data Active Medications Acetaminophen (Acetaminophen 325 Mg Tablet) 650 mg PO Q6H PRN PRN Reason: Pain, Mild 1-3,fever,headache Buprenorphine/Naloxone (Buprenorphine/Naloxone 4/1 Mg Film) 1 film SUBLINGUAL BEDTIME [facility] Last Admin: 09/16/24 22:06 Dose: Not Given Documented By: ARTUR Non-Admin Reason: Physician Held Med Buprenorphine/Naloxone (Buprenorphine/Naloxone 4/1 Mg Film) 1 film SUBLINGUAL DAILY [facility] Last Admin: 09/16/24 10:52 Dose: 1 film Documented By: RAKEL Calcium Carbonate (Calcium Carbonate 750 Mg Tab.Chew) 750 mg PO Q4H PRN PRN Reason: Heartburn Ceftriaxone Sodium (Ceftriaxone Sodium 1 Gm Vial) 1 gm IVPUSH Q24H [facility] Last Admin: 09/16/24 12:26 Dose: 1 gm Documented By: RAKEL Clonidine HCl (Clonidine Hcl 0.2 Mg Tablet) 0.2 mg PO BEDTIME PRN; Protocol PRN Reason: Anxiety Erythromycin (Erythromycin Base 0.5% Oph Oin 1 Gm Tube) 1 cm EYE-BOTH BID [facility] Last Admin: 09/16/24 22:09 Dose: 1 cm Documented By: ARTUR Escitalopram Oxalate (Escitalopram Oxalate 20 Mg Tablet) 20 mg PO DAILY [facility] Last Admin: 09/16/24 10:50 Dose: 20 mg Documented By: RAKEL Famotidine (Famotidine 20 Mg Tablet) 20 mg PO BID [facility] Last Admin: 09/16/24 22:06 Dose: Not Given Documented By: ARTUR Non-Admin Reason: Physician Held Med Furosemide (Furosemide 20 Mg/2 Ml Vial) 20 mg IVPUSH QID [facility]; Protocol Last Admin: 09/16/24 22:09 Dose: 20 mg Documented By: ARTUR Folic Acid 1 mg/ Sodium (Chloride) 50.2 mls @ 100.4 mls/hr IV DAILY [facility] Last Infusion: 09/16/24 11:52 Dose: Infused Documented By: RAKEL Lactated Ringer's (Lr) 1,000 mls @ 100 mls/hr IVCONT .Q10H UMM Lactulose (Lactulose 20 Gm/30 Ml Solution) 30 gm PO Q4H [facility] Last Admin: 09/17/24 05:17 Dose: Not Given Documented By: ARTUR Non-Admin Reason: Physician Held Med Magnesium Hydroxide (Milk Of Magnesia 30 Ml Oral.Susp) 30 ml PO DAILY PRN PRN Reason: Constipation Melatonin (Melatonin 3 Mg Tablet) 6 mg PO BEDTIME PRN PRN Reason: Insomnia Nicotine (Nicotine 21 Mg Patch.Td24) 21 mg TRANSDERMA DAILY [facility] Last Admin: 09/16/24 10:51 Dose: 21 mg Documented By: RAKEL Ondansetron HCl (Ondansetron Hcl 4 Mg/2 Ml Vial) 4 mg IVPUSH Q6H PRN PRN Reason: Nausea and Vomiting Last Admin: 09/15/24 00:08 Dose: 4 mg Documented By: SARAH Pharmacy Consult (Consult Rx Etoh Phenob Im/Po) 1 each MISCELLANE ONCE PRN; Protocol PRN Reason: Consult order Phenobarbital (Phenobarbital 30 Mg Tablet) 30 mg PO BID [facility] Last Admin: 09/15/24 09:06 Dose: 30 mg Documented By: LUIS FELIPE Rifaximin (Rifaximin 550 Mg Tablet) 550 mg PO BID [facility] Last Admin: 09/16/24 22:06 Dose: Not Given Documented By: ARTUR Non-Admin Reason: Physician Held Med Sodium Bicarbonate (Sodium Bicarbonate 650 Mg Tablet) 650 mg PO BID [facility] Last Admin: 09/16/24 22:07 Dose: Not Given Documented By: ARTUR Non-Admin Reason: Physician Held Med Sodium Chloride (0.9 % Sodium Chloride Flush 3 Ml Syringe) 3 ml IVFLUSH QSHIFT [facility] Last Admin: 09/16/24 22:07 Dose: 3 ml Documented By: ARTUR Spironolactone (Spironolactone 25 Mg Tablet) 12.5 mg PO BID@0900,1800 [facility]; Protocol Last Admin: 09/16/24 18:22 Dose: Not Given Documented By: RAKEL Non-Admin Reason: Patient Refused Labs 09/17/24 05:56 09/17/24 05:56 Labs: Laboratory Results - last 24 hr 09/12/24 09/13/24 09/14/24 17:47 09:38 12:00 MCV MCH MCHC RDW Plt Count MPV Absolute Nucleated RBC Nucleated RBC % (auto) Smear Path Review SEE NOTE PT INR VBG pH VBG pCO2 VBG pO2 VBG HCO3 VBG O2 Saturation VBG Base Excess Anion Gap Estim Creat Clear Calc Estimated GFR Random Glucose Lactic Acid Calcium Total Bilirubin AST ALT Alkaline Phosphatase Ammonia Total Protein Albumin Respiratory Panel [facility] Adenovirus (Rapid PCR) B.pert (TEM-PCR) B.parapertussis DNA PCR C. pneumoniae DNA (PCR) Coronavirus OC43 (PCR) Coronavirus HKU1 (PCR) Coronavirus 229E (PCR) Coronavirus NL63 (PCR) Hep C Viral Load <15 NOT DETECTED <15 NOT DETECTED Hep C Viral Load Log <1.18 NOT DETECTED <1.18 NOT DETECTED Human Metapneumovir PCR Influenza A (RT-PCR) Influenza A (H1) PCR Influ A (H1/09) PCR Influenza A (H3) PCR Influenza B (RT-PCR) M. pneumoniae (PCR) Parainfluenza 1 (PCR) Parainfluenza 2 (PCR) Parainfluenza 3 (PCR) Parainfluenza 4 (PCR) RSV (PCR) Entero/Rhino (PCR) SARS-CoV-2 RNA (RT-PCR) 09/15/24 09/16/24 09/17/24 14:20 11:14 05:56 MCV 101.6 H MCH 32.9 MCHC 32.4 RDW 19.1 H Plt Count 135 L MPV 9.8 Absolute Nucleated RBC 1.350 H Nucleated RBC % (auto) 6.8 H Smear Path Review PT INR VBG pH VBG pCO2 VBG pO2 VBG HCO3 VBG O2 Saturation VBG Base Excess Anion Gap 25 H Estim Creat Clear Calc 39.7 Estimated GFR 26 Random Glucose 86 Lactic Acid 2.6 H* Calcium 8.4 Total Bilirubin 15.0 H AST 180 H ALT 111 H Alkaline Phosphatase 173 H Ammonia 70 H 65 H Total Protein 5.4 L Albumin 3.4 L Respiratory Panel Arz[facility] See Note Adenovirus (Rapid PCR) Not Detected B.pert (TEM-PCR) Not Detected B.parapertussis DNA PCR Not Detected C. pneumoniae DNA (PCR) Not Detected Coronavirus OC43 (PCR) Not Detected Coronavirus HKU1 (PCR) Not Detected Coronavirus 229E (PCR) Not Detected Coronavirus NL63 (PCR) Not Detected Hep C Viral Load Hep C Viral Load Log Human Metapneumovir PCR Not Detected Influenza A (RT-PCR) Not Detected Influenza A (H1) PCR Not Detected Influ A (H1/09) PCR Not Detected Influenza A (H3) PCR Not Detected Influenza B (RT-PCR) Not Detected M. pneumoniae (PCR) Not Detected Parainfluenza 1 (PCR) Not Detected Parainfluenza 2 (PCR) Not Detected Parainfluenza 3 (PCR) Not Detected Parainfluenza 4 (PCR) Not Detected RSV (PCR) Not Detected Entero/Rhino (PCR) Not Detected SARS-CoV-2 RNA (RT-PCR) Not Detected 09/17/24 09/17/24 06:00 08:27 MCV MCH MCHC RDW Plt Count MPV Absolute Nucleated RBC Nucleated RBC % (auto) Smear Path Review PT 14.5 H INR 1.2 H VBG pH 7.49 H VBG pCO2 25 VBG pO2 45 VBG HCO3 19 L VBG O2 Saturation 78.0 VBG Base Excess -1.9 Anion Gap Estim Creat Clear Calc Estimated GFR Random Glucose Lactic Acid Calcium Total Bilirubin AST ALT Alkaline Phosphatase Ammonia 65 H Total Protein Albumin Respiratory Panel [facility] Adenovirus (Rapid PCR) B.pert (TEM-PCR) B.parapertussis DNA PCR C. pneumoniae DNA (PCR) Coronavirus OC43 (PCR) Coronavirus HKU1 (PCR) Coronavirus 229E (PCR) Coronavirus NL63 (PCR) Hep C Viral Load Hep C Viral Load Log Human Metapneumovir PCR Influenza A (RT-PCR) Influenza A (H1) PCR Influ A (H1/) PCR Influenza A (H3) PCR Influenza B (RT-PCR) M. pneumoniae (PCR) Parainfluenza 1 (PCR) Parainfluenza 2 (PCR) Parainfluenza 3 (PCR) Parainfluenza 4 (PCR) RSV (PCR) Entero/Rhino (PCR) SARS-CoV-2 RNA (RT-PCR) Assessment and Plan (1) Transaminitis: Status: Acute (2) Acute hyponatremia: Status: Acute (3) Acute alcoholic hepatitis: Status: Acute (4) Depression: Status: Acute (5) Anxiety: Status: Acute Assessment and Plan: 53-year-old male with a PMH significant for?alcohol use disorder, crack use disorder, hx of treated hepatitis C, depression, and anxiety who presents to the ED via EMS after family called for a wellness check after not hearing from him for over 1 month. Pt was found by EMS with house in complete disarray, pt laying in bed unkempt, and srrounded by 100+ empty nips that had been delivered by [employer]. Pt admitted to the hospital for treatment and further evaluation of acute alcoholic hepatitis with imminent alcohol withdrawal and over the course of hositalization has become increasingly more encephalopathic and presently appears to have developped hepatorenal Syndrome Toxic metabolic encephalopathy ? likely secondary to hepatic encephalopathy and substance use. The patient appears more encephalopathic despite trending down ammonia levels. Brain MRI is negative. Continue lactulose via NGT as the patient is not reliably able to take oral intake. Rifaximin has been added per GI recommendations. Worsening renal failure is suggestive of hepatorenal syndrome, compounded by hypoxia, high oxygen requirements, and metabolic acidosis. The patient will be transferred to the ICU for further management and close monitoring. He is an unlikely candidate for liver transplantation given continued alcohol use. Continue to follow LFTs, bilirubin, and coagulation parameters. Alcohol use disorder, driking up to 30+ nips daily the last 45 days. There is no indication for withdrwal at this time. Phenobarbital could be making things worse and so hold for now Addiction meds following. For acute alcoholic hepatitis in setting of history of hepc, GI does not advise steroid at this time. Hep C viral load pending. H/o Substance use d/o addiction med following and has being started on suboxone Tachycardia(multifactorial), likely from underlying liver failure, TSH normal Generalised edema due to underlying liver failure, venous dupplex no DVT, Further testing with echo pending [facility], concern for HRS, added IVF, may need albumin, nephrology consult Leukocytosis--no etiology on infection and worsening, it is worsening, started on empric Ceftriaxone on 09/16 Psoas muscle hematoma(poa), appear stable, with no signficant change in H/H h/h 10.8/32.4 moniter h/h closely. dizziness /nausea:unclear etiology-multifcatorial orthostasis negative ct head negative mri -done-limited due to patient cooperation, but pending neurology eval for dizziness /?vertiago Polysubstance use disorder Continue Suboxone Addiction consult due to cocaine positive as well as alcohol. Anxiety:Pt has not been taking antipsychotics for at least the past month Continue escitalopram hold rexulti ( might be contributing to dizziness). psych eval pending . DVT Prophylaxis: mech devices d;/t low plat ongoing need hospitalization for : treatment of?likely acute alcoholic hepatitis /encephalopathy -need monitering for electrolytes and lft's as well as menatl status overall prognosis is poor Quality Stroke Does the patient have a stroke diagnosis?: No VTE Prior VTE?: No VTE Risk Level:: Medical - moderate - high VTE Device Contraindication: Treatment Not Indicated VTE Drug Contraindication: N/A - Med Ordered
[2024-09-17] MEDS: Albumin Human 25 % 100 ML IV ×3 (09:02→20:29)
[2024-09-17 09:05] LABS: ~Lactic Acid-LAB USE ONLY 2.8 mmol/L (0.5-2.0)
--- NOTE | 2024-09-17 09:12 | P.PNNP_ITS ---
Subjective Subjective Date of Service: 09/17/24 Interval history: Events noted encephalopathy DEveloped [facility] Physical Exam 2 Vital Signs: Vital Signs: Last Vital Signs Temp 98.9 F 09/17/24 07:27 Pulse 109 H 09/17/24 07:27 Resp 24 H 09/17/24 07:27 BP 131/64 09/17/24 08:26 Pulse Ox 95 09/17/24 07:27 O2 Del Method Oxymask 09/17/24 07:27 O2 Flow Rate 10 09/17/24 07:27 BMI result Body Mass Index 39.0 Const: General: ill appearing Neck: Neck: Yes supple Resp: Auscultation: clear to auscultation bilaterally Cardio: Palpation: no palpable S3 Heart sounds: no rubs GI: Palpation (GI): Soft to palpation Auscultation: normal bowel sounds Neuro: Motor exam (neuro): no asterixis Objective Data Labs 09/17/24 05:56 09/17/24 05:56 Labs: Laboratory Results - last 24 hr 09/12/24 09/13/24 09/14/24 17:47 09:38 12:00 WBC RBC Hgb Hct MCV MCH MCHC RDW Plt Count MPV Absolute Nucleated RBC Nucleated RBC % (auto) Smear Path Review SEE NOTE PT INR VBG pH VBG pCO2 VBG pO2 VBG HCO3 VBG O2 Saturation VBG Base Excess Sodium Potassium Chloride Carbon Dioxide Anion Gap BUN Creatinine Estim Creat Clear Calc Estimated GFR Random Glucose Lactic Acid Lactic Acid F/U @ 2Hr Calcium Total Bilirubin AST ALT Alkaline Phosphatase Ammonia Total Protein Albumin Respiratory Panel [facility] Adenovirus (Rapid PCR) B.pert (TEM-PCR) B.parapertussis DNA PCR C. pneumoniae DNA (PCR) Coronavirus OC43 (PCR) Coronavirus HKU1 (PCR) Coronavirus 229E (PCR) Coronavirus NL63 (PCR) Hep C Viral Load <15 NOT DETECTED <15 NOT DETECTED Hep C Viral Load Log <1.18 NOT DETECTED <1.18 NOT DETECTED Human Metapneumovir PCR Influenza A (RT-PCR) Influenza A (H1) PCR Influ A (H1/09) PCR Influenza A (H3) PCR Influenza B (RT-PCR) M. pneumoniae (PCR) Parainfluenza 1 (PCR) Parainfluenza 2 (PCR) Parainfluenza 3 (PCR) Parainfluenza 4 (PCR) RSV (PCR) Entero/Rhino (PCR) SARS-CoV-2 RNA (RT-PCR) 09/15/24 09/16/24 09/17/24 14:20 11:14 05:56 WBC 19.9 H RBC 3.19 L Hgb 10.5 L Hct 32.4 L MCV 101.6 H MCH 32.9 MCHC 32.4 RDW 19.1 H Plt Count 135 L MPV 9.8 Absolute Nucleated RBC 1.350 H Nucleated RBC % (auto) 6.8 H Smear Path Review PT INR VBG pH VBG pCO2 VBG pO2 VBG HCO3 VBG O2 Saturation VBG Base Excess Sodium 135 Potassium 3.0 L Chloride 96 Carbon Dioxide 17 L Anion Gap 25 H BUN 12 Creatinine 2.63 H Estim Creat Clear Calc 39.7 Estimated GFR 26 Random Glucose 86 Lactic Acid 2.6 H* Lactic Acid F/U @ 2Hr Calcium 8.4 Total Bilirubin 15.0 H AST 180 H ALT 111 H Alkaline Phosphatase 173 H Ammonia 70 H 65 H Total Protein 5.4 L Albumin 3.4 L Respiratory Panel [facility] See Note Adenovirus (Rapid PCR) Not Detected B.pert (TEM-PCR) Not Detected B.parapertussis DNA PCR Not Detected C. pneumoniae DNA (PCR) Not Detected Coronavirus OC43 (PCR) Not Detected Coronavirus HKU1 (PCR) Not Detected Coronavirus 229E (PCR) Not Detected Coronavirus NL63 (PCR) Not Detected Hep C Viral Load Hep C Viral Load Log Human Metapneumovir PCR Not Detected Influenza A (RT-PCR) Not Detected Influenza A (H1) PCR Not Detected Influ A (H1/09) PCR Not Detected Influenza A (H3) PCR Not Detected Influenza B (RT-PCR) Not Detected M. pneumoniae (PCR) Not Detected Parainfluenza 1 (PCR) Not Detected Parainfluenza 2 (PCR) Not Detected Parainfluenza 3 (PCR) Not Detected Parainfluenza 4 (PCR) Not Detected RSV (PCR) Not Detected Entero/Rhino (PCR) Not Detected SARS-CoV-2 RNA (RT-PCR) Not Detected 09/17/24 09/17/24 06:00 08:27 WBC RBC Hgb Hct MCV MCH MCHC RDW Plt Count MPV Absolute Nucleated RBC Nucleated RBC % (auto) Smear Path Review PT 14.5 H INR 1.2 H VBG pH 7.49 H VBG pCO2 25 VBG pO2 45 VBG HCO3 19 L VBG O2 Saturation 78.0 VBG Base Excess -1.9 Sodium Potassium Chloride Carbon Dioxide Anion Gap BUN Creatinine Estim Creat Clear Calc Estimated GFR Random Glucose Lactic Acid Lactic Acid F/U @ 2Hr 2.8 H* Calcium Total Bilirubin AST ALT Alkaline Phosphatase Ammonia 65 H Total Protein Albumin Respiratory Panel [facility] Adenovirus (Rapid PCR) B.pert (TEM-PCR) B.parapertussis DNA PCR C. pneumoniae DNA (PCR) Coronavirus OC43 (PCR) Coronavirus HKU1 (PCR) Coronavirus 229E (PCR) Coronavirus NL63 (PCR) Hep C Viral Load Hep C Viral Load Log Human Metapneumovir PCR Influenza A (RT-PCR) Influenza A (H1) PCR Influ A (H1) PCR Influenza A (H3) PCR Influenza B (RT-PCR) M. pneumoniae (PCR) Parainfluenza 1 (PCR) Parainfluenza 2 (PCR) Parainfluenza 3 (PCR) Parainfluenza 4 (PCR) RSV (PCR) Entero/Rhino (PCR) SARS-CoV-2 RNA (RT-PCR) Procedures Date of Service Date of Service: 09/17/24 Assessment & Plan Assessment and plan (1) Acute hyponatremia: Status: Acute (2) Alcohol use disorder: Status: Acute Plan Darrel had hyponatremia with a low urine sodium of less than 20. This is suggestive of hypo volemic hyponatremia. Na has improved Initially had, low Total CO2 and pH was 7.44. He probably has a combination of respiratory alkalosis along with metabolic acidosis. Given the pH of 7.44 does not require any bicarb supplementation. He was given NaHCO3 and developed further alkalosis with pH of 7.49 ! Restrict hypotonic fluids/ oral free water intake Use adequate antiemetics to control nausea and vomiting which could be a potential source of ADH release. Currently sustained [facility] Hepatorenal syndrome s/p IV albumin Check urine Na and Cr Watch urine output Concur with transferring to ICU No indication for dialysis yet Time Spent With Patient Time: Total time managing care of this patient today ____ minutes. Progress Note: Quality Stroke Does the patient have a stroke diagnosis?: No
[2024-09-17] MEDS: 0.9 % Sodium Chloride Flush 3 ML SYRINGE IVFLUSH ×2 (09:19→16:24)
[2024-09-17] MEDS: Erythromycin Base 0.5% Oph Oin 1 GM TUBE 1 CM EYE-BOTH ×2 (09:20→20:57)
[2024-09-17 10:31] LABS: Reflex Lactate? 2 Y
--- NOTE | 2024-09-17 10:46 | P.PNCC_ITS ---
Subjective Subjective Date of Service: 09/17/24 Interval History: 53-year-old gentleman with underlying alcoholism, hepatitis-C, substance abuse admitted on 09/11/2024 with alcohol intoxication followed by delirium tremens further complicated by acute liver failure with development of hepatorenal syndrome and acute hypoxic respiratory failure now with worsening encephalopathy, transferred to intensive care unit on 09/17/2024. Critical Care Time (minutes): 60 Physical Exam 2 Vital Signs: Vital Signs: Last Vital Signs Temp 99.2 F 09/17/24 10:11 Pulse 91 09/17/24 10:11 Resp 26 H 09/17/24 10:11 BP 140/63 H 09/17/24 10:11 Pulse Ox 92 09/17/24 10:11 O2 Del Method Oxymask 09/17/24 10:11 O2 Flow Rate 10 09/17/24 10:11 BMI result Body Mass Index 39.0 Const: General: no acute distress, lethargic and other (Jaundiced) O rientation/consciousness: lethargic Eyes: Sclerae: scleral abnormal (Icteric) EOM: EOMs intact bilaterally Neck: Neck: Yes no lymphadenopathy, Yes trachea midline and Yes supple Resp: Effort & Inspection: no respiratory distress Auscultation: crackles (Bilateral) Cardio: Rate: tachycardic Rhythm: regular rhythm Heart sounds: no gallops, no murmurs and no rubs GI: Palpation (GI): Soft to palpation and Other GI palpation findings present ( Nontender) Auscultation: normal bowel sounds Extrem: General: No clubbing, No cyanosis and Yes edema (1+ bilateral) Objective Data Labs 09/17/24 05:56 09/17/24 05:56 Labs: Laboratory Results - last 24 hr 09/12/24 09/13/24 09/14/24 17:47 09:38 12:00 WBC RBC Hgb Hct MCV MCH MCHC RDW Plt Count MPV Absolute Nucleated RBC Nucleated RBC % (auto) Smear Path Review SEE NOTE PT INR VBG pH VBG pCO2 VBG pO2 VBG HCO3 VBG O2 Saturation VBG Base Excess Sodium Potassium Chloride Carbon Dioxide Anion Gap BUN Creatinine Estim Creat Clear Calc Estimated GFR Random Glucose Lactic Acid Lactic Acid F/U @ 2Hr Calcium Total Bilirubin AST ALT Alkaline Phosphatase Ammonia Total Protein Albumin Respiratory Panel [facility] Adenovirus (Rapid PCR) B.pert (TEM-PCR) B.parapertussis DNA PCR C. pneumoniae DNA (PCR) Coronavirus OC43 (PCR) Coronavirus HKU1 (PCR) Coronavirus 229E (PCR) Coronavirus NL63 (PCR) Hep C Viral Load <15 NOT DETECTED <15 NOT DETECTED Hep C Viral Load Log <1.18 NOT DETECTED <1.18 NOT DETECTED Human Metapneumovir PCR Influenza A (RT-PCR) Influenza A (H1) PCR Influ A () PCR Influenza A (H3) PCR Influenza B (RT-PCR) M. pneumoniae (PCR) Parainfluenza 1 (PCR) Parainfluenza 2 (PCR) Parainfluenza 3 (PCR) Parainfluenza 4 (PCR) RSV (PCR) Entero/Rhino (PCR) SARS-CoV-2 RNA (RT-PCR) 09/15/24 09/16/24 09/17/24 14:20 11:14 05:56 WBC 19.9 H RBC 3.19 L Hgb 10.5 L Hct 32.4 L MCV 101.6 H MCH 32.9 MCHC 32.4 RDW 19.1 H Plt Count 135 L MPV 9.8 Absolute Nucleated RBC 1.350 H Nucleated RBC % (auto) 6.8 H Smear Path Review PT INR VBG pH VBG pCO2 VBG pO2 VBG HCO3 VBG O2 Saturation VBG Base Excess Sodium 135 Potassium 3.0 L Chloride 96 Carbon Dioxide 17 L Anion Gap 25 H BUN 12 Creatinine 2.63 H Estim Creat Clear Calc 39.7 Estimated GFR 26 Random Glucose 86 Lactic Acid 2.6 H* Lactic Acid F/U @ 2Hr Calcium 8.4 Total Bilirubin 15.0 H AST 180 H ALT 111 H Alkaline Phosphatase 173 H Ammonia 70 H 65 H Total Protein 5.4 L Albumin 3.4 L Respiratory Panel Arz[facility] See Note Adenovirus (Rapid PCR) Not Detected B.pert (TEM-PCR) Not Detected B.parapertussis DNA PCR Not Detected C. pneumoniae DNA (PCR) Not Detected Coronavirus OC43 (PCR) Not Detected Coronavirus HKU1 (PCR) Not Detected Coronavirus 229E (PCR) Not Detected Coronavirus NL63 (PCR) Not Detected Hep C Viral Load Hep C Viral Load Log Human Metapneumovir PCR Not Detected Influenza A (RT-PCR) Not Detected Influenza A (H1) PCR Not Detected Influ A (H1/09) PCR Not Detected Influenza A (H3) PCR Not Detected Influenza B (RT-PCR) Not Detected M. pneumoniae (PCR) Not Detected Parainfluenza 1 (PCR) Not Detected Parainfluenza 2 (PCR) Not Detected Parainfluenza 3 (PCR) Not Detected Parainfluenza 4 (PCR) Not Detected RSV (PCR) Not Detected Entero/Rhino (PCR) Not Detected SARS-CoV-2 RNA (RT-PCR) Not Detected 09/17/24 09/17/24 06:00 08:27 WBC RBC Hgb Hct MCV MCH MCHC RDW Plt Count MPV Absolute Nucleated RBC Nucleated RBC % (auto) Smear Path Review PT 14.5 H INR 1.2 H VBG pH 7.49 H VBG pCO2 25 VBG pO2 45 VBG HCO3 19 L VBG O2 Saturation 78.0 VBG Base Excess -1.9 Sodium Potassium Chloride Carbon Dioxide Anion Gap BUN Creatinine Estim Creat Clear Calc Estimated GFR Random Glucose Lactic Acid Lactic Acid F/U @ 2Hr 2.8 H* Calcium Total Bilirubin AST ALT Alkaline Phosphatase Ammonia 65 H Total Protein Albumin Respiratory Panel [facility] Adenovirus (Rapid PCR) B.pert (TEM-PCR) B.parapertussis DNA PCR C. pneumoniae DNA (PCR) Coronavirus OC43 (PCR) Coronavirus HKU1 (PCR) Coronavirus 229E (PCR) Coronavirus NL63 (PCR) Hep C Viral Load Hep C Viral Load Log Human Metapneumovir PCR Influenza A (RT-PCR) Influenza A (H1) PCR Influ A (H1/09) PCR Influenza A (H3) PCR Influenza B (RT-PCR) M. pneumoniae (PCR) Parainfluenza 1 (PCR) Parainfluenza 2 (PCR) Parainfluenza 3 (PCR) Parainfluenza 4 (PCR) RSV (PCR) Entero/Rhino (PCR) SARS-CoV-2 RNA (RT-PCR) Progress Note: A&P Assessment and plan (1) Acute liver failure: Status: Acute (2) Toxic metabolic encephalopathy: Status: Acute (3) Acute kidney injury: Status: Acute (4) Hepatitis C: Status: Acute (5) Acute respiratory failure with hypoxia: Status: Acute Plan Assessment: 53-year-old gentleman admitted with alcohol intoxication transitioning to delirium tremens further complicated by acute liver failure, hepatorenal syndrome, toxic metabolic encephalopathy, and acute hypoxic respiratory failure Plan: Neuro: Toxic metabolic encephalopathy secondary to acute liver failure and likely delirium tremens. Continue lactulose. Cardiac: No acute issues. Pulmonary: Acute hypoxic respiratory failure secondary to pulmonary edema on a background of hepatorenal syndrome. Continue to titrate off supplemental oxygen as tolerated. Renal: Acute renal failure secondary to hepatorenal syndrome. Non oliguric. Continue albumin support. Endo: No acute issues. GI: Acute liver failure on a background of chronic alcoholism and delirium tremens. Gastroenterology service care appreciated. ID: Continues on empiric ceftriaxone. Heme/Onc: No acute issues. Psych: No acute issues. Miscellaneous: No acute issues. Prophylaxis: Pneumatic compression Diet: NPO Critical care time spent: 60 minutes Quality Stroke Does the patient have a stroke diagnosis?: No VTE Prior VTE?: No VTE Risk Level:: Medical - moderate - high VTE Device Contraindication: Treatment Not Indicated VTE Drug Contraindication: N/A - Med Ordered
[2024-09-17 11:21] LABS: ~Lactic Acid-LAB USE ONLY 2.5 mmol/L (0.5-2.0)
[2024-09-17] MEDS: Lactulose 20 GM/30 ML SOLUTION 30 GM PO ×3 (11:27→23:16)
[2024-09-17] MEDS: cefTRIAXone sodium 1 GM VIAL IVPUSH (11:28)
--- NOTE | 2024-09-17 15:19 | MHC.CM.PN ---
Pt transferred to ICU for worsening encephalopathy and high O2 needs: CM to follow for finalization of d/c needs
--- NOTE | 2024-09-17 18:40 | PC.NURSE ---
Assumed care of patient 10:00 Pt transferred from [facility] to ICU 253. RN to Rn report received. Pt had new NG tube placed to right nare. CXR captured. MD confirmed placement, okay to use. New orders for PO lactulose given. Albumin UMM administered IV Pt has fecal management system in place. New stool output after 17:00 dose of lactulose given. approx 100ml yellow/brown liquid stool. MD notified for reduced urine output approx 5-10 ml/hr. No new orders. Pt turned and repositioned Q2HR. [facility] ICU bed in use.
[2024-09-17 20:30] LABS: Anion Gap 26 (12-20); Blood Urea Nitrogen 16 mg/dL (9-16); Calcium 8.5 mg/dL (8.4-10.2); Carbon Dioxide 16 mmol/L (22-29); Chloride 100 mmol/L (96-108); Creatinine Clr Calc Pharmacy 31.6; Estimated Glomerular Filt Rate 20; Glucose Random 82 mg/dL (60-115); Magnesium 2.1 mg/dL (1.6-2.6); Phosphorus 0.7 mg/dL (2.7-4.5); Potassium 3.2 mmol/L (3.3-5.1); Sodium 139 mmol/L (135-145)
[2024-09-17] MEDS: cefEPime HCl/D5W 2 GM/50 ML PIGGYBACK IV (20:30)
[2024-09-17 20:39] LABS: Lactic Acid 2.6 mmol/L (0.5-2.0)
[2024-09-17] MEDS: Potassium Phosphate/NS 15 MMOL/250 ML PLAST..BAG 62.5 MMOL IV (20:56)
[2024-09-17] MEDS: vancomycin/NS 2,000 MG/500 ML PLAST..BAG 250 MG IV (21:36)
[2024-09-17] MEDS: Bumetanide 1 MG/4 ML VIAL 2 MG IVPUSH (21:36)
--- NOTE | 2024-09-17 21:49 | PHA.PROG ---
Admission Date/Time: September 11, 2024 12:21 Indication: other Weight in k.3 kg Adjusted body weight in Kg: [place] body weight in Kg: Obesity Dosing Indication % IBW: Serum Creatinine - Last 168 Hours 09/11/24 09/11/24 09/11/24 10:51 16:11 19:45 Creatinine 0.86 0.82 0.90 09/12/24 09/12/24 09/13/24 08:50 17:47 06:23 Creatinine 0.89 0.78 0.76 09/13/24 09/15/24 09/16/24 09:38 07:23 06:44 Creatinine 0.78 0.78 1.09 09/17/24 09/17/24 05:56 20:04 Creatinine 2.63 H 3.30 H Estimated CrCl and GFR - Last 168 Hours 09/11/24 09/11/24 09/11/24 10:51 16:11 19:45 Estim Creat Clear Calc 128.1 134.4 122.4 Estimated GFR > 60 > 60 > 60 09/12/24 09/12/24 09/13/24 08:50 17:47 06:23 Estim Creat Clear Calc 124.7 142.2 146.0 Estimated GFR > 60 > 60 > 60 09/13/24 09/15/24 09/16/24 09:38 07:23 06:44 Estim Creat Clear Calc 142.2 142.2 100.6 Estimated GFR > 60 > 60 > 60 09/17/24 09/17/24 05:56 20:04 Estim Creat Clear Calc 39.7 31.6 Estimated GFR 26 20 Vancomycin Loading Dose: 2000mg x 1 Current Vancomycin Dosing Regimen: 1250mg Q24H Vancomycin Monitoring using AUC goal of 400 - 600 range with trough as surrogate marker: 529 mg/L Date and Time for next Vancomycin Level to be drawn: 09/18 @1900 Pharmacist Comments on Vancomycin Plan: Patient's renal function getting progressively worse over last two days, getting level after load unless it improves. Predicted trough of 17.6 mg/L. Will continue to monitor and adjust as necessary Vancomycin dosing will take advantage of [employer] as a clinical decision support tool that uses Bayesian modeling to calculate individual patient's pharmacokinetic parameters and forecast the patient's drug concentration time course with the target goal AUC 24 range of 400 - 600 mg/L/hr.
[2024-09-17 22:09] LABS: Reflex Lactate? Lactic Acid Added
[2024-09-17 22:44] LABS: ~Lactic Acid-LAB USE ONLY 2.8 mmol/L (0.5-2.0)
[2024-09-18] VITALS (37 sets, daily range): BP systolic 79–142; BP diastolic 45–83; PULSE 77–166; RESP 20–31; TEMP 36.3–37.8; O2SAT 89–95; BMI 40.7
--- NOTE | 2024-09-18 | ECG_ITS ---
Test Reason : tachycardia Blood Pressure : */* mmHG Vent. Rate : 143 BPM Atrial Rate : 300 BPM P-R Int : * ms QRS Dur : 88 ms QT Int : 334 ms P-R-T Axes : 92 5 22 degrees QTcB Int : 515 ms Atrial flutter with variable A-V block Low voltage QRS Abnormal ECG When compared with ECG of 15-Sep-2024 08:25, Atrial flutter has replaced Sinus rhythm Referred By: Serena Jensen Electronically Signed By: CALEB VELIZ
[2024-09-18 00:23] LABS: Reflex Lactate? 2 Y
[2024-09-18 00:28] LABS: Glucose, Whole Blood 91 mg/dL (60-115)
[2024-09-18] MEDS: 0.9 % Sodium Chloride Flush 3 ML SYRINGE IVFLUSH ×3 (00:49→16:19)
[2024-09-18] MEDS: Potassium Phosphate/NS 15 MMOL/250 ML PLAST..BAG 62.5 MMOL IV ×3 (01:02→09:32)
[2024-09-18 01:20] LABS: ~Lactic Acid-LAB USE ONLY 2.1 mmol/L (0.5-2.0)
[2024-09-18] MEDS: Albumin Human 25 % 100 ML IV (03:01)
[2024-09-18] MEDS: Lactulose 20 GM/30 ML SOLUTION 30 GM PO ×3 (05:06→23:08)
[2024-09-18 05:50] LABS: VBG Base Excess -1.1 mmol/L; VBG HCO3 21 mmol/L (22-26); VBG pCO2 27 mmHg; VBG pH 7.48 (7.32-7.43); VBG pO2 46 mmHg
[2024-09-18 06:16] LABS: Hematocrit 31.4 % (42.0-52.0); Hemoglobin 9.7 g/dl (14.0-18.0); Mean Corpuscular HGB Conc 30.9 g/dl (31.0-36.0); Mean Corpuscular Hemoglobin 32.3 pg (27.0-33.0); Mean Corpuscular Volume 104.7 fL (80.0-98.0); Platelet Count 145 X10*3/uL (160-400); Red Cell Distribution Width 19.9 % (11.0-16.0); White Blood Count 16.9 X10*3/uL (4.8-10.8)
[2024-09-18 06:21] LABS: NRBC Pct Auto 7.2 /100WBC (0.0-0.2)
[2024-09-18 06:31] LABS: Ammonia 81 umol/L (13-55)
[2024-09-18 06:32] LABS: Alanine Aminotransferase 84 U/L (0-40); Albumin Level 3.9 g/dL (3.5-5.0); Alkaline Phosphatase 159 U/L (39-117); Anion Gap 24 (12-20); Aspartate Amino Transferase 170 U/L (5-37); Bilirubin Total 16.1 mg/dL (0.0-1.0); Blood Urea Nitrogen 21 mg/dL (9-16); Calcium 8.5 mg/dL (8.4-10.2); Carbon Dioxide 19 mmol/L (22-29); Chloride 100 mmol/L (96-108); Creatinine Clr Calc Pharmacy 26.4; Estimated Glomerular Filt Rate 16; Glucose Random 88 mg/dL (60-115); Magnesium 2.1 mg/dL (1.6-2.6); Phosphorus 2.5 mg/dL (2.7-4.5); Potassium 3.3 mmol/L (3.3-5.1); Sodium 140 mmol/L (135-145); Total Protein 5.8 g/dL (6.5-8.0)
[2024-09-18 06:38] LABS: Venous Blood Gas Refer to POC result
[2024-09-18 07:56] LABS: Band Neutrophils Percent 13 % (3-5); Lymphocytes Percent Manual 12 % (20-40); Metamyelocytes Absolute 0.8 X10*3/uL; Metamyelocytes Percent 5 %; Myelocytes Absolute 0.5 X10*/uL; Myelocytes Percent 3 %; Neutrophils Absolute Manual 13.4 X10*3/uL (2.0-8.3); Neutrophils Percent Manual 66 % (45-73); Nucleated Red Blood Cells 7 /100WBC (0-0); Promyelocytes Absolute 0.2 X10*3/uL; Promyelocytes Percent 1 %
[2024-09-18 08:01] LABS: Macrocytosis 1+ (5-14) /OIF; RBC Morphology NOTED
[2024-09-18 08:02] LABS: Pappenheimer Bodies PRESENT; Platelet Estimate SLIGHTLY DECREASED (NORMAL); Platelet Morphology Comment NORMAL; Polychromasia 2+ (3-5) /OIF; Toxic Vacuolation PRESENT
[2024-09-18] MEDS: Erythromycin Base 0.5% Oph Oin 1 GM TUBE 1 CM EYE-BOTH ×2 (09:31→20:39)
[2024-09-18] MEDS: Potassium Chloride Packet 20 MEQ PACKET 40 MEQ PO (09:31)
[2024-09-18] MEDS: rifAXIMin 550 MG TABLET PO ×2 (09:31→20:38)
[2024-09-18] MEDS: Nicotine 21 MG PATCH.TD24 TRANSDERMA (09:32)
[2024-09-18] MEDS: Folic Acid 1 MG in 0.9 % Sodium Chloride 50 ML 100.4 MG IV (10:02)
--- NOTE | 2024-09-18 11:00 | PM.CCPN ---
Subjective Subjective Date of Service: 09/18/24 Interval History: 53-year-old gentleman with underlying alcoholism, hepatitis-C, substance abuse admitted on 09/11/2024 with alcohol intoxication followed by delirium tremens further complicated by acute liver failure with development of hepatorenal syndrome and acute hypoxic respiratory failure now with worsening encephalopathy, transferred to intensive care unit on 09/17/2024. Overnight with slowly worsening supplemental oxygen requirements, but mild improvement in underlying encephalopathy. Antibiotic coverage broadened to cefepime/vancomycin. Critical Care Time (minutes): 60 Physical Exam Vital Signs: Vital Signs: Last Vital Signs Temp 98.8 F 09/18/24 08:00 Pulse 106 H 09/18/24 10:00 Resp 25 H 09/18/24 10:00 BP 108/62 09/18/24 10:00 Pulse Ox 91 L 09/18/24 10:00 O2 Del Method High Flow Nasal C annula 09/18/24 10:00 O2 Flow Rate 60 09/18/24 10:00 FiO2 70 09/18/24 10:00 BMI result Body Mass Index 40.7 Const: General: no acute distress, lethargic (Arousable, confused) and other (Jaundiced) Nutritional Appearance: Edematous Orientation/consciousness: lethargic (Arousable, confused) Eyes: Sclerae: scleral abnormal (Icteric) EOM: EOMs intact bilaterally Neck: Neck: Yes no lymphadenopathy, Yes trachea midline and Yes supple Resp: Effort & Inspection: normal respiratory effort and no respiratory distress Auscultation: clear to auscultation bilaterally Cardio: Rate: regular rate Rhythm: regular rhythm Heart sounds: no gallops, no murmurs and no rubs GI: Inspection: Yes distended and Yes other Palpation (GI): Soft to palpation, nontender and Ascites present Auscultation: normal bowel sounds Extrem: General: No clubbing, No cyanosis and Yes edema (1+ bilateral) Objective Data Labs 09/18/24 05:36 09/18/24 05:36 Labs: Laboratory Results - last 24 hr 09/11/24 09/17/24 09/17/24 10:51 10:51 20:03 WBC RBC Hgb Hct MCV MCH MCHC RDW Plt Count MPV Immature Gran % (Auto) Neut % (Auto) Lymph % (Auto) [place] % (Auto) Eos % (Auto) Baso % (Auto) Lymph # (Auto) [place] # (Auto) Eos # (Auto) Baso # (Auto) Abs Immat Gran (auto) Absolute Neuts (auto) Absolute Nucleated RBC Nucleated RBC % (auto) Neutrophils % (Manual) Band Neutrophils % Lymphocytes % (Manual) Metamyelocytes % Myelocytes % Promyelocytes % Abs Neuts (Manual) Lymphocytes # (Manual) Metamyelocytes # Myelocytes # Promyelocytes # Nucleated RBCs Toxic Vacuolation Platelet Estimate Plt Morphology Comment RBC Morphology Polychromasia Macrocytosis Pappenheimer Bodies VBG pH VBG pCO2 VBG pO2 VBG HCO3 VBG O2 Saturation VBG Base Excess Sodium Potassium Chloride Carbon Dioxide Anion Gap BUN Creatinine Estim Creat Clear Calc Estimated GFR POC Glucose Random Glucose Lactic Acid 2.6 H* Lactic Acid F/U @ 2Hr Lactic Acid F/U @ 4Hr 2.5 H* Calcium Phosphorus Magnesium Total Bilirubin AST ALT Alkaline Phosphatase Ammonia Total Protein Albumin Ref Lab Test Result SEE NOTE 09/17/24 09/17/24 09/18/24 20:04 22:20 00:21 WBC RBC Hgb Hct MCV MCH MCHC RDW Plt Count MPV Immature Gran % (Auto) Neut % (Auto) Lymph % (Auto) [place] % (Auto) Eos % (Auto) Baso % (Auto) Lymph # (Auto) [place] # (Auto) Eos # (Auto) Baso # (Auto) Abs Immat Gran (auto) Absolute Neuts (auto) Absolute Nucleated RBC Nucleated RBC % (auto) Neutrophils % (Manual) Band Neutrophils % Lymphocytes % (Manual) Metamyelocytes % Myelocytes % Promyelocytes % Abs Neuts (Manual) Lymphocytes # (Manual) Metamyelocytes # Myelocytes # Promyelocytes # Nucleated RBCs Toxic Vacuolation Platelet Estimate Plt Morphology Comment RBC Morphology Polychromasia Macrocytosis Pappenheimer Bodies VBG pH VBG pCO2 VBG pO2 VBG HCO3 VBG O2 Saturation VBG Base Excess Sodium 139 Potassium 3.2 L Chloride 100 Carbon Dioxide 16 L Anion Gap 26 H BUN 16 Creatinine 3.30 H Estim Creat Clear Calc 31.6 Estimated GFR 20 POC Glucose 91 Random Glucose 82 Lactic Acid Lactic Acid F/U @ 2Hr 2.8 H* Lactic Acid F/U @ 4Hr Calcium 8.5 Phosphorus 0.7 L* Magnesium 2.1 Total Bilirubin AST ALT Alkaline Phosphatase Ammonia Total Protein Albumin Ref Lab Test Result 09/18/24 09/18/24 09/18/24 00:34 05:36 05:47 WBC 16.9 H RBC 3.00 L Hgb 9.7 L Hct 31.4 L MCV 104.7 H MCH 32.3 MCHC 30.9 L RDW 19.9 H Plt Count 145 L MPV 10.0 Immature Gran % (Auto) Cancelled Neut % (Auto) Cancelled Lymph % (Auto) Cancelled [place] % (Auto) Cancelled Eos % (Auto) Cancelled Baso % (Auto) Cancelled Lymph # (Auto) Cancelled [place] # (Auto) Cancelled Eos # (Auto) Cancelled Baso # (Auto) Cancelled Abs Immat Gran (auto) Cancelled Absolute Neuts (auto) Cancelled Absolute Nucleated RBC 1.210 H Nucleated RBC % (auto) 7.2 H Neutrophils % (Manual) 66 Band Neutrophils % 13 H Lymphocytes % (Manual) 12 L Metamyelocytes % 5 Myelocytes % 3 Promyelocytes % 1 Abs Neuts (Manual) 13.4 H Lymphocytes # (Manual) 2.0 Metamyelocytes # 0.8 Myelocytes # 0.5 Promyelocytes # 0.2 Nucleated RBCs 7 H Toxic Vacuolation PRESENT Platelet Estimate SLIGHTLY DECREASED Plt Morphology Comment NORMAL RBC Morphology NOTED Polychromasia 2+ (3-5) Macrocytosis 1+ (5-14) Pappenheimer Bodies PRESENT VBG pH 7.48 H VBG pCO2 27 VBG pO2 46 VBG HCO3 21 L VBG O2 Saturation 77.0 VBG Base Excess -1.1 Sodium 140 Potassium 3.3 Chloride 100 Carbon Dioxide 19 L Anion Gap 24 H BUN 21 H Creatinine 4.05 H* Estim Creat Clear Calc 26.4 Estimated GFR 16 POC Glucose Random Glucose 88 Lactic Acid Lactic Acid F/U @ 2Hr Lactic Acid F/U @ 4Hr 2.1 H* Calcium 8.5 Phosphorus 2.5 L Magnesium 2.1 Total Bilirubin 16.1 H AST 170 H ALT 84 H Alkaline Phosphatase 159 H Ammonia 81 H Total Protein 5.8 L Albumin 3.9 Ref Lab Test Result Microbiology Microbiology Results: Microbiology 09/15/24 14:20 Urine Catheterized - Tavera Catheter Urine Culture - Final No growth. Progress Note: A&P Assessment and plan (1) Alcohol use disorder, severe, dependence: Status: Acute (2) Hepatitis C: Status: Acute (3) Acute liver failure: Status: Acute (4) Acute kidney injury: Status: Acute (5) Toxic metabolic encephalopathy: Status: Acute (6) Acute respiratory failure with hypoxia: Status: Acute Plan Assessment: 53-year-old gentleman admitted with alcohol intoxication transitioning to delirium tremens further complicated by acute liver failure, hepatorenal syndrome, toxic metabolic encephalopathy, and acute hypoxic respiratory failure Plan: Neuro: Toxic metabolic encephalopathy secondary to acute liver failure and likely delirium tremens. Continue lactulose/rifampin. Cardiac: No acute issues. Pulmonary: Acute hypoxic respiratory failure secondary to pulmonary edema on a background of hepatorenal syndrome. Continue to titrate off supplemental oxygen as tolerated. Renal: Acute renal failure secondary to hepatorenal syndrome. Non oliguric. Continue albumin support. Endo: No acute issues. GI: Acute liver failure on a background of chronic alcoholism and delirium tremens. Gastroenterology service care appreciated. ID: Underlying UTI. Antibiotic regimen broadened to cefepime/vancomycin. Heme/Onc: No acute issues. Psych: No acute issues. Miscellaneous: No acute issues. Prophylaxis: Pneumatic compression Diet: NPO Critical care time spent: 60 minutes Quality Stroke Does the patient have a stroke diagnosis?: No VTE Prior VTE?: No VTE Risk Level:: Medical - moderate - high VTE Device Contraindication: Treatment Not Indicated VTE Drug Contraindication: N/A - Med Ordered
[2024-09-18 11:44] LABS: Glucose, Whole Blood 78 mg/dL (60-115)
[2024-09-18 12:03] LABS: INTERNATIONAL NORM RATIO 1.3 (0.9-1.1); Prothrombin Time 15.6 SEC (10.9-12.4)
--- NOTE | 2024-09-18 13:17 | PM.PNNEP ---
Subjective Subjective Date of Service: 09/18/24 Interval history: Overnight with slowly worsening supplemental oxygen requirements, but mild improvement in underlying encephalopathy. Antibiotic coverage broadened to cefepime/vancomycin. UO marginal. Renal function worse Physical Exam Vital Signs: Vital Signs: Last Vital Signs Temp 97.5 F 09/18/24 12:00 Pulse 108 H 09/18/24 13:00 Resp 25 H 09/18/24 13:00 BP 142/83 H 09/18/24 13:00 Pulse Ox 92 09/18/24 13:00 O2 Del Method High Flow Nasal C annula 09/18/24 13:00 O2 Flow Rate 50 09/18/24 13:00 FiO2 55 09/18/24 13:00 BMI result Body Mass Index 40.7 Const: Other: Jaundiced General: no acute distress Neck: Neck: Yes supple Resp: Auscultation: diminished lung sounds Cardio: Rate: regular rate GI: Palpation (GI): Soft to palpation Neuro: General: moves all extremities Objective Data Labs 09/18/24 05:36 09/18/24 05:36 Labs: Laboratory Results - last 24 hr 09/17/24 09/17/24 09/17/24 20:03 20:04 22:20 WBC RBC Hgb Hct MCV MCH MCHC RDW Plt Count MPV Immature Gran % (Auto) Neut % (Auto) Lymph % (Auto) [place] % (Auto) Eos % (Auto) Baso % (Auto) Lymph # (Auto) [place] # (Auto) Eos # (Auto) Baso # (Auto) Abs Immat Gran (auto) Absolute Neuts (auto) Absolute Nucleated RBC Nucleated RBC % (auto) Neutrophils % (Manual) Band Neutrophils % Lymphocytes % (Manual) Metamyelocytes % Myelocytes % Promyelocytes % Abs Neuts (Manual) Lymphocytes # (Manual) Metamyelocytes # Myelocytes # Promyelocytes # Nucleated RBCs Toxic Vacuolation Platelet Estimate Plt Morphology Comment RBC Morphology Polychromasia Macrocytosis Pappenheimer Bodies PT INR VBG pH VBG pCO2 VBG pO2 VBG HCO3 VBG O2 Saturation VBG Base Excess Sodium 139 Potassium 3.2 L Chloride 100 Carbon Dioxide 16 L Anion Gap 26 H BUN 16 Creatinine 3.30 H Estim Creat Clear Calc 31.6 Estimated GFR 20 POC Glucose Random Glucose 82 Lactic Acid 2.6 H* Lactic Acid F/U @ 2Hr 2.8 H* Lactic Acid F/U @ 4Hr Calcium 8.5 Phosphorus 0.7 L* Magnesium 2.1 Total Bilirubin AST ALT Alkaline Phosphatase Ammonia Total Protein Albumin 09/18/24 09/18/24 09/18/24 00:21 00:34 05:36 WBC 16.9 H RBC 3.00 L Hgb 9.7 L Hct 31.4 L MCV 104.7 H MCH 32.3 MCHC 30.9 L RDW 19.9 H Plt Count 145 L MPV 10.0 Immature Gran % (Auto) Cancelled Neut % (Auto) Cancelled Lymph % (Auto) Cancelled [place] % (Auto) Cancelled Eos % (Auto) Cancelled Baso % (Auto) Cancelled Lymph # (Auto) Cancelled [place] # (Auto) Cancelled Eos # (Auto) Cancelled Baso # (Auto) Cancelled Abs Immat Gran (auto) Cancelled Absolute Neuts (auto) Cancelled Absolute Nucleated RBC 1.210 H Nucleated RBC % (auto) 7.2 H Neutrophils % (Manual) 66 Band Neutrophils % 13 H Lymphocytes % (Manual) 12 L Metamyelocytes % 5 Myelocytes % 3 Promyelocytes % 1 Abs Neuts (Manual) 13.4 H Lymphocytes # (Manual) 2.0 Metamyelocytes # 0.8 Myelocytes # 0.5 Promyelocytes # 0.2 Nucleated RBCs 7 H Toxic Vacuolation PRESENT Platelet Estimate SLIGHTLY DECREASED Plt Morphology Comment NORMAL RBC Morphology NOTED Polychromasia 2+ (3-5) Macrocytosis 1+ (5-14) Pappenheimer Bodies PRESENT PT INR VBG pH VBG pCO2 VBG pO2 VBG HCO3 VBG O2 Saturation VBG Base Excess Sodium 140 Potassium 3.3 Chloride 100 Carbon Dioxide 19 L Anion Gap 24 H BUN 21 H Creatinine 4.05 H* Estim Creat Clear Calc 26.4 Estimated GFR 16 POC Glucose 91 Random Glucose 88 Lactic Acid Lactic Acid F/U @ 2Hr Lactic Acid F/U @ 4Hr 2.1 H* Calcium 8.5 Phosphorus 2.5 L Magnesium 2.1 Total Bilirubin 16.1 H AST 170 H ALT 84 H Alkaline Phosphatase 159 H Ammonia 81 H Total Protein 5.8 L Albumin 3.9 09/18/24 09/18/24 09/18/24 05:47 11:40 11:41 WBC RBC Hgb Hct MCV MCH MCHC RDW Plt Count MPV Immature Gran % (Auto) Neut % (Auto) Lymph % (Auto) [place] % (Auto) Eos % (Auto) Baso % (Auto) Lymph # (Auto) [place] # (Auto) Eos # (Auto) Baso # (Auto) Abs Immat Gran (auto) Absolute Neuts (auto) Absolute Nucleated RBC Nucleated RBC % (auto) Neutrophils % (Manual) Band Neutrophils % Lymphocytes % (Manual) Metamyelocytes % Myelocytes % Promyelocytes % Abs Neuts (Manual) Lymphocytes # (Manual) Metamyelocytes # Myelocytes # Promyelocytes # Nucleated RBCs Toxic Vacuolation Platelet Estimate Plt Morphology Comment RBC Morphology Polychromasia Macrocytosis Pappenheimer Bodies PT 15.6 H INR 1.3 H VBG pH 7.48 H VBG pCO2 27 VBG pO2 46 VBG HCO3 21 L VBG O2 Saturation 77.0 VBG Base Excess -1.1 Sodium Potassium Chloride Carbon Dioxide Anion Gap BUN Creatinine Estim Creat Clear Calc Estimated GFR POC Glucose 78 Random Glucose Lactic Acid Lactic Acid F/U @ 2Hr Lactic Acid F/U @ 4Hr Calcium Phosphorus Magnesium Total Bilirubin AST ALT Alkaline Phosphatase Ammonia Total Protein Albumin Microbiology Microbiology Results: Microbiology 09/15/24 14:20 Urine Catheterized - Tavera Catheter Urine Culture - Final No growth. Procedures Date of Service Date of Service: 09/18/24 Assessment & Plan Assessment and plan (1) Acute kidney injury: Status: Acute Plan [facility] due to HRS Urine sodium < 20 Renal function worse Getting colloid Likely will need renal replacement No indication for HD today (D/W ICU Attending) Shall closely F/U Progress Note: Quality Stroke Does the patient have a stroke diagnosis?: No
[2024-09-18] MEDS: Metoprolol Tartrate 5 MG/5 ML VIAL IVPUSH (14:34)
[2024-09-18 16:38] LABS: Hematocrit 33.6 % (42.0-52.0); Hemoglobin 10.6 g/dl (14.0-18.0); Mean Corpuscular HGB Conc 31.5 g/dl (31.0-36.0); Mean Corpuscular Hemoglobin 32.9 pg (27.0-33.0); Mean Corpuscular Volume 104.3 fL (80.0-98.0); Platelet Count 147 X10*3/uL (160-400); Red Blood Count 3.22 X10*6/uL (4.60-5.80); White Blood Count 16.3 X10*3/uL (4.8-10.8)
[2024-09-18 16:40] LABS: Venous Blood Gas Refer to POC result
[2024-09-18 16:41] LABS: VBG Base Excess -2.6 mmol/L; VBG HCO3 22 mmol/L (22-26); VBG pCO2 38 mmHg; VBG pH 7.36 (7.32-7.43); VBG pO2 48 mmHg
[2024-09-18 16:58] LABS: Anion Gap 28 (12-20); Blood Urea Nitrogen 27 mg/dL (9-16); Calcium 8.9 mg/dL (8.4-10.2); Carbon Dioxide 20 mmol/L (22-29); Chloride 100 mmol/L (96-108); Creatinine Clr Calc Pharmacy 21.1; Estimated Glomerular Filt Rate 12; Glucose Random 75 mg/dL (60-115); Potassium 3.6 mmol/L (3.3-5.1); Sodium 144 mmol/L (135-145)
[2024-09-18] MEDS: Pantoprazole Sodium 80 MG in 0.9 % Sodium Chloride 80 ML 10 MG IV (17:03)
[2024-09-18 17:08] LABS: Band Neutrophils Percent 13 % (3-5); Lymphocytes Absolute Manual 0.3 X10*3/uL (1.2-4.9); Lymphocytes Percent Manual 2 % (20-40); Metamyelocytes Absolute 0.8 X10*3/uL; Metamyelocytes Percent 5 %; Monocytes Absolute Manual 0.3 X10*3/uL (0.1-1.2); Monocytes Percent Manual 2 % (2-11); Neutrophils Absolute Manual 14.8 X10*3/uL (2.0-8.3); Neutrophils Percent Manual 78 % (45-73); Nucleated Red Blood Cells 13 /100WBC (0-0)
[2024-09-18 17:09] LABS: RBC Morphology NOTED
[2024-09-18 17:10] LABS: Basophilic Stippling 2+ (3-5) /OIF; Macrocytosis 1+ (5-14) /OIF; Target Cells 1+ (5-14) /OIF
[2024-09-18 17:11] LABS: Acanthocytes 1+ (0-2) /OIF; Schistocytes 1+ (0-2) /OIF
[2024-09-18 17:12] LABS: Platelet Estimate NORMAL (NORMAL); Platelet Morphology Comment NORMAL
[2024-09-18 18:03] LABS: Glucose, Whole Blood 77 mg/dL (60-115)
[2024-09-18 18:12] LABS: Glucose, Whole Blood 86 mg/dL (60-115)
[2024-09-18] MEDS: Amiodarone/Dextrose 150 MG/100 ML PLAST..BAG 600 MG IV (18:22)
[2024-09-18] MEDS: Phenylephrine HCL 20 MG in 0.9 % Sodium Chloride 250 ML 45.93 MG IVCONT (18:25)
[2024-09-18] MEDS: Amiodarone HCL 900 MG in 0.9 % Sodium Chloride 500 ML 34.53 MG IVCONT (18:33)
[2024-09-18 19:15] LABS: Vancomycin Random 22.5 mcg/mL (15-20)
--- NOTE | 2024-09-18 19:18 | PC.NURSE ---
Care assumed @ 0700? Neuro: Open eyes to name, tracks speaker, follow simple commands, [place]. confused, requiring frequent redirection.? Respiratory: On HFNC, Rhonchurus sounds bilateral lungs? Cardiac:Sinus Rhythm/ Sinus Tachycardia,? Approx @ 1410 HR increased to 185 momentarily then sustaining 150s-160s.? Dr. Robertson made aware, IV lopressor given per JUL. 2U RBC given per Dr. Robertson orders. Approx. @ 1815 HR has gone up momentarily to the 180s x3. Sustaining in the 160s. Dr. Robertson made aware. Started on phenylephrine drip and amiodarone load and drip per JUL GI: ?+bowel sounds, fecal management device in place, lactulose given per JUL, NPO, NG tube to suction. Drained 1L instantly after connecting to suction.? : Tavera removed at 10:00 due to void @1600. Bladder Scan for 18cc? ?Skin: Jaundice, redness to groin and under arms Infectious: IV antibiotics Lines: TLC R IJ, peripheral IV.
--- NOTE | 2024-09-18 19:21 | HE.PHANOTE ---
RE:vanco Level on 09/18 came back at 22.5, holding dose tonight. Starting 750mg Q24 HR tomorrow @0900 with predicted trough of 19.2, AUC of 590 mg/L. Getting another level 09/20 @0700
[2024-09-18] MEDS: cefEPime HCl/D5W 2 GM/50 ML PIGGYBACK IV (20:39)
[2024-09-18] MEDS: Phenylephrine HCL 100 MG in 0.9 % Sodium Chloride 250 ML 18.95 MG IVCONT (21:17)
[2024-09-18 23:45] LABS: Glucose, Whole Blood 69 mg/dL (60-115)
[2024-09-19] VITALS (38 sets, daily range): BP systolic 74–136; BP diastolic 34–84; PULSE 40–156; RESP 22–29; TEMP 36.7–37.3; O2SAT 88–96; BMI 41.0
[2024-09-19] MEDS: Dextrose 50 % 25 GM/50 ML SYRINGE IVPUSH ×2 (00:10→07:16)
[2024-09-19] MEDS: 0.9 % Sodium Chloride Flush 3 ML SYRINGE IVFLUSH ×4 (00:10→23:14)
[2024-09-19 00:29] LABS: Hematocrit 38.4 % (42.0-52.0); Hemoglobin 12.5 g/dl (14.0-18.0); Mean Corpuscular HGB Conc 32.6 g/dl (31.0-36.0); Mean Corpuscular Volume 101.3 fL (80.0-98.0); Mean Platelet Volume 10.4 fL (9.4-12.4); Platelet Count 151 X10*3/uL (160-400); Red Blood Count 3.79 X10*6/uL (4.60-5.80); Red Cell Distribution Width 20.6 % (11.0-16.0); White Blood Count 17.3 X10*3/uL (4.8-10.8)
[2024-09-19 00:42] LABS: Glucose, Whole Blood 106 mg/dL (60-115)
[2024-09-19 00:47] LABS: Anion Gap 28 (12-20); Blood Urea Nitrogen 30 mg/dL (9-16); Calcium 8.5 mg/dL (8.4-10.2); Carbon Dioxide 18 mmol/L (22-29); Chloride 102 mmol/L (96-108); Estimated Glomerular Filt Rate 13; Glucose Random 117 mg/dL (60-115); Phosphorus 3.8 mg/dL (2.7-4.5); Potassium 3.7 mmol/L (3.3-5.1); Sodium 144 mmol/L (135-145)
[2024-09-19] MEDS: Pantoprazole Sodium 80 MG in 0.9 % Sodium Chloride 80 ML 10 MG IV ×3 (01:15→21:24)
[2024-09-19] MEDS: Lactulose 20 GM/30 ML SOLUTION 30 GM PO ×4 (04:49→23:07)
[2024-09-19] MEDS: Phenylephrine HCL 100 MG in 0.9 % Sodium Chloride 250 ML 28.43 MG IVCONT ×3 (05:15→23:16)
[2024-09-19 05:29] LABS: VBG Base Excess -3.7 mmol/L; VBG HCO3 20 mmol/L (22-26); VBG pCO2 36 mmHg; VBG pH 7.36 (7.32-7.43); VBG pO2 48 mmHg
[2024-09-19 05:35] LABS: Venous Blood Gas Refer to POC result
[2024-09-19 05:40] LABS: Hematocrit 40.1 % (42.0-52.0); Hemoglobin 12.9 g/dl (14.0-18.0); Mean Corpuscular HGB Conc 32.2 g/dl (31.0-36.0); Mean Corpuscular Hemoglobin 32.7 pg (27.0-33.0); Mean Corpuscular Volume 101.8 fL (80.0-98.0); Mean Platelet Volume 10.1 fL (9.4-12.4); Platelet Count 164 X10*3/uL (160-400); Red Blood Count 3.94 X10*6/uL (4.60-5.80); Red Cell Distribution Width 21.1 % (11.0-16.0)
[2024-09-19 05:41] LABS: NRBC Pct Auto 15.2 /100WBC (0.0-0.2); WBC ABN SCTR FOR CBC 1
[2024-09-19 05:42] LABS: White Blood Count 18.3 X10*3/uL (4.8-10.8)
[2024-09-19 06:09] LABS: Eosinophils Absolute Manual 0.2 X10*3/uL (0.0-0.4); Eosinophils Percent Manual 1 % (0-4); Lymphocytes Absolute Manual 0.5 X10*3/uL (1.2-4.9); Lymphocytes Percent Manual 3 % (20-40); Monocytes Absolute Manual 0.5 X10*3/uL (0.1-1.2); Monocytes Percent Manual 3 % (2-11); Myelocytes Absolute 0.2 X10*/uL; Myelocytes Percent 1 %; Neutrophils Percent Manual 72 % (45-73)
[2024-09-19 06:10] LABS: Band Neutrophils Percent 17 % (3-5); Metamyelocytes Absolute 0.5 X10*3/uL; Metamyelocytes Percent 3 %; Neutrophils Absolute Manual 16.3 X10*3/uL (2.0-8.3); RBC Morphology NOTED
[2024-09-19 06:11] LABS: Burr Cells 1+ (0-2) /OIF; Macrocytosis 1+ (5-14) /OIF
[2024-09-19 06:13] LABS: Pappenheimer Bodies PRESENT; Polychromasia 1+ (0-2) /OIF
[2024-09-19 06:14] LABS: Large Platelet PRESENT; Nucleated Red Blood Cells 9 /100WBC (0-0); Platelet Estimate NORMAL (NORMAL); Platelet Morphology Comment NOTED
[2024-09-19 06:34] LABS: Alanine Aminotransferase 96 U/L (0-40); Albumin Level 3.5 g/dL (3.5-5.0); Alkaline Phosphatase 185 U/L (39-117); Anion Gap 28 (12-20); Aspartate Amino Transferase 232 U/L (5-37); Bilirubin Total 20.6 mg/dL (0.0-1.0); Blood Urea Nitrogen 33 mg/dL (9-16); Calcium 8.6 mg/dL (8.4-10.2); Carbon Dioxide 16 mmol/L (22-29); Chloride 104 mmol/L (96-108); Creatinine Clr Calc Pharmacy 19.8; Estimated Glomerular Filt Rate 11; Glucose Random 65 mg/dL (60-115); Magnesium 2.2 mg/dL (1.6-2.6); Phosphorus 4.1 mg/dL (2.7-4.5); Potassium 3.9 mmol/L (3.3-5.1); Sodium 144 mmol/L (135-145); Total Protein 5.8 g/dL (6.5-8.0)
--- NOTE | 2024-09-19 06:45 | PC.NURSE ---
Critical Care Nursing Note? Assumed care of the patient at 1900. Patient drowsy, opens eyes to name, able to state birthday at times. Patient with one incontinence episode with dark ghanshyam urine, condom catheter was placed. Bladder scan performed per order.? Patient maintained on HiFlow, increased to 55L at 80%? to maintain oxygen saturation above 90%. Amiodarone gtt maintained. Phenylephrine gtt titrated as needed. Midnight blood sugar 69, L. Mikey, MARY notified, order for half amp D50%, this was repeated for morning serum glucose of 65.
[2024-09-19] MEDS: Albumin Human 25 % 100 ML IV ×3 (07:58→20:29)
[2024-09-19] MEDS: Erythromycin Base 0.5% Oph Oin 1 GM TUBE 1 CM EYE-BOTH ×2 (08:53→20:31)
[2024-09-19] MEDS: vancomycin HCL 750 MG in 0.9 % Sodium Chloride 250 ML 265 MG IV (08:54)
[2024-09-19] MEDS: rifAXIMin 550 MG TABLET PO ×2 (08:54→20:31)
[2024-09-19] MEDS: Folic Acid 1 MG in 0.9 % Sodium Chloride 50 ML 100.4 MG IV (09:04)
--- NOTE | 2024-09-19 09:18 | P.PNNP_ITS ---
Subjective Subjective Date of Service: 09/19/24 Interval history: . Discussed with ICU attending Physical Exam 2 Vital Signs: Vital Signs: Last Vital Signs Temp 98.1 F 09/19/24 08:00 Pulse 152 H 09/19/24 08:00 Resp 25 H 09/19/24 08:00 BP 125/67 09/19/24 08:00 Pulse Ox 93 09/19/24 08:00 O2 Del Method High Flow Nasal C annula 09/19/24 08:00 O2 Flow Rate 55 09/19/24 08:00 FiO2 80 09/19/24 08:00 BMI result Body Mass Index 41.0 Const: Other: Jaundiced General: no acute distress and ill appearing Neck: Neck: Yes supple Resp: Auscultation: diminished lung sounds Cardio: Palpation: no palpable S3 Rate: regular rate Heart sounds: no rubs GI: Palpation (GI): Soft to palpation Auscultation: normal bowel sounds Neuro: General: moves all extremities Motor exam (neuro): no asterixis Objective Data Labs 09/19/24 05:17 09/19/24 05:17 Labs: Laboratory Results - last 24 hr 09/18/24 09/18/24 09/18/24 11:40 11:41 16:31 WBC 16.3 H RBC 3.22 L Hgb 10.6 L Hct 33.6 L MCV 104.3 H MCH 32.9 MCHC 31.5 RDW 20.0 H Plt Count 147 L MPV 10.0 Immature Gran % (Auto) Cancelled Neut % (Auto) Cancelled Lymph % (Auto) Cancelled [place] % (Auto) Cancelled Eos % (Auto) Cancelled Baso % (Auto) Cancelled Lymph # (Auto) Cancelled [place] # (Auto) Cancelled Eos # (Auto) Cancelled Baso # (Auto) Cancelled Abs Immat Gran (auto) Cancelled Absolute Neuts (auto) Cancelled Absolute Nucleated RBC 1.780 H Nucleated RBC % (auto) 11.0 H Neutrophils % (Manual) 78 H Band Neutrophils % 13 H Lymphocytes % (Manual) 2 L Monocytes % (Manual) 2 Eosinophils % (Manual) Metamyelocytes % 5 Myelocytes % Abs Neuts (Manual) 14.8 H Lymphocytes # (Manual) 0.3 L Monocytes # (Manual) 0.3 Eosinophils # (Manual) Metamyelocytes # 0.8 Myelocytes # Nucleated RBCs 13 H Platelet Estimate NORMAL Large Platelets Plt Morphology Comment NORMAL RBC Morphology NOTED Polychromasia Basophilic Stippling 2+ (3-5) Macrocytosis 1+ (5-14) Pappenheimer Bodies Target Cells 1+ (5-14) [place] Cells Acanthocytes (Spur) 1+ (0-2) Schistocytes 1+ (0-2) Smear Path Review SEE NOTE PT 15.6 H INR 1.3 H VBG pH VBG pCO2 VBG pO2 VBG HCO3 VBG O2 Saturation VBG Base Excess Sodium 144 Potassium 3.6 Chloride 100 Carbon Dioxide 20 L Anion Gap 28 H BUN 27 H Creatinine 5.07 H* Estim Creat Clear Calc 21.1 Estimated GFR 12 POC Glucose 78 Random Glucose 75 Calcium 8.9 Phosphorus Magnesium Total Bilirubin AST ALT Alkaline Phosphatase Total Protein Albumin Random Vancomycin Blood Type B Positive Antibody Screen NEGATIVE Crossmatch See Detail 09/18/24 09/18/24 09/18/24 16:37 17:59 18:08 WBC RBC Hgb Hct MCV MCH MCHC RDW Plt Count MPV Immature Gran % (Auto) Neut % (Auto) Lymph % (Auto) [place] % (Auto) Eos % (Auto) Baso % (Auto) Lymph # (Auto) [place] # (Auto) Eos # (Auto) Baso # (Auto) Abs Immat Gran (auto) Absolute Neuts (auto) Absolute Nucleated RBC Nucleated RBC % (auto) Neutrophils % (Manual) Band Neutrophils % Lymphocytes % (Manual) Monocytes % (Manual) Eosinophils % (Manual) Metamyelocytes % Myelocytes % Abs Neuts (Manual) Lymphocytes # (Manual) Monocytes # (Manual) Eosinophils # (Manual) Metamyelocytes # Myelocytes # Nucleated RBCs Platelet Estimate Large Platelets Plt Morphology Comment RBC Morphology Polychromasia Basophilic Stippling Macrocytosis Pappenheimer Bodies Target Cells [place] Cells Acanthocytes (Spur) Schistocytes Smear Path Review PT INR VBG pH 7.36 VBG pCO2 38 VBG pO2 48 VBG HCO3 22 VBG O2 Saturation 70.0 VBG Base Excess -2.6 Sodium Potassium Chloride Carbon Dioxide Anion Gap BUN Creatinine Estim Creat Clear Calc Estimated GFR POC Glucose 77 86 Random Glucose Calcium Phosphorus Magnesium Total Bilirubin AST ALT Alkaline Phosphatase Total Protein Albumin Random Vancomycin Blood Type Antibody Screen Crossmatch 09/18/24 09/18/24 09/19/24 18:59 23:42 00:22 WBC 17.3 H RBC 3.79 L Hgb 12.5 L Hct 38.4 L MCV 101.3 H MCH 33.0 MCHC 32.6 RDW 20.6 H Plt Count 151 L MPV 10.4 Immature Gran % (Auto) Neut % (Auto) Lymph % (Auto) [place] % (Auto) Eos % (Auto) Baso % (Auto) Lymph # (Auto) [place] # (Auto) Eos # (Auto) Baso # (Auto) Abs Immat Gran (auto) Absolute Neuts (auto) Absolute Nucleated RBC 2.240 H Nucleated RBC % (auto) 13.0 H Neutrophils % (Manual) Band Neutrophils % Lymphocytes % (Manual) Monocytes % (Manual) Eosinophils % (Manual) Metamyelocytes % Myelocytes % Abs Neuts (Manual) Lymphocytes # (Manual) Monocytes # (Manual) Eosinophils # (Manual) Metamyelocytes # Myelocytes # Nucleated RBCs Platelet Estimate Large Platelets Plt Morphology Comment RBC Morphology Polychromasia Basophilic Stippling Macrocytosis Pappenheimer Bodies Target Cells [place] Cells Acanthocytes (Spur) Schistocytes Smear Path Review PT INR VBG pH VBG pCO2 VBG pO2 VBG HCO3 VBG O2 Saturation VBG Base Excess Sodium 144 Potassium 3.7 Chloride 102 Carbon Dioxide 18 L Anion Gap 28 H BUN 30 H Creatinine 4.85 H* Estim Creat Clear Calc 22.0 Estimated GFR 13 POC Glucose 69 Random Glucose 117 H Calcium 8.5 Phosphorus 3.8 Magnesium 2.0 Total Bilirubin AST ALT Alkaline Phosphatase Total Protein Albumin Random Vancomycin 22.5 H Blood Type Antibody Screen Crossmatch 09/19/24 09/19/24 09/19/24 00:39 05:17 05:24 WBC 18.3 H RBC 3.94 L Hgb 12.9 L Hct 40.1 L MCV 101.8 H MCH 32.7 MCHC 32.2 RDW 21.1 H Plt Count 164 MPV 10.1 Immature Gran % (Auto) Cancelled Neut % (Auto) Cancelled Lymph % (Auto) Cancelled [place] % (Auto) Cancelled Eos % (Auto) Cancelled Baso % (Auto) Cancelled Lymph # (Auto) Cancelled [place] # (Auto) Cancelled Eos # (Auto) Cancelled Baso # (Auto) Cancelled Abs Immat Gran (auto) Cancelled Absolute Neuts (auto) Cancelled Absolute Nucleated RBC 2.780 H Nucleated RBC % (auto) 15.2 H Neutrophils % (Manual) 72 Band Neutrophils % 17 H Lymphocytes % (Manual) 3 L Monocytes % (Manual) 3 Eosinophils % (Manual) 1 Metamyelocytes % 3 Myelocytes % 1 Abs Neuts (Manual) 16.3 H Lymphocytes # (Manual) 0.5 L Monocytes # (Manual) 0.5 Eosinophils # (Manual) 0.2 Metamyelocytes # 0.5 Myelocytes # 0.2 Nucleated RBCs 9 H Platelet Estimate NORMAL Large Platelets PRESENT Plt Morphology Comment NOTED RBC Morphology NOTED Polychromasia 1+ (0-2) Basophilic Stippling Macrocytosis 1+ (5-14) Pappenheimer Bodies PRESENT Target Cells [place] Cells 1+ (0-2) Acanthocytes (Spur) Schistocytes Smear Path Review PT INR VBG pH 7.36 VBG pCO2 36 VBG pO2 48 VBG HCO3 20 L VBG O2 Saturation 75.0 VBG Base Excess -3.7 Sodium 144 Potassium 3.9 Chloride 104 Carbon Dioxide 16 L Anion Gap 28 H BUN 33 H Creatinine 5.41 H* Estim Creat Clear Calc 19.8 Estimated GFR 11 POC Glucose 106 Random Glucose 65 Calcium 8.6 Phosphorus 4.1 Magnesium 2.2 Total Bilirubin 20.6 H AST 232 H ALT 96 H Alkaline Phosphatase 185 H Total Protein 5.8 L Albumin 3.5 Random Vancomycin Blood Type Antibody Screen Crossmatch Microbiology Microbiology Results: Microbiology 09/17/24 20:04 Blood - Venous Blood Culture - Preliminary No growth after 24 hours. 09/17/24 20:04 Blood - Venous Blood Culture - Preliminary No growth after 24 hours. 09/15/24 14:20 Urine Catheterized - Tavera Catheter Urine Culture - Final No growth. Procedures Date of Service Date of Service: 09/19/24 Assessment & Plan Assessment and plan (1) Acute kidney injury: Status: Acute Plan [facility] due to HRS Urine sodium < 20 Renal function continues to worsen Getting colloid on low-dose pressors Oliguric agree with paracentesis to lower intra-abdominal pressure Likely will need renal replacement but may not tolerate conventional hemodialysis overall prognosis is poor Shall follow along with the team. Time Spent With Patient Time: Total time managing care of this patient today ____ minutes. Progress Note: Quality Stroke Does the patient have a stroke diagnosis?: No
--- NOTE | 2024-09-19 10:31 | MHC.CLN ---
PT REQUIRES TPN FOR NUTRITION SUPPORT R/T PROLONGED NPO STATUS DISCUSSED AT ROUNDS WITH MD-TO START TPN COMMUNICATED WITH PHARMACY RECOMMEND TPN AT 40ML/HR TO PROVIDE 682KCALS, 144G DEXTROSE, 48G PROTEIN REPLETE LYTES NEEDED SEE ALSO FULL CLINICAL NUTRITION ASSESSMENT
[2024-09-19] MEDS: Digoxin 0.5 MG/2 ML AMPUL 0.25 MG IVPUSH ×3 (11:25→23:14)
[2024-09-19 11:36] LABS: Glucose, Whole Blood 81 mg/dL (60-115)
--- NOTE | 2024-09-19 12:08 | P.PNCC_ITS ---
Subjective Subjective Date of Service: 09/19/24 Interval History: 53-year-old gentleman with underlying alcoholism, hepatitis-C, substance abuse admitted on 09/11/2024 with alcohol intoxication followed by delirium tremens further complicated by acute liver failure with development of hepatorenal syndrome and acute hypoxic respiratory failure now with worsening encephalopathy, transferred to intensive care unit on 09/17/2024. Afternoon for 08/15/2024 patient with large volume NG tube out point, initially suctioned 1 L of feculent material, thereafter another 750 cc of grossly bloody liquid, also with development of a flutter with RVR and hypotension, loaded with amiodarone. 2 units of packed red blood cells transfused. Started on PPI. Hemoglobin stable. No events overnight. Critical Care Time (minutes): 90 Physical Exam 2 Vital Signs: Vital Signs: Last Vital Signs Temp 98.1 F 09/19/24 08:00 Pulse 142 H 09/19/24 11:00 Resp 26 H 09/19/24 11:15 BP 113/73 09/19/24 11:00 Pulse Ox 92 09/19/24 11:00 O2 Del Method High Flow Nasal C annula 09/19/24 11:00 O2 Flow Rate 55 09/19/24 11:00 FiO2 80 09/19/24 11:00 BMI result Body Mass Index 41.0 Const: General: no acute distress, lethargic (Arousable, confused) and other (Jaundiced) Orientation/consciousness: lethargic (Arousable, confused) Eyes: Sclerae: scleral abnormal (Icteric) EOM: EOMs intact bilaterally Neck: Neck: Yes no lymphadenopathy, Yes trachea midline and Yes supple Resp: Effort & Inspection: normal respiratory effort and no respiratory distress Auscultation: crackles (Diffuse bilateral) Cardio: Rate: regular rate Rhythm: regular rhythm Heart sounds: no gallops, no murmurs and no rubs GI: Inspection: Yes distended Palpation (GI): Soft to palpation and Other GI palpation findings present ( Nontender) Auscultation: normal bowel sounds Extrem: General: No clubbing, No cyanosis and Yes edema (2+ bilateral) Objective Data Labs 09/19/24 05:17 09/19/24 05:17 Labs: Laboratory Results - last 24 hr 09/18/24 09/18/24 09/18/24 16:31 16:37 17:59 WBC 16.3 H RBC 3.22 L Hgb 10.6 L Hct 33.6 L MCV 104.3 H MCH 32.9 MCHC 31.5 RDW 20.0 H Plt Count 147 L MPV 10.0 Immature Gran % (Auto) Cancelled Neut % (Auto) Cancelled Lymph % (Auto) Cancelled [place] % (Auto) Cancelled Eos % (Auto) Cancelled Baso % (Auto) Cancelled Lymph # (Auto) Cancelled [place] # (Auto) Cancelled Eos # (Auto) Cancelled Baso # (Auto) Cancelled Abs Immat Gran (auto) Cancelled Absolute Neuts (auto) Cancelled Absolute Nucleated RBC 1.780 H Nucleated RBC % (auto) 11.0 H Neutrophils % (Manual) 78 H Band Neutrophils % 13 H Lymphocytes % (Manual) 2 L Monocytes % (Manual) 2 Eosinophils % (Manual) Metamyelocytes % 5 Myelocytes % Abs Neuts (Manual) 14.8 H Lymphocytes # (Manual) 0.3 L Monocytes # (Manual) 0.3 Eosinophils # (Manual) Metamyelocytes # 0.8 Myelocytes # Nucleated RBCs 13 H Platelet Estimate NORMAL Large Platelets Plt Morphology Comment NORMAL RBC Morphology NOTED Polychromasia Basophilic Stippling 2+ (3-5) Macrocytosis 1+ (5-14) Pappenheimer Bodies Target Cells 1+ (5-14) [place] Cells Acanthocytes (Spur) 1+ (0-2) Schistocytes 1+ (0-2) Smear Path Review SEE NOTE VBG pH 7.36 VBG pCO2 38 VBG pO2 48 VBG HCO3 22 VBG O2 Saturation 70.0 VBG Base Excess -2.6 Sodium 144 Potassium 3.6 Chloride 100 Carbon Dioxide 20 L Anion Gap 28 H BUN 27 H Creatinine 5.07 H* Estim Creat Clear Calc 21.1 Estimated GFR 12 POC Glucose 77 Random Glucose 75 Calcium 8.9 Phosphorus Magnesium Total Bilirubin AST ALT Alkaline Phosphatase Total Protein Albumin Random Vancomycin Blood Type B Positive Antibody Screen NEGATIVE Crossmatch See Detail 09/18/24 09/18/24 09/18/24 18:08 18:59 23:42 WBC RBC Hgb Hct MCV MCH MCHC RDW Plt Count MPV Immature Gran % (Auto) Neut % (Auto) Lymph % (Auto) [place] % (Auto) Eos % (Auto) Baso % (Auto) Lymph # (Auto) [place] # (Auto) Eos # (Auto) Baso # (Auto) Abs Immat Gran (auto) Absolute Neuts (auto) Absolute Nucleated RBC Nucleated RBC % (auto) Neutrophils % (Manual) Band Neutrophils % Lymphocytes % (Manual) Monocytes % (Manual) Eosinophils % (Manual) Metamyelocytes % Myelocytes % Abs Neuts (Manual) Lymphocytes # (Manual) Monocytes # (Manual) Eosinophils # (Manual) Metamyelocytes # Myelocytes # Nucleated RBCs Platelet Estimate Large Platelets Plt Morphology Comment RBC Morphology Polychromasia Basophilic Stippling Macrocytosis Pappenheimer Bodies Target Cells [place] Cells Acanthocytes (Spur) Schistocytes Smear Path Review VBG pH VBG pCO2 VBG pO2 VBG HCO3 VBG O2 Saturation VBG Base Excess Sodium Potassium Chloride Carbon Dioxide Anion Gap BUN Creatinine Estim Creat Clear Calc Estimated GFR POC Glucose 86 69 Random Glucose Calcium Phosphorus Magnesium Total Bilirubin AST ALT Alkaline Phosphatase Total Protein Albumin Random Vancomycin 22.5 H Blood Type Antibody Screen Crossmatch 09/19/24 09/19/24 09/19/24 00:22 00:39 05:17 WBC 17.3 H 18.3 H RBC 3.79 L 3.94 L Hgb 12.5 L 12.9 L Hct 38.4 L 40.1 L MCV 101.3 H 101.8 H MCH 33.0 32.7 MCHC 32.6 32.2 RDW 20.6 H 21.1 H Plt Count 151 L 164 MPV 10.4 10.1 Immature Gran % (Auto) Cancelled Neut % (Auto) Cancelled Lymph % (Auto) Cancelled [place] % (Auto) Cancelled Eos % (Auto) Cancelled Baso % (Auto) Cancelled Lymph # (Auto) Cancelled [place] # (Auto) Cancelled Eos # (Auto) Cancelled Baso # (Auto) Cancelled Abs Immat Gran (auto) Cancelled Absolute Neuts (auto) Cancelled Absolute Nucleated RBC 2.240 H 2.780 H Nucleated RBC % (auto) 13.0 H 15.2 H Neutrophils % (Manual) 72 Band Neutrophils % 17 H Lymphocytes % (Manual) 3 L Monocytes % (Manual) 3 Eosinophils % (Manual) 1 Metamyelocytes % 3 Myelocytes % 1 Abs Neuts (Manual) 16.3 H Lymphocytes # (Manual) 0.5 L Monocytes # (Manual) 0.5 Eosinophils # (Manual) 0.2 Metamyelocytes # 0.5 Myelocytes # 0.2 Nucleated RBCs 9 H Platelet Estimate NORMAL Large Platelets PRESENT Plt Morphology Comment NOTED RBC Morphology NOTED Polychromasia 1+ (0-2) Basophilic Stippling Macrocytosis 1+ (5-14) Pappenheimer Bodies PRESENT Target Cells [place] Cells 1+ (0-2) Acanthocytes (Spur) Schistocytes Smear Path Review VBG pH VBG pCO2 VBG pO2 VBG HCO3 VBG O2 Saturation VBG Base Excess Sodium 144 144 Potassium 3.7 3.9 Chloride 102 104 Carbon Dioxide 18 L 16 L Anion Gap 28 H 28 H BUN 30 H 33 H Creatinine 4.85 H* 5.41 H* Estim Creat Clear Calc 22.0 19.8 Estimated GFR 13 11 POC Glucose 106 Random Glucose 117 H 65 Calcium 8.5 8.6 Phosphorus 3.8 4.1 Magnesium 2.0 2.2 Total Bilirubin 20.6 H AST 232 H ALT 96 H Alkaline Phosphatase 185 H Total Protein 5.8 L Albumin 3.5 Random Vancomycin Blood Type Antibody Screen Crossmatch 09/19/24 09/19/24 05:24 11:33 WBC RBC Hgb Hct MCV MCH MCHC RDW Plt Count MPV Immature Gran % (Auto) Neut % (Auto) Lymph % (Auto) [place] % (Auto) Eos % (Auto) Baso % (Auto) Lymph # (Auto) [place] # (Auto) Eos # (Auto) Baso # (Auto) Abs Immat Gran (auto) Absolute Neuts (auto) Absolute Nucleated RBC Nucleated RBC % (auto) Neutrophils % (Manual) Band Neutrophils % Lymphocytes % (Manual) Monocytes % (Manual) Eosinophils % (Manual) Metamyelocytes % Myelocytes % Abs Neuts (Manual) Lymphocytes # (Manual) Monocytes # (Manual) Eosinophils # (Manual) Metamyelocytes # Myelocytes # Nucleated RBCs Platelet Estimate Large Platelets Plt Morphology Comment RBC Morphology Polychromasia Basophilic Stippling Macrocytosis Pappenheimer Bodies Target Cells [place] Cells Acanthocytes (Spur) Schistocytes Smear Path Review VBG pH 7.36 VBG pCO2 36 VBG pO2 48 VBG HCO3 20 L VBG O2 Saturation 75.0 VBG Base Excess -3.7 Sodium Potassium Chloride Carbon Dioxide Anion Gap BUN Creatinine Estim Creat Clear Calc Estimated GFR POC Glucose 81 Random Glucose Calcium Phosphorus Magnesium Total Bilirubin AST ALT Alkaline Phosphatase Total Protein Albumin Random Vancomycin Blood Type Antibody Screen Crossmatch Microbiology Microbiology Results: Microbiology 09/17/24 20:04 Blood - Venous Blood Culture - Preliminary No growth after 24 hours. 09/17/24 20:04 Blood - Venous Blood Culture - Preliminary No growth after 24 hours. 09/15/24 14:20 Urine Catheterized - Tavera Catheter Urine Culture - Final No growth. Progress Note: A&P Assessment and plan (1) Alcohol use disorder, severe, dependence: Status: Acute (2) Obesity (BMI 30-39.9): Status: Acute (3) Hepatitis C: Status: Acute (4) Acute liver failure: Status: Acute (5) Acute kidney injury: Status: Acute (6) Toxic metabolic encephalopathy: Status: Acute (7) Acute respiratory failure with hypoxia: Status: Acute (8) Upper GI bleed: Status: Acute (9) Atrial fibrillation with RVR: Status: Acute Plan Assessment: 53-year-old gentleman admitted with alcohol intoxication transitioning to delirium tremens further complicated by acute liver failure, hepatorenal syndrome, toxic metabolic encephalopathy, and acute hypoxic respiratory failure Plan: Neuro: Toxic metabolic encephalopathy secondary to acute liver failure and likely delirium tremens. Continue lactulose/rifampin. Cardiac: A flutter with RVR now requiring amiodarone drip and digoxin load. Pulmonary: Acute hypoxic respiratory failure secondary to pulmonary edema on a background of hepatorenal syndrome. Continue to titrate off supplemental oxygen as tolerated. Renal: Acute renal failure secondary to hepatorenal syndrome. Non oliguric. Continue albumin support. Endo: No acute issues. GI: Acute liver failure on a background of chronic alcoholism and delirium tremens. Gastroenterology service care appreciated. Upper GI bleed, likely secondary to gastritis, hemoglobin stable. Continue PPI. ID: Underlying UTI. Antibiotic regimen broadened to cefepime/vancomycin. Heme/Onc: No acute issues. Psych: No acute issues. Miscellaneous: No acute issues. Prophylaxis: Pneumatic compression Diet: TPN Critical care time spent: 90 minutes Quality Stroke Does the patient have a stroke diagnosis?: No VTE Prior VTE?: No VTE Risk Level:: Medical - moderate - high VTE Device Contraindication: Treatment Not Indicated VTE Drug Contraindication: N/A - Med Ordered
--- NOTE | 2024-09-19 13:24 | MHC.CM.PN ---
Pt remains in ICU: alert to self only: worsening renal fx, 3+ edema: plan for the day: paracentesis: blood tx. CM to follow for finalization of d/c needs
[2024-09-19] MEDS: Amiodarone HCL 900 MG in 0.9 % Sodium Chloride 500 ML 17.27 MG IVCONT (17:27)
[2024-09-19 17:31] LABS: Glucose, Whole Blood 83 mg/dL (60-115)
[2024-09-19] MEDS: Parenteral Nutrition 960 ML 40 ML IV (21:21)
[2024-09-19] MEDS: cefEPime HCl/D5W 2 GM/50 ML PIGGYBACK IV (21:26)
[2024-09-20] VITALS (32 sets, daily range): BP systolic 96–125; BP diastolic 54–76; PULSE 140–145; RESP 21–29; TEMP 36.1–37.9; O2SAT 87–100; BMI 40.2
[2024-09-20] LABS: Glucose, Whole Blood 116 mg/dL (60-115)
[2024-09-20] MEDS: Albumin Human 25 % 100 ML IV (01:42)
[2024-09-20] MEDS: Lactulose 20 GM/30 ML SOLUTION 30 GM PO ×4 (04:41→23:48)
[2024-09-20 05:01] LABS: VBG Base Excess -4.4 mmol/L; VBG HCO3 20 mmol/L (22-26); VBG pCO2 34 mmHg; VBG pH 7.37 (7.32-7.43); VBG pO2 40 mmHg
[2024-09-20 05:10] LABS: Venous Blood Gas Refer to POC result
[2024-09-20 05:16] LABS: Hematocrit 36.2 % (42.0-52.0); Hemoglobin 11.1 g/dl (14.0-18.0); Mean Corpuscular HGB Conc 30.7 g/dl (31.0-36.0); Mean Corpuscular Volume 107.7 fL (80.0-98.0); Mean Platelet Volume 10.8 fL (9.4-12.4); Platelet Count 135 X10*3/uL (160-400); Red Blood Count 3.36 X10*6/uL (4.60-5.80); Red Cell Distribution Width 21.1 % (11.0-16.0); White Blood Count 16.1 X10*3/uL (4.8-10.8)
[2024-09-20 05:32] LABS: NRBC Pct Auto 16.9 /100WBC (0.0-0.2)
[2024-09-20 05:38] LABS: Band Neutrophils Percent 16 % (3-5); Lymphocytes Absolute Manual 1.6 X10*3/uL (1.2-4.9); Lymphocytes Percent Manual 10 % (20-40); Metamyelocytes Absolute 0.8 X10*3/uL; Metamyelocytes Percent 5 %; Monocytes Absolute Manual 0.5 X10*3/uL (0.1-1.2); Monocytes Percent Manual 3 % (2-11); Myelocytes Absolute 0.3 X10*/uL; Myelocytes Percent 2 %; Neutrophils Absolute Manual 12.9 X10*3/uL (2.0-8.3); Neutrophils Percent Manual 64 % (45-73)
[2024-09-20 05:39] LABS: Basophilic Stippling 1+ (0-2) /OIF; Burr Cells 1+ (0-2) /OIF; Macrocytosis 1+ (5-14) /OIF; Pappenheimer Bodies PRESENT; Polychromasia 1+ (0-2) /OIF; RBC Morphology NOTED
[2024-09-20 05:41] LABS: Large Platelet PRESENT; Platelet Estimate DECREASED (NORMAL); Platelet Morphology Comment NOTED
[2024-09-20 05:42] LABS: Nucleated Red Blood Cells 8 /100WBC (0-0)
[2024-09-20 05:43] LABS: Alanine Aminotransferase 78 U/L (0-40); Albumin Level 4.2 g/dL (3.5-5.0); Alkaline Phosphatase 143 U/L (39-117); Anion Gap 26 (12-20); Aspartate Amino Transferase 215 U/L (5-37); Blood Urea Nitrogen 48 mg/dL (9-16); Carbon Dioxide 17 mmol/L (22-29); Chloride 110 mmol/L (96-108); Creatinine Clr Calc Pharmacy 14.8; Estimated Glomerular Filt Rate 8; Glucose Random 113 mg/dL (60-115); Magnesium 2.4 mg/dL (1.6-2.6); Phosphorus 3.2 mg/dL (2.7-4.5); Potassium 3.9 mmol/L (3.3-5.1); Sodium 149 mmol/L (135-145); Total Protein 6.1 g/dL (6.5-8.0)
[2024-09-20 05:57] LABS: Bilirubin Total 25.7 mg/dL (0.0-1.0)
[2024-09-20] MEDS: Pantoprazole Sodium 80 MG in 0.9 % Sodium Chloride 80 ML 10 MG IV ×2 (06:47→16:45)
[2024-09-20] MEDS: 0.9 % Sodium Chloride Flush 3 ML SYRINGE IVFLUSH ×3 (06:48→21:11)
[2024-09-20] MEDS: Phenylephrine HCL 100 MG in 0.9 % Sodium Chloride 250 ML 28.43 MG IVCONT ×2 (07:51→16:22)
[2024-09-20] MEDS: Erythromycin Base 0.5% Oph Oin 1 GM TUBE 1 CM EYE-BOTH ×2 (07:56→20:58)
[2024-09-20] MEDS: Folic Acid 1 MG in 0.9 % Sodium Chloride 50 ML 100.4 MG IV (08:11)
[2024-09-20] MEDS: rifAXIMin 550 MG TABLET PO ×2 (08:11→20:58)
[2024-09-20 08:38] LABS: Vancomycin Random 24.8 mcg/mL (15-20)
--- NOTE | 2024-09-20 10:07 | PM.CCPN ---
Subjective Subjective Date of Service: 09/20/24 Interval History: 53-year-old gentleman with underlying alcoholism, hepatitis-C, substance abuse admitted on 09/11/2024 with alcohol intoxication followed by delirium tremens further complicated by acute liver failure with development of hepatorenal syndrome and acute hypoxic respiratory failure now with worsening encephalopathy, transferred to intensive care unit on 09/17/2024. 09/19/2024 patient with large volume NG tube out point, initially suctioned 1 L of feculent material, thereafter another 750 cc of grossly bloody liquid, also with development of a flutter with RVR and hypotension, loaded with amiodarone. 2 units of packed red blood cells transfused. Started on PPI. Hemoglobin stable. No events overnight. Critical Care Time (minutes): 60 Physical Exam Vital Signs: Vital Signs: Last Vital Signs Temp 97.5 F 09/20/24 07:57 Pulse 143 H 09/20/24 09:00 Resp 24 H 09/20/24 09:00 BP 99/63 09/20/24 09:00 Pulse Ox 92 09/20/24 09:00 O2 Del Method High Flow Nasal C annula 09/20/24 09:00 O2 Flow Rate 55 09/20/24 09:00 FiO2 80 09/20/24 09:00 BMI result Body Mass Index 40.2 Const: General: no acute distress, confusion, lethargic (Arousable) and other (Jaundiced) Orientation/consciousness: confusion and lethargic (Arousable) Eyes: Sclerae: scleral abnormal (Icteric) EOM: EOMs intact bilaterally Neck: Neck: Yes no lymphadenopathy, Yes trachea midline and Yes supple Resp: Effort & Inspection: normal respiratory effort and no respiratory distress Auscultation: clear to auscultation bilaterally Cardio: Rate: tachycardic Rhythm: regular rhythm Heart sounds: no gallops, no murmurs and no rubs GI: Palpation (GI): Soft to palpation and Other GI palpation findings present ( Nontender) Auscultation: normal bowel sounds Neuro: General: confusion Extrem: General: Yes no pedal edema, No clubbing, No cyanosis and Yes edema (1+ bilateral) Objective Data Labs 09/20/24 04:54 09/20/24 04:54 Labs: Laboratory Results - last 24 hr 09/19/24 09/19/24 09/19/24 11:33 17:28 23:53 WBC RBC Hgb Hct MCV MCH MCHC RDW Plt Count MPV Immature Gran % (Auto) Neut % (Auto) Lymph % (Auto) [place] % (Auto) Eos % (Auto) Baso % (Auto) Lymph # (Auto) [place] # (Auto) Eos # (Auto) Baso # (Auto) Abs Immat Gran (auto) Absolute Neuts (auto) Absolute Nucleated RBC Nucleated RBC % (auto) Neutrophils % (Manual) Band Neutrophils % Lymphocytes % (Manual) Monocytes % (Manual) Metamyelocytes % Myelocytes % Abs Neuts (Manual) Lymphocytes # (Manual) Monocytes # (Manual) Metamyelocytes # Myelocytes # Nucleated RBCs Platelet Estimate Large Platelets Plt Morphology Comment RBC Morphology Polychromasia Basophilic Stippling Macrocytosis Pappenheimer Bodies [place] Cells VBG pH VBG pCO2 VBG pO2 VBG HCO3 VBG O2 Saturation VBG Base Excess Sodium Potassium Chloride Carbon Dioxide Anion Gap BUN Creatinine Estim Creat Clear Calc Estimated GFR POC Glucose 81 83 116 H Random Glucose Calcium Phosphorus Magnesium Total Bilirubin AST ALT Alkaline Phosphatase Total Protein Albumin Random Vancomycin 09/20/24 09/20/24 09/20/24 04:54 04:57 07:57 WBC 16.1 H RBC 3.36 L Hgb 11.1 L Hct 36.2 L MCV 107.7 H D MCH 33.0 MCHC 30.7 L RDW 21.1 H Plt Count 135 L MPV 10.8 Immature Gran % (Auto) Cancelled Neut % (Auto) Cancelled Lymph % (Auto) Cancelled [place] % (Auto) Cancelled Eos % (Auto) Cancelled Baso % (Auto) Cancelled Lymph # (Auto) Cancelled [place] # (Auto) Cancelled Eos # (Auto) Cancelled Baso # (Auto) Cancelled Abs Immat Gran (auto) Cancelled Absolute Neuts (auto) Cancelled Absolute Nucleated RBC 2.710 H Nucleated RBC % (auto) 16.9 H Neutrophils % (Manual) 64 Band Neutrophils % 16 H Lymphocytes % (Manual) 10 L Monocytes % (Manual) 3 Metamyelocytes % 5 Myelocytes % 2 Abs Neuts (Manual) 12.9 H Lymphocytes # (Manual) 1.6 Monocytes # (Manual) 0.5 Metamyelocytes # 0.8 Myelocytes # 0.3 Nucleated RBCs 8 H Platelet Estimate DECREASED Large Platelets PRESENT Plt Morphology Comment NOTED RBC Morphology NOTED Polychromasia 1+ (0-2) Basophilic Stippling 1+ (0-2) Macrocytosis 1+ (5-14) Pappenheimer Bodies PRESENT Eduardo Cells 1+ (0-2) VBG pH 7.37 VBG pCO2 34 VBG pO2 40 VBG HCO3 20 L VBG O2 Saturation 62.0 VBG Base Excess -4.4 Sodium 149 H Potassium 3.9 Chloride 110 H Carbon Dioxide 17 L Anion Gap 26 H BUN 48 H Creatinine 7.25 H* Estim Creat Clear Calc 14.8 Estimated GFR 8 POC Glucose Random Glucose 113 Calcium 9.0 Phosphorus 3.2 Magnesium 2.4 Total Bilirubin 25.7 H AST 215 H ALT 78 H Alkaline Phosphatase 143 H Total Protein 6.1 L Albumin 4.2 Random Vancomycin 24.8 H Microbiology Microbiology Results: Microbiology 09/17/24 20:04 Blood - Venous Blood Culture - Preliminary No growth after 48 hours. 09/17/24 20:04 Blood - Venous Blood Culture - Preliminary No growth after 48 hours. 09/15/24 14:20 Urine Catheterized - Tavera Catheter Urine Culture - Final No growth. Progress Note: A&P Assessment and plan (1) Alcohol use disorder, severe, dependence: Status: Acute (2) Atrial fibrillation with RVR: Status: Acute (3) Acute liver failure: Status: Acute (4) Acute kidney injury: Status: Acute (5) Acute respiratory failure with hypoxia: Status: Acute (6) Toxic metabolic encephalopathy: Status: Acute Plan Assessment: 53-year-old gentleman admitted with alcohol intoxication transitioning to delirium tremens further complicated by acute liver failure, hepatorenal syndrome, toxic metabolic encephalopathy, and acute hypoxic respiratory failure Plan: Neuro: Toxic metabolic encephalopathy secondary to acute liver failure and likely delirium tremens. Continue lactulose/rifampin. Cardiac: A flutter with RVR now requiring amiodarone drip and digoxin load. Pulmonary: Acute hypoxic respiratory failure secondary to pulmonary edema on a background of hepatorenal syndrome. Continue to titrate off supplemental oxygen as tolerated. Renal: Acute renal failure secondary to hepatorenal syndrome. Non oliguric. Continue albumin support. Endo: No acute issues. GI: Acute liver failure on a background of chronic alcoholism and delirium tremens. Gastroenterology service care appreciated. Upper GI bleed, likely secondary to gastritis, hemoglobin stable. Continue PPI. ID: Underlying UTI. Antibiotic regimen broadened to cefepime/vancomycin. Heme/Onc: No acute issues. Psych: No acute issues. Miscellaneous: No acute issues. Prophylaxis: Pneumatic compression Diet: TPN Critical care time spent: 60 minutes Quality Stroke Does the patient have a stroke diagnosis?: No VTE Prior VTE?: No VTE Risk Level:: Medical - moderate - high VTE Device Contraindication: Treatment Not Indicated VTE Drug Contraindication: N/A - Med Ordered
--- NOTE | 2024-09-20 10:21 | MHC.CLN ---
Addendum entered by Leann Vaughan RD 09/20/24 16:17: [id number]. ADVANCE TPN TO MAX GOAL: TPN AT 60 ML PER HOUR PLUS 60 G LIPIDS TO PROVIDE 1622 KCALS (23.2 KCALS/KG IBW), 216 G DEXTROSE, 72 G PROTEIN (1 G/KG IBW). PATIENT WITH ELEVATED LIVER AND KIDNEY FUNCTION LABS. FOLLOW FOR TPN TOLERANCE AND LABS. Original Note: F/U PT REQUIRES TPN FOR NUTRITION SUPPORT R/T PROLONGED NPO STATUS. DISCUSSED AT MD ROUNDS. REVIEWED LABS. COMMUNICATED WITH PHARMACY. RECOMMEND ADVANCE TPN TO 60 ML PER HOUR TO PROVIDE 1022 KCALS (14.6 KCALS/KG IBW), 216 G DEXTROSE, 72 G PROTEIN (1 G/KG IBW). REPLETE LYTES NEEDED. CHECK TRIGLYCERIDES. ADVANCE TO MAX GOAL ABLE: TPN AT 60 ML PER HOUR PLUS 60 G LIPIDS TO PROVIDE 1622 KCALS (23.2 KCALS/KG IBW), 216 G DEXTROSE, 72 G PROTEIN (1 G/KG IBW). PATIENT WITH ELEVATED LIVER AND KIDNEY FUNCTION LABS. FOLLOW FOR TPN TOLERANCE AND LABS.
[2024-09-20 10:48] LABS: Triglycerides 193 mg/dL (<150)
[2024-09-20 11:27] LABS: Glucose, Whole Blood 125 mg/dL (60-115)
--- NOTE | 2024-09-20 14:30 | MHC.CM.PN ---
PT REMAINS IN ICU ON HF02. CM WILL CONTINUE TO FOLLOW FOR PLAN.
[2024-09-20] MEDS: Amiodarone HCL 900 MG in 0.9 % Sodium Chloride 500 ML 17.27 MG IVCONT (16:30)
[2024-09-20 17:10] LABS: Glucose, Whole Blood 114 mg/dL (60-115)
--- NOTE | 2024-09-20 20:29 | P.PNNP_ITS ---
Subjective Subjective Date of Service: 09/20/24 Interval history: No events overnight. All data reviewed. D/W ICU Attending Physical Exam 2 Vital Signs: Vital Signs: Last Vital Signs Temp 97.0 F 09/20/24 16:00 Pulse 144 H 09/20/24 19:00 Resp 24 H 09/20/24 19:00 BP 109/64 09/20/24 19:00 Pulse Ox 90 L 09/20/24 19:00 O2 Del Method High Flow Nasal C annula 09/20/24 19:00 O2 Flow Rate 55 09/20/24 19:00 FiO2 100 09/20/24 19:00 BMI result Body Mass Index 40.2 Const: General: no acute distress Neck: Neck: Yes supple Resp: Auscultation: diminished lung sounds Cardio: Rate: regular rate GI: Palpation (GI): Soft to palpation Skin: Other: Jaundiced Extrem: General: Yes edema Objective Data Labs 09/20/24 04:54 09/20/24 04:54 Labs: Laboratory Results - last 24 hr 09/19/24 09/20/24 09/20/24 23:53 04:54 04:57 WBC 16.1 H RBC 3.36 L Hgb 11.1 L Hct 36.2 L MCV 107.7 H D MCH 33.0 MCHC 30.7 L RDW 21.1 H Plt Count 135 L MPV 10.8 Immature Gran % (Auto) Cancelled Neut % (Auto) Cancelled Lymph % (Auto) Cancelled [place] % (Auto) Cancelled Eos % (Auto) Cancelled Baso % (Auto) Cancelled Lymph # (Auto) Cancelled [place] # (Auto) Cancelled Eos # (Auto) Cancelled Baso # (Auto) Cancelled Abs Immat Gran (auto) Cancelled Absolute Neuts (auto) Cancelled Absolute Nucleated RBC 2.710 H Nucleated RBC % (auto) 16.9 H Neutrophils % (Manual) 64 Band Neutrophils % 16 H Lymphocytes % (Manual) 10 L Monocytes % (Manual) 3 Metamyelocytes % 5 Myelocytes % 2 Abs Neuts (Manual) 12.9 H Lymphocytes # (Manual) 1.6 Monocytes # (Manual) 0.5 Metamyelocytes # 0.8 Myelocytes # 0.3 Nucleated RBCs 8 H Platelet Estimate DECREASED Large Platelets PRESENT Plt Morphology Comment NOTED RBC Morphology NOTED Polychromasia 1+ (0-2) Basophilic Stippling 1+ (0-2) Macrocytosis 1+ (5-14) Pappenheimer Bodies PRESENT [place] Cells 1+ (0-2) VBG pH 7.37 VBG pCO2 34 VBG pO2 40 VBG HCO3 20 L VBG O2 Saturation 62.0 VBG Base Excess -4.4 Sodium 149 H Potassium 3.9 Chloride 110 H Carbon Dioxide 17 L Anion Gap 26 H BUN 48 H Creatinine 7.25 H* Estim Creat Clear Calc 14.8 Estimated GFR 8 POC Glucose 116 H Random Glucose 113 Calcium 9.0 Phosphorus 3.2 Magnesium 2.4 Total Bilirubin 25.7 H AST 215 H ALT 78 H Alkaline Phosphatase 143 H Total Protein 6.1 L Albumin 4.2 Triglycerides 193 H Random Vancomycin 09/20/24 09/20/24 09/20/24 07:57 11:18 17:02 WBC RBC Hgb Hct MCV MCH MCHC RDW Plt Count MPV Immature Gran % (Auto) Neut % (Auto) Lymph % (Auto) [place] % (Auto) Eos % (Auto) Baso % (Auto) Lymph # (Auto) [place] # (Auto) Eos # (Auto) Baso # (Auto) Abs Immat Gran (auto) Absolute Neuts (auto) Absolute Nucleated RBC Nucleated RBC % (auto) Neutrophils % (Manual) Band Neutrophils % Lymphocytes % (Manual) Monocytes % (Manual) Metamyelocytes % Myelocytes % Abs Neuts (Manual) Lymphocytes # (Manual) Monocytes # (Manual) Metamyelocytes # Myelocytes # Nucleated RBCs Platelet Estimate Large Platelets Plt Morphology Comment RBC Morphology Polychromasia Basophilic Stippling Macrocytosis Pappenheimer Bodies Eduardo Cells VBG pH VBG pCO2 VBG pO2 VBG HCO3 VBG O2 Saturation VBG Base Excess Sodium Potassium Chloride Carbon Dioxide Anion Gap BUN Creatinine Estim Creat Clear Calc Estimated GFR POC Glucose 125 H 114 Random Glucose Calcium Phosphorus Magnesium Total Bilirubin AST ALT Alkaline Phosphatase Total Protein Albumin Triglycerides Random Vancomycin 24.8 H Microbiology Microbiology Results: Microbiology 09/17/24 20:04 Blood - Venous Blood Culture - Preliminary No growth after 48 hours. 09/17/24 20:04 Blood - Venous Blood Culture - Preliminary No growth after 48 hours. 09/15/24 14:20 Urine Catheterized - Tavera Catheter Urine Culture - Final No growth. Procedures Date of Service Date of Service: 09/20/24 Assessment & Plan Assessment and plan (1) Acute kidney injury: Status: Acute Plan [facility] due to HRS Urine sodium < 20 Renal function worse Getting colloid Likely will need renal replacement No indication for HD today (D/W ICU Attending) Prognosis guarded Shall closely F/U Progress Note: Quality Stroke Does the patient have a stroke diagnosis?: No
[2024-09-20] MEDS: cefEPime HCl/D5W 2 GM/50 ML PIGGYBACK IV (20:58)
[2024-09-20] MEDS: Parenteral Nutrition 1,440 ML 60 ML IV (21:07)
[2024-09-21] VITALS (57 sets, daily range): BP systolic 71–123; BP diastolic 35–75; PULSE 131–148; RESP 12–28; TEMP 28–39.2; O2SAT 87–98; BMI 41.0
[2024-09-21 00:12] LABS: Glucose, Whole Blood 121 mg/dL (60-115)
[2024-09-21] MEDS: Phenylephrine HCL 100 MG in 0.9 % Sodium Chloride 250 ML 28.43 MG IVCONT (01:36)
[2024-09-21] MEDS: Pantoprazole Sodium 80 MG in 0.9 % Sodium Chloride 80 ML 10 MG IV (02:46)
[2024-09-21] MEDS: Lactulose 20 GM/30 ML SOLUTION 30 GM PO ×3 (04:16→17:25)
[2024-09-21 05:04] LABS: VBG Base Excess -6.6 mmol/L; VBG HCO3 17 mmol/L (22-26); VBG pCO2 30 mmHg; VBG pH 7.36 (7.32-7.43); VBG pO2 41 mmHg
[2024-09-21 05:12] LABS: Venous Blood Gas Refer to POC result
[2024-09-21 05:26] LABS: Hematocrit 37.8 % (42.0-52.0); Hemoglobin 11.9 g/dl (14.0-18.0); Mean Corpuscular HGB Conc 31.5 g/dl (31.0-36.0); Mean Corpuscular Hemoglobin 33.8 pg (27.0-33.0); Mean Corpuscular Volume 107.4 fL (80.0-98.0); Mean Platelet Volume 11.3 fL (9.4-12.4); Platelet Count 105 X10*3/uL (160-400); Red Blood Count 3.52 X10*6/uL (4.60-5.80); Red Cell Distribution Width 21.7 % (11.0-16.0); White Blood Count 17.6 X10*3/uL (4.8-10.8)
--- NOTE | 2024-09-21 05:30 | PC.NURSE ---
Assumed care at 1900. Patient drowsy and lethargic, able to open eyes to name and track speaker, but unable to consistently follow commands or answer questions. Intermittent periods of moaning. AFlutter on tele, HR 140s, SENIOR [employer] DEVELOPER Mikey aware. Alvin and amio gtts running per JUL. Lung sounds rhonchorous, diminished in the bases. HFNC at 55L/100%, intermittent dry nonproductive cough. NRB added to maintain SpO2 > 88%. Abdomen large round and distended, extremely faint bowel sounds x4, SENIOR [employer] DEVELOPER Mikey notified. NGT to low intermittent suction, see NGT assessment. FMS in place and patent, draining orange liquid stool. [place] catheter in place, draining scant ghanshyam urine; patient with consistently low UOP, provider aware. Skin is overall intact, though patient is moist and edematous, with notable jaundice. Bed locked in lowest position, bed alarm on, repositioned as tolerated, avasys camera in place for safety. Patient's mother updated by this RN throughout shift.
[2024-09-21 05:49] LABS: Alanine Aminotransferase 86 U/L (0-40); Albumin Level 3.7 g/dL (3.5-5.0); Alkaline Phosphatase 145 U/L (39-117); Anion Gap 25 (12-20); Aspartate Amino Transferase 300 U/L (5-37); Bilirubin Total 31.4 mg/dL (0.0-1.0); Blood Urea Nitrogen 68 mg/dL (9-16); Calcium 9.5 mg/dL (8.4-10.2); Carbon Dioxide 16 mmol/L (22-29); Chloride 117 mmol/L (96-108); Creatinine Clr Calc Pharmacy 11.2; Estimated Glomerular Filt Rate 6; Glucose Random 126 mg/dL (60-115); Magnesium 2.8 mg/dL (1.6-2.6); Phosphorus 2.2 mg/dL (2.7-4.5); Potassium 3.9 mmol/L (3.3-5.1); Sodium 154 mmol/L (135-145); Total Protein 5.9 g/dL (6.5-8.0)
[2024-09-21 05:55] LABS: Atypical Lymph Absolute Manual 0.5 x10*3/uL; Atypical Lymphs Percent Manual 3 % (0-6); Band Neutrophils Percent 18 % (3-5); Lymphocytes Absolute Manual 1.2 X10*3/uL (1.2-4.9); Lymphocytes Percent Manual 7 % (20-40); Metamyelocytes Absolute 0.7 X10*3/uL; Metamyelocytes Percent 4 %; Monocytes Absolute Manual 0.4 X10*3/uL (0.1-1.2); Monocytes Percent Manual 2 % (2-11); Myelocytes Absolute 0.5 X10*/uL; Myelocytes Percent 3 %; Neutrophils Absolute Manual 14.3 X10*3/uL (2.0-8.3); Neutrophils Percent Manual 63 % (45-73); Nucleated Red Blood Cells 34 /100WBC (0-0); Promyelocytes Absolute 0.2 X10*3/uL; Promyelocytes Percent 1 %
[2024-09-21 05:56] LABS: Large Platelet PRESENT; Macrocytosis 1+ (5-14) /OIF; Platelet Estimate SLIGHTLY DECREASED (NORMAL); Platelet Morphology Comment NOTED; Polychromasia 1+ (0-2) /OIF; RBC Morphology NOTED
[2024-09-21 05:57] LABS: Basophilic Stippling 1+ (0-2) /OIF; Pappenheimer Bodies PRESENT; Smudge Cells PRESENT; Toxic Vacuolation PRESENT
[2024-09-21] MEDS: 0.9 % Sodium Chloride Flush 3 ML SYRINGE IVFLUSH ×2 (07:40→16:25)
[2024-09-21 08:09] LABS: Vancomycin Random 21.7 mcg/mL (15-20)
[2024-09-21] MEDS: Folic Acid 1 MG in 0.9 % Sodium Chloride 50 ML 100.4 MG IV (08:30)
[2024-09-21] MEDS: Erythromycin Base 0.5% Oph Oin 1 GM TUBE 1 CM EYE-BOTH ×2 (08:48→19:36)
--- NOTE | 2024-09-21 08:48 | HE.PHANOTE ---
VANCO DOSE ADJUSTMENT BASED ON SCR OF 9.55 AND TROUGH OF 21.7 DPSE HELD FOR 24H. NEXT LEVEL 09/22 @ 0700
[2024-09-21] MEDS: rifAXIMin 550 MG TABLET PO ×2 (08:58→19:36)
--- NOTE | 2024-09-21 09:47 | HO.HCP_ITS ---
Health Care Proxy Invocation Health Care Proxy Declaration: I, Selvin Robertson , on the date cited below, have determined that, ____Mark Petraon , lacks the capacity to make or communicate, informed health care decision. This determination is made in accordance with accepted standards of medical judgment and pursuant to [place] c[place] 201[place], the [facility] Care Proxy Law. The cause, nature, extent and probable duration of the patient's inapacity are described below: Cause: Hepatin encephalopathy Nature: Organic Extent: Severe Probable Duration of Patient's Incapacity: unclear
[2024-09-21] MEDS: propofoL 200 MG/20 ML VIAL 100 MG IVPUSH (10:04)
[2024-09-21] MEDS: propofoL 1,000 MG/100 ML VIAL 22.01 MG IVCONT (10:08)
[2024-09-21] MEDS: Phenylephrine HCL 100 MG in 0.9 % Sodium Chloride 250 ML 56.86 MG IVCONT (10:44)
--- NOTE | 2024-09-21 11:05 | P.PNCC_ITS ---
Subjective Subjective Date of Service: 09/21/24 Interval History: 53-year-old gentleman with underlying alcoholism, hepatitis-C, substance abuse admitted on 09/11/2024 with alcohol intoxication followed by delirium tremens further complicated by acute liver failure with development of hepatorenal syndrome and acute hypoxic respiratory failure now with worsening encephalopathy, transferred to intensive care unit on 09/17/2024. 09/19/2024 patient with large volume NG tube out point, initially suctioned 1 L of feculent material, thereafter another 750 cc of grossly bloody liquid, also with development of a flutter with RVR and hypotension, loaded with amiodarone. 2 units of packed red blood cells transfused. Started on PPI. Hemoglobin stable. Hospital course with progressive hepatorenal syndrome resulting in pulmonary edema, maxed out on high-flow and requiring intubation on 09/21/2024. No events overnight. Critical Care Time (minutes): 60 Physical Exam 2 Vital Signs: Vital Signs: Last Vital Signs Temp 101.4 F H 09/21/24 10:00 Pulse 138 H 09/21/24 10:00 Resp 20 09/21/24 10:00 BP 92/51 L 09/21/24 10:00 Pulse Ox 90 L 09/21/24 10:00 O2 Del Method Mechanical Ventil ation 09/21/24 10:00 O2 Flow Rate 55 09/21/24 09:00 FiO2 100 09/21/24 10:33 BMI result Body Mass Index 41.0 Const: General: no acute distress and other (Sedated on ventilatory support) Nutritional Appearance: Edematous and other (Jaundiced) Eyes: Sclerae: scleral abnormal (Icteric) EOM: EOMs intact bilaterally Neck: Neck: Yes no lymphadenopathy, Yes trachea midline and Yes supple Resp: Auscultation: crackles (Diffuse bilateral) Cardio: Rate: tachycardic Rhythm: regular rhythm Heart sounds: no gallops, no murmurs and no rubs GI: Palpation (GI): Soft to palpation and Other GI palpation findings present ( Nontender) Auscultation: normal bowel sounds Extrem: General: No clubbing, No cyanosis and Yes edema (2+ bilateral) Objective Data Labs 09/21/24 04:51 09/21/24 04:51 Labs: Laboratory Results - last 24 hr 09/20/24 09/20/24 09/21/24 11:18 17:02 00:08 WBC RBC Hgb Hct MCV MCH MCHC RDW Plt Count MPV Immature Gran % (Auto) Neut % (Auto) Lymph % (Auto) [place] % (Auto) Eos % (Auto) Baso % (Auto) Lymph # (Auto) [place] # (Auto) Eos # (Auto) Baso # (Auto) Abs Immat Gran (auto) Absolute Neuts (auto) Absolute Nucleated RBC Nucleated RBC % (auto) Neutrophils % (Manual) Band Neutrophils % Lymphocytes % (Manual) Atypical Lymphs % (Man) Monocytes % (Manual) Metamyelocytes % Myelocytes % Promyelocytes % Abs Neuts (Manual) Lymphocytes # (Manual) Atyp Lymphs # (Manual) Monocytes # (Manual) Metamyelocytes # Myelocytes # Promyelocytes # Nucleated RBCs Smudge Cells Toxic Vacuolation Platelet Estimate Large Platelets Plt Morphology Comment RBC Morphology Polychromasia Basophilic Stippling Macrocytosis Pappenheimer Bodies VBG pH VBG pCO2 VBG pO2 VBG HCO3 VBG O2 Saturation VBG Base Excess Sodium Potassium Chloride Carbon Dioxide Anion Gap BUN Creatinine Estim Creat Clear Calc Estimated GFR POC Glucose 125 H 114 121 H Random Glucose Calcium Phosphorus Magnesium Total Bilirubin AST ALT Alkaline Phosphatase Total Protein Albumin Random Vancomycin 09/21/24 09/21/24 09/21/24 04:51 04:58 07:11 WBC 17.6 H RBC 3.52 L Hgb 11.9 L Hct 37.8 L MCV 107.4 H MCH 33.8 H MCHC 31.5 RDW 21.7 H Plt Count 105 L MPV 11.3 Immature Gran % (Auto) Cancelled Neut % (Auto) Cancelled Lymph % (Auto) Cancelled [place] % (Auto) Cancelled Eos % (Auto) Cancelled Baso % (Auto) Cancelled Lymph # (Auto) Cancelled [place] # (Auto) Cancelled Eos # (Auto) Cancelled Baso # (Auto) Cancelled Abs Immat Gran (auto) Cancelled Absolute Neuts (auto) Cancelled Absolute Nucleated RBC 3.680 H Nucleated RBC % (auto) 21.0 H Neutrophils % (Manual) 63 Band Neutrophils % 18 H Lymphocytes % (Manual) 7 L Atypical Lymphs % (Man) 3 Monocytes % (Manual) 2 Metamyelocytes % 4 Myelocytes % 3 Promyelocytes % 1 Abs Neuts (Manual) 14.3 H Lymphocytes # (Manual) 1.2 Atyp Lymphs # (Manual) 0.5 Monocytes # (Manual) 0.4 Metamyelocytes # 0.7 Myelocytes # 0.5 Promyelocytes # 0.2 Nucleated RBCs 34 H Smudge Cells PRESENT Toxic Vacuolation PRESENT Platelet Estimate SLIGHTLY DECREASED Large Platelets PRESENT Plt Morphology Comment NOTED RBC Morphology NOTED Polychromasia 1+ (0-2) Basophilic Stippling 1+ (0-2) Macrocytosis 1+ (5-14) Pappenheimer Bodies PRESENT VBG pH 7.36 VBG pCO2 30 VBG pO2 41 VBG HCO3 17 L VBG O2 Saturation 64.0 VBG Base Excess -6.6 Sodium 154 H Potassium 3.9 Chloride 117 H Carbon Dioxide 16 L Anion Gap 25 H BUN 68 H Creatinine 9.55 H* Estim Creat Clear Calc 11.2 Estimated GFR 6 POC Glucose Random Glucose 126 H Calcium 9.5 Phosphorus 2.2 L Magnesium 2.8 H Total Bilirubin 31.4 H AST 300 H ALT 86 H Alkaline Phosphatase 145 H Total Protein 5.9 L Albumin 3.7 Random Vancomycin 21.7 H Microbiology Microbiology Results: Microbiology 09/17/24 20:04 Blood - Venous Blood Culture - Preliminary No growth after 48 hours. 09/17/24 20:04 Blood - Venous Blood Culture - Preliminary No growth after 48 hours. 09/15/24 14:20 Urine Catheterized - Tavera Catheter Urine Culture - Final No growth. Progress Note: A&P Assessment and plan (1) Alcohol use disorder, severe, dependence: Status: Acute (2) Atrial fibrillation with RVR: Status: Acute (3) Obesity (BMI 30-39.9): Status: Acute (4) Acute liver failure: Status: Acute (5) Acute kidney injury: Status: Acute (6) Acute respiratory failure with hypoxia: Status: Acute Plan Assessment: 53-year-old gentleman admitted with alcohol intoxication transitioning to delirium tremens further complicated by acute liver failure, hepatorenal syndrome, toxic metabolic encephalopathy, and acute hypoxic respiratory failure Plan: Neuro: Toxic metabolic encephalopathy secondary to acute liver failure and likely delirium tremens. Continue lactulose/rifampin. Cardiac: A flutter with RVR now requiring amiodarone drip and digoxin load. Pulmonary: Acute hypoxic respiratory failure secondary to pulmonary edema on a background of hepatorenal syndrome now requiring intubation and ventilatory support. Renal: Acute renal failure secondary to hepatorenal syndrome. Oligoanuric. Continue albumin support. Will likely require CRRT. Accepted to [facility], waiting on a bed availability. Endo: No acute issues. GI: Acute liver failure on a background of chronic alcoholism and delirium tremens. Gastroenterology service care appreciated. Upper GI bleed, likely secondary to gastritis, hemoglobin stable. Continue PPI. Hepatorenal syndrome, worsening. ID: Underlying UTI. Continue empiric cefepime. Heme/Onc: No acute issues. Psych: No acute issues. Miscellaneous: No acute issues. Prophylaxis: Ppi, pneumatic compression Diet: Tube feeds Critical care time spent: 60 minutes excluding separately billable procedures Quality Stroke Does the patient have a stroke diagnosis?: No VTE Prior VTE?: No VTE Risk Level:: Medical - moderate - high VTE Device Contraindication: Treatment Not Indicated VTE Drug Contraindication: N/A - Med Ordered
[2024-09-21 12:02] LABS: Glucose, Whole Blood 113 mg/dL (60-115)
[2024-09-21] MEDS: Norepinephrine Bitartrate/D5W 8 MG/250 ML PLAST..BAG 11.47 MG IVCONT (12:28)
[2024-09-21] MEDS: Norepinephrine Bitartrate/NS 32 MG/250 ML PLAST..BAG IVCONT (13:06)
[2024-09-21] MEDS: Phenylephrine HCL 100 MG in 0.9 % Sodium Chloride 250 ML 94.77 MG IVCONT (13:20)
[2024-09-21] MEDS: propofoL 1,000 MG/100 ML VIAL 29.35 MG IVCONT ×2 (13:49→17:08)
--- NOTE | 2024-09-21 15:47 | PM.DS ---
DS: Providers Provider Date of Service: 09/21/24 Date of admission: 09/11/24 12:21 Date of discharge: 09/21/24 Primary care physician: Michael Aguila MD Consults: 09/11/24 13:33 Addiction Medicine Provider Routine Consulting Provider: Addiction Covering Reason for consultation: Alcohol use disorder, smokes crack Consult to Gastroenterology Routine Consulting Provider: Harpal Bermudez Reason for consultation: Alcoholic hepatitis, establish care 09/11/24 16:48 Consult to Nephrology Routine Consulting Provider: [facility] Reason for consultation: anion gap metabolic acidosis -? starvation ketsosis 09/13/24 09:20 Consult to Psychiatry Routine Consulting Provider: [facility] Reason for consultation: severe anxiety/depressed, dizziness -?anxiety meds contributing Has provider been notified: No 09/13/24 09:55 Inpt - Recovery Team Routine Comment: Reason for consultation: JALEESA eval +AUDIT C 09/15/24 08:03 Consult to Cardiology Routine Consulting Provider: [facility] Reason for consultation: Dizziness(lightheaded), persistent tachycardia Has provider been notified: No 09/15/24 08:25 Consult to Gastroenterology Routine Consulting Provider: [facility] Reason for consultation: Abd pain ,elevated lft , encephalopathy 09/15/24 09:19 Consult to Critical Care Routine Consulting Provider: Donovan Coombs Reason for consultation: Level of care Has provider been notified: No 09/15/24 11:47 Consult to Neurology Routine Consulting Provider: [facility] Reason for consultation: vertiago/encephalopathy Has provider been notified: No 09/17/24 05:08 Consult to Nephrology Routine Consulting Provider: [facility] Reason for consultation: AURORA; oliguria 09/17/24 07:26 Consult to Nephrology Routine Consulting Provider: [facility] Reason for consultation: Hepato renal syndrome Has provider been notified: Yes DS: Transfer Hospital Acceptance Reason for Transfer: CRRT evaluation Name of Facility: [facility] DS: Diagnosis Discharge Diagnosis (1) Acute liver failure: Status: Acute (2) Acute kidney injury: Status: Acute (3) Acute respiratory failure with hypoxia: Status: Acute (4) Alcohol use disorder, severe, dependence: Status: Acute (5) Atrial fibrillation with RVR: Status: Acute (6) Obesity (BMI 30-39.9): Status: Acute DS: Summary Hospital Course Hospital Course: 53-year-old gentleman with underlying alcoholism, hepatitis-C, substance abuse admitted on 09/11/2024 with alcohol intoxication followed by delirium tremens further complicated by acute liver failure with development of hepatorenal syndrome and acute hypoxic respiratory failure now with worsening encephalopathy, transferred to intensive care unit on 09/17/2024. 09/19/2024 with development of bloody NG aspirate, also with development of a flutter with RVR and hypotension, loaded with amiodarone. 2 units of packed red blood cells transfused. Started on PPI. Hemoglobin stable. Hospital course with progressive hepatorenal syndrome resulting in pulmonary edema, maxed out on high-flow and requiring intubation on 09/21/2024. Evaluation for CRRT in an [facility] transplant facility - [facility] (per insurance requriements) that performs kidney/liver transplants requested and transfer request granted. Medications on discharge: propofol drip, levophed drip, amiodarone drip, cefepime 2g iv q24h, vancomycin 500mg iv q24h, Xifaxan 550 po bid, lactulose 30 po bid, omperazole 40 po daily, folate, chlorhexidine Time Attestation Total time managing care of this patient today: 120 mintues. Discharge Coordination Time (in mins): 60 Quality: Safe Use of Opioids Does Pt have an Active Cancer Diagnosis on the Problem List?: No Quality: Stroke Does the patient have a stroke diagnosis?: No Physical Exam Vital Signs: Vital Signs: Last Vital Signs Temp 100.2 F 09/21/24 15:00 Pulse 136 H 09/21/24 15:00 Resp 14 09/21/24 15:00 BP 88/55 L 09/21/24 15:00 Pulse Ox 95 09/21/24 15:00 O2 Del Method Mechanical Ventil ation 09/21/24 15:00 O2 Flow Rate 55 09/21/24 09:00 FiO2 80 09/21/24 15:27 BMI result Body Mass Index 41.0 Const: General: no acute distress and other (sedated on ventilatory support, jaundiced) Nutritional Appearance: Edematous Eyes: Sclerae: scleral abnormal (icteric) EOM: EOMs intact bilaterally Neck: Neck: Yes no lymphadenopathy, Yes trachea midline and Yes supple Resp: Auscultation: crackles (diffuse bilateral) Cardio: Rate: regular rate Rhythm: regular rhythm Heart sounds: no gallops, no murmurs and no rubs GI: Palpation (GI): Soft to palpation and Other GI palpation findings present ( Nontender) Auscultation: normal bowel sounds Extrem: General: No clubbing, No cyanosis and Yes edema (2+ bilateral) DS: Data Data Completed and Pending Labs on day of discharge: Laboratory Results - last 24 hr 09/20/24 09/21/24 09/21/24 17:02 00:08 04:51 WBC 17.6 H RBC 3.52 L Hgb 11.9 L Hct 37.8 L MCV 107.4 H MCH 33.8 H MCHC 31.5 RDW 21.7 H Plt Count 105 L MPV 11.3 Immature Gran % (Auto) Cancelled Neut % (Auto) Cancelled Lymph % (Auto) Cancelled Woodruff % (Auto) Cancelled Eos % (Auto) Cancelled Baso % (Auto) Cancelled Lymph # (Auto) Cancelled Woodruff # (Auto) Cancelled Eos # (Auto) Cancelled Baso # (Auto) Cancelled Abs Immat Gran (auto) Cancelled Absolute Neuts (auto) Cancelled Absolute Nucleated RBC 3.680 H Nucleated RBC % (auto) 21.0 H Neutrophils % (Manual) 63 Band Neutrophils % 18 H Lymphocytes % (Manual) 7 L Atypical Lymphs % (Man) 3 Monocytes % (Manual) 2 Metamyelocytes % 4 Myelocytes % 3 Promyelocytes % 1 Abs Neuts (Manual) 14.3 H Lymphocytes # (Manual) 1.2 Atyp Lymphs # (Manual) 0.5 Monocytes # (Manual) 0.4 Metamyelocytes # 0.7 Myelocytes # 0.5 Promyelocytes # 0.2 Nucleated RBCs 34 H Smudge Cells PRESENT Toxic Vacuolation PRESENT Platelet Estimate SLIGHTLY DECREASED Large Platelets PRESENT Plt Morphology Comment NOTED RBC Morphology NOTED Polychromasia 1+ (0-2) Basophilic Stippling 1+ (0-2) Macrocytosis 1+ (5-14) Pappenheimer Bodies PRESENT VBG pH VBG pCO2 VBG pO2 VBG HCO3 VBG O2 Saturation VBG Base Excess Sodium 154 H Potassium 3.9 Chloride 117 H Carbon Dioxide 16 L Anion Gap 25 H BUN 68 H Creatinine 9.55 H* Estim Creat Clear Calc 11.2 Estimated GFR 6 POC Glucose 114 121 H Random Glucose 126 H Calcium 9.5 Phosphorus 2.2 L Magnesium 2.8 H Total Bilirubin 31.4 H AST 300 H ALT 86 H Alkaline Phosphatase 145 H Total Protein 5.9 L Albumin 3.7 Random Vancomycin 09/21/24 09/21/24 09/21/24 04:58 07:11 11:58 WBC RBC Hgb Hct MCV MCH MCHC RDW Plt Count MPV Immature Gran % (Auto) Neut % (Auto) Lymph % (Auto) Woodruff % (Auto) Eos % (Auto) Baso % (Auto) Lymph # (Auto) Woodruff # (Auto) Eos # (Auto) Baso # (Auto) Abs Immat Gran (auto) Absolute Neuts (auto) Absolute Nucleated RBC Nucleated RBC % (auto) Neutrophils % (Manual) Band Neutrophils % Lymphocytes % (Manual) Atypical Lymphs % (Man) Monocytes % (Manual) Metamyelocytes % Myelocytes % Promyelocytes % Abs Neuts (Manual) Lymphocytes # (Manual) Atyp Lymphs # (Manual) Monocytes # (Manual) Metamyelocytes # Myelocytes # Promyelocytes # Nucleated RBCs Smudge Cells Toxic Vacuolation Platelet Estimate Large Platelets Plt Morphology Comment RBC Morphology Polychromasia Basophilic Stippling Macrocytosis Pappenheimer Bodies VBG pH 7.36 VBG pCO2 30 VBG pO2 41 VBG HCO3 17 L VBG O2 Saturation 64.0 VBG Base Excess -6.6 Sodium Potassium Chloride Carbon Dioxide Anion Gap BUN Creatinine Estim Creat Clear Calc Estimated GFR POC Glucose 113 Random Glucose Calcium Phosphorus Magnesium Total Bilirubin AST ALT Alkaline Phosphatase Total Protein Albumin Random Vancomycin 21.7 H Preliminary micro results at discharge 09/17/24 20:04 Blood Culture - Preliminary Blood - Venous No growth after 48 hours. 09/17/24 20:04 Blood Culture - Preliminary Blood - Venous No growth after 48 hours. Discharge Plan Discharge Anticipated Discharge Date/Time: 09/21/24 15:41 Patient Disposition: Xfer Acute Care Hospital Discharge Diagnosis: Acute liver failure Referrals: Michael Aguila MD [Primary Care Provider] - 1 Week Discharge Medications: Discontinued Rexulti 2 mg tablet 2 mg PO DAILY Qty: 30 3RF buprenorphine-naloxone 8-2 mg film 1 film sublingual DAILY buprenorphine-naloxone [Suboxone] 4-1 mg Film 1 film SUBLINGUAL BEDTIME ropinirole 1 mg tablet 1 mg PO BID PRN (Reason: restless leg symptoms) clonidine HCl 0.2 mg tablet 0.2 mg PO BEDTIME PRN (Reason: Anxiety) Patient Comments: Medication is prescribed 0.1 mg TID patient takes 0.2 mg Q HS per old prescription. Hilaria [employer] is aware. gabapentin 100 mg capsule 100 mg PO BEDTIME PRN (Reason: restless leg symptoms) zolpidem 10 mg tablet 10 mg PO BEDTIME PRN (Reason: insomnia) 30 Days Qty: 30 1RF sildenafil 50 mg tablet 50 mg PO DAILY PRN (Reason: sexual activity) Qty: 10 0RF Rx Instructions: administer 30 minutes to 4 hours before activity escitalopram oxalate 20 mg tablet 20 mg PO DAILY 90 Days Qty: 90 1RF Discharge Orders: Discharge Order (Routine); Ordered 09/21/24 Ordered By: Selvin Robertson Activity on Discharge: bedbound Stand Alone Forms: Patient Portal Discharge page Print Language: Bahamian Care Plan Goals: Evaluation for CRRT Health Concerns: Acute liver failure, hepatorenal syndrome, acute respiratory failure with hypoxia, toxic metabolic encephalopathy Plan of Treatment: Plan: Neuro: Toxic metabolic encephalopathy secondary to acute liver failure and likely delirium tremens. Continue lactulose/rifampin. Cardiac: A flutter with RVR now requiring amiodarone drip and digoxin load. Pulmonary: Acute hypoxic respiratory failure secondary to pulmonary edema on a background of hepatorenal syndrome now requiring intubation and ventilatory support. Renal: Acute renal failure secondary to hepatorenal syndrome. Oligoanuric. Continue albumin support. Will likely require CRRT. Accepted to [facility] for evaluation for possible CRRT.. Endo: No acute issues. GI: Acute liver failure on a background of chronic alcoholism and delirium tremens. Gastroenterology service care appreciated. Upper GI bleed, likely secondary to gastritis, hemoglobin stable. Continue PPI. Hepatorenal syndrome, worsening. ID: Continue empiric cefepime. Heme/Onc: No acute issues. Psych: No acute issues. Miscellaneous: No acute issues. Prophylaxis: PPI, pneumatic compression Diet: Tube feeds Assessment: Assessment: 53-year-old gentleman admitted with alcohol intoxication transitioning to delirium tremens further complicated by acute liver failure, hepatorenal syndrome, toxic metabolic encephalopathy, and acute hypoxic respiratory failure
[2024-09-21] MEDS: Chlorhexidine Gluc Oral Rinse 15 ML MOUTHWASH BUCCAL ×2 (16:24→19:33)
[2024-09-21] MEDS: Phenylephrine HCL 100 MG in 0.9 % Sodium Chloride 250 ML 75.82 MG IVCONT (16:27)
[2024-09-21 17:37] LABS: Glucose, Whole Blood 123 mg/dL (60-115)
--- NOTE | 2024-09-21 17:37 | PC.NURSE ---
Assumed care at 0700. Pt temps elevated, ice packs reapplied to good effect. Pt able to follow some commands, opens eyes to voice. Pt intubated at approx 1000 for respiratory distress and in preparation for possible transfer to [facility]. Blood pressures dropped after intubation, levophed added by to cross titrate with phenylephrine. See MAR for titration details. Due to delay in preparation of high concentration levo, regular concentration levo was used as a stop gap for cross titration purposes. Report given to Vincent OSHEA at [facility] at approx 1530. Pt will be going to [facility] A rOOM [id number]. [employer] declined flying pt due to bad weather. Pt will be transported by [employer]?[facility] ground transport after change of shift. See MAR for medication details. Pt repositioned q2hr. Bed locked and in lowest position.
[2024-09-21] MEDS: cefEPime HCl/D5W 2 GM/50 ML PIGGYBACK IV (19:33)
== END 2024-09-21 21:00 | disposition short-term general hospital (02) | DRG 816 ==
LOC: HO.ED 11:35 → HO.EDOVER 12:22 → HO.IMC 18:07 → HO.ICU 09-17 09:05
PROVIDERS: Hospitalist; Internal Medicine; Internal Medicine Critical Care Medicine; Nurse Practitioner Family; Student in an Organized Health Care Education/Training Program; Admitting Provider Student in an Organized Health Care Education/Training Program; Emergency Provider Emergency Medicine; PCP Internal Medicine; Visit Provider Internal Medicine Pulmonary Disease
DX: T51.0X1A Toxic effect of ethanol, accidental (unintentional), initial encounter (principal); K72.00 Acute and subacute hepatic failure without coma; G92.8 Other toxic encephalopathy; K76.7 Hepatorenal syndrome; K83.1 Obstruction of bile duct; E87.4 Mixed disorder of acid-base balance; J96.01 Acute respiratory failure with hypoxia; F10.231 Alcohol dependence with withdrawal delirium; K72.10 Chronic hepatic failure without coma; E88.89 Other specified metabolic disorders; I27.20 Pulmonary hypertension, unspecified; I42.6 Alcoholic cardiomyopathy; K70.10 Alcoholic hepatitis without ascites; F17.290 Nicotine dependence, other tobacco product, uncomplicated; F31.9 Bipolar disorder, unspecified; Z71.6 Tobacco abuse counseling; N17.9 Acute kidney failure, unspecified; K29.71 Gastritis, unspecified, with bleeding; F10.229 Alcohol dependence with intoxication, unspecified; K76.82 Hepatic encephalopathy; Z86.19 Personal history of other infectious and parasitic diseases; M79.81 Nontraumatic hematoma of soft tissue; E86.1 Hypovolemia; N39.0 Urinary tract infection, site not specified; Y90.8 Blood alcohol level of 240 mg/100 ml or more; E87.1 Hypo-osmolality and hyponatremia; F19.90 Other psychoactive substance use, unspecified, uncomplicated; F11.20 Opioid dependence, uncomplicated; F41.9 Anxiety disorder, unspecified; Z20.822 Contact with and (suspected) exposure to COVID-19
CPT/HCPCS: 36415; 70450; 70551; 71045; 74176; 76705; 80048; 80053; 80076; 80179; 80202; 80307; 80320; 81001; 82010; 82140; 82248; 82436; 82550; 82693; 82803; 82947; 83036; 83605; 83690; 83735; 83880; 83930; 83935; 84100; 84133; 84300; 84443; 84478; 84484; 85007; 85025; 85027; 85610; 86140; 86704; 86706; 86709; 86803; 86850; 86900; 86901; 86920; 87040; 87086; 87340; 87522; 87633; 93005; 93306; 93970; 94002; 94799; 95816; 99285; J0282; J0283; J0692; J0696; J1160; J1650; J1808; J1938; J1939; J2371; J2405; J2470; J2560; J2704; J2765; J3370; J3411; J3475; J3480; J7120; P9016; P9047; Q9957; S9485

== ENCOUNTER → 2024-09-11 10:21 | Outpatient (BNV) | payer OTHER, SELFPAY | PROVIDERS: Emergency Provider Emergency Medicine; PCP Internal Medicine; Visit Provider Internal Medicine Cardiovascular Disease | DX: R00.0 Tachycardia, unspecified (principal) | CPT/HCPCS: 93010 ==

== ENCOUNTER 2024-09-11 12:21 | Outpatient (BNV) | payer OTHER, SELFPAY | END 2024-09-17 08:10 | PROVIDERS: Admitting Provider Student in an Organized Health Care Education/Training Program; Emergency Provider Emergency Medicine; PCP Internal Medicine; Visit Provider Radiology Diagnostic Radiology | DX: J98.4 Other disorders of lung (principal) | CPT/HCPCS: 71045 ==

== ENCOUNTER 2024-09-11 12:21 | Outpatient (BNV) | payer OTHER, SELFPAY | END 2024-09-16 09:00 | PROVIDERS: Admitting Provider Student in an Organized Health Care Education/Training Program; Emergency Provider Emergency Medicine; PCP Internal Medicine; Visit Provider Internal Medicine | DX: I42.8 Other cardiomyopathies (principal); I35.8 Other nonrheumatic aortic valve disorders | CPT/HCPCS: 93306 ==

== ENCOUNTER 2024-09-11 12:21 | Outpatient (BNV) | payer OTHER, SELFPAY | END 2024-09-21 10:15 | PROVIDERS: Admitting Provider Student in an Organized Health Care Education/Training Program; Emergency Provider Emergency Medicine; PCP Internal Medicine; Visit Provider Radiology Diagnostic Radiology | DX: Z97.8 Presence of other specified devices (principal) | CPT/HCPCS: 71045 ==

== ENCOUNTER 2024-09-11 12:21 | Outpatient (BNV) | payer OTHER, SELFPAY | END 2024-09-14 12:05 | PROVIDERS: Admitting Provider Student in an Organized Health Care Education/Training Program; Emergency Provider Emergency Medicine; PCP Internal Medicine; Visit Provider Specialist | DX: R42 Dizziness and giddiness (principal); R05.9 Cough, unspecified | CPT/HCPCS: 70450; 71045 ==

== ENCOUNTER 2024-09-11 12:21 | Outpatient (BNV) | payer OTHER, SELFPAY | END 2024-09-19 09:20 | PROVIDERS: Admitting Provider Student in an Organized Health Care Education/Training Program; Emergency Provider Emergency Medicine; PCP Internal Medicine; Visit Provider Radiology Diagnostic Radiology | DX: R16.0 Hepatomegaly, not elsewhere classified (principal); K76.0 Fatty (change of) liver, not elsewhere classified; K72.90 Hepatic failure, unspecified without coma | CPT/HCPCS: 74176; 76705 ==

== ENCOUNTER 2024-09-11 12:21 | Outpatient (BNV) | payer OTHER, SELFPAY | END 2024-09-11 14:10 | PROVIDERS: Admitting Provider Student in an Organized Health Care Education/Training Program; Emergency Provider Emergency Medicine; PCP Internal Medicine; Visit Provider Radiology Diagnostic Radiology | DX: I51.7 Cardiomegaly (principal); J98.11 Atelectasis; R16.0 Hepatomegaly, not elsewhere classified | CPT/HCPCS: 71045; 74176 ==

== ENCOUNTER 2024-09-11 12:21 | Outpatient (BNV) | payer OTHER, SELFPAY | END 2024-09-18 22:48 | PROVIDERS: Admitting Provider Student in an Organized Health Care Education/Training Program; Emergency Provider Emergency Medicine; PCP Internal Medicine; Visit Provider Internal Medicine | DX: I48.92 Unspecified atrial flutter (principal); I44.39 Other atrioventricular block | CPT/HCPCS: 93010 ==

== ENCOUNTER 2024-09-11 12:21 | Outpatient (BNV) | payer OTHER, SELFPAY | END 2024-09-13 12:54 | PROVIDERS: Admitting Provider Student in an Organized Health Care Education/Training Program; Emergency Provider Emergency Medicine; PCP Internal Medicine; Visit Provider Radiology Diagnostic Radiology | DX: R18.8 Other ascites (principal) | CPT/HCPCS: 76705 ==

== ENCOUNTER 2024-09-11 12:21 | Outpatient (BNV) | payer OTHER, SELFPAY | END 2024-09-15 08:25 | PROVIDERS: Admitting Provider Student in an Organized Health Care Education/Training Program; Emergency Provider Emergency Medicine; PCP Internal Medicine; Visit Provider Internal Medicine Cardiovascular Disease | DX: R00.0 Tachycardia, unspecified (principal) | CPT/HCPCS: 93010 ==

== ENCOUNTER 2024-09-11 12:21 | Outpatient (BNV) | payer OTHER, SELFPAY | END 2024-09-15 11:25 | PROVIDERS: Admitting Provider Student in an Organized Health Care Education/Training Program; Emergency Provider Emergency Medicine; PCP Internal Medicine; Visit Provider Radiology Diagnostic Radiology | DX: G93.40 Encephalopathy, unspecified (principal); R22.43 Localized swelling, mass and lump, lower limb, bilateral; R91.8 Other nonspecific abnormal finding of lung field | CPT/HCPCS: 70551; 71045; 93970 ==

== ENCOUNTER → 2024-09-11 12:21 | Outpatient (BNV) | payer OTHER, SELFPAY | PROVIDERS: Admitting Provider Student in an Organized Health Care Education/Training Program; Emergency Provider Emergency Medicine; PCP Internal Medicine; Visit Provider Internal Medicine Cardiovascular Disease | DX: R60.1 Generalized edema (principal); R42 Dizziness and giddiness | CPT/HCPCS: 99222 ==

== ENCOUNTER → 2024-09-11 12:21 | Outpatient (BNV) | payer OTHER, SELFPAY | PROVIDERS: Admitting Provider Student in an Organized Health Care Education/Training Program; Emergency Provider Emergency Medicine; PCP Internal Medicine; Visit Provider Nurse Practitioner Psychiatric/Mental Health | DX: F11.20 Opioid dependence, uncomplicated (principal); F10.90 Alcohol use, unspecified, uncomplicated | CPT/HCPCS: 99232; 99499 ==

== ENCOUNTER → 2024-09-11 12:21 | Outpatient (BNV) | payer OTHER, SELFPAY | PROVIDERS: Admitting Provider Student in an Organized Health Care Education/Training Program; Emergency Provider Emergency Medicine; PCP Internal Medicine; Visit Provider Internal Medicine Gastroenterology | DX: K70.10 Alcoholic hepatitis without ascites (principal) | CPT/HCPCS: 99223 ==

== ENCOUNTER → 2024-09-11 12:21 | Outpatient (BNV) | payer OTHER, SELFPAY | PROVIDERS: Admitting Provider Student in an Organized Health Care Education/Training Program; Emergency Provider Emergency Medicine; PCP Internal Medicine; Visit Provider Internal Medicine Critical Care Medicine | DX: F10.230 Alcohol dependence with withdrawal, uncomplicated (principal); F31.4 Bipolar disorder, current episode depressed, severe, without psychotic features | CPT/HCPCS: 99222 ==

== ENCOUNTER → 2024-09-11 12:21 | Outpatient (BNV) | payer OTHER, SELFPAY | PROVIDERS: Admitting Provider Student in an Organized Health Care Education/Training Program; Emergency Provider Emergency Medicine; PCP Internal Medicine; Visit Provider Internal Medicine Hypertension Specialist | DX: N17.9 Acute kidney failure, unspecified (principal) | CPT/HCPCS: 99223; 99232; 99233 ==

== ENCOUNTER → 2024-09-11 12:21 | Outpatient (BNV) | payer OTHER, SELFPAY | PROVIDERS: Admitting Provider Student in an Organized Health Care Education/Training Program; Emergency Provider Emergency Medicine; PCP Internal Medicine; Visit Provider Internal Medicine Pulmonary Disease | DX: K72.00 Acute and subacute hepatic failure without coma (principal); G92.8 Other toxic encephalopathy; N17.9 Acute kidney failure, unspecified; B19.20 Unspecified viral hepatitis C without hepatic coma; F10.20 Alcohol dependence, uncomplicated; J96.01 Acute respiratory failure with hypoxia | CPT/HCPCS: 99291 ==

== ENCOUNTER → 2024-09-11 12:21 | Outpatient (BNV) | payer OTHER, SELFPAY | PROVIDERS: Admitting Provider Student in an Organized Health Care Education/Training Program; Emergency Provider Emergency Medicine; PCP Internal Medicine; Visit Provider Psychiatry & Neurology Neurology | DX: G92.8 Other toxic encephalopathy (principal) | CPT/HCPCS: 99222 ==

== ENCOUNTER → 2024-09-11 12:21 | Outpatient (BNV) | payer OTHER, SELFPAY | PROVIDERS: Admitting Provider Student in an Organized Health Care Education/Training Program; Emergency Provider Emergency Medicine; PCP Internal Medicine; Visit Provider Student in an Organized Health Care Education/Training Program | DX: K70.10 Alcoholic hepatitis without ascites (principal); R74.01 Elevation of levels of liver transaminase levels; E87.1 Hypo-osmolality and hyponatremia; F33.9 Major depressive disorder, recurrent, unspecified; F41.9 Anxiety disorder, unspecified | CPT/HCPCS: 99223; 99231; 99232; 99233; 99499 ==